=== PATIENT | female | born 1960 | race Caucasian/White ===

== ENCOUNTER 2016-12-25 18:27 | Inpatient (IN) | payer OTHER, MEDICAID ==
[2016-12-25 18:35] VITALS: BMI 33.0
--- NOTE | 2016-12-25 19:07 | ED PDOC ---
Arrival/HPI - General Chief Complaint: Back Pain Time Seen by Provider: 12/25/16 19:03 - History of Present Illness Narrative History of Present Illness (Text): 12/25/16 19:45 Patient presents with left lower lumbar back pain radiating to her left lower extremity. Pt states pain feels like a muscle spasm, worst with movement and palpation. No ripping/tearing sensation, pt is not diffuse and not traveling or changing location. Relieved with and pain medications, which patient did not take today. No lower extremity pain/weakness/paresthesias. Pt denies urinary incontinence or retention. No bowel incontinence, constipation, or diarrhea. No hx of IVDA, no f/c, no neck pain. No other complaints. Past Medical History - Provider Review Nursing Documentation Reviewed: Yes - Infectious Disease Hx of Infectious Diseases: None - Tetanus Immunization Tetanus Immunization: Unknown - Reproductive Menopause: Yes - Cardiac Hx Cardiac Disorders: Yes Hx Hypertension: Yes - Pulmonary Hx Respiratory Disorders: Yes Hx Asthma: Yes - Neurological Hx Neurological Disorder: Yes Hx Dizziness: Yes - HEENT Hx HEENT Disorder: No - Renal Hx Renal Disorder: No - Endocrine/Metabolic Hx Endocrine Disorders: Yes Hx Systemic Lupus Erythematosus: Yes - Hematological/Oncological Hx Blood Disorders: No - Integumentary Hx Dermatological Disorder: Yes Other/Comment: Shingles - Musculoskeletal/Rheumatological Hx Arthritis: Yes - Gastrointestinal Hx Gastrointestinal Disorders: Yes - Genitourinary/Gynecological Hx Genitourinary Disorders: No - Psychiatric Hx Psychophysiologic Disorder: Yes Hx Depression: Yes Hx Substance Use: No - Surgical History Hx Section: Yes - Anesthesia Hx Anesthesia: No - Suicidal Assessment Feels Threatened In Home Enviroment: No Family/Social History Family/Social History: Unknown Family HX Smoking Status: Never Smoked Hx Alcohol Use: No Hx Substance Use: No Hx Substance Use Treatment: No Allergies/Home Meds Allergies/Adverse Reactions: Allergies acetaminophen Allergy (Verified 11/30/16 11:42) RASH aspirin Allergy (Verified 11/30/16 11:42) RASH codeine Allergy (Verified 11/30/16 11:42) RASH ibuprofen Allergy (Verified 11/30/16 11:42) RASH Home Medications: Home Meds Medication Instructions Recorded Confirmed Clopidogrel [Plavix] 75 mg PO DAILY 04/22/16 07/01/16 DULoxetine [Cymbalta] 60 mg PO DAILY 04/22/16 07/01/16 Hydroxychloroquine Sulfate 200 mg PO DAILY 04/22/16 07/01/16 [Hydroxychloroquine Sulfate] Methotrexate [Methotrexate] 2.5 mg PO DAILY 04/22/16 07/01/16 Pantoprazole [Protonix EC Tab] 40 mg PO DAILY 04/22/16 07/01/16 Sucralfate [Carafate Oral Susp] 1 mg PO DAILY 04/22/16 07/01/16 Physical Exam - Physical Exam Narrative Physical Exam (Text): 12/25/16 19:54 - Review of Systems Constitutional: Normal. absent: Fatigue, Weight Change, Fevers Eyes: Normal ENT: denies sore throat, denies tristhmus Respiratory: Normal. absent: SOB, Cough, Sputum Cardiovascular: absent: Chest Pain, Palpitations, Syncope Gastrointestinal: Normal. absent: Abdominal Pain, Diarrhea, Nausea, Vomiting Genitourinary: Normal. absent: Dysuria, Frequency, Hematuria, vaginal bleeding Musculoskeletal: Back Pain. absent: Neck Pain Skin: no rashes, no erythema Neurological: absent: Focal Weakness Endocrine: Normal Hemo/Lymphatic: Normal Psychiatric: No suicidal or homicidal ideations Physical exam Patient appears age appropriate in no distress, speaking full sentences without difficulty Increased hypertonicity appreciated in the left lower lumbar region, pain reproduced with palpation. No midline tenderness. FROM of pt's cervical, thoracic, lumbar, and sacral regions appreciated, active/passive without any difficulty. Lower extremities with full neurological and vascular intact. - Systems Exam Head: Present: Atraumatic, Normocephalic Pupils: Present: PERRL Extroacular Muscles: Present: EOMI Conjunctiva: Present: Normal Mouth: Present: Moist Mucous Membranes Neck: Present: Normal Range of Motion. No: MIDLINE TENDERNESS, Paraspinal Tenderness Respiratory/Chest: Present: Clear to Auscultation, Good Air Exchange. No: Respiratory Distress, Accessory Muscle Use, Tachypneic Cardiovascular: Present: Regular Rate and Rhythm, Normal S1, S2, Peripheal Pulses Present. No: Murmurs Abdomen: Present: Normal Bowel Sounds. No: Tenderness, Distention, Peritoneal Signs, Rebound, Guarding Back: Present: No: Midline Tenderness Upper Extremity: Present: Normal Inspection. No: Cyanosis, Edema Lower Extremity: Present: Normal Inspection. No: Edema Neurological: Present: GCS=15, Speech Normal, cranial nerves II through XII fully intact with no cerebellar abnormality, neurosensory fully intact. No focal neurological deficits. Skin: Present: Warm, Dry, Normal Color. No: Rashes Lymphatic: Present: OX3, NI, NC Psychiatric: Present: Alert, Oriented x 3, Normal Insight, Normal Concentration Vital Signs Reviewed: Yes Vital Signs Temp Pulse Resp BP Pulse Ox 12/25/16 21:03 137 H 18 125/86 99 12/25/16 19:00 111 H 117/76 95 12/25/16 18:33 98.2 F 103 H 18 154/134 H 98 Temperature: Afebrile Blood Pressure: Hypertensive Pulse: Tachycardic Respiratory Rate: Normal Appearance: Positive for: Well-Appearing Pain Distress: Moderate Mental Status: Positive for: Alert and Oriented X 3 Medical Decision Making ED Course and Treatment: 12/25/16 19:07 Patient's previous records reviewed, patient was admitted into the hospital on , with acute on chronic back pain due to compression fractures. Per patient's discharge summaries, she had chronic compression fractures T8 and T9 as well as spinal fusion L4, L5. Patient's MRI showed acute on subacute P2H4-Y9 compression fracture fractures. Patient has been evaluated by neurosurgery which recommended bracing and physical therapy. 12/25/16 21:32 pt to be admitted for intractable back pain still in too much pain to ambulate after pain meds pt aware of and agrees with plan dw Dr. Maria, accepted admission - Lab Interpretations Lab Results: 12/25/16 19:57 12/25/16 19:57 Lab Results 12/25/16 20:40: Urine Color Yellow, Urine Appearance Clear, Urine pH 8.0, Ur Specific Cutler 1.020, Urine Protein Negative, Urine Glucose (UA) Negative, Urine Ketones Negative, Urine Blood Negative, Urine Nitrate Negative, Urine Bilirubin Negative, Urine Urobilinogen 0.2, Ur Leukocyte Esterase Negative 12/25/16 19:57: WBC 12.1 H D, RBC 4.28, Hgb 13.1, Hct 39.0, MCV 91.1, MCH 30.6, MCHC 33.6, RDW 13.7, Plt Count 207, MPV 10.8, Gran % 89.1 H, Lymph % (Auto) 5.6 L, Morrow % (Auto) 5.0, Eos % (Auto) 0.2 L, Baso % (Auto) 0.1, Gran # 10.77 H, Lymph # 0.7 L, Morrow # 0.6, Eos # 0.0, Baso # 0.01, Sodium 138, Potassium 4.6, Chloride 98, Carbon Dioxide 33, Anion Gap 12, BUN 14, Creatinine 1.0, Est GFR ( Amer) > 60, Est GFR (Non-Af Amer) 57, Random Glucose 112 H, Calcium 10.1 , Total Bilirubin 0.6, AST 34, ALT 27, Alkaline Phosphatase 138 H, Total Protein 7.8, Albumin 4.1, Globulin 3.7, Albumin/Globulin Ratio 1.1 - Medication Orders Current Medication Orders: Discontinued Medications Hydromorphone HCl (Dilaudid) 1 mg IVP STAT STA Stop: 12/25/16 20:33 Last Admin: 12/25/16 20:32 Dose: 1 MG IVP Administration Document 12/25/16 20:32 SF (Rec: 12/25/16 20:32 [place] [id number]) Charges for Administration # of IVP Administrations 1 Hydromorphone HCl (Dilaudid) Confirm Administered Dose 1 mg .ROUTE .STK-MED ONE Stop: 12/25/16 20:34 Morphine Sulfate (Morphine) 6 mg IVP STAT STA Stop: 12/25/16 19:18 Last Admin: 12/25/16 19:43 Dose: 6 MG IVP Administration Document 12/25/16 19:43 SF (Rec: 12/25/16 19:43 [place] [id number]) Charges for Administration # of IVP Administrations 1 Disposition/Present on Arrival - Present on Arrival Any Indicators Present on Arrival: No History of DVT/PE: No History of Uncontrolled Diabetes: No Urinary Catheter: No History of Decub. Ulcer: No History Surgical Site Infection Following: None - Disposition Have Diagnosis and Disposition been Completed?: Yes Diagnosis: Back pain Disposition: HOSPITALIZED Disposition Time: 21:33 Patient Plan: Admission Condition: FAIR
[2016-12-25 20:04] LABS: ADD MANUAL DIFF? NO
[2016-12-25 20:07] LABS: BASO # 0.01 K/mm3 (0.0-2.0); BASO % 0.1 % (0.0-3.0); EOS % 0.2 % (1.5-5.0); GRAN # 10.77 (1.4-6.5); GRAN % 89.1 % (50.0-68.0); LYMPH # 0.7 (1.2-3.4); LYMPH % 5.6 % (22.0-35.0); MEAN CELL VOLUME 91.1 fL (80.0-105.0); MEAN CORPUSCULAR HEMOGLOBIN 30.6 pg (25.0-35.0); MEAN CORPUSCULAR HGB CONC 33.6 g/dl (31.0-37.0); MEAN PLATELET VOLUME 10.8 fl (7.0-11.0); MONO # 0.6 (0.1-0.6); PLATELET COUNT 207 10^3/uL (120.0-450.0); RED CELL DISTRIBUTION WIDTH 13.7 % (11.5-14.5); WHITE BLOOD COUNT 12.1 10^3/ul (4.5-11.0)
[2016-12-25] MEDS ORDERED: HYDROmorphone 2 mg/ml ISec IVP STA (20:28)
[2016-12-25 20:32] LABS: ALB/GLOB RATIO 1.1 (1.1-1.8); ALKALINE PHOSPHATASE 138 U/L (38-133); ALT/SGPT 27 U/L (7-56); AST/SGOT 34 U/L (15-39); BILIRUBIN,TOTAL 0.6 mg/dL (0.2-1.3); BLOOD UREA NITROGEN 14 mg/dL (7-21); CALCIUM 10.1 mg/dL (8.4-10.5); CARBON DIOXIDE 33 mmol/L (21-33); CHLORIDE 98 mmol/L (98-107); GFR AFRICAN-AMERICAN > 60; GLUCOSE,RANDOM 112 mg/dL (70-110); POTASSIUM 4.6 mmol/L (3.6-5.0); SODIUM 138 mmol/L (132-148); TOTAL PROTEIN 7.8 g/dL (5.8-8.3)
[2016-12-25] MEDS ORDERED: HYDROmorphone 1 mg/ml ISec IVP STA (20:32)
[2016-12-25] MEDS ORDERED: HYDROmorphone 1 mg/ml ISec ONE (20:33)
[2016-12-25 20:52] LABS: URINE BILIRUBIN NEGATIVE (NEGATIVE); URINE BLOOD NEGATIVE (NEGATIVE); URINE GLUCOSE (UA) NEGATIVE (NEGATIVE); URINE KETONE NEGATIVE (NEGATIVE); URINE LEUKOCYTE ESTERASE NEGATIVE Leu/uL (NEGATIVE); URINE PROTEIN NEGATIVE mg/dL (<30 mg/dL); URINE UROBILINOGEN 0.2 E.U./dL (<1 E.U./dL)
[2016-12-25 20:56] LABS: URINE APPEARANCE CLEAR (CLEAR); URINE COLOR YELLOW (YELLOW)
[2016-12-25] MEDS ORDERED: HYDROmorphone 0.5 mg/0.5 ml ISec IVP STA (22:37)
[2016-12-25] MEDS ORDERED: Oxycodone/Acetaminophen 5/325 mg Tab PO PRN (23:37)
[2016-12-25] MEDS ORDERED: MethylPREDNISolone 40 mg Vial IVP STA (23:37)
--- NOTE | 2016-12-26 01:33 | CP.PCM.HP ---
Addendum entered and electronically signed by Thad Page DO 12/26/16 17: 38: Pt had urinary retention (900 cc). Neurosurgery, Dr. Hinds, was consulted. Cervical, thoracic, lumbar spine MRI was ordered to rule out cauda equina syndrome. Rectal exam revealed normal sphincter tone and pt had normal sensory and motor function in b/l lower extremities, although it was difficult to do a proper exam due to pt's pain. Spine MRI revealed new T12 compression fracture as well as chronic compression fractures. Case and imaging were discussed over the phone in detail with Dr. Hinds, who stated that emergency surgery was not needed. As per Dr. Hinds, the pt needs pain management and a back brace. Neurosurgery will follow pt. Original Note: History of Present Illness - History of Present Illness History of Present Illness: CC: Intractable back pain HPI: This is a 56 yo F with PMH of SLE, CAD, [place] (2 yr prior), hx DVT and questionable PE s/p IVC filter placement, and compression fractures of T8, T9, L4, and L5 s/p Lumbar fusion who presents with intractable back pain progressively worsening for 1 week. Patient was recently seen and discharged from [facility] on 12/05/16 for similar complaint, and was discharge home with medications and a back brace, with instructions to follow up with physical therapy. Per patient, she has been taking her medications and using the back brace, without any relief, but never followed up with PT due to her pain. She reports that the pain is worse with most movement, and is significant enough to limit her movement, to the point that she could not get up go the bathroom today and ended up soiling herself in bed. Describes pain initially as burning pain, intermittently progressing to sharp and/or shocking pains. Patient denies loss of control of bowels or bladder, but does note not having a bowel movement for 3 days. She denies loss of sensation in lower or upper extremities , loss of movement or strength (movement is strictly limited by pain), fevers, cough, chest pain, shortness of breath, lower extremity swelling, calf tenderness, blurred/double vision, nausea/emesis, or dysuria/hematuria. PMH: as above PSH: lumbar spinal fusion, IVC filter placement FHx: Mother with [place] in her 50's SHx: denies smoking, alcohol, illicits/IVDA not working currently Lives with daughter who is primary caregiver PMD: Dr. Ruiz Present on Admission - Present on Admission Any Indicators Present on Admission: Yes History of DVT/PE: Yes History of Uncontrolled Diabetes: No Urinary Catheter: No Review of Systems - Review of Systems Systems not reviewed;Unavailable: Language Barrier (Malian-speaking, Video benefits sales consultant used) - Constitutional Constitutional: Chills, Headache (intermittent, not present at time of exam). absent: Fever, Frequent Falls, Weakness - EENT Eyes: absent: Blurred Vision, Change in Vision, Loss of Vision Ears: absent: Disequilibrium, Dizziness Nose/Mouth/Throat: Neck Pain (intermittent, not present at time of exam). absent: Mouth Pain - Cardiovascular Cardiovascular: Dyspnea (concurrent with exacerbations of back pain, otherwise regular breathing). absent: Chest Pain, Chest Pain with Activity, Pain Radiating to Arm/Neck/Jaw, Lightheadedness - Respiratory Respiratory: Dyspnea (concurrent with exacerbations of back pain, otherwise regular breathing). absent: Cough - Gastrointestinal Gastrointestinal: Constipation (no BM x3 days). absent: Abdominal Pain, Diarrhea, Nausea, Vomiting - Genitourinary Genitourinary: absent: Dysuria, Flank Pain, Hematuria - Musculoskeletal Musculoskeletal: Back Pain (acute exacerbations on chronic back pain, primarily described as lower back), Neck Pain (intermittently, not present at time of exam ), Radiating Pain into Limb (back pain intermittently described as extending into legs, L leg more than R leg). absent: Joint Swelling, Numbness - Integumentary Integumentary: absent: Pruritus, Rash - Neurological Neurological: Headaches. absent: Disequilibrium, Dizziness, Numbness, Focal Weakness, Frequent Falls, Loss of Vision, Vertigo, Weakness, Other Visual Disturbances - Psychiatric Psychiatric: Anxiety - Endocrine Endocrine: absent: Fatigue, Palpitations Past Patient History - Infectious Disease Hx of Infectious Diseases: None - Tetanus Immunizations Tetanus Immunization: Unknown - Past Social History Smoking Status: Never Smoked - CARDIAC Hx Cardiac Disorders: Yes Hx Hypertension: Yes - PULMONARY Hx Respiratory Disorders: Yes Hx Asthma: Yes - NEUROLOGICAL Hx Neurological Disorder: Yes Hx Dizziness: Yes - HEENT Hx HEENT Problems: No - RENAL Hx Chronic Kidney Disease: No - ENDOCRINE/METABOLIC Hx Endocrine Disorders: Yes Hx Systemic Lupus Erythematosus: Yes - HEMATOLOGICAL/ONCOLOGICAL Hx Blood Disorders: No - INTEGUMENTARY Hx Dermatological Problems: Yes Other/Comment: Shingles - MUSCULOSKELETAL/RHEUMATOLOGICAL Hx Arthritis: Yes - GASTROINTESTINAL Hx Gastrointestinal Disorders: Yes - GENITOURINARY/GYNECOLOGICAL Hx Genitourinary Disorders: No - PSYCHIATRIC Hx Psychophysiologic Disorder: Yes Hx Depression: Yes Hx Substance Use: No - SURGICAL HISTORY Hx Section: Yes - ANESTHESIA Hx Anesthesia: No Meds Allergies/Adverse Reactions: Allergies Allergy/AdvReac Type Severity Reaction Status Date / Time acetaminophen Allergy RASH Verified 11/30/16 11:42 aspirin Allergy RASH Verified 11/30/16 11:42 codeine Allergy RASH Verified 11/30/16 11:42 ibuprofen Allergy RASH Verified 11/30/16 11:42 Physical Exam - Constitutional Appears: Non-toxic, In Acute Distress (2/2 exacerbations of back pain), Agitated Additional comments: When not experiencing pain spasms, patient is not agitated and answers questions appropriately; agitated 2/2 acute back spasms/pain exacerbations - Head Exam Head Exam: ATRAUMATIC, NORMAL INSPECTION, NORMOCEPHALIC - Eye Exam Eye Exam: EOMI, Normal appearance. absent: Conjunctival injection, Scleral icterus Pupil Exam: absent: Irregular, Unequal - ENT Exam ENT Exam: Mucous Membranes Moist - Neck Exam Neck exam: Negative for: Tenderness - Respiratory Exam Respiratory Exam: Clear to Auscultation Bilateral, NORMAL BREATHING PATTERN. absent: Decreased Breath Sounds, Rales, Rhonchi, Wheezes - Cardiovascular Exam Cardiovascular Exam: Tachycardia, REGULAR RHYTHM, +S1, +S2. absent: Diastolic murmur, Irregular Rhythm, RRR, Systolic Murmur Additional comments: Rapid rate, regular rhythm - GI/Abdominal Exam GI & Abdominal Exam: Normal Bowel Sounds, Soft, Tenderness (primarily along bilateral inferior quadrants). absent: Diminished Bowel Sounds, Firm, Rigid - Extremities Exam Extremities exam: Positive for: pedal pulses present (+2 dorsalis pedis bilaterally). Negative for: calf tenderness, pedal edema, tenderness ( extremity movement causes pain in back, but no acute tenderness of extremities themselves) Additional comments: +5/5 foot extension/flexion bilaterally able to hold legs up above bed against gravity without overt difficulty for at least 5 seconds bilaterally, no tremors or drift during this testing sensation intact and equal bilaterally in bilateral LE No edema or erythema bilaterally - Back Exam Back exam: muscle spasm, paraspinal tenderness, tenderness, vertebral tenderness. absent: rash noted Additional comments: Exquisitely tender along T7-9 region, tenderness to palpation along T10-L5 region No step off palpated Wearing back brace Unable to sit up without pain, spasms when lying left lateral-recumbent - Neurological Exam Neurological exam: Alert Additional comments: +2/4 patellar reflexes bilaterally downgoing 1st metacarpal on plantar reflex testing bilaterally - Psychiatric Exam Psychiatric exam: Agitated, Anxious - Skin Skin Exam: Dry, Intact, Normal Color, Warm Results - Vital Signs Recent Vital Signs: Last Vital Signs Temp 98 F 12/25/16 23:36 Pulse 121 H 12/25/16 23:36 Resp 19 12/25/16 23:36 BP 130/71 12/25/16 23:36 Pulse Ox 98 12/25/16 23:36 - Labs Result Diagrams: 12/25/16 19:57 12/25/16 19:57 Assessment & Plan - Assessment and Plan (Free Text) Assessment: This is a 56 yo F with PMH of SLE, CAD, [place] (2 yr prior), hx DVT and questionable PE s/p IVC filter placement, and compression fractures of T8, T9, L4, and L5 s/p Lumbar fusion who presents with intractable back pain progressively worsening for 1 week. She is being admitted and treated for intractable back pain with concurrent impairment of mobility. Plan: 1) Intractable back pain -Acute on chronic back pain vs new compression fracture vs radiculitis, less likely cauda equina syndrome -impaired mobility due to pain -On physical, most acute site of back pain at ~T7-9 -Was seen by neurosurgery during last admission, was found to have acute/ subacute L2-4 compression fractures on MRI; Back brace + PT recommended at that time -Neurologically intact, sensation intact and equal in bilateral lower extremity , no loss of bowel or bladder control -Received IV dilaudid in ED; Percocet 5/325mg q6 PRN for pain, Valium 5mg q6 PRN for muscle spasm -Solumedrol 40mg IV x1 for possible inflammatory component, will start on daily Prednisone 40mg in AM -PT/OT consulted -Continue home TLSO brace -Will reassess after adequate pain control, if unable to control with aggressive measures or deficit is noted on exam, will likely require new spinal imaging 2) Constipation -No BM x3 days as per patient -likely 2/2 chronic pain medication, bed bound state -Miralax 17g daily 3) CAD, s/p [place] -continue home cardiac meds -current tachycardia likely 2/2 pain 4) SLE -continue home meds 5) Hx DVT +/- PE -s/p IVC filter -will cover with Heparin for DVT/PE ppx Dispo: Admitted to Med/Surg as inpatient for management/tx of intractable back pain inhibiting movement FEN: Heart-healthy diet Access: Peripheral IV Consults: PT/OT Ppx: Heparin for DVT/PE, Protonix for GI Patient seen, reviewed, and discussed with attending, Dr Maria. - Date & Time Date: 12/26/16 Time: 02:13
[2016-12-26 05:48] LABS: HEMATOCRIT 36.3 % (36.0-48.0); MEAN CELL VOLUME 90.5 fL (80.0-105.0); MEAN CORPUSCULAR HEMOGLOBIN 30.4 pg (25.0-35.0); MEAN CORPUSCULAR HGB CONC 33.6 g/dl (31.0-37.0); MEAN PLATELET VOLUME 11.3 fl (7.0-11.0); PLATELET COUNT 196 10^3/uL (120.0-450.0); RED CELL DISTRIBUTION WIDTH 13.8 % (11.5-14.5); WHITE BLOOD COUNT 14.4 10^3/ul (4.5-11.0)
[2016-12-26 06:06] LABS: ADD MANUAL DIFF? YES
[2016-12-26] MEDS: Metoprolol Succinate 25 mg XL Tab PO SCH ×2 (06:19→12:06)
[2016-12-26 06:56] LABS: NEUTROPHIL 92 % (50.0-70.0)
[2016-12-26 06:57] LABS: PLATELET ESTIMATE NORMAL (NORMAL)
[2016-12-26 06:59] LABS: ALB/GLOB RATIO 1.1 (1.1-1.8); ALKALINE PHOSPHATASE 119 U/L (38-133); ALT/SGPT 28 U/L (7-56); AST/SGOT 26 U/L (15-39); BILIRUBIN,TOTAL 0.4 mg/dL (0.2-1.3); BLOOD UREA NITROGEN 15 mg/dL (7-21); CALCIUM 9.6 mg/dL (8.4-10.5); CARBON DIOXIDE 28 mmol/L (21-33); CHLORIDE 97 mmol/L (95-110); GFR AFRICAN-AMERICAN > 60; GLUCOSE,RANDOM 124 mg/dL (70-110); MAGNESIUM 1.6 mg/dL (1.7-2.2); PHOSPHOROUS 3.6 mg/dL (2.5-4.5); POTASSIUM 4.3 mmol/L (3.6-5.0); SODIUM 137 mmol/L (132-148)
[2016-12-26] MEDS ORDERED: Magnesium Sulfate 2 GM in Sodium Chloride 0.9% 100 ML IVPB ONE (07:35)
[2016-12-26] MEDS ORDERED: Morphine 2 mg/ml ISec IVP PRN (07:40)
[2016-12-26] MEDS ORDERED: Morphine 4 mg/ml ISec IVP PRN (07:41)
[2016-12-26] MEDS: Pantoprazole 40 mg EC Tab PO SCH (09:07)
[2016-12-26] MEDS: POLYETHYLENE GLYCOL 3350 17 GM/Dose PACKET PO SCH (09:07)
--- NOTE | 2016-12-26 12:04 | RAD ---
HISTORY: fever, leukocytosis COMPARISON: 11/30/2016, 04/19/2016. TECHNIQUE: Chest PA and lateral FINDINGS: LUNGS: Consolidative changes/atelectasis right lower lobe. These are new findings. PLEURA: No significant pleural effusion identified. No pneumothorax apparent. CARDIOVASCULAR: Cardiomegaly. No evidence of acute, significant cardiovascular disease. OSSEOUS STRUCTURES: No significant abnormalities. VISUALIZED UPPER ABDOMEN: Normal. OTHER FINDINGS: None. IMPRESSION: Right lower lobe atelectasis/ infiltrate. Limitations of the current examination: Poor inspiratory effort, portable/ supine technique accentuating these findings.
[2016-12-26] MEDS: Hydrocortisone 1% Cream (30 GM) TOP SCH ×2 (12:08→17:14)
--- NOTE | 2016-12-26 14:23 | MRI ---
PROCEDURE: MR THORACIC SPINE WITHOUT CONTRAST HISTORY: Back pain and spams COMPARISON: 12/01/2016 TECHNIQUE: Multiecho multiplanar sequences were performed through the thoracic spine without the use of intravenous contrast. The patient was unable to complete all of the axial images. There was some motion artifact. FINDINGS: ALIGNMENT: Normal thoracic spinal alignment. Normal thoracic kyphosis. VERTEBRA: There is a new compression fracture at T12. There is marrow edema. Vertebral height is 12 mm compared to were normal of 16 mm. There is no retropulsion into the spinal canal. There is a chronic compression deformity of T9 and T6 as well as L2 and L3. MARROW: Marrow edema at T12 PARASPINAL SOFT TISSUES: Unremarkable. CORD: Unremarkable thoracic cord. No volume loss, signal abnormality or syrinx. DISCS: No disc herniation, spinal canal stenosis, or neuroforaminal narrowing. OTHER FINDINGS: None. IMPRESSION: New acute T12 compression fracture with no encroachment of the spinal canal. Multiple chronic compression fractures
--- NOTE | 2016-12-26 16:54 | MRI ---
PROCEDURE: MR LUMBAR SPINE WITHOUT CONTRAST HISTORY: Back pain and spams COMPARISON: 12/01/2016 TECHNIQUE: Multiecho multiplanar sequences were performed through the lumbar spine without the use of intravenous contrast. FINDINGS: Normal lumbar lordosis. There is no change in the appearance of the previously described compression fractures at L2 and L3. There is a new compression fracture of T12 which was reported on the thoracic spine exam. Conus medullaris unremarkable at the level of L1 Paraspinal soft tissues are unremarkable. OTHER FINDINGS: Previous fusion at L5-S1 with pedicle screws and rods. IMPRESSION: No change in appearance of previously described compression fractures at L2 and L3 New compression fracture of T12
--- NOTE | 2016-12-26 16:58 | MRI ---
PROCEDURE: MR CERVICAL SPINE WITHOUT CONTRAST HISTORY: Back pain and spams COMPARISON: None available. TECHNIQUE: Multiecho multiplanar sequences were performed through the cervical spine without the use of intravenous contrast. The study was mildly degraded by motion artifact. FINDINGS: Normal lordotic curvature. Craniocervical junction unremarkable. Vertebral body heights preserved. No marrow signal abnormality. Normal cervical cord. There is multilevel disc degeneration with desiccation of the disc material and mild disc bulging. No significant stenosis OTHER FINDINGS: None. IMPRESSION: No evidence of compression fracture or spinal stenosis in the cervical spine
[2016-12-26] MEDS: HYDROmorphone 2 mg/ml ISec IVP PRN ×2 (17:12→21:33)
[2016-12-27] MEDS: HYDROmorphone 2 mg/ml ISec IVP PRN ×3 (00:37→09:49)
--- NOTE | 2016-12-27 01:00 | CP.PCM.PCO ---
Physician Communication Note - Physician Communication Note Physician Communication Note: chart reviewed. On Rocephin. Noted fever. Consult to be done tomorrow
[2016-12-27 07:20] LABS: ADD MANUAL DIFF? NO
[2016-12-27 07:28] LABS: BASO # 0.01 K/mm3 (0.0-2.0); BASO % 0.1 % (0.0-3.0); GRAN # 8.64 (1.4-6.5); GRAN % 90.3 % (50.0-68.0); LYMPH # 0.4 (1.2-3.4); MEAN CELL VOLUME 90.9 fL (80.0-105.0); MEAN CORPUSCULAR HEMOGLOBIN 30.4 pg (25.0-35.0); MEAN CORPUSCULAR HGB CONC 33.4 g/dl (31.0-37.0); MEAN PLATELET VOLUME 10.9 fl (7.0-11.0); MONO # 0.5 (0.1-0.6); MONO % 5.6 % (1.0-6.0); PLATELET COUNT 144 10^3/uL (120.0-450.0); RED CELL DISTRIBUTION WIDTH 14.1 % (11.5-14.5); WHITE BLOOD COUNT 9.6 10^3/ul (4.5-11.0)
[2016-12-27 07:37] LABS: ALB/GLOB RATIO 1.1 (1.1-1.8); BILIRUBIN,TOTAL 0.4 mg/dL (0.2-1.3); MAGNESIUM 2.2 mg/dL (1.7-2.2); POTASSIUM 4.4 mmol/L (3.6-5.0); TOTAL PROTEIN 6.9 g/dL (5.8-8.3)
--- NOTE | 2016-12-27 09:36 | CP.PCM.PN ---
Subjective - Date & Time of Evaluation Date of Evaluation: 12/27/16 Time of Evaluation: 09:34 - Subjective Subjective: pt ween in consult last month has increased lbp New comp fx T12 on new MRI No cord compression anywhere Uninary retention probably 2 to pain Not surgical candidate Exam shows sever thoracic tenderness good le strenth no dec to pin Suggest Pain managment or perhaps interventional radiology for vertebroplasty Objective - Vital Signs/Intake and Output Vital Signs (last 24 hours): Temp Pulse Resp BP Pulse Ox 99.8 F H 129 H 17 129/97 H 99 12/27/16 08:00 12/27/16 08:00 12/27/16 08:00 12/27/16 08:00 12/27/16 08:00 Intake and Output: 12/27/16 12/27/16 06:59 18:59 Intake Total 120 Output Total 200 Balance -80 - Medications Medications: Current Medications Clopidogrel Bisulfate (Plavix) 75 mg PO DAILY [facility] Last Admin: 12/26/16 09:20 Dose: 75 mg Cyclobenzaprine HCl (Flexeril) 10 mg PO TID PRN PRN Reason: Muscle spasm Last Admin: 12/26/16 17:19 Dose: 10 mg Diazepam (Valium) 5 mg PO Q6H PRN; Protocol PRN Reason: Muscle spasm Last Admin: 12/26/16 09:06 Dose: 5 mg Duloxetine HCl (Cymbalta) 60 mg PO DAILY [facility] Last Admin: 12/26/16 09:07 Dose: 60 mg Fentanyl (Duragesic) 1 patch TD Q72H [facility] Last Admin: 12/26/16 18:41 Dose: 1 patch Gabapentin (Neurontin) 300 mg PO BID [facility] PRN Reason: Protocol Last Admin: 12/26/16 17:13 Dose: 300 mg Heparin Sodium (Porcine) (Heparin) 5,000 units SC Q12 [facility] PRN Reason: Protocol Last Admin: 12/26/16 21:25 Dose: 5,000 units Hydrocortisone (Cortizone 1% Cream) 0 gm TOP BID [facility] Last Admin: 12/26/16 17:14 Dose: Not Given Hydromorphone HCl (Dilaudid) 2 mg IVP Q3 PRN PRN Reason: Pain, severe (8-10) Last Admin: 12/27/16 06:01 Dose: 2 mg Hydroxychloroquine Sulfate (Plaquenil) 200 mg PO DAILY [facility] Last Admin: 12/26/16 09:06 Dose: 200 mg Ceftriaxone Sodium (Rocephin 1 Gram Ivpb) 100 mls @ 100 mls/hr IVPB ONCE ONE PRN Reason: Protocol Stop: 12/27/16 13:44 Ceftriaxone Sodium (Rocephin 1 Gram Ivpb) 100 mls @ 100 mls/hr IVPB DAILY [facility] PRN Reason: Protocol Ketorolac Tromethamine (Toradol) 30 mg IVP Q6H PRN PRN Reason: Pain, severe (8-10) Methotrexate (Methotrexate) 2.5 mg PO DAILY [facility] Metoprolol Succinate (Toprol Xl) 25 mg PO DAILY [facility] Last Admin: 12/26/16 12:06 Dose: Not Given Pantoprazole Sodium (Protonix Ec Tab) 40 mg PO DAILY [facility] Last Admin: 12/26/16 09:07 Dose: 40 mg Polyethylene Glycol (Miralax) 17 gm PO DAILY [facility] Last Admin: 12/26/16 09:07 Dose: 17 gm Prednisone (Prednisone Tab) 40 mg PO DAILY [facility] Last Admin: 12/26/16 09:07 Dose: 40 mg Sucralfate (Carafate Tab) 1 gm PO DAILY [facility] - Labs Labs: 12/27/16 07:10 12/27/16 07:10
[2016-12-27] MEDS: Hydrocortisone 1% Cream (30 GM) TOP SCH ×2 (09:43→17:58)
[2016-12-27] MEDS: Metoprolol Succinate 25 mg XL Tab PO SCH (09:48)
[2016-12-27] MEDS: Pantoprazole 40 mg EC Tab PO SCH (09:48)
[2016-12-27] MEDS: POLYETHYLENE GLYCOL 3350 17 GM/Dose PACKET PO SCH (09:49)
[2016-12-27] MEDS: cefTRIAXone 1 gm 100 ML IVPB SCH (09:50)
[2016-12-27] MEDS ORDERED: cefTRIAXone 1 gm 100 ML IVPB ONE (12:45)
[2016-12-27] MEDS ORDERED: HYDROmorphone 2 mg/ml ISec IVP PRN (17:50)
--- NOTE | 2016-12-27 17:59 | CP.PCM.CON ---
History of Present Illness - History of Present Illness History of Present Illness: Infectious Disease Consultation: December 27, 2016 56 yo female with extensive past medical history showing SLE, CAD, OR ( 2 yr prior), hx DVT and questionable PE s/p IVC filter placement, and compression fractures of T8, T9, L4, and L5 s/p Lumbar fusion recently discharge from [facility] [place] presents with intractable back pain and findings of new compression fracture of T12. Blood culture with gram positive cocci with FISH analysis suggesting Staph Aureus. The patient is awake and in pain. No neurosurgical interventions at this time. No relief with back brace for pain. Fevers up to 100.9 F. PMHx: SLE, CAD, OR (2 yr prior), hx DVT and questionable PE s/p IVC filter placement, and compression fractures of T8, T9, L4, and L5 s/p Lumbar fusion PSHx: Lumbar Spinal Fusion, IVC Filter placement Allergies: acetaminophen, aspirin, codeine, ibuprofen Social Hx: No tobacco, EtOH, or illicit drug use Active Medications Clopidogrel Bisulfate (Plavix) 75 mg PO DAILY [facility] Last Admin: 12/27/16 09:48 Dose: 75 mg Cyclobenzaprine HCl (Flexeril) 10 mg PO TID PRN PRN Reason: Muscle spasm Last Admin: 12/27/16 09:48 Dose: 10 mg Diazepam (Valium) 5 mg PO Q6H PRN; Protocol PRN Reason: Muscle spasm Last Admin: 12/26/16 09:06 Dose: 5 mg Duloxetine HCl (Cymbalta) 60 mg PO DAILY [facility] Last Admin: 12/27/16 09:48 Dose: 60 mg Fentanyl (Duragesic) 1 patch TD Q72H [facility] Last Admin: 12/26/16 18:41 Dose: 1 patch Gabapentin (Neurontin) 300 mg PO BID [facility] PRN Reason: Protocol Last Admin: 12/27/16 09:48 Dose: 300 mg Heparin Sodium (Porcine) (Heparin) 5,000 units SC Q12 [facility] PRN Reason: Protocol Last Admin: 12/27/16 09:49 Dose: 5,000 units Hydrocortisone (Cortizone 1% Cream) 0 gm TOP BID [facility] Last Admin: 12/27/16 09:43 Dose: 1 appl Hydromorphone HCl (Dilaudid) 1 mg IVP Q3 PRN PRN Reason: Pain, severe (8-10) Hydroxychloroquine Sulfate (Plaquenil) 200 mg PO DAILY [facility] Last Admin: 12/27/16 09:48 Dose: 200 mg Ceftriaxone Sodium (Rocephin 1 Gram Ivpb) 100 mls @ 100 mls/hr IVPB DAILY [facility] PRN Reason: Protocol Last Admin: 12/27/16 09:50 Dose: 100 mls/hr Ketorolac Tromethamine (Toradol) 30 mg IVP Q6H PRN PRN Reason: Pain, severe (8-10) Methotrexate (Methotrexate) 2.5 mg PO DAILY [facility] Metoprolol Succinate (Toprol Xl) 25 mg PO DAILY [facility] Last Admin: 12/27/16 09:48 Dose: 25 mg Pantoprazole Sodium (Protonix Ec Tab) 40 mg PO DAILY [facility] Last Admin: 12/27/16 09:48 Dose: 40 mg Polyethylene Glycol (Miralax) 17 gm PO DAILY [facility] Last Admin: 12/27/16 09:49 Dose: 17 gm Prednisone (Prednisone Tab) 40 mg PO DAILY [facility] Last Admin: 12/27/16 09:48 Dose: 40 mg Sucralfate (Carafate Tab) 1 gm PO DAILY [facility] Family Hx: Mother - OR in 50s ROS: Fevers, chills. Generalized pains with severe back pains. No cough, SOB, headaches, dizziness, chest pain, abdominal pain, melena, hematuria, hematemesis , hematochezia, depression, anxiety, diarrhea. Past Patient History - Infectious Disease Hx of Infectious Diseases: None - Tetanus Immunizations Tetanus Immunization: Unknown - Past Social History Smoking Status: Never Smoked - CARDIAC Hx Cardiac Disorders: Yes Hx Hypertension: Yes - PULMONARY Hx Respiratory Disorders: Yes Hx Asthma: Yes - NEUROLOGICAL Hx Neurological Disorder: Yes Hx Dizziness: Yes - HEENT Hx HEENT Problems: No - RENAL Hx Chronic Kidney Disease: No - ENDOCRINE/METABOLIC Hx Endocrine Disorders: Yes Hx Systemic Lupus Erythematosus: Yes - HEMATOLOGICAL/ONCOLOGICAL Hx Blood Disorders: No - INTEGUMENTARY Hx Dermatological Problems: Yes Other/Comment: Shingles - MUSCULOSKELETAL/RHEUMATOLOGICAL Hx Arthritis: Yes - GASTROINTESTINAL Hx Gastrointestinal Disorders: Yes - GENITOURINARY/GYNECOLOGICAL Hx Genitourinary Disorders: No - PSYCHIATRIC Hx Psychophysiologic Disorder: Yes Hx Depression: Yes Hx Substance Use: No - SURGICAL HISTORY Hx Section: Yes - ANESTHESIA Hx Anesthesia: No Meds Allergies/Adverse Reactions: Allergies Allergy/AdvReac Type Severity Reaction Status Date / Time acetaminophen Allergy RASH Verified 11/30/16 11:42 aspirin Allergy RASH Verified 11/30/16 11:42 codeine Allergy RASH Verified 11/30/16 11:42 ibuprofen Allergy RASH Verified 11/30/16 11:42 - Medications Medications: Current Medications Clopidogrel Bisulfate (Plavix) 75 mg PO DAILY [facility] Last Admin: 12/27/16 09:48 Dose: 75 mg Cyclobenzaprine HCl (Flexeril) 10 mg PO TID PRN PRN Reason: Muscle spasm Last Admin: 12/27/16 09:48 Dose: 10 mg Diazepam (Valium) 5 mg PO Q6H PRN; Protocol PRN Reason: Muscle spasm Last Admin: 12/26/16 09:06 Dose: 5 mg Duloxetine HCl (Cymbalta) 60 mg PO DAILY [facility] Last Admin: 12/27/16 09:48 Dose: 60 mg Fentanyl (Duragesic) 1 patch TD Q72H [facility] Last Admin: 12/26/16 18:41 Dose: 1 patch Gabapentin (Neurontin) 300 mg PO BID [facility] PRN Reason: Protocol Last Admin: 12/27/16 09:48 Dose: 300 mg Heparin Sodium (Porcine) (Heparin) 5,000 units SC Q12 [facility] PRN Reason: Protocol Last Admin: 12/27/16 09:49 Dose: 5,000 units Hydrocortisone (Cortizone 1% Cream) 0 gm TOP BID [facility] Last Admin: 12/27/16 09:43 Dose: 1 appl Hydromorphone HCl (Dilaudid) 2 mg IVP Q3 PRN PRN Reason: Pain, severe (8-10) Last Admin: 12/27/16 09:49 Dose: 2 mg Hydroxychloroquine Sulfate (Plaquenil) 200 mg PO DAILY [facility] Last Admin: 12/27/16 09:48 Dose: 200 mg Ceftriaxone Sodium (Rocephin 1 Gram Ivpb) 100 mls @ 100 mls/hr IVPB DAILY [facility] PRN Reason: Protocol Last Admin: 12/27/16 09:50 Dose: 100 mls/hr Ketorolac Tromethamine (Toradol) 30 mg IVP Q6H PRN PRN Reason: Pain, severe (8-10) Methotrexate (Methotrexate) 2.5 mg PO DAILY [facility] Metoprolol Succinate (Toprol Xl) 25 mg PO DAILY [facility] Last Admin: 12/27/16 09:48 Dose: 25 mg Pantoprazole Sodium (Protonix Ec Tab) 40 mg PO DAILY [facility] Last Admin: 12/27/16 09:48 Dose: 40 mg Polyethylene Glycol (Miralax) 17 gm PO DAILY [facility] Last Admin: 12/27/16 09:49 Dose: 17 gm Prednisone (Prednisone Tab) 40 mg PO DAILY [facility] Last Admin: 12/27/16 09:48 Dose: 40 mg Sucralfate (Carafate Tab) 1 gm PO DAILY [facility] Physical Exam - Constitutional Appears: Non-toxic, In Acute Distress, Chronically Ill - Head Exam Head Exam: ATRAUMATIC, NORMOCEPHALIC - Eye Exam Eye Exam: EOMI, PERRL Pupil Exam: NORMAL ACCOMODATION, PERRL - ENT Exam ENT Exam: Mucous Membranes Moist, Normal External Ear Exam, TM's Normal Bilaterally - Neck Exam Neck exam: Positive for: Full Rom, Normal Inspection - Respiratory Exam Respiratory Exam: Clear to Auscultation Bilateral, NORMAL BREATHING PATTERN. absent: Rales, Rhonchi, Wheezes - Cardiovascular Exam Cardiovascular Exam: REGULAR RHYTHM, RRR, +S1, +S2 - GI/Abdominal Exam GI & Abdominal Exam: Normal Bowel Sounds, Soft. absent: Distended, Tenderness - Extremities Exam Extremities exam: Positive for: full ROM, normal inspection - Neurological Exam Neurological exam: Alert, CN II-XII Intact, Oriented x3 - Psychiatric Exam Psychiatric exam: Normal Affect, Normal Mood - Skin Skin Exam: Intact, Normal Color Results - Vital Signs Recent Vital Signs: Last Vital Signs Temp 97.9 F 12/27/16 16:29 Pulse 94 H 12/27/16 16:29 Resp 20 12/27/16 16:29 BP 102/67 12/27/16 16:29 Pulse Ox 99 12/27/16 16:29 - Labs Result Diagrams: 12/27/16 07:10 12/27/16 07:10 Labs: Laboratory Results - last 24 hr 12/27/16 12/27/16 12/27/16 07:10 11:04 16:11 WBC 9.6 D RBC 3.85 Hgb 11.7 L Hct 35.0 L MCV 90.9 MCH 30.4 MCHC 33.4 RDW 14.1 Plt Count 144 MPV 10.9 Gran % 90.3 H Lymph % (Auto) 4.0 L [place] % (Auto) 5.6 Eos % (Auto) 0.0 L Baso % (Auto) 0.1 Gran # 8.64 H Lymph # 0.4 L [place] # 0.5 Eos # 0.0 Baso # 0.01 Sodium 135 Potassium 4.4 Chloride 97 Carbon Dioxide 28 Anion Gap 14 BUN 28 H Creatinine 1.2 Est GFR ( Amer) 56 Est GFR (Non-Af Amer) 46 POC Glucose (mg/dL) 140 H 173 H Random Glucose 124 H Calcium 9.0 Phosphorus 3.0 Magnesium 2.2 Total Bilirubin 0.4 AST 25 ALT 29 Alkaline Phosphatase 112 Total Protein 6.9 Albumin 3.5 Globulin 3.3 Albumin/Globulin Ratio 1.1 Assessment & Plan - Assessment and Plan (Free Text) Assessment: 56 yo female with multiple compression fractures and fevers up to 100.9 F. The patient has positive blood cultures with gram positive cocci in clusters with FISH suggesting Staph Aureus. Currently on Ceftriaxone. Will add Vancomycin to the regimen until final culture results return. The patient with bacteremia. Cannot rule out MRSA yet. Thank you for allowing me to participate in the care of the patient, we will follow with you. Case discussed with Dr. Narvaez.
--- NOTE | 2016-12-27 18:22 | US ---
HISTORY: Leg pain and swelling. Evaluate for DVT PHYSICIAN(S): Lucas Whelan MD. TECHNIQUE: Duplex sonography and color-flow Doppler with graded compression were used to evaluate the deep venous systems of both lower extremities. The exam is somewhat limited by edema FINDINGS: The visualized deep venous systems of both lower extremities are sonographically normal and compressible. Normal wave forms and augmentation are seen. There is no sonographic evidence for deep venous thrombosis in the visualized segments of both lower extremities. IMPRESSION: No sonographic evidence for deep venous thrombosis in the visualized segments of both lower extremities.
[2016-12-27] MEDS: Vancomycin 1gm in NS 250ml 250 ML IVPB SCH (18:32)
--- NOTE | 2016-12-27 18:56 | CP.PCM.PN ---
<Thad Page - Last Filed: 12/27/16 18:52> Subjective - Date & Time of Evaluation Date of Evaluation: 12/27/16 Time of Evaluation: 09:34 - Subjective Subjective: Pt seen and examined. Pt complaining of extreme pain in back and legs. Pt reports that the pain has improved a little bit from yesterday. Pt denies fever , chills, chest pain, shortness of breath, nausea, and vomiting. Pt denies any numbness or loss of sensation in legs or saddle region. Objective - Vital Signs/Intake and Output Vital Signs (last 24 hours): Temp Pulse Resp BP Pulse Ox 97.9 F 97 H 20 102/67 99 12/27/16 16:29 12/27/16 18:00 12/27/16 16:29 12/27/16 16:29 12/27/16 16:29 Intake and Output: 12/27/16 12/27/16 06:59 18:59 Intake Total 120 300 Output Total 200 300 Balance -80 0 - Medications Medications: Current Medications Clopidogrel Bisulfate (Plavix) 75 mg PO DAILY [facility] Last Admin: 12/27/16 09:48 Dose: 75 mg Cyclobenzaprine HCl (Flexeril) 10 mg PO TID PRN PRN Reason: Muscle spasm Last Admin: 12/27/16 09:48 Dose: 10 mg Diazepam (Valium) 5 mg PO Q6H PRN; Protocol PRN Reason: Muscle spasm Last Admin: 12/26/16 09:06 Dose: 5 mg Duloxetine HCl (Cymbalta) 60 mg PO DAILY [facility] Last Admin: 12/27/16 09:48 Dose: 60 mg Fentanyl (Duragesic) 1 patch TD Q72H [facility] Last Admin: 12/26/16 18:41 Dose: 1 patch Gabapentin (Neurontin) 300 mg PO BID [facility] PRN Reason: Protocol Last Admin: 12/27/16 18:02 Dose: 300 mg Heparin Sodium (Porcine) (Heparin) 5,000 units SC Q12 [facility] PRN Reason: Protocol Last Admin: 12/27/16 09:49 Dose: 5,000 units Hydrocortisone (Cortizone 1% Cream) 0 gm TOP BID [facility] Last Admin: 12/27/16 17:58 Dose: Not Given Hydromorphone HCl (Dilaudid) 1 mg IVP Q3 PRN PRN Reason: PAIN SEVERE Hydroxychloroquine Sulfate (Plaquenil) 200 mg PO DAILY [facility] Last Admin: 12/27/16 09:48 Dose: 200 mg Ceftriaxone Sodium (Rocephin 1 Gram Ivpb) 100 mls @ 100 mls/hr IVPB DAILY [facility] PRN Reason: Protocol Last Admin: 12/27/16 09:50 Dose: 100 mls/hr Vancomycin HCl (Vancomycin 1gm) 250 mls @ 167 mls/hr IVPB DAILY [facility] PRN Reason: Protocol Last Admin: 12/27/16 18:32 Dose: 167 mls/hr Ketorolac Tromethamine (Toradol) 30 mg IVP Q6H PRN PRN Reason: Pain, severe (8-10) Methotrexate (Methotrexate) 2.5 mg PO DAILY [facility] Metoprolol Succinate (Toprol Xl) 25 mg PO DAILY [facility] Last Admin: 12/27/16 09:48 Dose: 25 mg Pantoprazole Sodium (Protonix Ec Tab) 40 mg PO DAILY [facility] Last Admin: 12/27/16 09:48 Dose: 40 mg Polyethylene Glycol (Miralax) 17 gm PO DAILY [facility] Last Admin: 12/27/16 09:49 Dose: 17 gm Prednisone (Prednisone Tab) 40 mg PO DAILY [facility] Last Admin: 12/27/16 09:48 Dose: 40 mg Sucralfate (Carafate Tab) 1 gm PO DAILY [facility] - Labs Labs: 12/27/16 07:10 12/27/16 07:10 - Constitutional Appears: In Acute Distress - Head Exam Head Exam: ATRAUMATIC, NORMOCEPHALIC - Eye Exam Eye Exam: EOMI Pupil Exam: PERRL - ENT Exam ENT Exam: Mucous Membranes Moist - Neck Exam Neck Exam: Full ROM - Respiratory Exam Respiratory Exam: Clear to Ausculation Bilateral. absent: Rales, Rhonchi, Wheezes - Cardiovascular Exam Cardiovascular Exam: +S1, +S2. absent: Gallop, Rubs - GI/Abdominal Exam GI & Abdominal Exam: Soft, Normal Bowel Sounds. absent: Distended, Guarding, Tenderness - Extremities Exam Extremities Exam: Full ROM. absent: Pedal Edema - Neurological Exam Neurological Exam: Alert, Awake, Oriented x3 - Psychiatric Exam Psychiatric exam: Normal Mood - Skin Skin Exam: Normal Color, Warm Assessment and Plan - Assessment and Plan (Free Text) Assessment: Vertebral Compression Fracture/Intractable back pain: Spine MRI reveals chronic vertebral compression fractures and acute compression fracture of T12, no evidence of cord compression (please see full reports) Neurosurgery consulted, Dr. Hinds, help appreciated. As per neurosurgery, pt not a surgical candidate. Pt was seen as a consult last month during last admission. Perhaps IR for vertebroplasty. Pain management, Dr. Snow, consulted. Pending recs. Flexeril 10 mg po tid prn for muscle spasms Valium 5 mg po q6h prn for muscle spasms Fentanyl 25 mg patch td q72h Neurontin 300 mg po tid for peripheral neuropathy Dilaudid 1 mg IV q3h prn for severe pain Toradol 30 mg IV q6h prn for pain Prednisone 40 mg po qd Sepsis: Blood cultures positive for gram positive cocci Tmax 99.8, tachycardic WBC count improved today, no leukocytosis Infectious Disease, Dr. Freeman, consulted.Help appreciated. CXR - right lower lobe atelectasis/infiltrate (please see full report) Rocephin 1 gm IV qd Vancomycin 1 gm IV qd Urinary Retention: López in place As per neurosurgery, likely due to pain, no evidence of spinal cord compression Hx of CAD: Plavix 75 m po qd Hx of Lupus: Plaquenil 200 mg po qd Methotrexate on hold Hx of HTN: Metoprolol succinate 25 mg po qd Hx of Depression: Cymbalta 60 mg po qd Prophylactic Measures: GI: Protonix 40 mg po qd DVT: Heparin 5000 units sc q12h Colace, miralax for constipation <Denise Narvaez - Last Filed: 12/30/16 16:52> Objective - Vital Signs/Intake and Output Vital Signs (last 24 hours): Temp Pulse Resp BP Pulse Ox 98.3 F 108 H 20 114/67 99 12/28/16 06:00 12/28/16 09:13 12/28/16 06:00 12/28/16 09:13 12/28/16 06:00 Intake and Output: 12/28/16 12/28/16 06:59 18:59 Intake Total 1250 760 Output Total 800 300 Balance 450 460 - Medications Medications: Current Medications Clopidogrel Bisulfate (Plavix) 75 mg PO DAILY [facility] Last Admin: 12/28/16 09:07 Dose: 75 mg Cyclobenzaprine HCl (Flexeril) 10 mg PO TID PRN PRN Reason: Muscle spasm Last Admin: 12/28/16 09:07 Dose: 10 mg Diazepam (Valium) 5 mg PO Q6H PRN; Protocol PRN Reason: Muscle spasm Last Admin: 12/27/16 21:39 Dose: 5 mg Docusate Sodium (Colace) 100 mg PO DAILY [facility] Last Admin: 12/28/16 09:07 Dose: 100 mg Duloxetine HCl (Cymbalta) 60 mg PO DAILY [facility] Last Admin: 12/28/16 09:08 Dose: 60 mg Fentanyl (Duragesic) 1 patch TD Q72H [facility] Last Admin: 12/28/16 13:28 Dose: 1 patch Gabapentin (Neurontin) 300 mg PO BID [facility] PRN Reason: Protocol Last Admin: 12/28/16 09:07 Dose: 300 mg Heparin Sodium (Porcine) (Heparin) 5,000 units SC Q12 [facility] PRN Reason: Protocol Last Admin: 12/28/16 09:08 Dose: 5,000 units Hydrocortisone (Cortizone 1% Cream) 0 gm TOP BID [facility] Last Admin: 12/28/16 09:10 Dose: 1 appl Hydromorphone HCl (Dilaudid) 2 mg IVP Q4 PRN PRN Reason: Pain, severe (8-10) Hydroxychloroquine Sulfate (Plaquenil) 200 mg PO DAILY [facility] Last Admin: 12/28/16 09:11 Dose: 200 mg Ceftriaxone Sodium (Rocephin 1 Gram Ivpb) 100 mls @ 100 mls/hr IVPB DAILY [facility] PRN Reason: Protocol Last Admin: 12/28/16 09:11 Dose: 100 mls/hr Vancomycin HCl (Vancomycin 1gm) 250 mls @ 167 mls/hr IVPB DAILY [facility] PRN Reason: Protocol Last Admin: 12/28/16 09:12 Dose: 167 mls/hr Sodium Chloride (Sodium Chloride 0.9%) 1,000 mls @ 125 mls/hr IV .Q8H [facility] Last Admin: 12/28/16 11:04 Dose: 125 mls/hr Methotrexate (Methotrexate) 2.5 mg PO DAILY [facility] Metoprolol Succinate (Toprol Xl) 25 mg PO DAILY [facility] Last Admin: 12/28/16 09:13 Dose: 25 mg Pantoprazole Sodium (Protonix Ec Tab) 40 mg PO DAILY [facility] Last Admin: 12/28/16 09:07 Dose: 40 mg Polyethylene Glycol (Miralax) 17 gm PO DAILY [facility] PRN Reason: Constipation Sennosides (Senokot Tab) 8.6 mg PO DAILY [facility] Sucralfate (Carafate Tab) 1 gm PO DAILY [facility] - Labs Labs: 12/28/16 10:50 12/28/16 10:50 Attending/Attestation - Attestation I have personally seen and examined this patient.: Yes I have fully participated in the care of the patient.: Yes I have reviewed all pertinent clinical information, including history, physical exam and plan: Yes Notes (Text): I have seen and examined patient at bedside. This is 56 year old female with history of SLE, CAD, hx DVT and questionable PE s/p IVC filter placement, and compression fractures of T8, T9, L4, and L5 s/p Lumbar fusion who got admitted for evaluation of progressively worsening back pain and found to have an acute T12 compression fracture. Neurosurgery consult appreciated. Will consult pain management and IR for possible vertebroplasty. Pain medications adjusted. She has urinary retention. Urology consult appreciated. Blood cultures are positive for GPC. Will add vanco to rocephin. ID consult pending. Dr Denise Narvaez
[2016-12-27] MEDS ORDERED: POLYETHYLENE GLYCOL 3350 17 GM/Dose PACKET PO PRN (19:14)
--- NOTE | 2016-12-27 19:27 | PCM.URO ---
Urology Progress Note - Objective Lab Results Last 24 Hours: Laboratory Results - last 24 hr 12/27/16 12/27/16 12/27/16 07:10 11:04 16:11 WBC 9.6 D RBC 3.85 Hgb 11.7 L Hct 35.0 L MCV 90.9 MCH 30.4 MCHC 33.4 RDW 14.1 Plt Count 144 MPV 10.9 Gran % 90.3 H Lymph % (Auto) 4.0 L [place] % (Auto) 5.6 Eos % (Auto) 0.0 L Baso % (Auto) 0.1 Gran # 8.64 H Lymph # 0.4 L [place] # 0.5 Eos # 0.0 Baso # 0.01 Sodium 135 Potassium 4.4 Chloride 97 Carbon Dioxide 28 Anion Gap 14 BUN 28 H Creatinine 1.2 Est GFR ( Amer) 56 Est GFR (Non-Af Amer) 46 POC Glucose (mg/dL) 140 H 173 H Random Glucose 124 H Calcium 9.0 Phosphorus 3.0 Magnesium 2.2 Total Bilirubin 0.4 AST 25 ALT 29 Alkaline Phosphatase 112 Total Protein 6.9 Albumin 3.5 Globulin 3.3 Albumin/Globulin Ratio 1.1 Intake & Output: Intake & Output 12/27/16 12/27/16 12/28/16 06:59 18:59 06:59 Intake Total 120 300 Output Total 200 300 Balance -80 0 Intake: Oral 120 300 Output: Urine 200 300 Urine, Voided 200 2-way Urethral 300 Other: # Bowel Movements 0 0 Vital Signs: Vital Signs - 24 hr 12/26/16 12/27/16 12/27/16 22:00 00:00 02:00 Temperature 97.8 F Pulse Rate 88 88 103 H Respiratory 18 Rate Blood Pressure 107/66 O2 Sat by Pulse 96 Oximetry 12/27/16 12/27/16 12/27/16 06:00 08:00 09:48 Temperature 99.8 F H Pulse Rate 109 H 129 H Respiratory 17 Rate Blood Pressure 129/97 H 129/97 H O2 Sat by Pulse 99 Oximetry 12/27/16 12/27/16 12/27/16 10:00 14:00 16:29 Temperature 97.9 F Pulse Rate 124 H 111 H 94 H Respiratory 20 Rate Blood Pressure 102/67 O2 Sat by Pulse 99 Oximetry 12/27/16 18:00 Temperature Pulse Rate 97 H Respiratory Rate Blood Pressure O2 Sat by Pulse Oximetry
[2016-12-28] MEDS: Pantoprazole 40 mg EC Tab PO SCH (09:07)
[2016-12-28] MEDS: Hydrocortisone 1% Cream (30 GM) TOP SCH ×2 (09:10→17:30)
[2016-12-28] MEDS: cefTRIAXone 1 gm 100 ML IVPB SCH (09:11)
[2016-12-28] MEDS: Vancomycin 1gm in NS 250ml 250 ML IVPB SCH (09:12)
[2016-12-28] MEDS: Metoprolol Succinate 25 mg XL Tab PO SCH (09:13)
--- NOTE | 2016-12-28 09:29 | CON ---
DATE: 12/28/2016 REASON FOR CONSULTATION: Urinary retention. History from the chart, from the patient, and also from the patient's daughters that are currently si tting at her bedside. HISTORY OF PRESENT ILLNESS: A very pleasant lady who was in the hospital with severe back pain after some fracture; has multiple issues going on. From a urology standpoint, the patient was having difficulty with her urination and then she subseque ntly had a López catheter inserted with a large residual. Feels some relief. The patient also has some difficulty with bowel movements. This is also a family matter. PAST MEDICAL AND SURGICAL HISTORY: As listed on the chart. Otherwise, unremarkable from a urology standpoint. MEDICATIONS: Listed as well. Including narcotic use. PHYSICAL EXAMINATION: GENERAL: A well-developed female. She is currently resting comfortably on her back in her bed. VITAL SIGNS: All within normal limits. ABDOMEN: Relatively soft. Not grossly distended. López catheter is in place draining clear urine. Otherwise, unremarkable. DIAGNOSES: 1. Severe back pain. 2. Fracture. 3. Urinary retention. PLAN: From a urology standpoint, there are many different possibilities for the patient's urinary re tention and may warrant further workup including a cystoscopic evaluation. Depending on the patient's general course within the hospital whether we do this during the hospital stay or outpatient is to be discussed. In the interim, we would encourage the patient to continue her López catheter. The main issue is the back pain and pain medications, etc., and mobility and the like. So at this point, the urology recommendation is to maintain the López catheter and we can discuss fur ther diagnostic studies and workup as they proceed. Thank you for the urology consultation. Alex Adame MD cc: [id number] TT: 12/28/2016 09:28:54 Confirmation # [id number] Dictation # [id number] callum
[2016-12-28] MEDS: Sodium Chloride 0.9% 1,000 ML IV SCH ×2 (11:04→19:30)
[2016-12-28 11:08] LABS: ADD MANUAL DIFF? NO
[2016-12-28 11:10] LABS: GRAN # 6.87 (1.4-6.5); HEMATOCRIT 33.5 % (36.0-48.0); LYMPH # 0.3 (1.2-3.4); LYMPH % 3.8 % (22.0-35.0); MEAN CELL VOLUME 90.1 fL (80.0-105.0); MEAN CORPUSCULAR HEMOGLOBIN 30.6 pg (25.0-35.0); MONO # 0.7 (0.1-0.6); MONO % 9.2 % (1.0-6.0); PLATELET COUNT 116 10^3/uL (120.0-450.0); RED CELL DISTRIBUTION WIDTH 13.7 % (11.5-14.5); WHITE BLOOD COUNT 7.9 10^3/ul (4.5-11.0)
[2016-12-28 11:21] LABS: ALKALINE PHOSPHATASE 90 U/L (38-133); ALT/SGPT 37 U/L (7-56); AST/SGOT 60 U/L (15-39); BILIRUBIN,TOTAL 0.4 mg/dL (0.2-1.3); BLOOD UREA NITROGEN 24 mg/dL (7-21); CALCIUM 8.7 mg/dL (8.4-10.5); CARBON DIOXIDE 30 mmol/L (21-33); CHLORIDE 94 mmol/L (95-110); GFR AFRICAN-AMERICAN > 60; GLUCOSE,RANDOM 159 mg/dL (70-110); MAGNESIUM 2.1 mg/dL (1.7-2.2); POTASSIUM 3.9 mmol/L (3.6-5.0); SODIUM 128 mmol/L (132-148)
--- NOTE | 2016-12-28 14:01 | CP.PCM.PN ---
<Thad Page - Last Filed: 12/28/16 14:05> Subjective - Date & Time of Evaluation Date of Evaluation: 12/28/16 Time of Evaluation: 09:14 - Subjective Subjective: Pt seen and examined. Pt reports that she has very severe pain in her back. She is limited to lying on her left side. Pt denies fever, chills, chest pain, shortness of breath, nausea, vomiting. Objective - Vital Signs/Intake and Output Vital Signs (last 24 hours): Temp Pulse Resp BP Pulse Ox 98.3 F 108 H 20 114/67 99 12/28/16 06:00 12/28/16 09:13 12/28/16 06:00 12/28/16 09:13 12/28/16 06:00 Intake and Output: 12/28/16 12/28/16 06:59 18:59 Intake Total 1250 760 Output Total 800 300 Balance 450 460 - Medications Medications: Current Medications Clopidogrel Bisulfate (Plavix) 75 mg PO DAILY [facility] Last Admin: 12/28/16 09:07 Dose: 75 mg Cyclobenzaprine HCl (Flexeril) 10 mg PO TID PRN PRN Reason: Muscle spasm Last Admin: 12/28/16 09:07 Dose: 10 mg Diazepam (Valium) 5 mg PO Q6H PRN; Protocol PRN Reason: Muscle spasm Last Admin: 12/27/16 21:39 Dose: 5 mg Docusate Sodium (Colace) 100 mg PO DAILY [facility] Last Admin: 12/28/16 09:07 Dose: 100 mg Duloxetine HCl (Cymbalta) 60 mg PO DAILY [facility] Last Admin: 12/28/16 09:08 Dose: 60 mg Fentanyl (Duragesic) 1 patch TD Q72H [facility] Last Admin: 12/28/16 13:28 Dose: 1 patch Gabapentin (Neurontin) 300 mg PO BID [facility] PRN Reason: Protocol Last Admin: 12/28/16 09:07 Dose: 300 mg Heparin Sodium (Porcine) (Heparin) 5,000 units SC Q12 [facility] PRN Reason: Protocol Last Admin: 12/28/16 09:08 Dose: 5,000 units Hydrocortisone (Cortizone 1% Cream) 0 gm TOP BID [facility] Last Admin: 12/28/16 09:10 Dose: 1 appl Hydromorphone HCl (Dilaudid) 2 mg IVP Q4 PRN PRN Reason: Pain, severe (8-10) Hydroxychloroquine Sulfate (Plaquenil) 200 mg PO DAILY [facility] Last Admin: 12/28/16 09:11 Dose: 200 mg Ceftriaxone Sodium (Rocephin 1 Gram Ivpb) 100 mls @ 100 mls/hr IVPB DAILY [facility] PRN Reason: Protocol Last Admin: 12/28/16 09:11 Dose: 100 mls/hr Vancomycin HCl (Vancomycin 1gm) 250 mls @ 167 mls/hr IVPB DAILY [facility] PRN Reason: Protocol Last Admin: 12/28/16 09:12 Dose: 167 mls/hr Sodium Chloride (Sodium Chloride 0.9%) 1,000 mls @ 125 mls/hr IV .Q8H [facility] Last Admin: 12/28/16 11:04 Dose: 125 mls/hr Methotrexate (Methotrexate) 2.5 mg PO DAILY [facility] Metoprolol Succinate (Toprol Xl) 25 mg PO DAILY [facility] Last Admin: 12/28/16 09:13 Dose: 25 mg Pantoprazole Sodium (Protonix Ec Tab) 40 mg PO DAILY [facility] Last Admin: 12/28/16 09:07 Dose: 40 mg Polyethylene Glycol (Miralax) 17 gm PO DAILY PRN PRN Reason: Constipation Sennosides (Senokot Tab) 8.6 mg PO DAILY [facility] Sucralfate (Carafate Tab) 1 gm PO DAILY [facility] - Labs Labs: 12/28/16 10:50 12/28/16 10:50 - Constitutional Appears: In Acute Distress - Head Exam Head Exam: ATRAUMATIC, NORMOCEPHALIC - Eye Exam Eye Exam: EOMI - ENT Exam ENT Exam: Mucous Membranes Moist. absent: Mucous Membranes Dry - Respiratory Exam Respiratory Exam: Clear to Ausculation Bilateral. absent: Rales, Rhonchi, Wheezes - Cardiovascular Exam Cardiovascular Exam: +S1, +S2. absent: Gallop, Rubs - GI/Abdominal Exam GI & Abdominal Exam: Soft. absent: Distended, Tenderness - Extremities Exam Extremities Exam: absent: Pedal Edema - Back Exam Back Exam: muscle spasm, tenderness - Neurological Exam Neurological Exam: Alert, Awake, Oriented x3 - Psychiatric Exam Psychiatric exam: Normal Affect, Normal Mood - Skin Skin Exam: Normal Color, Warm Assessment and Plan - Assessment and Plan (Free Text) Assessment: Vertebral Compression Fracture/Intractable back pain: Spine MRI reveals chronic vertebral compression fractures and acute compression fracture of T12, no evidence of cord compression (please see full reports) Neurosurgery consulted, Dr. Hinds, help appreciated. As per neurosurgery, pt not a surgical candidate. Pt was seen as a consult last month during last admission. Perhaps IR for vertebroplasty. Pain management, Dr. Snow, consulted. Following medication recommendations as per Dr. Snow via conversation on the phone: Flexeril 10 mg po tid prn for muscle spasms Valium discontinued Fentanyl 50 mg patch td q72h Dilaudid increased to 2 mg IV q4h Toradol discontinued Prednisone discontinued Kyphoplasty tomorrow with IR, Dr. Hoskins Neurontin 300 mg po tid for peripheral neuropathy NPO after midnight As per Dr. Snow, possible epidural injection on Sunday (01/01) if pain does not improve post kyphoplasty Sepsis: Blood cultures positive for gram positive cocci Tmax 98.6, tachycardic No leukocytosis Infectious Disease, Dr. Freeman, consulted. Help appreciated. CXR - right lower lobe atelectasis/infiltrate (please see full report) Rocephin 1 gm IV qd Vancomycin 1 gm IV qd Urinary Retention: Asher in place As per neurosurgery, likely due to pain, no evidence of spinal cord compression Urology consulted, Dr. Adame, help appreciated. As per urology, continue asher catheter. Hx of CAD: Plavix 75 m po qd Hx of Lupus: Plaquenil 200 mg po qd Methotrexate on hold Hx of HTN: Metoprolol succinate 25 mg po qd Hx of Depression: Cymbalta 60 mg po qd Prophylactic Measures: GI: Protonix 40 mg po qd DVT: Heparin 5000 units sc q12h Colace, miralax for constipation <Denise Narvaez - Last Filed: 12/30/16 16:56> Objective - Vital Signs/Intake and Output Vital Signs (last 24 hours): Temp Pulse Resp BP Pulse Ox 98.6 F 84 20 132/88 96 12/30/16 16:12 12/30/16 16:12 12/30/16 16:12 12/30/16 16:12 12/30/16 16:12 Intake and Output: 12/30/16 12/30/16 06:59 18:59 Intake Total 1020 Output Total 900 Balance 120 - Medications Medications: Current Medications Clopidogrel Bisulfate (Plavix) 75 mg PO DAILY [facility] Last Admin: 12/28/16 09:07 Dose: 75 mg Cyclobenzaprine HCl (Flexeril) 10 mg PO TID PRN PRN Reason: Muscle spasm Last Admin: 12/30/16 08:21 Dose: 10 mg Diazepam (Valium) 5 mg PO Q6H PRN; Protocol PRN Reason: Muscle spasm Last Admin: 12/27/16 21:39 Dose: 5 mg Docusate Sodium (Colace) 100 mg PO DAILY [facility] Last Admin: 12/30/16 10:14 Dose: 100 mg Duloxetine HCl (Cymbalta) 60 mg PO DAILY [facility] Last Admin: 12/30/16 10:18 Dose: 60 mg Famotidine (Pepcid) 40 mg PO HS [facility] Fentanyl (Duragesic) 1 patch TD Q72H [facility] Last Admin: 12/28/16 13:28 Dose: 1 patch Gabapentin (Neurontin) 300 mg PO BID [facility] PRN Reason: Protocol Last Admin: 12/30/16 10:18 Dose: 300 mg Heparin Sodium (Porcine) (Heparin) 5,000 units SC Q12 [facility] PRN Reason: Protocol Last Admin: 12/29/16 21:40 Dose: 5,000 units Hydrocortisone (Cortizone 1% Cream) 0 gm TOP BID [facility] Last Admin: 12/30/16 10:23 Dose: 1 appl Hydromorphone HCl (Dilaudid) 2 mg IVP Q4 PRN PRN Reason: Pain, severe (8-10) Last Admin: 12/30/16 10:20 Dose: 2 mg Hydroxychloroquine Sulfate (Plaquenil) 200 mg PO DAILY [facility] Last Admin: 12/30/16 10:15 Dose: 200 mg Ceftriaxone Sodium (Rocephin 1 Gram Ivpb) 100 mls @ 100 mls/hr IVPB DAILY [facility] PRN Reason: Protocol Last Admin: 12/30/16 10:19 Dose: 100 mls/hr Vancomycin HCl (Vancomycin 1gm) 250 mls @ 167 mls/hr IVPB DAILY [facility] PRN Reason: Protocol Last Admin: 12/30/16 13:01 Dose: 167 mls/hr Sodium Chloride (Sodium Chloride 0.9%) 1,000 mls @ 125 mls/hr IV .Q8H [facility] Last Admin: 12/30/16 10:21 Dose: 125 mls/hr Methotrexate (Methotrexate) 2.5 mg PO DAILY [facility] Metoprolol Succinate (Toprol Xl) 25 mg PO DAILY [facility] Last Admin: 12/30/16 10:17 Dose: Not Given Pantoprazole Sodium (Protonix Ec Tab) 40 mg PO DAILY [facility] Last Admin: 12/29/16 09:21 Dose: 40 mg Polyethylene Glycol (Miralax) 17 gm PO DAILY PRN PRN Reason: Constipation Sennosides (Senokot Tab) 8.6 mg PO DAILY [facility] Last Admin: 12/30/16 10:15 Dose: 8.6 mg Sucralfate (Carafate Tab) 1 gm PO DAILY [facility] - Labs Labs: 12/30/16 07:12 12/30/16 07:12 Attending/Attestation - Attestation I have personally seen and examined this patient.: Yes I have fully participated in the care of the patient.: Yes I have reviewed all pertinent clinical information, including history, physical exam and plan: Yes Notes (Text): I have seen and examined patient at bedside. This is 56 year old female with history of SLE, CAD, hx DVT and questionable PE s/p IVC filter placement, and compression fractures of T8, T9, L4, and L5 s/p Lumbar fusion who got admitted for evaluation of progressively worsening back pain and found to have an acute T12 compression fracture. Neurosurgery consult appreciated. Patient is not a surgical candidate as she had multiple fractures in the past. IR consult appreciated. Plan for possible vertebroplasty. Pain management consult appreciated. Pain medications were adjusted. She has urinary retention. Urology consult appreciated. Plan to keep the ashre in for now. Blood cultures are positive for GPC. Will continue vanco and rocephin. ID consult appreciated. Dr Denise Narvaez
--- NOTE | 2016-12-28 15:43 | CP.PCM.PN ---
Subjective - Date & Time of Evaluation Date of Evaluation: 12/28/16 Time of Evaluation: 14:30 - Subjective Subjective: Infectious Disease Follow Up: December 28, 2016 56 yo female with extensive past medical history showing SLE, CAD, HI ( 2 yr prior), hx DVT and questionable PE s/p IVC filter placement, and compression fractures of T8, T9, L4, and L5 s/p Lumbar fusion [place] [facility] [facility] [place] with intractable back pain and findings of new compression fracture of T12. Blood culture with gram positive cocci with FISH analysis suggesting Staph Aureus. The patient is awake and in pain. No neurosurgical interventions at this time. No relief with back brace for pain. Fevers up to 100.9 F. Afebrile today so far. Staph Aureus in blood cultures times two. Check Echocardiogram. Sensitivities are pending. Objective - Vital Signs/Intake and Output Vital Signs (last 24 hours): Temp Pulse Resp BP Pulse Ox 98.3 F 108 H 20 114/67 99 12/28/16 06:00 12/28/16 09:13 12/28/16 06:00 12/28/16 09:13 12/28/16 06:00 Intake and Output: 12/28/16 12/28/16 06:59 18:59 Intake Total 1250 760 Output Total 800 300 Balance 450 460 - Medications Medications: Current Medications Clopidogrel Bisulfate (Plavix) 75 mg PO DAILY [facility] Last Admin: 12/28/16 09:07 Dose: 75 mg Cyclobenzaprine HCl (Flexeril) 10 mg PO TID PRN PRN Reason: Muscle spasm Last Admin: 12/28/16 09:07 Dose: 10 mg Diazepam (Valium) 5 mg PO Q6H PRN; Protocol PRN Reason: Muscle spasm Last Admin: 12/27/16 21:39 Dose: 5 mg Docusate Sodium (Colace) 100 mg PO DAILY [facility] Last Admin: 12/28/16 09:07 Dose: 100 mg Duloxetine HCl (Cymbalta) 60 mg PO DAILY [facility] Last Admin: 12/28/16 09:08 Dose: 60 mg Fentanyl (Duragesic) 1 patch TD Q72H [facility] Last Admin: 12/28/16 13:28 Dose: 1 patch Gabapentin (Neurontin) 300 mg PO BID [facility] PRN Reason: Protocol Last Admin: 12/28/16 09:07 Dose: 300 mg Heparin Sodium (Porcine) (Heparin) 5,000 units SC Q12 [facility] PRN Reason: Protocol Last Admin: 12/28/16 09:08 Dose: 5,000 units Hydrocortisone (Cortizone 1% Cream) 0 gm TOP BID [facility] Last Admin: 12/28/16 09:10 Dose: 1 appl Hydromorphone HCl (Dilaudid) 2 mg IVP Q4 PRN PRN Reason: Pain, severe (8-10) Hydroxychloroquine Sulfate (Plaquenil) 200 mg PO DAILY [facility] Last Admin: 12/28/16 09:11 Dose: 200 mg Ceftriaxone Sodium (Rocephin 1 Gram Ivpb) 100 mls @ 100 mls/hr IVPB DAILY [facility] PRN Reason: Protocol Last Admin: 12/28/16 09:11 Dose: 100 mls/hr Vancomycin HCl (Vancomycin 1gm) 250 mls @ 167 mls/hr IVPB DAILY [facility] PRN Reason: Protocol Last Admin: 12/28/16 09:12 Dose: 167 mls/hr Sodium Chloride (Sodium Chloride 0.9%) 1,000 mls @ 125 mls/hr IV .Q8H [facility] Last Admin: 12/28/16 11:04 Dose: 125 mls/hr Methotrexate (Methotrexate) 2.5 mg PO DAILY [facility] Metoprolol Succinate (Toprol Xl) 25 mg PO DAILY [facility] Last Admin: 12/28/16 09:13 Dose: 25 mg Pantoprazole Sodium (Protonix Ec Tab) 40 mg PO DAILY [facility] Last Admin: 12/28/16 09:07 Dose: 40 mg Polyethylene Glycol (Miralax) 17 gm PO DAILY PRN PRN Reason: Constipation Sennosides (Senokot Tab) 8.6 mg PO DAILY [facility] Sucralfate (Carafate Tab) 1 gm PO DAILY [facility] - Labs Labs: 12/28/16 10:50 12/28/16 10:50 - Constitutional Appears: Non-toxic, No Acute Distress, Chronically Ill - Head Exam Head Exam: ATRAUMATIC, NORMOCEPHALIC - Eye Exam Eye Exam: EOMI, PERRL Pupil Exam: NORMAL ACCOMODATION, PERRL - ENT Exam ENT Exam: Mucous Membranes Moist, Normal External Ear Exam, TM's Normal Bilaterally - Neck Exam Neck Exam: Full ROM, Normal Inspection - Respiratory Exam Respiratory Exam: Clear to Ausculation Bilateral, Rales, NORMAL BREATHING PATTERN. absent: Rhonchi, Wheezes - Cardiovascular Exam Cardiovascular Exam: REGULAR RHYTHM, RRR, +S1, +S2 - GI/Abdominal Exam GI & Abdominal Exam: Soft, Normal Bowel Sounds. absent: Distended, Tenderness - Extremities Exam Extremities Exam: Full ROM, Normal Inspection - Neurological Exam Neurological Exam: Alert, Awake, CN II-XII Intact, Oriented x3 - Psychiatric Exam Psychiatric exam: Normal Affect, Normal Mood - Skin Skin Exam: Intact, Normal Color Assessment and Plan - Assessment and Plan (Free Text) Assessment: 56 yo female with multiple compression fractures and fevers up to 100.9 F. The patient has positive blood cultures with gram positive cocci in clusters with FISH suggesting Staph Aureus. Currently on Ceftriaxone. Continue with Vancomycin to the regimen until final culture results return. The patient with bacteremia. Cannot rule out MRSA yet. Staph Aureus in both blood cultures. Check Echo. Awaiting sensitivities. Thank you for allowing me to participate in the care of the patient, we will follow with you. Case discussed with Dr. Narvaez.
[2016-12-28] MEDS: HYDROmorphone 2 mg/ml ISec IVP PRN (17:13)
--- NOTE | 2016-12-28 19:25 | CON ---
DATE: 12/28/2016 LOCATION: 365, bed 2. REQUESTING PHYSICIAN: Gonsalo Brown MD CHIEF COMPLAINT: Mid and low back pain. HISTORY OF PRESENT ILLNESS: The patient is a pleasant 56-year-old female with a past medica l history of systemic lupus erythematosus, coronary artery disease, myocardial infarction 2 years ago , history of DVT, status post IVC filter placement. The patient has also history of chronic back radames n with old compression fracture of T8-T9, L4-L5 status post lumbar fusion. The patient was admitted with intractable low back pain to [facility] on 12/25/2016, and the patient stated that s he felt severe pain in her lower back and she had to come to the [facility]. An MRI of the thoracic spine and lumbar spine which showed a new compression fracture of T12. Her vi sual analog scale was 10/10 when she was taking Valium 5 mg q. 4 hours, Flexeril 10 mg 3 times a day, fentanyl patch 25 mcg q. 72 hours, Dilaudid 1 mg IV push q. 6 hours, Toradol 30 mg 3 times a day, an d this was not helping. Her visual analog scale now is 8/10 after the regimen was changed to fentanyl 50 mcg patch q. 72 hour s, Dilaudid IV push 2 mg q. 4 hours p.r.n. for severe pain, and Flexeril 10 mg t.i.d. We discontinue d Valium and discontinued Toradol. PAST MEDICAL HISTORY: Systemic lupus erythematosus, coronary artery disease, myocardial infarction, history of DVT, old compression fractures of T8-T9, L4-L5 status post lumbar fusion. PAST SURGICAL HISTORY: Lumbar spinal fusion, and IVC filter placement. ALLERGY TO ACETAMINOPHEN, ASPIRIN, CODEINE, IBUPROFEN. SOCIAL HISTORY: Denied any tobacco or alcohol intake, or any illicit drug abuse. ACTIVE MEDICATIONS: The patient is on Plavix, cyclobenzaprine, diazepam, Lovenox, fentanyl patch, ga bapentin, heparin, prednisone, Ketorolac, methotrexate, metoprolol, pantoprazole, sucralfate. FAMILY HISTORY: [place] in age 50. REVIEW OF SYSTEMS: Severe back pain. She denied any cough, shortness of breath, wheezing. She regina ed any abdominal pain, nausea, vomiting, diarrhea. She denied any bowel or bladder dysfunction. PHYSICAL EXAMINATION: GENERAL: The patient is lying in bed in no acute distress at this point. HEENT: Head is normocephalic, atraumatic. Extraocular muscles are intact. CHEST: Clear to auscultation bilaterally. CARDIOVASCULAR: S1, S2 is normal. NEUROMUSCULAR EXAMINATION: She is alert, awake, and oriented x 3. Concentrates very well. Cranial nerves II-XII grossly intact. Coordination is grossly intact. There is tenderness over spinous proc ess of thoracic spine, with point tenderness over T12 area, and with tenderness and tightness bilater al thoracic paraspinal. Manual muscle testing bilateral lower extremity is 3/5 bilaterally. Gait wa s not tested. There is no sensory deficit. MRI of thoracic spine revealed new acute T12 compression fracture with no encroachment of spinal steve l, and multiple chronic compression fractures. RECOMMENDATIONS: 1. The patient is scheduled for kyphoplasty for T12 compression fracture tomorrow. 2. Change fentanyl patch from 25 mcg to 50 mcg q. 72 hours. 3. Change IV Dilaudid from 1 mg IV push q. 4 hours to 2 mg IV push q. 4 for severe pain. 4. Discontinue Toradol, discontinue Valium, discontinue prednisone. 5. The patient to follow up as an outpatient upon discharge. Bryce Snow MD cc: [id number] TT: 12/28/2016 19:25:28 Confirmation # [id number] Dictation # [id number] callum
[2016-12-29] MEDS: Sodium Chloride 0.9% 1,000 ML IV SCH ×2 (03:23→18:19)
[2016-12-29] MEDS: HYDROmorphone 2 mg/ml ISec IVP PRN ×3 (03:24→21:39)
[2016-12-29 06:54] LABS: ADD MANUAL DIFF? NO
[2016-12-29 07:15] LABS: BASO # 0.01 K/mm3 (0.0-2.0); BASO % 0.2 % (0.0-3.0); GRAN # 4.16 (1.4-6.5); GRAN % 70.8 % (50.0-68.0); HEMATOCRIT 31.4 % (36.0-48.0); LYMPH # 0.9 (1.2-3.4); MEAN CELL VOLUME 89.7 fL (80.0-105.0); MEAN CORPUSCULAR HEMOGLOBIN 30.3 pg (25.0-35.0); MEAN CORPUSCULAR HGB CONC 33.8 g/dl (31.0-37.0); MEAN PLATELET VOLUME 11.8 fl (7.0-11.0); MONO # 0.8 (0.1-0.6); PLATELET COUNT 111 10^3/uL (120.0-450.0); RED CELL DISTRIBUTION WIDTH 13.6 % (11.5-14.5); WHITE BLOOD COUNT 5.9 10^3/ul (4.5-11.0)
[2016-12-29 07:27] LABS: ALB/GLOB RATIO 0.9 (1.1-1.8); ALKALINE PHOSPHATASE 75 U/L (38-133); ALT/SGPT 41 U/L (7-56); AST/SGOT 54 U/L (15-39); BILIRUBIN,TOTAL 0.4 mg/dL (0.2-1.3); BLOOD UREA NITROGEN 14 mg/dL (7-21); CALCIUM 8.2 mg/dL (8.4-10.5); CARBON DIOXIDE 28 mmol/L (21-33); CHLORIDE 102 mmol/L (98-107); GFR AFRICAN-AMERICAN > 60; GLUCOSE,RANDOM 110 mg/dL (70-110); PHOSPHOROUS 2.3 mg/dL (2.5-4.5); SODIUM 135 mmol/L (132-148); TOTAL PROTEIN 5.6 g/dL (5.8-8.3)
[2016-12-29] MEDS: cefTRIAXone 1 gm 100 ML IVPB SCH (09:19)
[2016-12-29] MEDS: Hydrocortisone 1% Cream (30 GM) TOP SCH ×2 (09:20→17:17)
[2016-12-29] MEDS: Vancomycin 1gm in NS 250ml 250 ML IVPB SCH (09:21)
[2016-12-29] MEDS: Pantoprazole 40 mg EC Tab PO SCH (09:21)
[2016-12-29] MEDS: Metoprolol Succinate 25 mg XL Tab PO SCH (09:21)
--- NOTE | 2016-12-29 15:39 | CP.PCM.PN ---
Subjective - Date & Time of Evaluation Date of Evaluation: 12/29/16 Time of Evaluation: 13:15 - Subjective Subjective: Infectious Disease Follow Up: December 29, 2016 56 yo female with extensive past medical history showing SLE, CAD, [place] ( 2 yr prior), hx DVT and questionable PE s/p IVC filter placement, and compression fractures of T8, T9, L4, and L5 s/p Lumbar fusion recently discharge from [facility] [place] presents with intractable back pain and findings of new compression fracture of T12. Blood culture with gram positive cocci with FISH analysis suggesting Staph Aureus. The patient is awake and in pain. No neurosurgical interventions at this time. No relief with back brace for pain. Fevers up to 100.9 F on admission. Currently afebrile for the past 3 days. Afebrile today so far. Staph Aureus in blood cultures times two. Check Echocardiogram - results pending. Sensitivities show MSSA. Objective - Vital Signs/Intake and Output Vital Signs (last 24 hours): Temp Pulse Resp BP Pulse Ox 98.3 F 77 18 107/71 96 12/29/16 06:00 12/29/16 06:00 12/29/16 06:00 12/29/16 06:00 12/29/16 06:00 Intake and Output: 12/29/16 12/29/16 06:59 18:59 Intake Total 2440 360 Output Total 750 600 Balance 1690 -240 - Medications Medications: Current Medications Clopidogrel Bisulfate (Plavix) 75 mg PO DAILY [facility] Last Admin: 12/28/16 09:07 Dose: 75 mg Cyclobenzaprine HCl (Flexeril) 10 mg PO TID PRN PRN Reason: Muscle spasm Last Admin: 12/29/16 13:58 Dose: 10 mg Diazepam (Valium) 5 mg PO Q6H PRN; Protocol PRN Reason: Muscle spasm Last Admin: 12/27/16 21:39 Dose: 5 mg Docusate Sodium (Colace) 100 mg PO DAILY [facility] Last Admin: 12/29/16 09:20 Dose: 100 mg Duloxetine HCl (Cymbalta) 60 mg PO DAILY [facility] Last Admin: 12/29/16 09:20 Dose: 60 mg Fentanyl (Duragesic) 1 patch TD Q72H [facility] Last Admin: 12/28/16 13:28 Dose: 1 patch Gabapentin (Neurontin) 300 mg PO BID [facility] PRN Reason: Protocol Last Admin: 12/29/16 09:27 Dose: 300 mg Heparin Sodium (Porcine) (Heparin) 5,000 units SC Q12 [facility] PRN Reason: Protocol Last Admin: 12/29/16 09:20 Dose: 5,000 units Hydrocortisone (Cortizone 1% Cream) 0 gm TOP BID [facility] Last Admin: 12/29/16 09:20 Dose: 1 appl Hydromorphone HCl (Dilaudid) 2 mg IVP Q4 PRN PRN Reason: Pain, severe (8-10) Last Admin: 12/29/16 13:58 Dose: 2 mg Hydroxychloroquine Sulfate (Plaquenil) 200 mg PO DAILY [facility] Last Admin: 12/29/16 09:21 Dose: 200 mg Ceftriaxone Sodium (Rocephin 1 Gram Ivpb) 100 mls @ 100 mls/hr IVPB DAILY [facility] PRN Reason: Protocol Last Admin: 12/29/16 09:19 Dose: 100 mls/hr Vancomycin HCl (Vancomycin 1gm) 250 mls @ 167 mls/hr IVPB DAILY [facility] PRN Reason: Protocol Last Admin: 12/29/16 09:21 Dose: 167 mls/hr Sodium Chloride (Sodium Chloride 0.9%) 1,000 mls @ 125 mls/hr IV .Q8H [facility] Last Admin: 12/29/16 03:23 Dose: 125 mls/hr Methotrexate (Methotrexate) 2.5 mg PO DAILY [facility] Metoprolol Succinate (Toprol Xl) 25 mg PO DAILY [facility] Last Admin: 12/29/16 09:21 Dose: 25 mg Pantoprazole Sodium (Protonix Ec Tab) 40 mg PO DAILY [facility] Last Admin: 12/29/16 09:21 Dose: 40 mg Polyethylene Glycol (Miralax) 17 gm PO DAILY PRN PRN Reason: Constipation Sennosides (Senokot Tab) 8.6 mg PO DAILY [facility] Last Admin: 12/29/16 09:21 Dose: 8.6 mg Sucralfate (Carafate Tab) 1 gm PO DAILY [facility] - Labs Labs: 12/29/16 06:30 12/29/16 06:30 - Constitutional Appears: Non-toxic, No Acute Distress, Chronically Ill - Head Exam Head Exam: ATRAUMATIC, NORMOCEPHALIC - Eye Exam Eye Exam: EOMI, PERRL Pupil Exam: NORMAL ACCOMODATION, PERRL - ENT Exam ENT Exam: Mucous Membranes Moist, Normal External Ear Exam, TM's Normal Bilaterally - Neck Exam Neck Exam: Full ROM, Normal Inspection - Respiratory Exam Respiratory Exam: Clear to Ausculation Bilateral, NORMAL BREATHING PATTERN. absent: Rales, Rhonchi, Wheezes - Cardiovascular Exam Cardiovascular Exam: REGULAR RHYTHM, RRR, +S1, +S2 - GI/Abdominal Exam GI & Abdominal Exam: Soft, Normal Bowel Sounds. absent: Distended, Tenderness - Extremities Exam Extremities Exam: Full ROM, Normal Inspection - Neurological Exam Neurological Exam: Alert, Awake, CN II-XII Intact, Oriented x3 - Psychiatric Exam Psychiatric exam: Normal Affect, Normal Mood - Skin Skin Exam: Intact, Normal Color Assessment and Plan - Assessment and Plan (Free Text) Assessment: 56 yo female with multiple compression fractures and fevers on admission up to 100.9 F. The patient has positive blood cultures with gram positive cocci in clusters with FISH suggesting Staph Aureus. Currently on Ceftriaxone. Continue with Vancomycin to the regimen until final culture results return. The patient with bacteremia. Staph Aureus in both blood cultures. Check Echo. Awaiting sensitivities - showing MSSA. Given the numerous medical issues on this patient, may need to consider 6 weeks of IV antibiotics especially given number of spinal compression fractures and the weakness of the spine in general. Thank you for allowing me to participate in the care of the patient, we will follow with you. Case discussed with Dr. Narvaez.
--- NOTE | 2016-12-29 18:25 | CP.PCM.PN ---
<Thad Page - Last Filed: 12/29/16 18:21> Subjective - Date & Time of Evaluation Date of Evaluation: 12/29/16 Time of Evaluation: 07:47 - Subjective Subjective: Pt seen and examined. Pt experiencing episodes of confusion. Pt believes she is in [place]. Pt reports that she is still in a lot of pain. Pt denies fever, chills, chest pain, shortness of breath. Objective - Vital Signs/Intake and Output Vital Signs (last 24 hours): Temp Pulse Resp BP Pulse Ox 98.4 F 97 H 20 92/48 L 97 12/29/16 16:14 12/29/16 16:14 12/29/16 16:14 12/29/16 16:14 12/29/16 16:14 Intake and Output: 12/29/16 12/29/16 06:59 18:59 Intake Total 2440 360 Output Total 750 600 Balance 1690 -240 - Medications Medications: Current Medications Clopidogrel Bisulfate (Plavix) 75 mg PO DAILY [facility] Last Admin: 12/28/16 09:07 Dose: 75 mg Cyclobenzaprine HCl (Flexeril) 10 mg PO TID PRN PRN Reason: Muscle spasm Last Admin: 12/29/16 13:58 Dose: 10 mg Diazepam (Valium) 5 mg PO Q6H PRN; Protocol PRN Reason: Muscle spasm Last Admin: 12/27/16 21:39 Dose: 5 mg Docusate Sodium (Colace) 100 mg PO DAILY [facility] Last Admin: 12/29/16 09:20 Dose: 100 mg Duloxetine HCl (Cymbalta) 60 mg PO DAILY [facility] Last Admin: 12/29/16 09:20 Dose: 60 mg Fentanyl (Duragesic) 1 patch TD Q72H [facility] Last Admin: 12/28/16 13:28 Dose: 1 patch Gabapentin (Neurontin) 300 mg PO BID [facility] PRN Reason: Protocol Last Admin: 12/29/16 17:16 Dose: 300 mg Heparin Sodium (Porcine) (Heparin) 5,000 units SC Q12 [facility] PRN Reason: Protocol Last Admin: 12/29/16 09:20 Dose: 5,000 units Hydrocortisone (Cortizone 1% Cream) 0 gm TOP BID [facility] Last Admin: 12/29/16 17:17 Dose: 1 appl Hydromorphone HCl (Dilaudid) 2 mg IVP Q4 PRN PRN Reason: Pain, severe (8-10) Last Admin: 12/29/16 13:58 Dose: 2 mg Hydroxychloroquine Sulfate (Plaquenil) 200 mg PO DAILY [facility] Last Admin: 12/29/16 09:21 Dose: 200 mg Ceftriaxone Sodium (Rocephin 1 Gram Ivpb) 100 mls @ 100 mls/hr IVPB DAILY [facility] PRN Reason: Protocol Last Admin: 12/29/16 09:19 Dose: 100 mls/hr Vancomycin HCl (Vancomycin 1gm) 250 mls @ 167 mls/hr IVPB DAILY [facility] PRN Reason: Protocol Last Admin: 12/29/16 09:21 Dose: 167 mls/hr Sodium Chloride (Sodium Chloride 0.9%) 1,000 mls @ 125 mls/hr IV .Q8H [facility] Last Admin: 12/29/16 18:19 Dose: 125 mls/hr Methotrexate (Methotrexate) 2.5 mg PO DAILY [facility] Metoprolol Succinate (Toprol Xl) 25 mg PO DAILY [facility] Last Admin: 12/29/16 09:21 Dose: 25 mg Pantoprazole Sodium (Protonix Ec Tab) 40 mg PO DAILY [facility] Last Admin: 12/29/16 09:21 Dose: 40 mg Polyethylene Glycol (Miralax) 17 gm PO DAILY PRN PRN Reason: Constipation Sennosides (Senokot Tab) 8.6 mg PO DAILY [facility] Last Admin: 12/29/16 09:21 Dose: 8.6 mg Sucralfate (Carafate Tab) 1 gm PO DAILY [facility] - Labs Labs: 12/29/16 06:30 12/29/16 06:30 - Constitutional Appears: No Acute Distress - Head Exam Head Exam: ATRAUMATIC, NORMOCEPHALIC - Eye Exam Eye Exam: EOMI Pupil Exam: PERRL - ENT Exam ENT Exam: Mucous Membranes Moist. absent: Mucous Membranes Dry - Respiratory Exam Respiratory Exam: Clear to Ausculation Bilateral. absent: Rales, Rhonchi, Wheezes - Cardiovascular Exam Cardiovascular Exam: +S1, +S2. absent: Gallop, Rubs - GI/Abdominal Exam GI & Abdominal Exam: Soft. absent: Guarding, Tenderness - Extremities Exam Extremities Exam: absent: Pedal Edema - Neurological Exam Neurological Exam: Alert, Awake - Psychiatric Exam Psychiatric exam: Normal Affect, Normal Mood - Skin Skin Exam: Normal Color, Warm Assessment and Plan - Assessment and Plan (Free Text) Assessment: Assessment: Vertebral Compression Fracture/Intractable back pain: Spine MRI reveals chronic vertebral compression fractures and acute compression fracture of T12, no evidence of cord compression (please see full reports) Neurosurgery consulted, Dr. Hinds, help appreciated. As per neurosurgery, pt not a surgical candidate. Pt was seen as a consult last month during last admission. Perhaps IR for vertebroplasty. Pain management, Dr. Snow, consulted. Following medication recommendations as per Dr. Snow via conversation on the phone: Flexeril 10 mg po tid prn for muscle spasms Valium discontinued Fentanyl 50 mg patch td q72h Dilaudid increased to 2 mg IV q4h Toradol discontinued Prednisone discontinued Kyphoplasty likely on Sunday with IR, Dr. Hoskins Plavix held Neurontin 300 mg po tid for peripheral neuropathy As per Dr. Snow, possible epidural injection on Sunday (01/01) if pain does not improve post kyphoplasty Sepsis: Blood cultures positive for gram positive cocci Afebrile, nontachycardic No leukocytosis Infectious Disease, Dr. Freeman, consulted. Help appreciated. CXR - right lower lobe atelectasis/infiltrate (please see full report) Rocephin 1 gm IV qd Vancomycin 1 gm IV qd Pending echocardiogram read Urinary Retention: Asher in place As per neurosurgery, likely due to pain, no evidence of spinal cord compression Urology consulted, Dr. Adame, help appreciated. As per urology, continue asher catheter. Hx of CAD: Plavix 75 m po qd Hx of Lupus: Plaquenil 200 mg po qd Methotrexate on hold Hx of HTN: Metoprolol succinate 25 mg po qd Hx of Depression: Cymbalta 60 mg po qd Prophylactic Measures: GI: Protonix 40 mg po qd DVT: Heparin 5000 units sc q12h Colace, miralax for constipation <Denise Narvaez - Last Filed: 12/30/16 17:00> Objective - Vital Signs/Intake and Output Vital Signs (last 24 hours): Temp Pulse Resp BP Pulse Ox 98.6 F 84 20 132/88 96 12/30/16 16:12 12/30/16 16:12 12/30/16 16:12 12/30/16 16:12 12/30/16 16:12 Intake and Output: 12/30/16 12/30/16 06:59 18:59 Intake Total 1020 Output Total 900 Balance 120 - Medications Medications: Current Medications Clopidogrel Bisulfate (Plavix) 75 mg PO DAILY [facility] Last Admin: 12/28/16 09:07 Dose: 75 mg Cyclobenzaprine HCl (Flexeril) 10 mg PO TID PRN PRN Reason: Muscle spasm Last Admin: 12/30/16 16:50 Dose: 10 mg Diazepam (Valium) 5 mg PO Q6H PRN; Protocol PRN Reason: Muscle spasm Last Admin: 12/27/16 21:39 Dose: 5 mg Docusate Sodium (Colace) 100 mg PO DAILY [facility] Last Admin: 12/30/16 10:14 Dose: 100 mg Duloxetine HCl (Cymbalta) 60 mg PO DAILY [facility] Last Admin: 12/30/16 10:18 Dose: 60 mg Famotidine (Pepcid) 40 mg PO HS [facility] Fentanyl (Duragesic) 1 patch TD Q72H [facility] Last Admin: 12/28/16 13:28 Dose: 1 patch Gabapentin (Neurontin) 300 mg PO BID [facility] PRN Reason: Protocol Last Admin: 12/30/16 10:18 Dose: 300 mg Heparin Sodium (Porcine) (Heparin) 5,000 units SC Q12 [facility] PRN Reason: Protocol Last Admin: 12/29/16 21:40 Dose: 5,000 units Hydrocortisone (Cortizone 1% Cream) 0 gm TOP BID [facility] Last Admin: 12/30/16 10:23 Dose: 1 appl Hydromorphone HCl (Dilaudid) 2 mg IVP Q4 PRN PRN Reason: Pain, severe (8-10) Last Admin: 12/30/16 16:50 Dose: 2 mg Hydroxychloroquine Sulfate (Plaquenil) 200 mg PO DAILY [facility] Last Admin: 12/30/16 10:15 Dose: 200 mg Ceftriaxone Sodium (Rocephin 1 Gram Ivpb) 100 mls @ 100 mls/hr IVPB DAILY [facility] PRN Reason: Protocol Last Admin: 12/30/16 10:19 Dose: 100 mls/hr Vancomycin HCl (Vancomycin 1gm) 250 mls @ 167 mls/hr IVPB DAILY [facility] PRN Reason: Protocol Last Admin: 12/30/16 13:01 Dose: 167 mls/hr Sodium Chloride (Sodium Chloride 0.9%) 1,000 mls @ 125 mls/hr IV .Q8H [facility] Last Admin: 12/30/16 10:21 Dose: 125 mls/hr Methotrexate (Methotrexate) 2.5 mg PO DAILY [facility] Metoprolol Succinate (Toprol Xl) 25 mg PO DAILY [facility] Last Admin: 12/30/16 10:17 Dose: Not Given Pantoprazole Sodium (Protonix Ec Tab) 40 mg PO DAILY [facility] Last Admin: 12/29/16 09:21 Dose: 40 mg Polyethylene Glycol (Miralax) 17 gm PO DAILY PRN PRN Reason: Constipation Sennosides (Senokot Tab) 8.6 mg PO DAILY [facility] Last Admin: 12/30/16 10:15 Dose: 8.6 mg Sucralfate (Carafate Tab) 1 gm PO DAILY [facility] - Labs Labs: 12/30/16 07:12 12/30/16 07:12 Attending/Attestation - Attestation I have personally seen and examined this patient.: Yes I have fully participated in the care of the patient.: Yes I have reviewed all pertinent clinical information, including history, physical exam and plan: Yes Notes (Text): I have seen and examined patient at bedside. This is 56 year old female with history of SLE, CAD, hx DVT and questionable PE s/p IVC filter placement, and compression fractures of T8, T9, L4, and L5 s/p Lumbar fusion who got admitted for evaluation of progressively worsening back pain and found to have an acute T12 compression fracture. Neurosurgery consult appreciated. Patient is not a surgical candidate as she had multiple fractures in the past. IR consult appreciated. Plan for possible vertebroplasty in the future once infection is resolved. Pain management consult appreciated. Pain medications were adjusted. She has urinary retention. Urology consult appreciated. Plan to keep the asher in for now. Blood cultures are positive for staph aureus which is sensitive. She is currently on vanco and rocephin. Will discuss with ID. Dr Denise Narvaez
[2016-12-30] MEDS: HYDROmorphone 2 mg/ml ISec IVP PRN ×5 (01:50→21:16)
[2016-12-30] MEDS: Sodium Chloride 0.9% 1,000 ML IV SCH ×2 (01:59→10:21)
[2016-12-30 07:14] LABS: ADD MANUAL DIFF? NO
[2016-12-30 07:20] LABS: BASO # 0.02 K/mm3 (0.0-2.0); BASO % 0.3 % (0.0-3.0); EOS # 0.1 (0.0-0.7); EOS % 0.9 % (1.5-5.0); GRAN # 4.37 (1.4-6.5); GRAN % 63.6 % (50.0-68.0); LYMPH # 1.2 (1.2-3.4); LYMPH % 16.7 % (22.0-35.0); MEAN CELL VOLUME 89.6 fL (80.0-105.0); MEAN CORPUSCULAR HEMOGLOBIN 30.4 pg (25.0-35.0); MEAN PLATELET VOLUME 12.1 fl (7.0-11.0); MONO # 1.3 (0.1-0.6); MONO % 18.5 % (1.0-6.0); PLATELET COUNT 107 10^3/uL (120.0-450.0); RED CELL DISTRIBUTION WIDTH 13.8 % (11.5-14.5); WHITE BLOOD COUNT 6.9 10^3/ul (4.5-11.0)
[2016-12-30 07:37] LABS: ALB/GLOB RATIO 0.9 (1.1-1.8); ALKALINE PHOSPHATASE 75 U/L (38-133); ALT/SGPT 41 U/L (7-56); AST/SGOT 33 U/L (15-39); BILIRUBIN,TOTAL 0.3 mg/dL (0.2-1.3); BLOOD UREA NITROGEN 9 mg/dL (7-21); CALCIUM 8.3 mg/dL (8.4-10.5); CARBON DIOXIDE 28 mmol/L (21-33); CHLORIDE 103 mmol/L (98-107); GFR AFRICAN-AMERICAN > 60; GLUCOSE,RANDOM 108 mg/dL (70-110); MAGNESIUM 1.8 mg/dL (1.7-2.2); PHOSPHOROUS 3.1 mg/dL (2.5-4.5); POTASSIUM 3.7 mmol/L (3.6-5.0); SODIUM 135 mmol/L (132-148); TOTAL PROTEIN 5.4 g/dL (5.8-8.3)
--- NOTE | 2016-12-30 08:54 | CARD ---
APPROVED REPORT EXAM: Two-dimensional and M-mode echocardiogram with Doppler and color Doppler. Other Information Quality : FairRhythm : INDICATION Infection:Rule out subacute bacterial endocarditis 2D DIMENSIONS Left Atrium (2D)2.9 (1.6-4.0cm)IVSd1.0 (0.7-1.1cm) LVDd3.7 (3.9-5.9cm)PWd1.1 (0.7-1.1cm) LVDs2.4 (2.5-4.0cm)FS (%) 35.6 % LVEF (%)65.0 (>50%) M-Mode DIMENSIONS Aortic Root3.00 (2.2-3.7cm)Aortic Cusp Exc.1.50 (1.5-2.0cm) Aortic Valve AoV Peak Jkwvxmsv220.0cm/s Mitral Valve MV E Zbkodkll73.5cm/sMV A Zwaepafo991.0cm/sE/A ratio0.8 TDI E/Lateral E'0.0E/Medial E'0.0 Tricuspid Valve TR Peak [id number]/sRAP [id number] Peak Gr.10mmHg [id number] LEFT VENTRICLE The left ventricle is normal size. There is normal left ventricular wall thickness. The left ventricular function is normal. The left ventricular ejection fraction is within the normal range. There is normal LV segmental wall motion. RIGHT VENTRICLE The right ventricle is normal size. ATRIA The left atrium size is normal. The right atrium size is normal. AORTIC VALVE The aortic valve is mildly thickened but opens well. MITRAL VALVE The mitral valve is mildly thickened but opens well. TRICUSPID VALVE The tricuspid valve is normal in structure. There is trace tricuspid regurgitation. PULMONIC VALVE The pulmonic valve is not well visualized. GREAT VESSELS The aortic root is normal in size. PERICARDIAL EFFUSION There is no pericardial effusion. <Conclusion> Limited study. The left ventricle is normal size. The left ventricular function is normal. The left ventricular function is normal. The aortic valve is mildly thickened but opens well. Aortic sclerosis. No definite vegetation seen.
[2016-12-30] MEDS: Metoprolol Succinate 25 mg XL Tab PO SCH (10:17)
[2016-12-30] MEDS: cefTRIAXone 1 gm 100 ML IVPB SCH (10:19)
[2016-12-30] MEDS: Hydrocortisone 1% Cream (30 GM) TOP SCH ×2 (10:23→17:08)
[2016-12-30] MEDS: Vancomycin 1gm in NS 250ml 250 ML IVPB SCH (13:01)
--- NOTE | 2016-12-30 16:55 | CP.PCM.PN ---
Subjective - Date & Time of Evaluation Date of Evaluation: 12/30/16 Time of Evaluation: 15:00 - Subjective Subjective: Infectious Disease Follow Up: December 30, 2016 56 yo female with extensive past medical history showing SLE, CAD, [place] ( 2 yr prior), hx DVT and questionable PE s/p IVC filter placement, and compression fractures of T8, T9, L4, and L5 s/p Lumbar fusion recently discharge from [facility] presents with intractable back pain and findings of new compression fracture of T12. Blood culture with gram positive cocci with FISH analysis suggesting Staph Aureus. The patient is awake and in pain. No neurosurgical interventions at this time. No relief with back brace for pain. Fevers up to 100.9 F on admission. Currently afebrile for the past 3 days. Afebrile today so far. Staph Aureus in blood cultures times two. Check Echocardiogram - results show no definitive vegetations. Sensitivities show MSSA. Currently on Vancomycin and Rocephin for treatment. Periods of confusion the past 24 hours. Objective - Vital Signs/Intake and Output Vital Signs (last 24 hours): Temp Pulse Resp BP Pulse Ox 98.6 F 84 20 132/88 96 12/30/16 16:12 12/30/16 16:12 12/30/16 16:12 12/30/16 16:12 12/30/16 16:12 Intake and Output: 12/30/16 12/30/16 06:59 18:59 Intake Total 1020 Output Total 900 Balance 120 - Medications Medications: Current Medications Clopidogrel Bisulfate (Plavix) 75 mg PO DAILY [facility] Last Admin: 12/28/16 09:07 Dose: 75 mg Cyclobenzaprine HCl (Flexeril) 10 mg PO TID PRN PRN Reason: Muscle spasm Last Admin: 12/30/16 08:21 Dose: 10 mg Diazepam (Valium) 5 mg PO Q6H PRN; Protocol PRN Reason: Muscle spasm Last Admin: 12/27/16 21:39 Dose: 5 mg Docusate Sodium (Colace) 100 mg PO DAILY [facility] Last Admin: 12/30/16 10:14 Dose: 100 mg Duloxetine HCl (Cymbalta) 60 mg PO DAILY [facility] Last Admin: 12/30/16 10:18 Dose: 60 mg Famotidine (Pepcid) 40 mg PO HS [facility] Fentanyl (Duragesic) 1 patch TD Q72H [facility] Last Admin: 12/28/16 13:28 Dose: 1 patch Gabapentin (Neurontin) 300 mg PO BID [facility] PRN Reason: Protocol Last Admin: 12/30/16 10:18 Dose: 300 mg Heparin Sodium (Porcine) (Heparin) 5,000 units SC Q12 [facility] PRN Reason: Protocol Last Admin: 12/29/16 21:40 Dose: 5,000 units Hydrocortisone (Cortizone 1% Cream) 0 gm TOP BID [facility] Last Admin: 12/30/16 10:23 Dose: 1 appl Hydromorphone HCl (Dilaudid) 2 mg IVP Q4 PRN PRN Reason: Pain, severe (8-10) Last Admin: 12/30/16 10:20 Dose: 2 mg Hydroxychloroquine Sulfate (Plaquenil) 200 mg PO DAILY [facility] Last Admin: 12/30/16 10:15 Dose: 200 mg Ceftriaxone Sodium (Rocephin 1 Gram Ivpb) 100 mls @ 100 mls/hr IVPB DAILY [facility] PRN Reason: Protocol Last Admin: 12/30/16 10:19 Dose: 100 mls/hr Vancomycin HCl (Vancomycin 1gm) 250 mls @ 167 mls/hr IVPB DAILY [facility] PRN Reason: Protocol Last Admin: 12/30/16 13:01 Dose: 167 mls/hr Sodium Chloride (Sodium Chloride 0.9%) 1,000 mls @ 125 mls/hr IV .Q8H [facility] Last Admin: 12/30/16 10:21 Dose: 125 mls/hr Methotrexate (Methotrexate) 2.5 mg PO DAILY [facility] Metoprolol Succinate (Toprol Xl) 25 mg PO DAILY [facility] Last Admin: 12/30/16 10:17 Dose: Not Given Pantoprazole Sodium (Protonix Ec Tab) 40 mg PO DAILY [facility] Last Admin: 12/29/16 09:21 Dose: 40 mg Polyethylene Glycol (Miralax) 17 gm PO DAILY PRN PRN Reason: Constipation Sennosides (Senokot Tab) 8.6 mg PO DAILY [facility] Last Admin: 12/30/16 10:15 Dose: 8.6 mg Sucralfate (Carafate Tab) 1 gm PO DAILY [facility] - Labs Labs: 12/30/16 07:12 12/30/16 07:12 - Constitutional Appears: Non-toxic, No Acute Distress, Confused, Chronically Ill - Head Exam Head Exam: ATRAUMATIC, NORMOCEPHALIC - Eye Exam Eye Exam: EOMI, PERRL Pupil Exam: NORMAL ACCOMODATION, PERRL - ENT Exam ENT Exam: Mucous Membranes Moist, Normal External Ear Exam, TM's Normal Bilaterally - Neck Exam Neck Exam: Full ROM, Normal Inspection - Respiratory Exam Respiratory Exam: Clear to Ausculation Bilateral, NORMAL BREATHING PATTERN. absent: Rales, Rhonchi, Wheezes - Cardiovascular Exam Cardiovascular Exam: REGULAR RHYTHM, RRR, +S1, +S2 - GI/Abdominal Exam GI & Abdominal Exam: Soft, Normal Bowel Sounds. absent: Distended, Tenderness - Extremities Exam Extremities Exam: Full ROM, Normal Inspection - Neurological Exam Neurological Exam: Alert, Awake, CN II-XII Intact, Oriented x3 - Psychiatric Exam Psychiatric exam: Normal Affect, Normal Mood - Skin Skin Exam: Intact, Normal Color Assessment and Plan - Assessment and Plan (Free Text) Assessment: 56 yo female with multiple compression fractures and fevers on admission up to 100.9 F. The patient has positive blood cultures with gram positive cocci in clusters with FISH suggesting Staph Aureus. Currently on Ceftriaxone. Continue with Vancomycin to the regimen until final culture results return. The patient with bacteremia. Staph Aureus in both blood cultures. Check Echo - no definitive vegetations seen. Awaiting sensitivities - showing MSSA. Currently on Rocephin and Vancomycin. Given the numerous medical issues on this patient, may need to consider 6 weeks of IV antibiotics especially given number of spinal compression fractures and the weakness of the spine in general. Thank you for allowing me to participate in the care of the patient, we will follow with you. Case discussed with Dr. Narvaez.
--- NOTE | 2016-12-30 17:03 | CP.PCM.PN ---
<Thad Page - Last Filed: 12/30/16 16:56> Subjective - Date & Time of Evaluation Date of Evaluation: 12/30/16 Time of Evaluation: 08:35 - Subjective Subjective: Pt seen and examined. PT reports that her pain is improved today. Pt less confused today. Pt denies fever, chills, chest pain,shortness of breath, nausea, and vomiting. Objective - Vital Signs/Intake and Output Vital Signs (last 24 hours): Temp Pulse Resp BP Pulse Ox 98.6 F 84 20 132/88 96 12/30/16 16:12 12/30/16 16:12 12/30/16 16:12 12/30/16 16:12 12/30/16 16:12 Intake and Output: 12/30/16 12/30/16 06:59 18:59 Intake Total 1020 Output Total 900 Balance 120 - Medications Medications: Current Medications Clopidogrel Bisulfate (Plavix) 75 mg PO DAILY [facility] Last Admin: 12/28/16 09:07 Dose: 75 mg Cyclobenzaprine HCl (Flexeril) 10 mg PO TID PRN PRN Reason: Muscle spasm Last Admin: 12/30/16 16:50 Dose: 10 mg Diazepam (Valium) 5 mg PO Q6H PRN; Protocol PRN Reason: Muscle spasm Last Admin: 12/27/16 21:39 Dose: 5 mg Docusate Sodium (Colace) 100 mg PO DAILY [facility] Last Admin: 12/30/16 10:14 Dose: 100 mg Duloxetine HCl (Cymbalta) 60 mg PO DAILY [facility] Last Admin: 12/30/16 10:18 Dose: 60 mg Famotidine (Pepcid) 40 mg PO HS [facility] Fentanyl (Duragesic) 1 patch TD Q72H [facility] Last Admin: 12/28/16 13:28 Dose: 1 patch Gabapentin (Neurontin) 300 mg PO BID [facility] PRN Reason: Protocol Last Admin: 12/30/16 10:18 Dose: 300 mg Heparin Sodium (Porcine) (Heparin) 5,000 units SC Q12 [facility] PRN Reason: Protocol Last Admin: 12/29/16 21:40 Dose: 5,000 units Hydrocortisone (Cortizone 1% Cream) 0 gm TOP BID [facility] Last Admin: 12/30/16 10:23 Dose: 1 appl Hydromorphone HCl (Dilaudid) 2 mg IVP Q4 PRN PRN Reason: Pain, severe (8-10) Last Admin: 12/30/16 16:50 Dose: 2 mg Hydroxychloroquine Sulfate (Plaquenil) 200 mg PO DAILY [facility] Last Admin: 12/30/16 10:15 Dose: 200 mg Ceftriaxone Sodium (Rocephin 1 Gram Ivpb) 100 mls @ 100 mls/hr IVPB DAILY [facility] PRN Reason: Protocol Last Admin: 12/30/16 10:19 Dose: 100 mls/hr Vancomycin HCl (Vancomycin 1gm) 250 mls @ 167 mls/hr IVPB DAILY [facility] PRN Reason: Protocol Last Admin: 12/30/16 13:01 Dose: 167 mls/hr Sodium Chloride (Sodium Chloride 0.9%) 1,000 mls @ 125 mls/hr IV .Q8H [facility] Last Admin: 12/30/16 10:21 Dose: 125 mls/hr Methotrexate (Methotrexate) 2.5 mg PO DAILY [facility] Metoprolol Succinate (Toprol Xl) 25 mg PO DAILY [facility] Last Admin: 12/30/16 10:17 Dose: Not Given Pantoprazole Sodium (Protonix Ec Tab) 40 mg PO DAILY [facility] Last Admin: 12/29/16 09:21 Dose: 40 mg Polyethylene Glycol (Miralax) 17 gm PO DAILY PRN PRN Reason: Constipation Sennosides (Senokot Tab) 8.6 mg PO DAILY [facility] Last Admin: 12/30/16 10:15 Dose: 8.6 mg Sucralfate (Carafate Tab) 1 gm PO DAILY [facility] - Labs Labs: 12/30/16 07:12 12/30/16 07:12 - Constitutional Appears: No Acute Distress - Head Exam Head Exam: ATRAUMATIC, NORMOCEPHALIC - Eye Exam Eye Exam: EOMI, PERRL Pupil Exam: PERRL - ENT Exam ENT Exam: Mucous Membranes Moist - Neck Exam Neck Exam: Full ROM. absent: Lymphadenopathy - Respiratory Exam Respiratory Exam: Clear to Ausculation Bilateral. absent: Rales, Rhonchi, Wheezes - Cardiovascular Exam Cardiovascular Exam: +S1, +S2. absent: Gallop, Rubs, Murmur - GI/Abdominal Exam GI & Abdominal Exam: Soft. absent: Tenderness, Normal Bowel Sounds - Extremities Exam Extremities Exam: absent: Pedal Edema - Back Exam Back Exam: paraspinal tenderness - Neurological Exam Neurological Exam: Alert, Awake, Oriented x3 - Psychiatric Exam Psychiatric exam: Normal Affect, Normal Mood - Skin Skin Exam: Normal Color, Warm Assessment and Plan - Assessment and Plan (Free Text) Assessment: Assessment: Vertebral Compression Fracture/Intractable back pain: Spine MRI reveals chronic vertebral compression fractures and acute compression fracture of T12, no evidence of cord compression (please see full reports) Neurosurgery consulted, Dr. Hinds, help appreciated. As per neurosurgery, pt not a surgical candidate. Pt was seen as a consult last month during last admission. Perhaps IR for vertebroplasty. Pain management, Dr. Snow, consulted. Following medication recommendations as per Dr. Snow via conversation on the phone: Flexeril 10 mg po tid prn for muscle spasms Valium discontinued Fentanyl 50 mg patch td q72h Dilaudid increased to 2 mg IV q4h Toradol discontinued Prednisone discontinued Kyphoplasty likely on Sunday with IR, Dr. Hoskins Plavix held Neurontin 300 mg po tid for peripheral neuropathy As per Dr. Snow, possible epidural injection on Sunday (01/01) if pain does not improve post kyphoplasty Sepsis: Blood cultures positive for gram positive cocci Afebrile, nontachycardic No leukocytosis Infectious Disease, Dr. Freeman, consulted. Help appreciated. CXR - right lower lobe atelectasis/infiltrate (please see full report) Rocephin 1 gm IV qd Vancomycin 1 gm IV qd Echocardiogram - no vegetations, EF - 65% Urinary Retention: Asher in place As per neurosurgery, likely due to pain, no evidence of spinal cord compression Urology consulted, Dr. Adame, help appreciated. As per urology, continue asher catheter. Hx of CAD: Plavix 75 m po qd Hx of Lupus: Plaquenil 200 mg po qd Methotrexate on hold Hx of HTN: Metoprolol succinate 25 mg po qd Hx of Depression: Cymbalta 60 mg po qd Prophylactic Measures: GI: Protonix 40 mg po qd DVT: Heparin 5000 units sc q12h Colace, miralax for constipation <Denise Narvaez - Last Filed: 12/30/16 17:48> Objective - Vital Signs/Intake and Output Vital Signs (last 24 hours): Temp Pulse Resp BP Pulse Ox 98.6 F 84 20 132/88 96 12/30/16 16:12 12/30/16 16:12 12/30/16 16:12 12/30/16 16:12 12/30/16 16:12 Intake and Output: 12/30/16 12/30/16 06:59 18:59 Intake Total 1020 Output Total 900 Balance 120 - Medications Medications: Current Medications Clopidogrel Bisulfate (Plavix) 75 mg PO DAILY [facility] Last Admin: 12/28/16 09:07 Dose: 75 mg Cyclobenzaprine HCl (Flexeril) 10 mg PO TID PRN PRN Reason: Muscle spasm Last Admin: 12/30/16 16:50 Dose: 10 mg Diazepam (Valium) 5 mg PO Q6H PRN; Protocol PRN Reason: Muscle spasm Last Admin: 12/27/16 21:39 Dose: 5 mg Docusate Sodium (Colace) 100 mg PO DAILY [facility] Last Admin: 12/30/16 10:14 Dose: 100 mg Duloxetine HCl (Cymbalta) 60 mg PO DAILY [facility] Last Admin: 12/30/16 10:18 Dose: 60 mg Famotidine (Pepcid) 40 mg PO HS [facility] Fentanyl (Duragesic) 1 patch TD Q72H [facility] Last Admin: 12/28/16 13:28 Dose: 1 patch Gabapentin (Neurontin) 300 mg PO BID [facility] PRN Reason: Protocol Last Admin: 12/30/16 17:08 Dose: 300 mg Heparin Sodium (Porcine) (Heparin) 5,000 units SC Q12 [facility] PRN Reason: Protocol Last Admin: 12/29/16 21:40 Dose: 5,000 units Hydrocortisone (Cortizone 1% Cream) 0 gm TOP BID [facility] Last Admin: 12/30/16 17:08 Dose: 1 appl Hydromorphone HCl (Dilaudid) 2 mg IVP Q4 PRN PRN Reason: Pain, severe (8-10) Last Admin: 12/30/16 16:50 Dose: 2 mg Hydroxychloroquine Sulfate (Plaquenil) 200 mg PO DAILY [facility] Last Admin: 12/30/16 10:15 Dose: 200 mg Ceftriaxone Sodium (Rocephin 1 Gram Ivpb) 100 mls @ 100 mls/hr IVPB DAILY [facility] PRN Reason: Protocol Last Admin: 12/30/16 10:19 Dose: 100 mls/hr Vancomycin HCl (Vancomycin 1gm) 250 mls @ 167 mls/hr IVPB DAILY [facility] PRN Reason: Protocol Last Admin: 12/30/16 13:01 Dose: 167 mls/hr Sodium Chloride (Sodium Chloride 0.9%) 1,000 mls @ 125 mls/hr IV .Q8H [facility] Last Admin: 12/30/16 10:21 Dose: 125 mls/hr Methotrexate (Methotrexate) 2.5 mg PO DAILY [facility] Metoprolol Succinate (Toprol Xl) 25 mg PO DAILY [facility] Last Admin: 12/30/16 10:17 Dose: Not Given Pantoprazole Sodium (Protonix Ec Tab) 40 mg PO DAILY [facility] Last Admin: 12/29/16 09:21 Dose: 40 mg Polyethylene Glycol (Miralax) 17 gm PO DAILY PRN PRN Reason: Constipation Sennosides (Senokot Tab) 8.6 mg PO DAILY [facility] Last Admin: 12/30/16 10:15 Dose: 8.6 mg Sucralfate (Carafate Tab) 1 gm PO DAILY [facility] - Labs Labs: 12/30/16 07:12 12/30/16 07:12 Attending/Attestation - Attestation I have personally seen and examined this patient.: Yes I have fully participated in the care of the patient.: Yes I have reviewed all pertinent clinical information, including history, physical exam and plan: Yes Notes (Text): I have seen and examined patient at bedside. This is 56 year old female with history of SLE, CAD, hx DVT and questionable PE s/p IVC filter placement, and compression fractures of T8, T9, L4, and L5 s/p Lumbar fusion who got admitted for evaluation of progressively worsening back pain and found to have an acute T12 compression fracture. Neurosurgery consult appreciated. Patient is not a surgical candidate as she had multiple fractures in the past. IR consult appreciated. Plan for possible vertebroplasty in the future once infection is resolved. Pain management consult appreciated. Pain medications were adjusted. She has urinary retention. Urology consult appreciated. Plan to keep the asher in for now. Blood cultures are positive for staph aureus which is sensitive. She is currently on vanco and rocephin. Will discuss with ID. Also noted to have thrombocytopenia. Discontinue protonix and heparin. Scd noted. Dr Denise Narvaez
[2016-12-31] MEDS: HYDROmorphone 2 mg/ml ISec IVP PRN ×5 (01:18→17:33)
[2016-12-31 06:35] LABS: ADD MANUAL DIFF? NO
[2016-12-31 06:50] LABS: ALB/GLOB RATIO 0.8 (1.1-1.8); ALKALINE PHOSPHATASE 77 U/L (38-133); ALT/SGPT 37 U/L (7-56); AST/SGOT 28 U/L (15-39); BILIRUBIN,TOTAL 0.4 mg/dL (0.2-1.3); BLOOD UREA NITROGEN 9 mg/dL (7-21); CALCIUM 8.4 mg/dL (8.4-10.5); CARBON DIOXIDE 25 mmol/L (21-33); CHLORIDE 102 mmol/L (98-107); GFR AFRICAN-AMERICAN > 60; GLUCOSE,RANDOM 99 mg/dL (70-110); MAGNESIUM 1.6 mg/dL (1.7-2.2); PHOSPHOROUS 3.9 mg/dL (2.5-4.5); POTASSIUM 3.4 mmol/L (3.6-5.0); SODIUM 136 mmol/L (132-148); TOTAL PROTEIN 5.3 g/dL (5.8-8.3)
[2016-12-31 07:22] LABS: BASO # 0.03 K/mm3 (0.0-2.0); BASO % 0.4 % (0.0-3.0); EOS # 0.1 (0.0-0.7); EOS % 1.7 % (1.5-5.0); GRAN # 5.12 (1.4-6.5); GRAN % 65.3 % (50.0-68.0); HEMATOCRIT 29.7 % (36.0-48.0); LYMPH # 1.4 (1.2-3.4); LYMPH % 18.3 % (22.0-35.0); MEAN CELL VOLUME 88.7 fL (80.0-105.0); MEAN CORPUSCULAR HEMOGLOBIN 29.9 pg (25.0-35.0); MEAN CORPUSCULAR HGB CONC 33.7 g/dl (31.0-37.0); MEAN PLATELET VOLUME 11.4 fl (7.0-11.0); MONO # 1.1 (0.1-0.6); MONO % 14.3 % (1.0-6.0); PLATELET COUNT 130 10^3/uL (120.0-450.0); RED CELL DISTRIBUTION WIDTH 13.6 % (11.5-14.5); WHITE BLOOD COUNT 7.8 10^3/ul (4.5-11.0)
[2016-12-31] MEDS ORDERED: Potassium Chloride 20 mEq ER Tab PO ONE (07:37)
[2016-12-31] MEDS: Magnesium Oxide 400 mg Tab UD PO SCH ×2 (09:22→17:33)
[2016-12-31] MEDS: cefTRIAXone 1 gm 100 ML IVPB SCH (09:23)
[2016-12-31] MEDS: Metoprolol Succinate 25 mg XL Tab PO SCH (09:24)
[2016-12-31] MEDS: Hydrocortisone 1% Cream (30 GM) TOP SCH ×2 (09:25→17:38)
--- NOTE | 2016-12-31 10:47 | PCM.URO ---
Urology Progress Note - Objective Lab Results Last 24 Hours: Laboratory Results - last 24 hr 12/31/16 06:20 WBC 7.8 RBC 3.35 L Hgb 10.0 L Hct 29.7 L MCV 88.7 MCH 29.9 MCHC 33.7 RDW 13.6 Plt Count 130 MPV 11.4 H Gran % 65.3 Lymph % (Auto) 18.3 L Schley % (Auto) 14.3 H Eos % (Auto) 1.7 Baso % (Auto) 0.4 Gran # 5.12 Lymph # 1.4 Schley # 1.1 H Eos # 0.1 Baso # 0.03 Sodium 136 Potassium 3.4 L Chloride 102 Carbon Dioxide 25 Anion Gap 12 BUN 9 Creatinine 0.7 Est GFR ( Amer) > 60 Est GFR (Non-Af Amer) > 60 Random Glucose 99 Calcium 8.4 Phosphorus 3.9 Magnesium 1.6 L Total Bilirubin 0.4 AST 28 ALT 37 Alkaline Phosphatase 77 Total Protein 5.3 L Albumin 2.4 L Globulin 2.9 Albumin/Globulin Ratio 0.8 L Intake & Output: Intake & Output 12/30/16 12/31/16 12/31/16 18:59 06:59 18:59 Intake Total 780 Output Total 1500 Balance -720 Weight 169 lb 169 lb Intake: Oral 780 Output: Urine 1500 2-way Urethral 1500 Stool 0 Other: # Bowel Movements 0 Vital Signs: Vital Signs - 24 hr 12/30/16 12/30/16 12/30/16 14:00 16:12 18:00 Temperature 98.6 F Pulse Rate 83 84 79 Respiratory 20 Rate Blood Pressure 132/88 O2 Sat by Pulse 96 Oximetry 12/30/16 12/31/16 12/31/16 22:00 02:00 06:00 Temperature 98.6 F Pulse Rate 81 86 85 Respiratory 20 Rate Blood Pressure 138/83 O2 Sat by Pulse 97 Oximetry 12/31/16 09:24 Temperature Pulse Rate 85 Respiratory Rate Blood Pressure 138/83 O2 Sat by Pulse Oximetry
[2016-12-31] MEDS: Vancomycin 1gm in NS 250ml 250 ML IVPB SCH (11:52)
[2016-12-31] MEDS: Sodium Chloride 0.9% 1,000 ML IV SCH (12:04)
--- NOTE | 2016-12-31 15:41 | CP.PCM.PN ---
<Thad Page - Last Filed: 12/31/16 15:37> Subjective - Date & Time of Evaluation Date of Evaluation: 12/31/16 Time of Evaluation: 08:47 - Subjective Subjective: Pt seen and examined. Pt reports pain in her thoracic and lumbar spine. Pt denies fever, chills, chest pain, shortness of breath, nausea, and vomiting. Objective - Vital Signs/Intake and Output Vital Signs (last 24 hours): Temp Pulse Resp BP Pulse Ox 98.6 F 77 20 138/83 97 12/31/16 06:00 12/31/16 10:00 12/31/16 06:00 12/31/16 09:24 12/31/16 06:00 Intake and Output: 12/31/16 12/31/16 06:59 18:59 Intake Total 780 480 Output Total 1500 400 Balance -720 80 - Medications Medications: Current Medications Clopidogrel Bisulfate (Plavix) 75 mg PO DAILY [facility] Last Admin: 12/28/16 09:07 Dose: 75 mg Cyclobenzaprine HCl (Flexeril) 10 mg PO TID PRN PRN Reason: Muscle spasm Last Admin: 12/31/16 13:47 Dose: 10 mg Diazepam (Valium) 5 mg PO Q6H PRN; Protocol PRN Reason: Muscle spasm Last Admin: 12/27/16 21:39 Dose: 5 mg Docusate Sodium (Colace) 100 mg PO DAILY [facility] Last Admin: 12/31/16 09:22 Dose: 100 mg Duloxetine HCl (Cymbalta) 60 mg PO DAILY [facility] Last Admin: 12/31/16 09:23 Dose: 60 mg Famotidine (Pepcid) 40 mg PO HS [facility] Last Admin: 12/30/16 21:16 Dose: 40 mg Fentanyl (Duragesic) 1 patch TD Q72H [facility] Last Admin: 12/31/16 13:48 Dose: 1 patch Gabapentin (Neurontin) 300 mg PO BID [facility] PRN Reason: Protocol Last Admin: 12/31/16 09:22 Dose: 300 mg Heparin Sodium (Porcine) (Heparin) 5,000 units SC Q12 [facility] PRN Reason: Protocol Last Admin: 12/29/16 21:40 Dose: 5,000 units Hydrocortisone (Cortizone 1% Cream) 0 gm TOP BID [facility] Last Admin: 12/31/16 09:25 Dose: 1 appl Hydromorphone HCl (Dilaudid) 2 mg IVP Q4 PRN PRN Reason: Pain, severe (8-10) Last Admin: 12/31/16 13:47 Dose: 2 mg Hydroxychloroquine Sulfate (Plaquenil) 200 mg PO DAILY [facility] Last Admin: 12/31/16 09:23 Dose: 200 mg Ceftriaxone Sodium (Rocephin 1 Gram Ivpb) 100 mls @ 100 mls/hr IVPB DAILY [facility] PRN Reason: Protocol Last Admin: 12/31/16 09:23 Dose: 100 mls/hr Vancomycin HCl (Vancomycin 1gm) 250 mls @ 167 mls/hr IVPB DAILY [facility] PRN Reason: Protocol Last Admin: 12/31/16 11:52 Dose: 167 mls/hr Sodium Chloride (Sodium Chloride 0.9%) 1,000 mls @ 125 mls/hr IV .Q8H [facility] Last Admin: 12/31/16 12:04 Dose: 125 mls/hr Magnesium Oxide (Mag-Ox) 400 mg PO BID [facility] Stop: 12/31/16 23:59 Last Admin: 12/31/16 09:22 Dose: 400 mg Methotrexate (Methotrexate) 2.5 mg PO DAILY [facility] Metoprolol Succinate (Toprol Xl) 25 mg PO DAILY [facility] Last Admin: 12/31/16 09:24 Dose: 25 mg Pantoprazole Sodium (Protonix Ec Tab) 40 mg PO DAILY [facility] Last Admin: 12/29/16 09:21 Dose: 40 mg Polyethylene Glycol (Miralax) 17 gm PO DAILY PRN PRN Reason: Constipation Sennosides (Senokot Tab) 8.6 mg PO DAILY [facility] Last Admin: 12/31/16 09:22 Dose: 8.6 mg - Labs Labs: 12/31/16 06:20 12/31/16 06:20 - Constitutional Appears: No Acute Distress - Head Exam Head Exam: ATRAUMATIC, NORMOCEPHALIC - Eye Exam Eye Exam: EOMI, PERRL - ENT Exam ENT Exam: Mucous Membranes Moist. absent: Mucous Membranes Dry - Neck Exam Neck Exam: Full ROM. absent: Lymphadenopathy - Respiratory Exam Respiratory Exam: Clear to Ausculation Bilateral. absent: Rales, Rhonchi, Wheezes - Cardiovascular Exam Cardiovascular Exam: +S1, +S2. absent: Gallop, Rubs, Murmur - GI/Abdominal Exam GI & Abdominal Exam: Soft, Normal Bowel Sounds. absent: Distended, Guarding, Tenderness - Extremities Exam Extremities Exam: Full ROM. absent: Pedal Edema - Back Exam Back Exam: paraspinal tenderness - Neurological Exam Neurological Exam: Alert, Awake, Oriented x3 - Psychiatric Exam Psychiatric exam: Normal Affect, Normal Mood - Skin Skin Exam: Normal Color, Warm Assessment and Plan - Assessment and Plan (Free Text) Assessment: Vertebral Compression Fracture/Intractable back pain: Spine MRI reveals chronic vertebral compression fractures and acute compression fracture of T12, no evidence of cord compression (please see full reports) Neurosurgery consulted, Dr. Hinds, help appreciated. As per neurosurgery, pt not a surgical candidate. Pt was seen as a consult last month during last admission. Perhaps IR for vertebroplasty. Pain management, Dr. Snow, consulted. Following medication recommendations as per Dr. Snow via conversation on the phone: Flexeril 10 mg po tid prn for muscle spasms Valium discontinued Fentanyl 50 mg patch td q72h Dilaudid increased to 2 mg IV q4h Toradol discontinued Prednisone discontinued Kyphoplasty likely on Sunday with IR, Dr. Hoskins NPO past midnight Plavix held Neurontin 300 mg po tid for peripheral neuropathy As per Dr. Snow, possible epidural injection on Sunday (01/01) if pain does not improve post kyphoplasty Sepsis: Blood cultures positive for gram positive cocci. Awaiting sensitivies. Afebrile, nontachycardic No leukocytosis Infectious Disease, Dr. Freeman, consulted. Help appreciated. CXR - right lower lobe atelectasis/infiltrate (please see full report) Rocephin 1 gm IV qd Vancomycin 1 gm IV qd Echocardiogram - no vegetations notes (please see full report) Discuss long-term abx plan and if possible to go for kyphoplasty with Dr. Freeman Urinary Retention: Asher in place As per neurosurgery, likely due to pain, no evidence of spinal cord compression Urology consulted, Dr. Adame, help appreciated. As per urology, continue asher catheter. Hx of CAD: Plavix 75 m po qd - currently held Hx of Lupus: Plaquenil 200 mg po qd Methotrexate on hold Hx of HTN: Metoprolol succinate 25 mg po qd Hx of Depression: Cymbalta 60 mg po qd Prophylactic Measures: GI: Protonix 40 mg po qd DVT: Heparin 5000 units sc q12h Colace, miralax for constipation <Denise Narvaez - Last Filed: 12/31/16 16:35> Objective - Vital Signs/Intake and Output Vital Signs (last 24 hours): Temp Pulse Resp BP Pulse Ox 98.6 F 77 20 138/83 97 12/31/16 06:00 12/31/16 10:00 12/31/16 06:00 12/31/16 09:24 12/31/16 06:00 Intake and Output: 12/31/16 12/31/16 06:59 18:59 Intake Total 780 480 Output Total 1500 400 Balance -720 80 - Medications Medications: Current Medications Clopidogrel Bisulfate (Plavix) 75 mg PO DAILY [facility] Last Admin: 12/28/16 09:07 Dose: 75 mg Cyclobenzaprine HCl (Flexeril) 10 mg PO TID PRN PRN Reason: Muscle spasm Last Admin: 12/31/16 13:47 Dose: 10 mg Diazepam (Valium) 5 mg PO Q6H PRN; Protocol PRN Reason: Muscle spasm Last Admin: 12/27/16 21:39 Dose: 5 mg Docusate Sodium (Colace) 100 mg PO DAILY [facility] Last Admin: 12/31/16 09:22 Dose: 100 mg Duloxetine HCl (Cymbalta) 60 mg PO DAILY [facility] Last Admin: 12/31/16 09:23 Dose: 60 mg Famotidine (Pepcid) 40 mg PO HS [facility] Last Admin: 12/30/16 21:16 Dose: 40 mg Fentanyl (Duragesic) 1 patch TD Q72H [facility] Last Admin: 12/31/16 13:48 Dose: 1 patch Gabapentin (Neurontin) 300 mg PO BID [facility] PRN Reason: Protocol Last Admin: 12/31/16 09:22 Dose: 300 mg Heparin Sodium (Porcine) (Heparin) 5,000 units SC Q12 [facility] PRN Reason: Protocol Last Admin: 12/29/16 21:40 Dose: 5,000 units Hydrocortisone (Cortizone 1% Cream) 0 gm TOP BID [facility] Last Admin: 12/31/16 09:25 Dose: 1 appl Hydromorphone HCl (Dilaudid) 2 mg IVP Q4 PRN PRN Reason: Pain, severe (8-10) Last Admin: 12/31/16 13:47 Dose: 2 mg Hydroxychloroquine Sulfate (Plaquenil) 200 mg PO DAILY [facility] Last Admin: 12/31/16 09:23 Dose: 200 mg Ceftriaxone Sodium (Rocephin 1 Gram Ivpb) 100 mls @ 100 mls/hr IVPB DAILY [facility] PRN Reason: Protocol Last Admin: 12/31/16 09:23 Dose: 100 mls/hr Vancomycin HCl (Vancomycin 1gm) 250 mls @ 167 mls/hr IVPB DAILY [facility] PRN Reason: Protocol Last Admin: 12/31/16 11:52 Dose: 167 mls/hr Sodium Chloride (Sodium Chloride 0.9%) 1,000 mls @ 125 mls/hr IV .Q8H [facility] Last Admin: 12/31/16 12:04 Dose: 125 mls/hr Magnesium Oxide (Mag-Ox) 400 mg PO BID [facility] Stop: 12/31/16 23:59 Last Admin: 12/31/16 09:22 Dose: 400 mg Methotrexate (Methotrexate) 2.5 mg PO DAILY [facility] Metoprolol Succinate (Toprol Xl) 25 mg PO DAILY [facility] Last Admin: 12/31/16 09:24 Dose: 25 mg Pantoprazole Sodium (Protonix Ec Tab) 40 mg PO DAILY [facility] Last Admin: 12/29/16 09:21 Dose: 40 mg Polyethylene Glycol (Miralax) 17 gm PO DAILY PRN PRN Reason: Constipation Sennosides (Senokot Tab) 8.6 mg PO DAILY [facility] Last Admin: 12/31/16 09:22 Dose: 8.6 mg - Labs Labs: 12/31/16 06:20 12/31/16 06:20 Attending/Attestation - Attestation I have personally seen and examined this patient.: Yes I have fully participated in the care of the patient.: Yes I have reviewed all pertinent clinical information, including history, physical exam and plan: Yes Notes (Text): I have seen and examined patient at bedside. This is 56 year old female with history of SLE, CAD, hx DVT and questionable PE s/p IVC filter placement, and compression fractures of T8, T9, L4, and L5 s/p Lumbar fusion who got admitted for evaluation of progressively worsening back pain and found to have an acute T12 compression fracture. Neurosurgery consult appreciated. Patient is not a surgical candidate as she had multiple fractures in the past. IR consult appreciated. Plan for possible vertebroplasty in the future once infection is resolved. Discussed with Dr Freeman.She has staph bacteremia. Will repeat blood cultures today. Pain management consult appreciated. Pain medications were adjusted. She has urinary retention. Urology consult appreciated. Plan to keep the asher in for now.She is currently on vanco and rocephin. Will discuss with ID. Also noted to have thrombocytopenia. Discontinue protonix and heparin. Scd noted. Patient feels better today. Pain is under control. Advised for OOB to chair. Dr Denise Narvaez
--- NOTE | 2016-12-31 17:49 | CP.PCM.PN ---
Subjective - Date & Time of Evaluation Date of Evaluation: 12/31/16 Time of Evaluation: 16:00 - Subjective Subjective: Infectious Disease Follow Up: December 31, 2016 56 yo female with extensive past medical history showing SLE, CAD, DC ( 2 yr prior), hx DVT and questionable PE s/p IVC filter placement, and compression fractures of T8, T9, L4, and L5 s/p Lumbar fusion recently discharge from [facility] [place] presents with intractable back pain and findings of new compression fracture of T12. Blood culture with gram positive cocci with FISH analysis suggesting Staph Aureus. The patient is awake and in pain. No neurosurgical interventions at this time. No relief with back brace for pain. Fevers up to 100.9 F on admission. Currently afebrile for the past 3 days. Afebrile today so far. Staph Aureus in blood cultures times two. Check Echocardiogram - results show no definitive vegetations. Sensitivities show MSSA. Currently on Vancomycin and Rocephin for treatment. Back pain under better control today. Objective - Vital Signs/Intake and Output Vital Signs (last 24 hours): Temp Pulse Resp BP Pulse Ox 98.2 F 92 H 18 116/71 93 L 12/31/16 16:31 12/31/16 16:31 12/31/16 16:31 12/31/16 16:31 12/31/16 16:31 Intake and Output: 12/31/16 12/31/16 06:59 18:59 Intake Total 780 480 Output Total 1500 400 Balance -720 80 - Medications Medications: Current Medications Clopidogrel Bisulfate (Plavix) 75 mg PO DAILY [facility] Last Admin: 12/28/16 09:07 Dose: 75 mg Cyclobenzaprine HCl (Flexeril) 10 mg PO TID PRN PRN Reason: Muscle spasm Last Admin: 12/31/16 13:47 Dose: 10 mg Diazepam (Valium) 5 mg PO Q6H PRN; Protocol PRN Reason: Muscle spasm Last Admin: 12/27/16 21:39 Dose: 5 mg Docusate Sodium (Colace) 100 mg PO DAILY [facility] Last Admin: 12/31/16 09:22 Dose: 100 mg Duloxetine HCl (Cymbalta) 60 mg PO DAILY [facility] Last Admin: 12/31/16 09:23 Dose: 60 mg Famotidine (Pepcid) 40 mg PO HS [facility] Last Admin: 12/30/16 21:16 Dose: 40 mg Fentanyl (Duragesic) 1 patch TD Q72H [facility] Last Admin: 12/31/16 13:48 Dose: 1 patch Gabapentin (Neurontin) 300 mg PO BID [facility] PRN Reason: Protocol Last Admin: 12/31/16 09:22 Dose: 300 mg Heparin Sodium (Porcine) (Heparin) 5,000 units SC Q12 [facility] PRN Reason: Protocol Last Admin: 12/29/16 21:40 Dose: 5,000 units Hydrocortisone (Cortizone 1% Cream) 0 gm TOP BID [facility] Last Admin: 12/31/16 09:25 Dose: 1 appl Hydromorphone HCl (Dilaudid) 2 mg IVP Q4 PRN PRN Reason: Pain, severe (8-10) Last Admin: 12/31/16 13:47 Dose: 2 mg Hydroxychloroquine Sulfate (Plaquenil) 200 mg PO DAILY [facility] Last Admin: 12/31/16 09:23 Dose: 200 mg Ceftriaxone Sodium (Rocephin 1 Gram Ivpb) 100 mls @ 100 mls/hr IVPB DAILY [facility] PRN Reason: Protocol Last Admin: 12/31/16 09:23 Dose: 100 mls/hr Vancomycin HCl (Vancomycin 1gm) 250 mls @ 167 mls/hr IVPB DAILY [facility] PRN Reason: Protocol Last Admin: 12/31/16 11:52 Dose: 167 mls/hr Sodium Chloride (Sodium Chloride 0.9%) 1,000 mls @ 125 mls/hr IV .Q8H [facility] Last Admin: 12/31/16 12:04 Dose: 125 mls/hr Magnesium Oxide (Mag-Ox) 400 mg PO BID [facility] Stop: 12/31/16 23:59 Last Admin: 12/31/16 09:22 Dose: 400 mg Methotrexate (Methotrexate) 2.5 mg PO DAILY [facility] Metoprolol Succinate (Toprol Xl) 25 mg PO DAILY [facility] Last Admin: 12/31/16 09:24 Dose: 25 mg Pantoprazole Sodium (Protonix Ec Tab) 40 mg PO DAILY [facility] Last Admin: 12/29/16 09:21 Dose: 40 mg Polyethylene Glycol (Miralax) 17 gm PO DAILY PRN PRN Reason: Constipation Sennosides (Senokot Tab) 8.6 mg PO DAILY [facility] Last Admin: 12/31/16 09:22 Dose: 8.6 mg - Labs Labs: 12/31/16 06:20 12/31/16 06:20 - Constitutional Appears: Non-toxic, No Acute Distress, Chronically Ill - Head Exam Head Exam: ATRAUMATIC, NORMOCEPHALIC - Eye Exam Eye Exam: EOMI, PERRL Pupil Exam: NORMAL ACCOMODATION, PERRL - ENT Exam ENT Exam: Mucous Membranes Moist, Normal External Ear Exam, TM's Normal Bilaterally - Neck Exam Neck Exam: Full ROM, Normal Inspection - Respiratory Exam Respiratory Exam: Clear to Ausculation Bilateral, NORMAL BREATHING PATTERN. absent: Rales, Rhonchi, Wheezes - Cardiovascular Exam Cardiovascular Exam: REGULAR RHYTHM, RRR, +S1, +S2 - GI/Abdominal Exam GI & Abdominal Exam: Soft, Normal Bowel Sounds. absent: Distended, Tenderness - Extremities Exam Extremities Exam: Full ROM, Normal Inspection - Neurological Exam Neurological Exam: Alert, Awake, CN II-XII Intact, Oriented x3 - Psychiatric Exam Psychiatric exam: Normal Affect, Normal Mood - Skin Skin Exam: Intact, Normal Color Assessment and Plan - Assessment and Plan (Free Text) Assessment: 56 yo female with multiple compression fractures and fevers on admission up to 100.9 F. The patient has positive blood cultures with gram positive cocci in clusters with FISH suggesting Staph Aureus. Currently on Ceftriaxone. Continue with Vancomycin to the regimen until final culture results return. The patient with bacteremia. Staph Aureus in both blood cultures. Check Echo - no definitive vegetations seen. Awaiting sensitivities - showing MSSA. Currently on Rocephin and Vancomycin. Given the numerous medical issues on this patient, may need to consider 6 weeks of IV antibiotics especially given number of spinal compression fractures and the weakness of the spine in general. Would hold off on kyphoplasty until blood cultures are negative give high chance to seed hardware with infection. Thank you for allowing me to participate in the care of the patient, we will follow with you. Case discussed with Dr. Narvaez.
[2017-01-01] MEDS: HYDROmorphone 2 mg/ml ISec IVP PRN ×2 (06:08→12:35)
[2017-01-01] MEDS: Vancomycin 1gm in NS 250ml 250 ML IVPB SCH (09:21)
[2017-01-01] MEDS ORDERED: Potassium Chloride 20 mEq ER Tab PO ONE (09:22)
[2017-01-01] MEDS: Metoprolol Succinate 25 mg XL Tab PO SCH (09:23)
[2017-01-01] MEDS: cefTRIAXone 1 gm 100 ML IVPB SCH (09:24)
[2017-01-01] MEDS: Hydrocortisone 1% Cream (30 GM) TOP SCH ×2 (09:25→17:35)
[2017-01-01 10:29] LABS: ADD MANUAL DIFF? NO
[2017-01-01 10:39] LABS: BASO # 0.02 K/mm3 (0.0-2.0); BASO % 0.3 % (0.0-3.0); EOS # 0.1 (0.0-0.7); EOS % 1.9 % (1.5-5.0); GRAN # 4.86 (1.4-6.5); GRAN % 67.5 % (50.0-68.0); HEMATOCRIT 30.3 % (36.0-48.0); LYMPH # 1.3 (1.2-3.4); LYMPH % 17.9 % (22.0-35.0); MEAN CELL VOLUME 88.1 fL (80.0-105.0); MEAN CORPUSCULAR HEMOGLOBIN 29.9 pg (25.0-35.0); MONO # 0.9 (0.1-0.6); MONO % 12.4 % (1.0-6.0); PLATELET COUNT 154 10^3/uL (120.0-450.0); RED CELL DISTRIBUTION WIDTH 13.6 % (11.5-14.5); WHITE BLOOD COUNT 7.2 10^3/ul (4.5-11.0)
[2017-01-01 10:41] LABS: ALB/GLOB RATIO 0.8 (1.1-1.8); ALKALINE PHOSPHATASE 74 U/L (38-133); ALT/SGPT 40 U/L (7-56); AST/SGOT 24 U/L (15-39); BILIRUBIN,TOTAL 0.4 mg/dL (0.2-1.3); BLOOD UREA NITROGEN 6 mg/dL (7-21); CALCIUM 8.8 mg/dL (8.4-10.5); CARBON DIOXIDE 27 mmol/L (21-33); CHLORIDE 99 mmol/L (98-107); GFR AFRICAN-AMERICAN > 60; GLUCOSE,RANDOM 79 mg/dL (70-110); MAGNESIUM 1.6 mg/dL (1.7-2.2); PHOSPHOROUS 4.2 mg/dL (2.5-4.5); POTASSIUM 3.4 mmol/L (3.6-5.0); SODIUM 136 mmol/L (132-148); TOTAL PROTEIN 5.8 g/dL (5.8-8.3)
[2017-01-01] MEDS: Magnesium Oxide 400 mg Tab UD PO SCH ×2 (10:51→17:35)
--- NOTE | 2017-01-01 10:52 | CP.PCM.PN ---
<Thad Page - Last Filed: 01/01/17 10:45> Subjective - Date & Time of Evaluation Date of Evaluation: 01/01/17 Time of Evaluation: 07:10 - Subjective Subjective: Pt seen and examined. Pt complains of back pain, reports that it is a little bit better than yesterday. Pt denies fever, chills, chest pain, shortness of breath, nausea, and vomiting. Objective - Vital Signs/Intake and Output Vital Signs (last 24 hours): Temp Pulse Resp BP Pulse Ox 98.9 F 105 H 20 121/72 95 01/01/17 07:55 01/01/17 09:23 01/01/17 07:55 01/01/17 09:23 01/01/17 07:55 Intake and Output: 01/01/17 01/01/17 06:59 18:59 Intake Total 3540 Output Total 1400 Balance 2140 - Medications Medications: Current Medications Clopidogrel Bisulfate (Plavix) 75 mg PO DAILY [facility] Last Admin: 12/28/16 09:07 Dose: 75 mg Cyclobenzaprine HCl (Flexeril) 10 mg PO TID PRN PRN Reason: Muscle spasm Last Admin: 12/31/16 13:47 Dose: 10 mg Diazepam (Valium) 5 mg PO Q6H PRN; Protocol PRN Reason: Muscle spasm Last Admin: 12/27/16 21:39 Dose: 5 mg Docusate Sodium (Colace) 100 mg PO DAILY [facility] Last Admin: 01/01/17 09:23 Dose: 100 mg Duloxetine HCl (Cymbalta) 60 mg PO DAILY [facility] Last Admin: 01/01/17 09:23 Dose: 60 mg Famotidine (Pepcid) 40 mg PO HS [facility] Last Admin: 12/31/16 22:31 Dose: 40 mg Fentanyl (Duragesic) 1 patch TD Q72H [facility] Last Admin: 12/31/16 13:48 Dose: 1 patch Gabapentin (Neurontin) 300 mg PO BID [facility] PRN Reason: Protocol Last Admin: 01/01/17 09:23 Dose: 300 mg Heparin Sodium (Porcine) (Heparin) 5,000 units SC Q12 [facility] PRN Reason: Protocol Last Admin: 12/29/16 21:40 Dose: 5,000 units Hydrocortisone (Cortizone 1% Cream) 0 gm TOP BID [facility] Last Admin: 01/01/17 09:25 Dose: 1 appl Hydromorphone HCl (Dilaudid) 2 mg IVP Q4 PRN PRN Reason: Pain, severe (8-10) Last Admin: 01/01/17 06:08 Dose: 2 mg Hydroxychloroquine Sulfate (Plaquenil) 200 mg PO DAILY [facility] Last Admin: 01/01/17 09:23 Dose: 200 mg Ceftriaxone Sodium (Rocephin 1 Gram Ivpb) 100 mls @ 100 mls/hr IVPB DAILY [facility] PRN Reason: Protocol Last Admin: 01/01/17 09:24 Dose: 100 mls/hr Vancomycin HCl (Vancomycin 1gm) 250 mls @ 167 mls/hr IVPB DAILY [facility] PRN Reason: Protocol Last Admin: 01/01/17 09:21 Dose: 167 mls/hr Sodium Chloride (Sodium Chloride 0.9%) 1,000 mls @ 125 mls/hr IV .Q8H [facility] Last Admin: 12/31/16 12:04 Dose: 125 mls/hr Magnesium Oxide (Mag-Ox) 400 mg PO BID [facility] Stop: 01/02/17 06:00 Methotrexate (Methotrexate) 2.5 mg PO DAILY [facility] Metoprolol Succinate (Toprol Xl) 25 mg PO DAILY [facility] Last Admin: 01/01/17 09:23 Dose: 25 mg Pantoprazole Sodium (Protonix Ec Tab) 40 mg PO DAILY [facility] Last Admin: 12/29/16 09:21 Dose: 40 mg Polyethylene Glycol (Miralax) 17 gm PO DAILY PRN PRN Reason: Constipation Sennosides (Senokot Tab) 8.6 mg PO DAILY [facility] Last Admin: 01/01/17 09:23 Dose: 8.6 mg - Labs Labs: 01/01/17 08:00 01/01/17 08:00 - Constitutional Appears: No Acute Distress - Head Exam Head Exam: ATRAUMATIC, NORMOCEPHALIC - Eye Exam Eye Exam: EOMI, PERRL - ENT Exam ENT Exam: Mucous Membranes Moist. absent: Mucous Membranes Dry - Neck Exam Neck Exam: Full ROM. absent: Lymphadenopathy - Respiratory Exam Respiratory Exam: Decreased Breath Sounds, Clear to Ausculation Bilateral. absent: Rales, Rhonchi, Wheezes - Cardiovascular Exam Cardiovascular Exam: +S1, +S2. absent: Gallop, Rubs - GI/Abdominal Exam GI & Abdominal Exam: Soft. absent: Guarding, Rigid, Tenderness - Extremities Exam Extremities Exam: absent: Pedal Edema - Back Exam Back Exam: paraspinal tenderness - Neurological Exam Neurological Exam: Alert, Awake, Oriented x3 - Psychiatric Exam Psychiatric exam: Normal Affect, Normal Mood - Skin Skin Exam: Normal Color, Warm Assessment and Plan - Assessment and Plan (Free Text) Assessment: Vertebral Compression Fracture/Intractable back pain: Spine MRI reveals chronic vertebral compression fractures and acute compression fracture of T12, no evidence of cord compression (please see full reports) Neurosurgery consulted, Dr. Hinds, help appreciated. As per neurosurgery, pt not a surgical candidate. Pt was seen as a consult last month during last admission. Perhaps IR for vertebroplasty. Pain management, Dr. Snow, consulted. Following medication recommendations as per Dr. Snow via conversation on the phone: Flexeril 10 mg po tid prn for muscle spasms Fentanyl 50 mg patch td q72h Dilaudid increased to 2 mg IV q4h NPO past midnight Plavix held Neurontin 300 mg po tid for peripheral neuropathy Plan is for kyphoplasty with IR, Dr. Hoskins, once pt has negative blood cultures as per ID Bacteremia: Blood cultures positive for gram positive cocci. Afebrile, nontachycardic No leukocytosis Infectious Disease, Dr. Freemna, consulted. Help appreciated. CXR - right lower lobe atelectasis/infiltrate (please see full report) Rocephin 1 gm IV qd Vancomycin 1 gm IV qd Echocardiogram - no vegetations notes (please see full report) Kyphoplasty once blood cultures come back negative Urinary Retention: Asher in place As per neurosurgery, likely due to pain, no evidence of spinal cord compression Urology consulted, Dr. Adame, help appreciated. As per urology, continue asher catheter. Follow up Dr. Adame's recs Hx of CAD: Plavix 75 m po qd - currently held Hx of Lupus: Plaquenil 200 mg po qd Methotrexate on hold Hx of HTN: Metoprolol succinate 25 mg po qd Hx of Depression: Cymbalta 60 mg po qd Hypokalemia: K+ 3.4 K-dur 40 meq given once Hypomagnesemia: Magnesium 1.6 Mag-OX 400 BID Prophylactic Measures: GI: Protonix 40 mg po qd DVT: Heparin 5000 units sc q12h Colace, miralax for constipation <Denise Narvaez B - Last Filed: 01/01/17 13:44> Objective - Vital Signs/Intake and Output Vital Signs (last 24 hours): Temp Pulse Resp BP Pulse Ox 98.9 F 100 H 20 121/72 95 01/01/17 07:55 01/01/17 10:00 01/01/17 07:55 01/01/17 09:23 01/01/17 07:55 Intake and Output: 01/01/17 01/01/17 06:59 18:59 Intake Total 3540 Output Total 1400 Balance 2140 - Medications Medications: Current Medications Clopidogrel Bisulfate (Plavix) 75 mg PO DAILY [facility] Last Admin: 12/28/16 09:07 Dose: 75 mg Cyclobenzaprine HCl (Flexeril) 10 mg PO TID PRN PRN Reason: Muscle spasm Last Admin: 01/01/17 12:36 Dose: 10 mg Diazepam (Valium) 5 mg PO Q6H PRN; Protocol PRN Reason: Muscle spasm Last Admin: 12/27/16 21:39 Dose: 5 mg Docusate Sodium (Colace) 100 mg PO DAILY [facility] Last Admin: 01/01/17 09:23 Dose: 100 mg Duloxetine HCl (Cymbalta) 60 mg PO DAILY [facility] Last Admin: 01/01/17 09:23 Dose: 60 mg Famotidine (Pepcid) 40 mg PO HS [facility] Last Admin: 12/31/16 22:31 Dose: 40 mg Fentanyl (Duragesic) 1 patch TD Q72H [facility] Last Admin: 12/31/16 13:48 Dose: 1 patch Gabapentin (Neurontin) 300 mg PO BID [facility] PRN Reason: Protocol Last Admin: 01/01/17 09:23 Dose: 300 mg Heparin Sodium (Porcine) (Heparin) 5,000 units SC Q12 [facility] PRN Reason: Protocol Last Admin: 12/29/16 21:40 Dose: 5,000 units Hydrocortisone (Cortizone 1% Cream) 0 gm TOP BID [facility] Last Admin: 01/01/17 09:25 Dose: 1 appl Hydromorphone HCl (Dilaudid) 2 mg IVP Q4 PRN PRN Reason: Pain, severe (8-10) Last Admin: 01/01/17 12:35 Dose: 2 mg Hydroxychloroquine Sulfate (Plaquenil) 200 mg PO DAILY [facility] Last Admin: 01/01/17 09:23 Dose: 200 mg Ceftriaxone Sodium (Rocephin 1 Gram Ivpb) 100 mls @ 100 mls/hr IVPB DAILY [facility] PRN Reason: Protocol Last Admin: 01/01/17 09:24 Dose: 100 mls/hr Vancomycin HCl (Vancomycin 1gm) 250 mls @ 167 mls/hr IVPB DAILY [facility] PRN Reason: Protocol Last Admin: 01/01/17 09:21 Dose: 167 mls/hr Sodium Chloride (Sodium Chloride 0.9%) 1,000 mls @ 125 mls/hr IV .Q8H [facility] Last Admin: 12/31/16 12:04 Dose: 125 mls/hr Magnesium Oxide (Mag-Ox) 400 mg PO BID [facility] Stop: 01/02/17 06:00 Last Admin: 01/01/17 10:51 Dose: 400 mg Methotrexate (Methotrexate) 2.5 mg PO DAILY [facility] Metoprolol Succinate (Toprol Xl) 25 mg PO DAILY [facility] Last Admin: 01/01/17 09:23 Dose: 25 mg Pantoprazole Sodium (Protonix Ec Tab) 40 mg PO DAILY [facility] Last Admin: 12/29/16 09:21 Dose: 40 mg Polyethylene Glycol (Miralax) 17 gm PO DAILY PRN PRN Reason: Constipation Sennosides (Senokot Tab) 8.6 mg PO DAILY [facility] Last Admin: 01/01/17 09:23 Dose: 8.6 mg - Labs Labs: 01/01/17 08:00 01/01/17 08:00 Attending/Attestation - Attestation I have personally seen and examined this patient.: Yes I have fully participated in the care of the patient.: Yes I have reviewed all pertinent clinical information, including history, physical exam and plan: Yes Notes (Text): I have seen and examined patient at bedside. This is 56 year old female with history of SLE, CAD, hx DVT and questionable PE s/p IVC filter placement, and compression fractures of T8, T9, L4, and L5 s/p Lumbar fusion who got admitted for evaluation of progressively worsening back pain and found to have an acute T12 compression fracture. Neurosurgery consult appreciated. Patient is not a surgical candidate as she had multiple fractures in the past. IR consult appreciated. Plan for possible vertebroplasty in the future once infection is resolved. Discussed with Dr Freeman. She has staph bacteremia. Blood cultures were repeated yesterday. Updated Dr Romie Hoskins as well regarding need of repeat negative blood culture prior to the procedure. Pain management consult appreciated. Pain medications were adjusted. She has urinary retention. Urology consult appreciated. Plan to keep the asher in for now. She is currently on vanco and rocephin. Thrombocytopenia resolved. Scd noted. Patient feels better today. Pain is under control. Advised for OOB to chair. Dr Denise Narvaez 01/01/17 13:43
[2017-01-01] MEDS: Sodium Chloride 0.9% 1,000 ML IV SCH ×3 (17:37→21:45)
--- NOTE | 2017-01-01 18:01 | CP.PCM.PN ---
Subjective - Date & Time of Evaluation Date of Evaluation: 01/01/17 Time of Evaluation: 17:00 - Subjective Subjective: Infectious Disease Follow Up: January 01, 2017 56 yo female with extensive past medical history showing SLE, CAD, MS ( 2 yr prior), hx DVT and questionable PE s/p IVC filter placement, and compression fractures of T8, T9, L4, and L5 s/p Lumbar fusion recently discharge from [facility] [place] presents with intractable back pain and findings of new compression fracture of T12. Blood culture with gram positive cocci with FISH analysis suggesting Staph Aureus. The patient is awake and in pain. No neurosurgical interventions at this time. No relief with back brace for pain. Fevers up to 100.9 F on admission. Currently afebrile for the past 3 days. Afebrile today so far. Staph Aureus in blood cultures times two. Check Echocardiogram - results show no definitive vegetations. Sensitivities show MSSA. Currently on Vancomycin and Rocephin for treatment. Back pain under better control today. Obtaining repeat blood cultures on the patient. Objective - Vital Signs/Intake and Output Vital Signs (last 24 hours): Temp Pulse Resp BP Pulse Ox 98.8 F 94 H 20 116/80 100 01/01/17 16:00 01/01/17 16:00 01/01/17 16:00 01/01/17 16:00 01/01/17 16:00 Intake and Output: 01/01/17 01/01/17 06:59 18:59 Intake Total 3540 Output Total 1400 Balance 2140 - Medications Medications: Current Medications Clopidogrel Bisulfate (Plavix) 75 mg PO DAILY [facility] Last Admin: 12/28/16 09:07 Dose: 75 mg Cyclobenzaprine HCl (Flexeril) 10 mg PO TID PRN PRN Reason: Muscle spasm Last Admin: 01/01/17 12:36 Dose: 10 mg Diazepam (Valium) 5 mg PO Q6H PRN; Protocol PRN Reason: Muscle spasm Last Admin: 12/27/16 21:39 Dose: 5 mg Docusate Sodium (Colace) 100 mg PO DAILY [facility] Last Admin: 01/01/17 09:23 Dose: 100 mg Duloxetine HCl (Cymbalta) 60 mg PO DAILY [facility] Last Admin: 01/01/17 09:23 Dose: 60 mg Famotidine (Pepcid) 40 mg PO HS [facility] Last Admin: 12/31/16 22:31 Dose: 40 mg Fentanyl (Duragesic) 1 patch TD Q72H [facility] Last Admin: 12/31/16 13:48 Dose: 1 patch Gabapentin (Neurontin) 300 mg PO BID [facility] PRN Reason: Protocol Last Admin: 01/01/17 17:35 Dose: 300 mg Heparin Sodium (Porcine) (Heparin) 5,000 units SC Q12 [facility] PRN Reason: Protocol Last Admin: 12/29/16 21:40 Dose: 5,000 units Hydrocortisone (Cortizone 1% Cream) 0 gm TOP BID [facility] Last Admin: 01/01/17 17:35 Dose: 1 appl Hydromorphone HCl (Dilaudid) 2 mg IVP Q4 PRN PRN Reason: Pain, severe (8-10) Last Admin: 01/01/17 12:35 Dose: 2 mg Hydroxychloroquine Sulfate (Plaquenil) 200 mg PO DAILY [facility] Last Admin: 01/01/17 09:23 Dose: 200 mg Ceftriaxone Sodium (Rocephin 1 Gram Ivpb) 100 mls @ 100 mls/hr IVPB DAILY [facility] PRN Reason: Protocol Last Admin: 01/01/17 09:24 Dose: 100 mls/hr Vancomycin HCl (Vancomycin 1gm) 250 mls @ 167 mls/hr IVPB DAILY [facility] PRN Reason: Protocol Last Admin: 01/01/17 09:21 Dose: 167 mls/hr Sodium Chloride (Sodium Chloride 0.9%) 1,000 mls @ 125 mls/hr IV .Q8H [facility] Last Admin: 01/01/17 17:38 Dose: 125 mls/hr Magnesium Oxide (Mag-Ox) 400 mg PO BID [facility] Stop: 01/02/17 06:00 Last Admin: 01/01/17 17:35 Dose: 400 mg Methotrexate (Methotrexate) 2.5 mg PO DAILY [facility] Metoprolol Succinate (Toprol Xl) 25 mg PO DAILY [facility] Last Admin: 01/01/17 09:23 Dose: 25 mg Pantoprazole Sodium (Protonix Ec Tab) 40 mg PO DAILY [facility] Last Admin: 12/29/16 09:21 Dose: 40 mg Polyethylene Glycol (Miralax) 17 gm PO DAILY PRN PRN Reason: Constipation Sennosides (Senokot Tab) 8.6 mg PO DAILY [facility] Last Admin: 01/01/17 09:23 Dose: 8.6 mg - Labs Labs: 01/01/17 08:00 01/01/17 08:00 - Constitutional Appears: Non-toxic, No Acute Distress, Chronically Ill - Head Exam Head Exam: ATRAUMATIC, NORMOCEPHALIC - Eye Exam Eye Exam: EOMI, PERRL Pupil Exam: NORMAL ACCOMODATION, PERRL - ENT Exam ENT Exam: Mucous Membranes Moist, Normal External Ear Exam, TM's Normal Bilaterally - Neck Exam Neck Exam: Full ROM, Normal Inspection - Respiratory Exam Respiratory Exam: Clear to Ausculation Bilateral, NORMAL BREATHING PATTERN. absent: Rales, Rhonchi, Wheezes - Cardiovascular Exam Cardiovascular Exam: REGULAR RHYTHM, RRR, +S1, +S2 - GI/Abdominal Exam GI & Abdominal Exam: Soft, Normal Bowel Sounds. absent: Distended, Tenderness - Extremities Exam Extremities Exam: Full ROM, Normal Inspection - Neurological Exam Neurological Exam: Alert, Awake, CN II-XII Intact, Oriented x3 - Psychiatric Exam Psychiatric exam: Normal Affect, Normal Mood - Skin Skin Exam: Intact, Normal Color Assessment and Plan - Assessment and Plan (Free Text) Assessment: 56 yo female with multiple compression fractures and fevers on admission up to 100.9 F. The patient has positive blood cultures with gram positive cocci in clusters with FISH suggesting Staph Aureus. Currently on Ceftriaxone. Continue with Vancomycin to the regimen until final culture results return. The patient with bacteremia. Staph Aureus in both blood cultures. Check Echo - no definitive vegetations seen. Awaiting sensitivities - showing MSSA. Currently on Rocephin and Vancomycin. Given the numerous medical issues on this patient, may need to consider 6 weeks of IV antibiotics especially given number of spinal compression fractures and the weakness of the spine in general. Would hold off on kyphoplasty until blood cultures are negative give high chance to seed hardware with infection. Obtain two sets of blood cultures, if two consecutive sets of cultures negative then can proceed with the kyphoplasty. Thank you for allowing me to participate in the care of the patient, we will follow with you. Case discussed with Dr. Narvaez.
[2017-01-02] MEDS: HYDROmorphone 2 mg/ml ISec IVP PRN ×3 (04:00→21:39)
--- NOTE | 2017-01-02 04:30 | CP.PCM.PN ---
<EloisaOdalis - Last Filed: 01/02/17 04:26> Subjective - Date & Time of Evaluation Date of Evaluation: 01/02/17 Time of Evaluation: 04:26 - Subjective Subjective: PGY1 for Dr. Joe Jo Incidence report evaluation I was paged by AMELIA Hawk re: pt found on bed grey at 8pm. The PCP of the current shift states that she did not put the pt on bed pen. Pt was not able to tell the time when she started using the bed pen. PCP, Aliyah, translated for me during the interview. Pt states that she has back pain, chronic, severe. She was on asher. No bowel incontinence. The pain came down her leg past the knee mostly on R side. No saddle anesthesia. VSS Objective - Vital Signs/Intake and Output Vital Signs (last 24 hours): Temp Pulse Resp BP Pulse Ox 98.8 F 90 20 116/80 100 01/01/17 16:00 01/01/17 18:00 01/01/17 16:00 01/01/17 16:00 01/01/17 16:00 - Medications Medications: Current Medications Clopidogrel Bisulfate (Plavix) 75 mg PO DAILY [facility] Last Admin: 12/28/16 09:07 Dose: 75 mg Cyclobenzaprine HCl (Flexeril) 10 mg PO TID PRN PRN Reason: Muscle spasm Last Admin: 01/01/17 12:36 Dose: 10 mg Diazepam (Valium) 5 mg PO Q6H PRN; Protocol PRN Reason: Muscle spasm Last Admin: 12/27/16 21:39 Dose: 5 mg Docusate Sodium (Colace) 100 mg PO DAILY [facility] Last Admin: 01/01/17 09:23 Dose: 100 mg Duloxetine HCl (Cymbalta) 60 mg PO DAILY [facility] Last Admin: 01/01/17 09:23 Dose: 60 mg Famotidine (Pepcid) 40 mg PO HS [facility] Last Admin: 01/01/17 21:45 Dose: 40 mg Fentanyl (Duragesic) 1 patch TD Q72H [facility] Last Admin: 12/31/16 13:48 Dose: 1 patch Gabapentin (Neurontin) 300 mg PO BID [facility] PRN Reason: Protocol Last Admin: 01/01/17 17:35 Dose: 300 mg Heparin Sodium (Porcine) (Heparin) 5,000 units SC Q12 [facility] PRN Reason: Protocol Last Admin: 12/29/16 21:40 Dose: 5,000 units Hydrocortisone (Cortizone 1% Cream) 0 gm TOP BID [facility] Last Admin: 01/01/17 17:35 Dose: 1 appl Hydromorphone HCl (Dilaudid) 2 mg IVP Q4 PRN PRN Reason: Pain, severe (8-10) Last Admin: 01/02/17 04:00 Dose: 2 mg Hydroxychloroquine Sulfate (Plaquenil) 200 mg PO DAILY [facility] Last Admin: 01/01/17 09:23 Dose: 200 mg Ceftriaxone Sodium (Rocephin 1 Gram Ivpb) 100 mls @ 100 mls/hr IVPB DAILY [facility] PRN Reason: Protocol Last Admin: 01/01/17 09:24 Dose: 100 mls/hr Vancomycin HCl (Vancomycin 1gm) 250 mls @ 167 mls/hr IVPB DAILY [facility] PRN Reason: Protocol Last Admin: 01/01/17 09:21 Dose: 167 mls/hr Sodium Chloride (Sodium Chloride 0.9%) 1,000 mls @ 125 mls/hr IV .Q8H [facility] Last Admin: 01/01/17 21:45 Dose: 125 mls/hr Magnesium Oxide (Mag-Ox) 400 mg PO BID [facility] Stop: 01/02/17 06:00 Last Admin: 01/01/17 17:35 Dose: 400 mg Methotrexate (Methotrexate) 2.5 mg PO DAILY [facility] Metoprolol Succinate (Toprol Xl) 25 mg PO DAILY [facility] Last Admin: 01/01/17 09:23 Dose: 25 mg Pantoprazole Sodium (Protonix Ec Tab) 40 mg PO DAILY [facility] Last Admin: 12/29/16 09:21 Dose: 40 mg Polyethylene Glycol (Miralax) 17 gm PO DAILY PRN PRN Reason: Constipation Sennosides (Senokot Tab) 8.6 mg PO DAILY [facility] Last Admin: 01/01/17 09:23 Dose: 8.6 mg - Labs Labs: 01/01/17 08:00 01/01/17 08:00 - Constitutional Appears: No Acute Distress, Confused - Head Exam Head Exam: ATRAUMATIC, NORMOCEPHALIC - Eye Exam Eye Exam: EOMI, Normal appearance - ENT Exam ENT Exam: Mucous Membranes Moist - Neck Exam Neck Exam: Normal Inspection. absent: Meningismus - Respiratory Exam Respiratory Exam: Clear to Ausculation Bilateral, NORMAL BREATHING PATTERN. absent: Rales, Rhonchi, Wheezes - Cardiovascular Exam Cardiovascular Exam: REGULAR RHYTHM, +S1, +S2. absent: Murmur - GI/Abdominal Exam GI & Abdominal Exam: Soft. absent: Tenderness - Back Exam Back Exam: muscle spasm, vertebral tenderness (L4-5 area; fentynal patch in place) - Neurological Exam Neurological Exam: Alert, Awake - Psychiatric Exam Psychiatric exam: Agitated, Anxious - Skin Skin Exam: Dry, Warm Assessment and Plan - Assessment and Plan (Free Text) Plan: Pt was on commode for unknown time. the pink zechariah of bed pen was lightly seen. No visible skin breakdown, no bleed. no numbess and tingling or blister at the area. darkened skin was seen at the cleft. No cellulitis see at perineal area. asher intact. Plan - continue current pain control - turn q2 hours to prevent pressure ulcer D/S/R/w Dr. Jo <Benja Jo - Last Filed: 01/02/17 05:22> Objective - Vital Signs/Intake and Output Vital Signs (last 24 hours): Temp Pulse Resp BP Pulse Ox 98.8 F 90 20 116/80 100 01/01/17 16:00 01/01/17 18:00 01/01/17 16:00 01/01/17 16:00 01/01/17 16:00 - Medications Medications: Current Medications Clopidogrel Bisulfate (Plavix) 75 mg PO DAILY [facility] Last Admin: 12/28/16 09:07 Dose: 75 mg Cyclobenzaprine HCl (Flexeril) 10 mg PO TID PRN PRN Reason: Muscle spasm Last Admin: 01/01/17 12:36 Dose: 10 mg Diazepam (Valium) 5 mg PO Q6H PRN; Protocol PRN Reason: Muscle spasm Last Admin: 12/27/16 21:39 Dose: 5 mg Docusate Sodium (Colace) 100 mg PO DAILY [facility] Last Admin: 01/01/17 09:23 Dose: 100 mg Duloxetine HCl (Cymbalta) 60 mg PO DAILY [facility] Last Admin: 01/01/17 09:23 Dose: 60 mg Famotidine (Pepcid) 40 mg PO HS [facility] Last Admin: 01/01/17 21:45 Dose: 40 mg Fentanyl (Duragesic) 1 patch TD Q72H [facility] Last Admin: 12/31/16 13:48 Dose: 1 patch Gabapentin (Neurontin) 300 mg PO BID [facility] PRN Reason: Protocol Last Admin: 01/01/17 17:35 Dose: 300 mg Heparin Sodium (Porcine) (Heparin) 5,000 units SC Q12 [facility] PRN Reason: Protocol Last Admin: 12/29/16 21:40 Dose: 5,000 units Hydrocortisone (Cortizone 1% Cream) 0 gm TOP BID [facility] Last Admin: 01/01/17 17:35 Dose: 1 appl Hydromorphone HCl (Dilaudid) 2 mg IVP Q4 PRN PRN Reason: Pain, severe (8-10) Last Admin: 01/02/17 04:00 Dose: 2 mg Hydroxychloroquine Sulfate (Plaquenil) 200 mg PO DAILY [facility] Last Admin: 01/01/17 09:23 Dose: 200 mg Ceftriaxone Sodium (Rocephin 1 Gram Ivpb) 100 mls @ 100 mls/hr IVPB DAILY [facility] PRN Reason: Protocol Last Admin: 01/01/17 09:24 Dose: 100 mls/hr Vancomycin HCl (Vancomycin 1gm) 250 mls @ 167 mls/hr IVPB DAILY [facility] PRN Reason: Protocol Last Admin: 01/01/17 09:21 Dose: 167 mls/hr Sodium Chloride (Sodium Chloride 0.9%) 1,000 mls @ 125 mls/hr IV .Q8H [facility] Last Admin: 01/01/17 21:45 Dose: 125 mls/hr Magnesium Oxide (Mag-Ox) 400 mg PO BID [facility] Stop: 01/02/17 06:00 Last Admin: 01/01/17 17:35 Dose: 400 mg Methotrexate (Methotrexate) 2.5 mg PO DAILY [facility] Metoprolol Succinate (Toprol Xl) 25 mg PO DAILY [facility] Last Admin: 01/01/17 09:23 Dose: 25 mg Pantoprazole Sodium (Protonix Ec Tab) 40 mg PO DAILY [facility] Last Admin: 12/29/16 09:21 Dose: 40 mg Polyethylene Glycol (Miralax) 17 gm PO DAILY PRN PRN Reason: Constipation Sennosides (Senokot Tab) 8.6 mg PO DAILY [facility] Last Admin: 01/01/17 09:23 Dose: 8.6 mg - Labs Labs: 01/01/17 08:00 01/01/17 08:00 Attending/Attestation - Attestation I have personally seen and examined this patient.: No I have fully participated in the care of the patient.: Yes I have reviewed all pertinent clinical information, including history, physical exam and plan: Yes Notes (Text): 01/02/17 05:22 Agree with .
[2017-01-02] MEDS: Sodium Chloride 0.9% 1,000 ML IV SCH ×2 (05:36→11:58)
[2017-01-02 07:45] LABS: ADD MANUAL DIFF? NO
[2017-01-02 07:48] LABS: BASO # 0.02 K/mm3 (0.0-2.0); BASO % 0.3 % (0.0-3.0); EOS # 0.1 (0.0-0.7); EOS % 2.1 % (1.5-5.0); GRAN # 4.48 (1.4-6.5); GRAN % 67.5 % (50.0-68.0); HEMATOCRIT 28.6 % (36.0-48.0); LYMPH # 1.3 (1.2-3.4); LYMPH % 18.9 % (22.0-35.0); MEAN CELL VOLUME 87.5 fL (80.0-105.0); MEAN CORPUSCULAR HGB CONC 34.3 g/dl (31.0-37.0); MEAN PLATELET VOLUME 10.9 fl (7.0-11.0); MONO # 0.7 (0.1-0.6); MONO % 11.2 % (1.0-6.0); PLATELET COUNT 189 10^3/uL (120.0-450.0); RED CELL DISTRIBUTION WIDTH 13.5 % (11.5-14.5); WHITE BLOOD COUNT 6.6 10^3/ul (4.5-11.0)
[2017-01-02 08:27] LABS: ALB/GLOB RATIO 0.8 (1.1-1.8); ALKALINE PHOSPHATASE 70 U/L (38-133); ALT/SGPT 34 U/L (7-56); AST/SGOT 22 U/L (15-39); BILIRUBIN,TOTAL 0.4 mg/dL (0.2-1.3); BLOOD UREA NITROGEN 5 mg/dL (7-21); CALCIUM 8.4 mg/dL (8.4-10.5); CARBON DIOXIDE 28 mmol/L (21-33); CHLORIDE 101 mmol/L (98-107); GFR AFRICAN-AMERICAN > 60; GLUCOSE,RANDOM 96 mg/dL (70-110); MAGNESIUM 1.6 mg/dL (1.7-2.2); PHOSPHOROUS 4.5 mg/dL (2.5-4.5); POTASSIUM 3.3 mmol/L (3.6-5.0); SODIUM 135 mmol/L (132-148); TOTAL PROTEIN 5.7 g/dL (5.8-8.3)
[2017-01-02] MEDS ORDERED: Magnesium Sulfate 2 GM in Sodium Chloride 0.9% 100 ML IVPB ONE (09:12)
[2017-01-02] MEDS ORDERED: Potassium Chloride 20 mEq ER Tab PO ONE (09:13)
[2017-01-02] MEDS: Vancomycin 1gm in NS 250ml 250 ML IVPB SCH (10:00)
[2017-01-02] MEDS: Metoprolol Succinate 25 mg XL Tab PO SCH (10:45)
[2017-01-02] MEDS: Hydrocortisone 1% Cream (30 GM) TOP SCH ×2 (10:45→18:28)
[2017-01-02] MEDS: cefTRIAXone 1 gm 100 ML IVPB SCH (15:04)
--- NOTE | 2017-01-02 16:47 | CP.PCM.PN ---
<Thad Page - Last Filed: 01/02/17 16:44> Subjective - Date & Time of Evaluation Date of Evaluation: 01/02/17 Time of Evaluation: 07:52 - Subjective Subjective: Pt seen and examined. Pt reports that her back pain has improved since yesterday , but she still has moderate pain. Pt denies fever, chills, chest pain, shortness of breath, nausea, and vomiting. Objective - Vital Signs/Intake and Output Vital Signs (last 24 hours): Temp Pulse Resp BP Pulse Ox 98.5 F 80 19 126/72 95 01/02/17 08:10 01/02/17 10:45 01/02/17 08:10 01/02/17 10:45 01/02/17 08:10 Intake and Output: 01/02/17 01/02/17 06:59 18:59 Intake Total 0 Output Total 1000 Balance -1000 - Medications Medications: Current Medications Clopidogrel Bisulfate (Plavix) 75 mg PO DAILY [facility] Last Admin: 12/28/16 09:07 Dose: 75 mg Cyclobenzaprine HCl (Flexeril) 10 mg PO TID PRN PRN Reason: Muscle spasm Last Admin: 01/01/17 12:36 Dose: 10 mg Diazepam (Valium) 5 mg PO Q6H PRN; Protocol PRN Reason: Muscle spasm Last Admin: 12/27/16 21:39 Dose: 5 mg Docusate Sodium (Colace) 100 mg PO DAILY [facility] Last Admin: 01/02/17 10:45 Dose: 100 mg Duloxetine HCl (Cymbalta) 60 mg PO DAILY [facility] Last Admin: 01/02/17 10:45 Dose: 60 mg Famotidine (Pepcid) 40 mg PO HS [facility] Last Admin: 01/01/17 21:45 Dose: 40 mg Fentanyl (Duragesic) 1 patch TD Q72H [facility] Last Admin: 12/31/16 13:48 Dose: 1 patch Gabapentin (Neurontin) 300 mg PO BID [facility] PRN Reason: Protocol Last Admin: 01/02/17 10:45 Dose: 300 mg Heparin Sodium (Porcine) (Heparin) 5,000 units SC Q12 [facility] PRN Reason: Protocol Last Admin: 12/29/16 21:40 Dose: 5,000 units Hydrocortisone (Cortizone 1% Cream) 0 gm TOP BID [facility] Last Admin: 01/02/17 10:45 Dose: 1 appl Hydromorphone HCl (Dilaudid) 2 mg IVP Q4 PRN PRN Reason: Pain, severe (8-10) Last Admin: 01/02/17 12:11 Dose: 2 mg Hydroxychloroquine Sulfate (Plaquenil) 200 mg PO DAILY [facility] Last Admin: 01/02/17 10:45 Dose: 200 mg Ceftriaxone Sodium (Rocephin 1 Gram Ivpb) 100 mls @ 100 mls/hr IVPB DAILY [facility] PRN Reason: Protocol Last Admin: 01/02/17 15:04 Dose: 100 mls/hr Vancomycin HCl (Vancomycin 1gm) 250 mls @ 167 mls/hr IVPB DAILY [facility] PRN Reason: Protocol Last Admin: 01/02/17 10:00 Dose: 167 mls/hr Sodium Chloride (Sodium Chloride 0.9%) 1,000 mls @ 125 mls/hr IV .Q8H [facility] Last Admin: 01/02/17 11:58 Dose: 125 mls/hr Methotrexate (Methotrexate) 2.5 mg PO DAILY [facility] Metoprolol Succinate (Toprol Xl) 25 mg PO DAILY [facility] Last Admin: 01/02/17 10:45 Dose: 25 mg Pantoprazole Sodium (Protonix Ec Tab) 40 mg PO DAILY [facility] Last Admin: 12/29/16 09:21 Dose: 40 mg Polyethylene Glycol (Miralax) 17 gm PO DAILY PRN PRN Reason: Constipation Sennosides (Senokot Tab) 8.6 mg PO DAILY [facility] Last Admin: 01/02/17 10:45 Dose: 8.6 mg - Labs Labs: 01/02/17 07:00 01/02/17 07:00 - Constitutional Appears: No Acute Distress - Head Exam Head Exam: ATRAUMATIC, NORMOCEPHALIC - Eye Exam Eye Exam: EOMI, PERRL - ENT Exam ENT Exam: Mucous Membranes Moist. absent: Mucous Membranes Dry - Neck Exam Neck Exam: Full ROM. absent: Lymphadenopathy - Respiratory Exam Respiratory Exam: Clear to Ausculation Bilateral. absent: Rales, Rhonchi, Wheezes - Cardiovascular Exam Cardiovascular Exam: +S1, +S2. absent: Gallop, Rubs - GI/Abdominal Exam GI & Abdominal Exam: Soft, Normal Bowel Sounds. absent: Distended, Rigid, Tenderness - Extremities Exam Extremities Exam: Full ROM. absent: Pedal Edema - Back Exam Back Exam: muscle spasm - Neurological Exam Neurological Exam: Alert, Awake, Oriented x3 - Psychiatric Exam Psychiatric exam: Normal Affect, Normal Mood - Skin Skin Exam: Normal Color, Warm Assessment and Plan - Assessment and Plan (Free Text) Assessment: Vertebral Compression Fracture/Intractable back pain: Spine MRI reveals chronic vertebral compression fractures and acute compression fracture of T12, no evidence of cord compression (please see full reports) Neurosurgery consulted, Dr. Hinds, help appreciated. As per neurosurgery, pt not a surgical candidate. Pt was seen as a consult last month during last admission. Perhaps IR for vertebroplasty. Pain management, Dr. Snow, consulted. Following medication recommendations as per Dr. Snow via conversation on the phone: Flexeril 10 mg po tid prn for muscle spasms Fentanyl 50 mg patch td q72h Dilaudid increased to 2 mg IV q4h NPO past midnight Plavix held Neurontin 300 mg po tid for peripheral neuropathy Plan is for kyphoplasty with IR, Dr. Obrien, once pt has negative blood cultures as per ID Bacteremia: Blood cultures positive for gram positive cocci. Afebrile, nontachycardic No leukocytosis Infectious Disease, Dr. Freeman, consulted. Help appreciated. CXR - right lower lobe atelectasis/infiltrate (please see full report) Rocephin 1 gm IV qd Vancomycin 1 gm IV qd Echocardiogram - no vegetations notes (please see full report) Kyphoplasty once blood cultures come back negative Repeat blood cultures negative after 24 hours Urinary Retention: Asher in place As per neurosurgery, likely due to pain, no evidence of spinal cord compression Urology consulted, Dr. Adame, help appreciated. As per urology, continue asher catheter. Follow up Dr. Adame's recs Hx of CAD: Plavix 75 m po qd - currently held Hx of Lupus: Plaquenil 200 mg po qd Methotrexate on hold Hx of HTN: Metoprolol succinate 25 mg po qd Hx of Depression: Cymbalta 60 mg po qd Hypokalemia/Hypomagnesemia: K-dur 40 meq po once MgS IV 2 gm 2 bags Prophylactic Measures: GI: Protonix 40 mg po qd DVT: Heparin 5000 units sc q12h Col[facility], miralax for constipation <Rangasamy,Ajantha - Last Filed: 01/02/17 18:51> Objective - Vital Signs/Intake and Output Vital Signs (last 24 hours): Temp Pulse Resp BP Pulse Ox 98.5 F 80 19 126/72 95 01/02/17 08:10 01/02/17 10:45 01/02/17 08:10 01/02/17 10:45 01/02/17 08:10 Intake and Output: 01/02/17 01/02/17 06:59 18:59 Intake Total 0 Output Total 1000 Balance -1000 - Medications Medications: Current Medications Clopidogrel Bisulfate (Plavix) 75 mg PO DAILY [facility] Last Admin: 12/28/16 09:07 Dose: 75 mg Cyclobenzaprine HCl (Flexeril) 10 mg PO TID PRN PRN Reason: Muscle spasm Last Admin: 01/01/17 12:36 Dose: 10 mg Diazepam (Valium) 5 mg PO Q6H PRN; Protocol PRN Reason: Muscle spasm Last Admin: 12/27/16 21:39 Dose: 5 mg Docusate Sodium (Colace) 100 mg PO DAILY [facility] Last Admin: 01/02/17 10:45 Dose: 100 mg Duloxetine HCl (Cymbalta) 60 mg PO DAILY [facility] Last Admin: 01/02/17 10:45 Dose: 60 mg Famotidine (Pepcid) 40 mg PO HS [facility] Last Admin: 01/01/17 21:45 Dose: 40 mg Fentanyl (Duragesic) 1 patch TD Q72H [facility] Last Admin: 12/31/16 13:48 Dose: 1 patch Gabapentin (Neurontin) 300 mg PO BID [facility] PRN Reason: Protocol Last Admin: 01/02/17 18:30 Dose: 300 mg Heparin Sodium (Porcine) (Heparin) 5,000 units SC Q12 [facility] PRN Reason: Protocol Last Admin: 12/29/16 21:40 Dose: 5,000 units Hydrocortisone (Cortizone 1% Cream) 0 gm TOP BID [facility] Last Admin: 01/02/17 18:28 Dose: 1 appl Hydromorphone HCl (Dilaudid) 2 mg IVP Q4 PRN PRN Reason: Pain, severe (8-10) Last Admin: 01/02/17 12:11 Dose: 2 mg Hydroxychloroquine Sulfate (Plaquenil) 200 mg PO DAILY [facility] Last Admin: 01/02/17 10:45 Dose: 200 mg Ceftriaxone Sodium (Rocephin 1 Gram Ivpb) 100 mls @ 100 mls/hr IVPB DAILY [facility] PRN Reason: Protocol Last Admin: 01/02/17 15:04 Dose: 100 mls/hr Sodium Chloride (Sodium Chloride 0.9%) 1,000 mls @ 125 mls/hr IV .Q8H [facility] Last Admin: 01/02/17 11:58 Dose: 125 mls/hr Methotrexate (Methotrexate) 2.5 mg PO DAILY [facility] Metoprolol Succinate (Toprol Xl) 25 mg PO DAILY [facility] Last Admin: 01/02/17 10:45 Dose: 25 mg Pantoprazole Sodium (Protonix Ec Tab) 40 mg PO DAILY [facility] Last Admin: 12/29/16 09:21 Dose: 40 mg Polyethylene Glycol (Miralax) 17 gm PO DAILY PRN PRN Reason: Constipation Sennosides (Senokot Tab) 8.6 mg PO DAILY [facility] Last Admin: 01/02/17 10:45 Dose: 8.6 mg - Labs Labs: 01/02/17 07:00 01/02/17 07:00 Assessment and Plan - Assessment and Plan (Free Text) Assessment: attending note; Patient seen and examined with resident. Patient is a 56 year old female with history of SLE, CAD, hx DVT and questionable PE s/p IVC filter placement, and compression fractures of T8, T9, L4, and L5 s/p Lumbar fusion who got admitted for evaluation of progressively worsening back pain and found to have an acute T12 compression fracture. Neurosurgery consult appreciated. Patient is not a surgical candidate as she had multiple fractures in the past. IR consult with DR. Romie obrien appreciated. Plan for possible vertebroplasty in the future once infection is resolved. Discussed with Alvaro Freeman. She has staph bacteremia. Blood cultures were repeated yesterday and today. She has urinary retention. Urology consult appreciated. Plan to keep the asher in for now. She is currently on vanco and rocephin. Patient feels better today. Pain is under control. Advised for OOB to chair. Attending/Attestation - Attestation I have personally seen and examined this patient.: Yes I have fully participated in the care of the patient.: Yes I have reviewed all pertinent clinical information, including history, physical exam and plan: Yes
--- NOTE | 2017-01-02 17:15 | CP.PCM.PN ---
Subjective - Date & Time of Evaluation Date of Evaluation: 01/02/17 Time of Evaluation: 16:00 - Subjective Subjective: Infectious Disease Follow Up: January 02, 2017 56 yo female with extensive past medical history showing SLE, CAD, [place] ( 2 yr prior), hx DVT and questionable PE s/p IVC filter placement, and compression fractures of T8, T9, L4, and L5 s/p Lumbar fusion recently discharge from [facility] [place] presents with intractable back pain and findings of new compression fracture of T12. Blood culture with gram positive cocci with FISH analysis suggesting Staph Aureus. The patient is awake and in pain. No neurosurgical interventions at this time. No relief with back brace for pain. Fevers up to 100.9 F on admission. Currently afebrile for the past 3 days. Afebrile today so far. Staph Aureus in blood cultures times two. Check Echocardiogram - results show no definitive vegetations. Sensitivities show MSSA. Currently on Vancomycin and Rocephin for treatment. Back pain under better control today. Obtaining repeat blood cultures on the patient. 01/01/2017 cultures negative at 24 hours. Objective - Vital Signs/Intake and Output Vital Signs (last 24 hours): Temp Pulse Resp BP Pulse Ox 98.5 F 80 19 126/72 95 01/02/17 08:10 01/02/17 10:45 01/02/17 08:10 01/02/17 10:45 01/02/17 08:10 Intake and Output: 01/02/17 01/02/17 06:59 18:59 Intake Total 0 Output Total 1000 Balance -1000 - Medications Medications: Current Medications Clopidogrel Bisulfate (Plavix) 75 mg PO DAILY [facility] Last Admin: 12/28/16 09:07 Dose: 75 mg Cyclobenzaprine HCl (Flexeril) 10 mg PO TID PRN PRN Reason: Muscle spasm Last Admin: 01/01/17 12:36 Dose: 10 mg Diazepam (Valium) 5 mg PO Q6H PRN; Protocol PRN Reason: Muscle spasm Last Admin: 12/27/16 21:39 Dose: 5 mg Docusate Sodium (Colace) 100 mg PO DAILY [facility] Last Admin: 01/02/17 10:45 Dose: 100 mg Duloxetine HCl (Cymbalta) 60 mg PO DAILY [facility] Last Admin: 01/02/17 10:45 Dose: 60 mg Famotidine (Pepcid) 40 mg PO HS [facility] Last Admin: 01/01/17 21:45 Dose: 40 mg Fentanyl (Duragesic) 1 patch TD Q72H [facility] Last Admin: 12/31/16 13:48 Dose: 1 patch Gabapentin (Neurontin) 300 mg PO BID [facility] PRN Reason: Protocol Last Admin: 01/02/17 10:45 Dose: 300 mg Heparin Sodium (Porcine) (Heparin) 5,000 units SC Q12 [facility] PRN Reason: Protocol Last Admin: 12/29/16 21:40 Dose: 5,000 units Hydrocortisone (Cortizone 1% Cream) 0 gm TOP BID [facility] Last Admin: 01/02/17 10:45 Dose: 1 appl Hydromorphone HCl (Dilaudid) 2 mg IVP Q4 PRN PRN Reason: Pain, severe (8-10) Last Admin: 01/02/17 12:11 Dose: 2 mg Hydroxychloroquine Sulfate (Plaquenil) 200 mg PO DAILY [facility] Last Admin: 01/02/17 10:45 Dose: 200 mg Ceftriaxone Sodium (Rocephin 1 Gram Ivpb) 100 mls @ 100 mls/hr IVPB DAILY [facility] PRN Reason: Protocol Last Admin: 01/02/17 15:04 Dose: 100 mls/hr Vancomycin HCl (Vancomycin 1gm) 250 mls @ 167 mls/hr IVPB DAILY [facility] PRN Reason: Protocol Last Admin: 01/02/17 10:00 Dose: 167 mls/hr Sodium Chloride (Sodium Chloride 0.9%) 1,000 mls @ 125 mls/hr IV .Q8H [facility] Last Admin: 01/02/17 11:58 Dose: 125 mls/hr Methotrexate (Methotrexate) 2.5 mg PO DAILY [facility] Metoprolol Succinate (Toprol Xl) 25 mg PO DAILY [facility] Last Admin: 01/02/17 10:45 Dose: 25 mg Pantoprazole Sodium (Protonix Ec Tab) 40 mg PO DAILY [facility] Last Admin: 12/29/16 09:21 Dose: 40 mg Polyethylene Glycol (Miralax) 17 gm PO DAILY PRN PRN Reason: Constipation Sennosides (Senokot Tab) 8.6 mg PO DAILY [facility] Last Admin: 01/02/17 10:45 Dose: 8.6 mg - Labs Labs: 01/02/17 07:00 01/02/17 07:00 - Constitutional Appears: Non-toxic, No Acute Distress, Chronically Ill - Head Exam Head Exam: ATRAUMATIC, NORMOCEPHALIC - Eye Exam Eye Exam: EOMI, PERRL Pupil Exam: NORMAL ACCOMODATION, PERRL - ENT Exam ENT Exam: Mucous Membranes Moist, Normal External Ear Exam, TM's Normal Bilaterally - Neck Exam Neck Exam: Full ROM, Normal Inspection - Respiratory Exam Respiratory Exam: Clear to Ausculation Bilateral, NORMAL BREATHING PATTERN. absent: Rales, Rhonchi, Wheezes - Cardiovascular Exam Cardiovascular Exam: REGULAR RHYTHM, RRR, +S1, +S2 - GI/Abdominal Exam GI & Abdominal Exam: Soft, Normal Bowel Sounds. absent: Distended, Tenderness - Extremities Exam Extremities Exam: Full ROM, Normal Inspection Additional comments: movement limited due to back pain. - Neurological Exam Neurological Exam: Alert, Awake, CN II-XII Intact, Oriented x3 - Psychiatric Exam Psychiatric exam: Normal Affect, Normal Mood - Skin Skin Exam: Intact, Normal Color Assessment and Plan - Assessment and Plan (Free Text) Assessment: 56 yo female with multiple compression fractures and fevers on admission up to 100.9 F. The patient has positive blood cultures with gram positive cocci in clusters with FISH suggesting Staph Aureus. Currently on Ceftriaxone. Continue with Vancomycin to the regimen until final culture results return. The patient with bacteremia. Staph Aureus in both blood cultures. Check Echo - no definitive vegetations seen. Awaiting sensitivities - showing MSSA. Currently on Rocephin and Vancomycin. Given the numerous medical issues on this patient, may need to consider 6 weeks of IV antibiotics especially given number of spinal compression fractures and the weakness of the spine in general. Would hold off on kyphoplasty until blood cultures are negative give high chance to seed hardware with infection. Obtain two sets of blood cultures, if two consecutive sets of cultures negative then can proceed with the kyphoplasty. Awaiting results. Thank you for allowing me to participate in the care of the patient, we will follow with you. Case discussed with Dr. Narvaez.
[2017-01-03] MEDS: HYDROmorphone 2 mg/ml ISec IVP PRN (05:33)
[2017-01-03] MEDS: Hydrocortisone 1% Cream (30 GM) TOP SCH ×2 (09:27→17:25)
[2017-01-03] MEDS: Metoprolol Succinate 25 mg XL Tab PO SCH (09:27)
[2017-01-03] MEDS: cefTRIAXone 1 gm 100 ML IVPB SCH (09:35)
[2017-01-03] MEDS ORDERED: Vancomycin 1gm in NS 250ml 250 ML IVPB SCH (10:30)
[2017-01-03 11:15] LABS: ADD MANUAL DIFF? NO
[2017-01-03 11:18] LABS: BASO # 0.02 K/mm3 (0.0-2.0); BASO % 0.3 % (0.0-3.0); EOS # 0.2 (0.0-0.7); EOS % 2.2 % (1.5-5.0); GRAN # 5.03 (1.4-6.5); GRAN % 73.2 % (50.0-68.0); LYMPH % 15.1 % (22.0-35.0); MEAN CELL VOLUME 88.1 fL (80.0-105.0); MEAN CORPUSCULAR HEMOGLOBIN 30.1 pg (25.0-35.0); MEAN CORPUSCULAR HGB CONC 34.2 g/dl (31.0-37.0); MEAN PLATELET VOLUME 10.1 fl (7.0-11.0); MONO # 0.6 (0.1-0.6); MONO % 9.2 % (1.0-6.0); PLATELET COUNT 232 10^3/uL (120.0-450.0); RED CELL DISTRIBUTION WIDTH 13.7 % (11.5-14.5); WHITE BLOOD COUNT 6.9 10^3/ul (4.5-11.0)
[2017-01-03 11:28] LABS: BLOOD UREA NITROGEN 5 mg/dL (7-21); CALCIUM 8.7 mg/dL (8.4-10.5); CARBON DIOXIDE 30 mmol/L (21-33); CHLORIDE 97 mmol/L (95-110); GFR AFRICAN-AMERICAN > 60; GLUCOSE,RANDOM 123 mg/dL (70-110); POTASSIUM 3.6 mmol/L (3.6-5.0); SODIUM 136 mmol/L (132-148)
--- NOTE | 2017-01-03 16:20 | CP.PCM.PN ---
<Thad Page - Last Filed: 01/03/17 16:16> Subjective - Date & Time of Evaluation Date of Evaluation: 01/03/17 Time of Evaluation: 09:14 - Subjective Subjective: Pt seen and examined. Pt reports that her pain is a little bit better than yesterday. Pt reports having an increased appetite. Pt denies fever, chills, chest pain, shortness of breath, nausea, and vomiting. Objective - Vital Signs/Intake and Output Vital Signs (last 24 hours): Temp Pulse Resp BP Pulse Ox 98.2 F 80 20 139/76 96 01/03/17 07:59 01/03/17 09:27 01/03/17 07:59 01/03/17 09:27 01/03/17 07:59 Intake and Output: 01/03/17 01/03/17 06:59 18:59 Intake Total 540 Output Total 1500 Balance -960 - Medications Medications: Current Medications Clopidogrel Bisulfate (Plavix) 75 mg PO DAILY [facility] Last Admin: 12/28/16 09:07 Dose: 75 mg Cyclobenzaprine HCl (Flexeril) 10 mg PO TID PRN PRN Reason: Muscle spasm Last Admin: 01/02/17 21:40 Dose: 10 mg Diazepam (Valium) 5 mg PO Q6H PRN; Protocol PRN Reason: Muscle spasm Last Admin: 12/27/16 21:39 Dose: 5 mg Docusate Sodium (Colace) 100 mg PO TID [facility] Last Admin: 01/03/17 09:28 Dose: 100 mg Duloxetine HCl (Cymbalta) 60 mg PO DAILY [facility] Last Admin: 01/03/17 09:30 Dose: 60 mg Famotidine (Pepcid) 40 mg PO HS [facility] Last Admin: 01/02/17 22:12 Dose: 40 mg Fentanyl (Duragesic) 1 patch TD Q72H [facility] Last Admin: 12/31/16 13:48 Dose: 1 patch Gabapentin (Neurontin) 300 mg PO BID [facility] PRN Reason: Protocol Last Admin: 01/03/17 09:27 Dose: 300 mg Heparin Sodium (Porcine) (Heparin) 5,000 units SC Q12 [facility] PRN Reason: Protocol Last Admin: 12/29/16 21:40 Dose: 5,000 units Hydrocortisone (Cortizone 1% Cream) 0 gm TOP BID [facility] Last Admin: 01/03/17 09:27 Dose: 1 appl Hydromorphone HCl (Dilaudid) 1 mg IVP Q4 PRN PRN Reason: Pain, severe (8-10) Hydroxychloroquine Sulfate (Plaquenil) 200 mg PO DAILY [facility] Last Admin: 01/03/17 09:31 Dose: 200 mg Ceftriaxone Sodium (Rocephin 1 Gram Ivpb) 100 mls @ 100 mls/hr IVPB DAILY [facility] PRN Reason: Protocol Last Admin: 01/03/17 09:35 Dose: 100 mls/hr Vancomycin HCl (Vancomycin 1gm) 250 mls @ 167 mls/hr IVPB Q12H [facility] PRN Reason: Protocol Methotrexate (Methotrexate) 2.5 mg PO DAILY [facility] Metoprolol Succinate (Toprol Xl) 25 mg PO DAILY [facility] Last Admin: 01/03/17 09:27 Dose: 25 mg Pantoprazole Sodium (Protonix Ec Tab) 40 mg PO DAILY [facility] Last Admin: 12/29/16 09:21 Dose: 40 mg Polyethylene Glycol (Miralax) 17 gm PO DAILY PRN PRN Reason: Constipation Sennosides (Senokot Tab) 8.6 mg PO DAILY [facility] Last Admin: 01/03/17 09:31 Dose: 8.6 mg - Labs Labs: 01/03/17 11:00 01/03/17 11:00 - Constitutional Appears: No Acute Distress - Head Exam Head Exam: ATRAUMATIC, NORMOCEPHALIC - Eye Exam Eye Exam: EOMI, PERRL - ENT Exam ENT Exam: Mucous Membranes Moist. absent: Mucous Membranes Dry - Neck Exam Neck Exam: Full ROM. absent: Lymphadenopathy - Respiratory Exam Respiratory Exam: Clear to Ausculation Bilateral. absent: Rales, Rhonchi, Wheezes - Cardiovascular Exam Cardiovascular Exam: +S1, +S2. absent: Gallop, Rubs, Murmur - GI/Abdominal Exam GI & Abdominal Exam: Soft. absent: Distended, Guarding, Rigid, Tenderness - Extremities Exam Extremities Exam: Full ROM. absent: Pedal Edema - Neurological Exam Neurological Exam: Alert, Awake, Oriented x3 - Psychiatric Exam Psychiatric exam: Normal Affect, Normal Mood - Skin Skin Exam: Normal Color, Warm Assessment and Plan - Assessment and Plan (Free Text) Assessment: Assessment: Vertebral Compression Fracture/Intractable back pain: Spine MRI reveals chronic vertebral compression fractures and acute compression fracture of T12, no evidence of cord compression (please see full reports) Neurosurgery consulted, Dr. Hinds, help appreciated. As per neurosurgery, pt not a surgical candidate. Pt was seen as a consult last month during last admission. Perhaps IR for vertebroplasty. Pain management, Dr. Snow, consulted. Following medication recommendations as per Dr. Snow via conversation on the phone: Flexeril 10 mg po tid prn for muscle spasms Fentanyl 50 mg patch td q72h Dilaudid increased to 2 mg IV q4h NPO past midnight Plavix held Neurontin 300 mg po tid for peripheral neuropathy Plan is for kyphoplasty with IR Dr. Obrien tomorrow Bacteremia: Initial blood cultures positive for gram positive cocci. Repeat blood cultures x 2: one negative after 24 hrs, one negative after 48 hrs As per ID, pt cleared for kyphoplasty Afebrile, nontachycardic No leukocytosis Infectious Disease, Dr. Freeman, consulted. Help appreciated. CXR - right lower lobe atelectasis/infiltrate (please see full report) Rocephin 1 gm IV q12h Vancomycin 1 gm IV qd Echocardiogram - no vegetations notes (please see full report) Urinary Retention: Asher in place As per neurosurgery, likely due to pain, no evidence of spinal cord compression Urology consulted, Dr. Adame, help appreciated. As per urology, continue asher catheter. Follow up Dr. Adame's recs Hx of CAD: Plavix 75 m po qd - currently held Hx of Lupus: Plaquenil 200 mg po qd Methotrexate on hold Hx of HTN: Metoprolol succinate 25 mg po qd Hx of Depression: Cymbalta 60 mg po qd Hypokalemia/Hypomagnesemia: K-dur 40 meq po once MgS IV 2 gm 2 bags Prophylactic Measures: GI: Protonix 40 mg po qd DVT: Heparin 5000 units sc q12h Colace, miralax for constipation <Rangasamy,Ajantha - Last Filed: 01/03/17 18:04> Objective - Vital Signs/Intake and Output Vital Signs (last 24 hours): Temp Pulse Resp BP Pulse Ox 98.2 F 80 20 139/76 96 01/03/17 07:59 01/03/17 09:27 01/03/17 07:59 01/03/17 09:27 01/03/17 07:59 Intake and Output: 01/03/17 01/03/17 06:59 18:59 Intake Total 540 Output Total 1500 Balance -960 - Medications Medications: Current Medications Clopidogrel Bisulfate (Plavix) 75 mg PO DAILY [facility] Last Admin: 12/28/16 09:07 Dose: 75 mg Cyclobenzaprine HCl (Flexeril) 10 mg PO TID PRN PRN Reason: Muscle spasm Last Admin: 01/03/17 17:25 Dose: 10 mg Diazepam (Valium) 5 mg PO Q6H PRN; Protocol PRN Reason: Muscle spasm Last Admin: 12/27/16 21:39 Dose: 5 mg Docusate Sodium (Colace) 100 mg PO TID [facility] Last Admin: 01/03/17 17:25 Dose: 100 mg Duloxetine HCl (Cymbalta) 60 mg PO DAILY [facility] Last Admin: 01/03/17 09:30 Dose: 60 mg Famotidine (Pepcid) 40 mg PO HS [facility] Last Admin: 01/02/17 22:12 Dose: 40 mg Fentanyl (Duragesic) 1 patch TD Q72H [facility] Last Admin: 01/03/17 14:00 Dose: 1 patch Gabapentin (Neurontin) 300 mg PO BID [facility] PRN Reason: Protocol Last Admin: 01/03/17 17:25 Dose: 300 mg Heparin Sodium (Porcine) (Heparin) 5,000 units SC Q12 [facility] PRN Reason: Protocol Last Admin: 12/29/16 21:40 Dose: 5,000 units Hydrocortisone (Cortizone 1% Cream) 0 gm TOP BID [facility] Last Admin: 01/03/17 17:25 Dose: 1 appl Hydromorphone HCl (Dilaudid) 1 mg IVP Q4 PRN PRN Reason: Pain, severe (8-10) Hydroxychloroquine Sulfate (Plaquenil) 200 mg PO DAILY [facility] Last Admin: 01/03/17 09:31 Dose: 200 mg Ceftriaxone Sodium (Rocephin 1 Gram Ivpb) 100 mls @ 100 mls/hr IVPB DAILY [facility] PRN Reason: Protocol Last Admin: 01/03/17 09:35 Dose: 100 mls/hr Methotrexate (Methotrexate) 2.5 mg PO DAILY [facility] Metoprolol Succinate (Toprol Xl) 25 mg PO DAILY [facility] Last Admin: 01/03/17 09:27 Dose: 25 mg Pantoprazole Sodium (Protonix Ec Tab) 40 mg PO DAILY [facility] Last Admin: 12/29/16 09:21 Dose: 40 mg Polyethylene Glycol (Miralax) 17 gm PO DAILY [facility]N PRN Reason: Constipation Sennosides (Senokot Tab) 8.6 mg PO DAILY [facility] Last Admin: 01/03/17 09:31 Dose: 8.6 mg - Labs Labs: 01/03/17 11:00 01/03/17 11:00 Assessment and Plan - Assessment and Plan (Free Text) Assessment: attending note; Patient seen and examined with resident. Patient is a 56 year old female with history of SLE, CAD, hx DVT and questionable PE s/p IVC filter placement, and compression fractures of T8, T9, L4, and L5 s/p Lumbar fusion who got admitted for evaluation of progressively worsening back pain and found to have an acute T12 compression fracture. Neurosurgery consult appreciated. Patient is not a surgical candidate as she had multiple fractures in the past. IR consult with DR. Romie obrien appreciated. Plan for vertebroplasty tomorrow. Discussed with Alvaro Freeman. She has staph bacteremia. Blood cultures negative from and 01/02 so far. She has urinary retention. Urology consult appreciated. Plan to keep the asher in for now.Voiding trial today as per urology. case discussed with Dr. Adame in detail. She is currently on vanco and rocephin. Pain is under control. Advised for OOB to chair. plan discussed with patient in detail. PT evaluation after kyphoplasty. Possible BUTCH placement. Attending/Attestation - Attestation I have personally seen and examined this patient.: Yes I have fully participated in the care of the patient.: Yes I have reviewed all pertinent clinical information, including history, physical exam and plan: Yes
[2017-01-03] MEDS: HYDROmorphone 1 mg/ml ISec IVP PRN (21:03)
--- NOTE | 2017-01-03 21:55 | CP.PCM.PN ---
Subjective - Date & Time of Evaluation Date of Evaluation: 01/03/17 Time of Evaluation: 19:30 - Subjective Subjective: Infectious Disease Follow Up: January 03, 2017 56 yo female with extensive past medical history showing SLE, CAD, [place] ( 2 yr prior), hx DVT and questionable PE s/p IVC filter placement, and compression fractures of T8, T9, L4, and L5 s/p Lumbar fusion recently discharge from [facility] [place] presents with intractable back pain and findings of new compression fracture of T12. Blood culture with gram positive cocci with FISH analysis suggesting Staph Aureus. The patient is awake and in pain. No neurosurgical interventions at this time. No relief with back brace for pain. Fevers up to 100.9 F on admission. Currently afebrile for the past 3 days. Afebrile today so far. Staph Aureus in blood cultures times two. Check Echocardiogram - results show no definitive vegetations. Sensitivities show MSSA. Currently on Vancomycin and Rocephin for treatment. Back pain under better control today. Obtaining repeat blood cultures on the patient. 01/01/2017 and 01/02/2017 cultures negative at 48 and 24 hours respectively. Objective - Vital Signs/Intake and Output Vital Signs (last 24 hours): Temp Pulse Resp BP Pulse Ox 98.4 F 75 18 156/75 H 93 L 01/03/17 16:00 01/03/17 16:00 01/03/17 16:00 01/03/17 16:00 01/03/17 16:00 - Medications Medications: Current Medications Clopidogrel Bisulfate (Plavix) 75 mg PO DAILY [facility] Last Admin: 12/28/16 09:07 Dose: 75 mg Cyclobenzaprine HCl (Flexeril) 10 mg PO TID PRN PRN Reason: Muscle spasm Last Admin: 01/03/17 21:04 Dose: 10 mg Diazepam (Valium) 5 mg PO Q6H PRN; Protocol PRN Reason: Muscle spasm Last Admin: 12/27/16 21:39 Dose: 5 mg Docusate Sodium (Colace) 100 mg PO TID [facility] Last Admin: 01/03/17 17:25 Dose: 100 mg Duloxetine HCl (Cymbalta) 60 mg PO DAILY [facility] Last Admin: 01/03/17 09:30 Dose: 60 mg Famotidine (Pepcid) 40 mg PO HS [facility] Last Admin: 01/03/17 21:03 Dose: 40 mg Fentanyl (Duragesic) 1 patch TD Q72H [facility] Last Admin: 01/03/17 14:00 Dose: 1 patch Gabapentin (Neurontin) 300 mg PO BID [facility] PRN Reason: Protocol Last Admin: 01/03/17 17:25 Dose: 300 mg Heparin Sodium (Porcine) (Heparin) 5,000 units SC Q12 [facility] PRN Reason: Protocol Last Admin: 12/29/16 21:40 Dose: 5,000 units Hydrocortisone (Cortizone 1% Cream) 0 gm TOP BID [facility] Last Admin: 01/03/17 17:25 Dose: 1 appl Hydromorphone HCl (Dilaudid) 1 mg IVP Q4 PRN PRN Reason: Pain, severe (8-10) Last Admin: 01/03/17 21:03 Dose: 1 mg Hydroxychloroquine Sulfate (Plaquenil) 200 mg PO DAILY [facility] Last Admin: 01/03/17 09:31 Dose: 200 mg Ceftriaxone Sodium (Rocephin 1 Gram Ivpb) 100 mls @ 100 mls/hr IVPB DAILY [facility] PRN Reason: Protocol Last Admin: 01/03/17 09:35 Dose: 100 mls/hr Methotrexate (Methotrexate) 2.5 mg PO DAILY [facility] Metoprolol Succinate (Toprol Xl) 25 mg PO DAILY [facility] Last Admin: 01/03/17 09:27 Dose: 25 mg Pantoprazole Sodium (Protonix Ec Tab) 40 mg PO DAILY [facility] Last Admin: 12/29/16 09:21 Dose: 40 mg Polyethylene Glycol (Miralax) 17 gm PO DAILY PRN PRN Reason: Constipation Sennosides (Senokot Tab) 8.6 mg PO DAILY [facility] Last Admin: 01/03/17 09:31 Dose: 8.6 mg - Labs Labs: 01/03/17 11:00 01/03/17 11:00 - Constitutional Appears: Non-toxic, No Acute Distress, Chronically Ill - Head Exam Head Exam: ATRAUMATIC, NORMOCEPHALIC - Eye Exam Eye Exam: EOMI, PERRL Pupil Exam: NORMAL ACCOMODATION, PERRL - ENT Exam ENT Exam: Mucous Membranes Moist, Normal External Ear Exam, TM's Normal Bilaterally - Neck Exam Neck Exam: Full ROM, Normal Inspection - Respiratory Exam Respiratory Exam: Clear to Ausculation Bilateral, NORMAL BREATHING PATTERN. absent: Rales, Rhonchi, Wheezes - Cardiovascular Exam Cardiovascular Exam: REGULAR RHYTHM, RRR, +S1, +S2 - GI/Abdominal Exam GI & Abdominal Exam: Soft, Normal Bowel Sounds. absent: Distended, Tenderness - Extremities Exam Extremities Exam: Full ROM, Normal Inspection Additional comments: movement limited due to back pain. - Neurological Exam Neurological Exam: Alert, Awake, CN II-XII Intact, Oriented x3 - Psychiatric Exam Psychiatric exam: Normal Affect, Normal Mood - Skin Skin Exam: Intact, Normal Color Assessment and Plan - Assessment and Plan (Free Text) Assessment: 56 yo female with multiple compression fractures and fevers on admission up to 100.9 F. The patient has positive blood cultures with gram positive cocci in clusters with FISH suggesting Staph Aureus. Currently on Ceftriaxone. Continue with Vancomycin to the regimen until final culture results return. The patient with bacteremia. Staph Aureus in both blood cultures. Check Echo - no definitive vegetations seen. Awaiting sensitivities - showing MSSA. Currently on Rocephin and Vancomycin. Given the numerous medical issues on this patient, may need to consider 6 weeks of IV antibiotics especially given number of spinal compression fractures and the weakness of the spine in general. Would hold off on kyphoplasty until blood cultures are negative give high chance to seed hardware with infection. Obtain two sets of blood cultures, if two consecutive sets of cultures negative then can proceed with the kyphoplasty. Awaiting results. Potential kyphoplasty tomorrow. Thank you for allowing me to participate in the care of the patient, we will follow with you. Case discussed with Dr. Narvaez.
[2017-01-04 07:02] LABS: ADD MANUAL DIFF? NO
[2017-01-04 07:10] LABS: BASO # 0.01 K/mm3 (0.0-2.0); BASO % 0.2 % (0.0-3.0); EOS # 0.1 (0.0-0.7); EOS % 2.2 % (1.5-5.0); GRAN # 4.39 (1.4-6.5); GRAN % 67.6 % (50.0-68.0); HEMATOCRIT 30.6 % (36.0-48.0); LYMPH # 1.3 (1.2-3.4); MEAN CELL VOLUME 88.7 fL (80.0-105.0); MEAN CORPUSCULAR HEMOGLOBIN 30.1 pg (25.0-35.0); MEAN PLATELET VOLUME 10.2 fl (7.0-11.0); MONO # 0.7 (0.1-0.6); PLATELET COUNT 280 10^3/uL (120.0-450.0); RED CELL DISTRIBUTION WIDTH 13.8 % (11.5-14.5); WHITE BLOOD COUNT 6.5 10^3/ul (4.5-11.0)
[2017-01-04 07:30] LABS: ALB/GLOB RATIO 0.8 (1.1-1.8); ALKALINE PHOSPHATASE 77 U/L (38-133); ALT/SGPT 30 U/L (7-56); AST/SGOT 26 U/L (15-39); BILIRUBIN,TOTAL 0.5 mg/dL (0.2-1.3); BLOOD UREA NITROGEN 4 mg/dL (7-21); CALCIUM 8.8 mg/dL (8.4-10.5); CARBON DIOXIDE 32 mmol/L (21-33); CHLORIDE 96 mmol/L (98-107); GFR AFRICAN-AMERICAN > 60; GLUCOSE,RANDOM 92 mg/dL (70-110); MAGNESIUM 1.6 mg/dL (1.7-2.2); PHOSPHOROUS 5.1 mg/dL (2.5-4.5); POTASSIUM 3.5 mmol/L (3.6-5.0); SODIUM 137 mmol/L (132-148); TOTAL PROTEIN 6.4 g/dL (5.8-8.3)
[2017-01-04] MEDS: Hydrocortisone 1% Cream (30 GM) TOP SCH ×2 (09:40→17:23)
[2017-01-04] MEDS: Pantoprazole 40 mg EC Tab PO SCH ×2 (09:41→13:24)
[2017-01-04] MEDS: Metoprolol Succinate 25 mg XL Tab PO SCH (09:42)
[2017-01-04] MEDS ORDERED: Midazolam 2 MG/2 ML VIAL ONE ×2 (10:38→11:48)
[2017-01-04] MEDS ORDERED: Lidocaine 2% Inj (20ml) ONE (10:47)
--- NOTE | 2017-01-04 11:01 | PCM.IRPREO ---
Pre Procedure Note - History Proposed Procedure: Kyphoplasty T12, picc placement Pre-Op Diagnosis: T12 compression fracture, infection - Pre Procedure Were any radiologic studies performed in the last 12 months: Yes (MRI lumbar spine) List of radiologic studies performed: MRI Was medical management performed in the past 24 months: Yes (Pain management) List of medical management performed: Pain management. Clinical indication for the procedure: T12 acute fracture Have risks and benefits been explained to the patient: Yes (Bleeding, spinal injury) Risks and benefits been explained to the patient: Bleeding, spinal cord injury, paralysis, embolism. Have alternatives to surgery explained to the patient as applicable: Yes (Pain control) - Allergies Allergies: Allergies acetaminophen Allergy (Verified 11/30/16 11:42) RASH aspirin Allergy (Verified 11/30/16 11:42) RASH codeine Allergy (Verified 11/30/16 11:42) RASH ibuprofen Allergy (Verified 11/30/16 11:42) RASH - Physical Exam General Appearance: No acute distress Vital Signs: Vital Signs 01/04/17 08:08 Temperature 97.6 F Pulse Rate 75 Respiratory 18 Rate Blood Pressure 151/94 H O2 Sat by Pulse 93 L Oximetry Mental Status: Alert & Oriented x3 Heart: WNL Lungs: WNL - Impression Impression: Pt with acute T12 fracture. Plan kyphoplasty. Informed consent obtained from Pt and case also discussed with her daughter, Arlet. - Date & Time Date: 01/04/17 Time: 10:55
[2017-01-04] MEDS ORDERED: DiphenhydrAMINE 50 mg/ml Inj ONE (11:50)
[2017-01-04] MEDS: cefTRIAXone 1 gm 100 ML IVPB SCH (11:53)
--- NOTE | 2017-01-04 12:06 | PCM.SURG1 ---
Surgeon's Initial Post Op Note - Surgeon's Notes Surgeon: Romie Hoskins MD Accounting Office Manager: None Type of Anesthesia: Moderate Sedation{RN} Pre-Operative Diagnosis: T12 compression fracture Operative Findings: Diffuse osteopenia, spinal fusion, L2-3 compression fx, T12 compression fracture. Post-Operative Diagnosis: T12 compression fracture Operation Performed: Kyphoplasty T12, single lumen picc placement left brachial vein 40 cm. Tip in SVC. Specimen/Specimens Removed: NONE Estimated Blood Loss: EBL {In ML}: 2 Blood Products Given: N/A Drains Used: No Drains Post-Op Condition: Fair Date of Surgery/Procedure: 01/04/17 Time of Surgery/Procedure: 12:00
[2017-01-04] MEDS ORDERED: HYDROmorphone 0.5 mg/0.5 ml ISec ONE (13:07)
--- NOTE | 2017-01-04 14:44 | VASCULAR ---
PROCEDURE: Date of procedure: 01/04/2014 Procedure: 1. Placement of a left arm PICC with ultrasound and fluoroscopic guidance, CPT 41852 2. PICC tip confirmation with spot radiograph and is in the superior vena cava Medications: 1 percent lidocaine HISTORY: Infection requiring long-term IV antibiotics TECHNIQUE: Following informed consent and procedure time-out, the patient placed supine on the interventional table and the left arm prepped and draped in the usual sterile fashion. Ultrasound showed a patent and compressible left brachial vein. Basilic vein is small. After the skin was anesthetized with lidocaine, the basilic vein was accessed with micro micropuncture technique using ultrasound guidance. A guidewire was then advanced under fluoroscopic guidance into the superior vena cava. An image documenting ultrasound guidance for vascular access was permanently saved. The length of the single-lumen 5 [place] PICC was trimmed to 43 centimeters and advanced through a peel-away sheath. The PICC was position with tip of PICC confirm a spot radiograph the superior vena cava. The PICC was secured to the patient's skin. The PICC was flushed. A biopatch and sterile dressing was applied. IMPRESSION: Placement of a single-lumen, a 5 [place] PICC left brachial vein trimmed to 43cm. The tip of the PICC is confirmed with spot radiograph and is in the superior vena cava.
--- NOTE | 2017-01-04 15:33 | VASCULAR ---
PROCEDURE: Date of Procedure: 01/04/2017 PROCEDURE: 1. Kyphoplasty T12 vertebral body Medications: Pt received moderate sedation, 2 mg Versed 100 mcg Fentanyl administered by the Interventional radiology nurse along with physiologic monitoring, 10 cc 1% lidocaine. HISTORY: Acute compression fracture Thoracic spine, back pain. TECHNIQUE: Following informed consent and procedure time out, the patient was placed prone on the interventional table. The lower back was prepped and draped in the standard sterile manner. The fractured vertebral body was confirmed in tangential views, AP and lateral. The L1 vertebral body had a 50% loss of height. Old compression fractures of L2,3 present. Kyphoplasty was performed. A coaxial trocar was slowly advanced via both pedicles into the vertebral body in the AP and lateral projections. The balloons were inflated with 2 cc. Balloons were removed and methylmethacrylate was injected once it was formed. Post images showed the cement contained within the vertebral body. The trocars were removed and dressing applied. IMPRESSION: Kyphoplasty T12 vertebral body.
--- NOTE | 2017-01-04 17:39 | CP.PCM.PN ---
<Thad Page - Last Filed: 01/04/17 17:33> Subjective - Date & Time of Evaluation Date of Evaluation: 01/04/17 Time of Evaluation: 09:13 - Subjective Subjective: Pt seen and examined. Pt reports that her back pain has improved. Pt denies fever, chills, chest pain, shortness of breath, nausea, and vomiting. Objective - Vital Signs/Intake and Output Vital Signs (last 24 hours): Temp Pulse Resp BP Pulse Ox 97.4 F L 95 H 18 147/93 H 92 L 01/04/17 16:00 01/04/17 16:00 01/04/17 16:00 01/04/17 16:00 01/04/17 16:00 Intake and Output: 01/04/17 01/04/17 06:59 18:59 Intake Total 480 Output Total 900 Balance -420 - Medications Medications: Current Medications Clopidogrel Bisulfate (Plavix) 75 mg PO DAILY [facility] Last Admin: 12/28/16 09:07 Dose: 75 mg Cyclobenzaprine HCl (Flexeril) 10 mg PO TID PRN PRN Reason: Muscle spasm Last Admin: 01/04/17 13:24 Dose: 10 mg Diazepam (Valium) 5 mg PO Q6H PRN; Protocol PRN Reason: Muscle spasm Last Admin: 12/27/16 21:39 Dose: 5 mg Docusate Sodium (Colace) 100 mg PO TID [facility] Last Admin: 01/04/17 17:23 Dose: 100 mg Duloxetine HCl (Cymbalta) 60 mg PO DAILY [facility] Last Admin: 01/04/17 13:24 Dose: 60 mg Famotidine (Pepcid) 40 mg PO HS [facility] Last Admin: 01/03/17 21:03 Dose: 40 mg Gabapentin (Neurontin) 300 mg PO BID [facility] PRN Reason: Protocol Last Admin: 01/04/17 17:24 Dose: 300 mg Heparin Sodium (Porcine) (Heparin) 5,000 units SC Q12 [facility] PRN Reason: Protocol Last Admin: 12/29/16 21:40 Dose: 5,000 units Hydrocortisone (Cortizone 1% Cream) 0 gm TOP BID [facility] Last Admin: 01/04/17 17:23 Dose: 1 appl Hydromorphone HCl (Dilaudid) 1 mg IVP Q4 PRN PRN Reason: Pain, severe (8-10) Last Admin: 01/03/17 21:03 Dose: 1 mg Hydroxychloroquine Sulfate (Plaquenil) 200 mg PO DAILY [facility] Last Admin: 01/04/17 13:24 Dose: 200 mg Ceftriaxone Sodium (Rocephin 1 Gram Ivpb) 100 mls @ 100 mls/hr IVPB DAILY [facility] PRN Reason: Protocol Last Admin: 01/04/17 11:53 Dose: 100 mls/hr Methotrexate (Methotrexate) 2.5 mg PO DAILY [facility] Metoprolol Succinate (Toprol Xl) 25 mg PO DAILY [facility] Last Admin: 01/04/17 09:42 Dose: 25 mg Pantoprazole Sodium (Protonix Ec Tab) 40 mg PO DAILY [facility] Last Admin: 01/04/17 13:24 Dose: 40 mg Polyethylene Glycol (Miralax) 17 gm PO DAILY PRN PRN Reason: Constipation Sennosides (Senokot Tab) 8.6 mg PO DAILY [facility] Last Admin: 01/04/17 13:24 Dose: 8.6 mg - Labs Labs: 01/04/17 06:50 01/04/17 06:50 - Constitutional Appears: No Acute Distress - Head Exam Head Exam: ATRAUMATIC, NORMOCEPHALIC - Eye Exam Eye Exam: EOMI, PERRL - ENT Exam ENT Exam: Mucous Membranes Moist. absent: Mucous Membranes Dry - Neck Exam Neck Exam: Full ROM. absent: Lymphadenopathy - Respiratory Exam Respiratory Exam: Clear to Ausculation Bilateral. absent: Rales, Rhonchi, Wheezes - Cardiovascular Exam Cardiovascular Exam: +S1, +S2. absent: Gallop, Rubs - GI/Abdominal Exam GI & Abdominal Exam: Soft, Normal Bowel Sounds. absent: Rigid, Tenderness - Extremities Exam Extremities Exam: Full ROM. absent: Pedal Edema - Neurological Exam Neurological Exam: Alert, Awake, Oriented x3 - Psychiatric Exam Psychiatric exam: Normal Affect, Normal Mood - Skin Skin Exam: Normal Color, Warm Assessment and Plan - Assessment and Plan (Free Text) Assessment: Assessment: Chronic and acute thoracic and lumbar compression fractures: Bacteremia Urinary Retention Hx of CAD Hx of Lupus Hx of HTN Hx of Depression Plan: Blood cultures x 2 negative after 48 hrs and 3 days, respectively. Pt afebrile, nontachycardic. No leukocytosis. Pt day 0 s/p kyphoplasty of T12 vertebra and PICC placement. PT will require 4-6 weeks of IV antibiotics. Continue IV rocephin. Pt on flexeril, valium, and dilaudid for back pain. Restart plavix tomorrow. Pt on plaquenil for lupus. Continue neurontin for neuropathic pain. Pt on miralax and [place] for constipation. Pt failed voiding trial, will continue asher. <Gonsalo Brown - Last Filed: 01/05/17 16:57> Objective - Vital Signs/Intake and Output Vital Signs (last 24 hours): Temp Pulse Resp BP Pulse Ox 98.5 F 95 H 21 142/87 98 01/05/17 06:00 01/05/17 06:00 01/05/17 06:00 01/05/17 06:00 01/05/17 00:30 Intake and Output: 01/05/17 01/05/17 06:59 18:59 Intake Total 420 Output Total 1100 Balance -680 - Medications Medications: Current Medications Clopidogrel Bisulfate (Plavix) 75 mg PO DAILY [facility] Last Admin: 12/28/16 09:07 Dose: 75 mg Cyclobenzaprine HCl (Flexeril) 10 mg PO TID PRN PRN Reason: Muscle spasm Last Admin: 01/04/17 13:24 Dose: 10 mg Diazepam (Valium) 5 mg PO Q6H PRN; Protocol PRN Reason: Muscle spasm Last Admin: 12/27/16 21:39 Dose: 5 mg Docusate Sodium (Colace) 100 mg PO TID [facility] Last Admin: 01/05/17 13:12 Dose: 100 mg Duloxetine HCl (Cymbalta) 60 mg PO DAILY [facility] Last Admin: 01/05/17 09:55 Dose: 60 mg Famotidine (Pepcid) 40 mg PO HS [facility] Last Admin: 01/04/17 21:23 Dose: 40 mg Gabapentin (Neurontin) 300 mg PO BID [facility] PRN Reason: Protocol Last Admin: 01/05/17 09:55 Dose: 300 mg Heparin Sodium (Porcine) (Heparin) 5,000 units SC Q12 [facility] PRN Reason: Protocol Last Admin: 12/29/16 21:40 Dose: 5,000 units Hydrocortisone (Cortizone 1% Cream) 0 gm TOP BID [facility] Last Admin: 01/05/17 09:54 Dose: 1 appl Hydromorphone HCl (Dilaudid) 1 mg IVP Q4 PRN PRN Reason: Pain, severe (8-10) Last Admin: 01/05/17 02:10 Dose: 1 mg Hydroxychloroquine Sulfate (Plaquenil) 200 mg PO DAILY [facility] Last Admin: 01/05/17 09:55 Dose: 200 mg Ceftriaxone Sodium (Rocephin 1 Gram Ivpb) 100 mls @ 100 mls/hr IVPB DAILY [facility] PRN Reason: Protocol Last Admin: 01/05/17 09:55 Dose: 100 mls/hr Methotrexate (Methotrexate) 2.5 mg PO DAILY [facility] Metoprolol Succinate (Toprol Xl) 25 mg PO DAILY [facility] Last Admin: 01/05/17 09:56 Dose: 25 mg Oxycodone/Acetaminophen (Percocet 5/325 Mg Tab) 1 tab PO Q4H PRN PRN Reason: Pain, moderate (4-7) Stop: 01/08/17 10:52 Pantoprazole Sodium (Protonix Ec Tab) 40 mg PO DAILY [facility] Last Admin: 01/05/17 09:55 Dose: 40 mg Polyethylene Glycol (Miralax) 17 gm PO DAILY PRN PRN Reason: Constipation Sennosides (Senokot Tab) 8.6 mg PO DAILY [facility] Last Admin: 01/05/17 09:56 Dose: 8.6 mg - Labs Labs: 01/05/17 07:00 01/05/17 07:00 Assessment and Plan - Assessment and Plan (Free Text) Assessment: attending note; Patient seen and examined with resident. Patient is a 56 year old female with history of SLE, CAD, hx DVT and questionable PE s/p IVC filter placement, and compression fractures of T8, T9, L4, and L5 s/p Lumbar fusion who got admitted for evaluation of progressively worsening back pain and found to have an acute T12 compression fracture. Neurosurgery consult appreciated. Patient is not a surgical candidate as she had multiple fractures in the past. IR consult with DR. Romie obrien appreciated. Plan for vertebroplasty tomorrow. Discussed with Alvaro Freeman. She has staph bacteremia. Blood cultures negative from and 01/02 so far. cleared by ID for invasive procedure. plan kyphoplasty and PICC line placement today. She has urinary retention. Urology consult appreciated. Plan to keep the asher in for now. failed Voiding trial. case discussed with Dr. Adame in detail. She is currently on vanco and rocephin. Pain is under control. Advised for OOB to chair. plan discussed with patient in detail. PT evaluation after kyphoplasty. Possible BUTCH placement. Attending/Attestation - Attestation I have personally seen and examined this patient.: Yes I have fully participated in the care of the patient.: Yes I have reviewed all pertinent clinical information, including history, physical exam and plan: Yes
--- NOTE | 2017-01-04 18:15 | CP.PCM.PN ---
Subjective - Date & Time of Evaluation Date of Evaluation: 01/04/17 Time of Evaluation: 16:30 - Subjective Subjective: Infectious Disease Follow Up: January 04, 2017 56 yo female with extensive past medical history showing SLE, CAD, [place] ( 2 yr prior), hx DVT and questionable PE s/p IVC filter placement, and compression fractures of T8, T9, L4, and L5 s/p Lumbar fusion recently discharge [place] [facility] [place] presents with intractable back pain and findings of new compression fracture of T12. Blood culture with gram positive cocci with FISH analysis suggesting Staph Aureus. The patient is awake and in pain. No neurosurgical interventions at this time. No relief with back brace for pain. Fevers up to 100.9 F on admission. Currently afebrile for the past 3 days. Afebrile today so far. Staph Aureus in blood cultures times two. Check Echocardiogram - results show no definitive vegetations. Sensitivities show MSSA. Currently on Vancomycin and Rocephin for treatment. Back pain under better control today. Obtaining repeat blood cultures on the patient. 01/01/2017 and 01/02/2017 cultures negative at 48+ hours. Went for kyphoplasty today. Objective - Vital Signs/Intake and Output Vital Signs (last 24 hours): Temp Pulse Resp BP Pulse Ox 97.4 F L 95 H 18 147/93 H 92 L 01/04/17 16:00 01/04/17 16:00 01/04/17 16:00 01/04/17 16:00 01/04/17 16:00 Intake and Output: 01/04/17 01/04/17 06:59 18:59 Intake Total 480 Output Total 900 Balance -420 - Medications Medications: Current Medications Clopidogrel Bisulfate (Plavix) 75 mg PO DAILY [facility] Last Admin: 12/28/16 09:07 Dose: 75 mg Cyclobenzaprine HCl (Flexeril) 10 mg PO TID PRN PRN Reason: Muscle spasm Last Admin: 01/04/17 13:24 Dose: 10 mg Diazepam (Valium) 5 mg PO Q6H PRN; Protocol PRN Reason: Muscle spasm Last Admin: 12/27/16 21:39 Dose: 5 mg Docusate Sodium (Colace) 100 mg PO TID [facility] Last Admin: 01/04/17 17:23 Dose: 100 mg Duloxetine HCl (Cymbalta) 60 mg PO DAILY [facility] Last Admin: 01/04/17 13:24 Dose: 60 mg Famotidine (Pepcid) 40 mg PO HS [facility] Last Admin: 01/03/17 21:03 Dose: 40 mg Gabapentin (Neurontin) 300 mg PO BID [facility] PRN Reason: Protocol Last Admin: 01/04/17 17:24 Dose: 300 mg Heparin Sodium (Porcine) (Heparin) 5,000 units SC Q12 [facility] PRN Reason: Protocol Last Admin: 12/29/16 21:40 Dose: 5,000 units Hydrocortisone (Cortizone 1% Cream) 0 gm TOP BID [facility] Last Admin: 01/04/17 17:23 Dose: 1 appl Hydromorphone HCl (Dilaudid) 1 mg IVP Q4 PRN PRN Reason: Pain, severe (8-10) Last Admin: 01/03/17 21:03 Dose: 1 mg Hydroxychloroquine Sulfate (Plaquenil) 200 mg PO DAILY [facility] Last Admin: 01/04/17 13:24 Dose: 200 mg Ceftriaxone Sodium (Rocephin 1 Gram Ivpb) 100 mls @ 100 mls/hr IVPB DAILY [facility] PRN Reason: Protocol Last Admin: 01/04/17 11:53 Dose: 100 mls/hr Methotrexate (Methotrexate) 2.5 mg PO DAILY [facility] Metoprolol Succinate (Toprol Xl) 25 mg PO DAILY [facility] Last Admin: 01/04/17 09:42 Dose: 25 mg Pantoprazole Sodium (Protonix Ec Tab) 40 mg PO DAILY [facility] Last Admin: 01/04/17 13:24 Dose: 40 mg Polyethylene Glycol (Miralax) 17 gm PO DAILY PRN PRN Reason: Constipation Sennosides (Senokot Tab) 8.6 mg PO DAILY [facility] Last Admin: 01/04/17 13:24 Dose: 8.6 mg - Labs Labs: 01/04/17 06:50 01/04/17 06:50 - Constitutional Appears: Non-toxic, No Acute Distress, Chronically Ill - Head Exam Head Exam: ATRAUMATIC, NORMOCEPHALIC - Eye Exam Eye Exam: EOMI, PERRL Pupil Exam: NORMAL ACCOMODATION, PERRL - ENT Exam ENT Exam: Mucous Membranes Moist, Normal External Ear Exam, TM's Normal Bilaterally - Neck Exam Neck Exam: Full ROM, Normal Inspection - Respiratory Exam Respiratory Exam: Clear to Ausculation Bilateral, NORMAL BREATHING PATTERN. absent: Rales, Rhonchi, Wheezes - Cardiovascular Exam Cardiovascular Exam: REGULAR RHYTHM, RRR, +S1, +S2 - GI/Abdominal Exam GI & Abdominal Exam: Soft, Normal Bowel Sounds. absent: Distended, Tenderness - Extremities Exam Extremities Exam: Full ROM, Normal Inspection Additional comments: movement limited due to back pain. - Neurological Exam Neurological Exam: Alert, Awake, CN II-XII Intact, Oriented x3 - Psychiatric Exam Psychiatric exam: Normal Affect, Normal Mood - Skin Skin Exam: Intact, Normal Color Assessment and Plan - Assessment and Plan (Free Text) Assessment: 56 yo female with multiple compression fractures and fevers on admission up to 100.9 F. The patient has positive blood cultures with gram positive cocci in clusters with FISH suggesting Staph Aureus. Currently on Ceftriaxone. Continue with Vancomycin to the regimen until final culture results return. The patient with bacteremia. Staph Aureus in both blood cultures. Check Echo - no definitive vegetations seen. Awaiting sensitivities - showing MSSA. Currently on Rocephin and Vancomycin. Given the numerous medical issues on this patient, may need to consider 6 weeks of IV antibiotics especially given number of spinal compression fractures and the weakness of the spine in general. Would hold off on kyphoplasty until blood cultures are negative give high chance to seed hardware with infection. Obtain two sets of blood cultures, if two consecutive sets of cultures negative then can proceed with the kyphoplasty. Two sets negative at 48 hours. Kyphoplasty today. Thank you for allowing me to participate in the care of the patient, we will follow with you. Case discussed with Dr. Narvaez.
[2017-01-04] MEDS: HYDROmorphone 1 mg/ml ISec IVP PRN (21:23)
[2017-01-05] MEDS: HYDROmorphone 1 mg/ml ISec IVP PRN ×2 (02:10→18:10)
[2017-01-05 07:09] LABS: ADD MANUAL DIFF? NO
[2017-01-05 07:15] LABS: BASO # 0.01 K/mm3 (0.0-2.0); BASO % 0.1 % (0.0-3.0); EOS # 0.1 (0.0-0.7); EOS % 0.8 % (1.5-5.0); GRAN # 5.85 (1.4-6.5); GRAN % 76.6 % (50.0-68.0); HEMATOCRIT 29.2 % (36.0-48.0); LYMPH # 1.1 (1.2-3.4); LYMPH % 14.5 % (22.0-35.0); MEAN CELL VOLUME 88.5 fL (80.0-105.0); MEAN CORPUSCULAR HGB CONC 33.9 g/dl (31.0-37.0); MONO # 0.6 (0.1-0.6); PLATELET COUNT 261 10^3/uL (120.0-450.0); RED CELL DISTRIBUTION WIDTH 13.9 % (11.5-14.5); WHITE BLOOD COUNT 7.6 10^3/ul (4.5-11.0)
[2017-01-05 08:08] LABS: ALB/GLOB RATIO 0.8 (1.1-1.8); ALKALINE PHOSPHATASE 84 U/L (38-133); ALT/SGPT 28 U/L (7-56); AST/SGOT 23 U/L (15-39); BILIRUBIN,TOTAL 0.6 mg/dL (0.2-1.3); BLOOD UREA NITROGEN 6 mg/dL (7-21); CALCIUM 8.7 mg/dL (8.4-10.5); CARBON DIOXIDE 30 mmol/L (21-33); CHLORIDE 95 mmol/L (98-107); GFR AFRICAN-AMERICAN > 60; GLUCOSE,RANDOM 93 mg/dL (70-110); MAGNESIUM 1.5 mg/dL (1.7-2.2); PHOSPHOROUS 4.6 mg/dL (2.5-4.5); POTASSIUM 3.4 mmol/L (3.6-5.0); SODIUM 135 mmol/L (132-148); TOTAL PROTEIN 6.4 g/dL (5.8-8.3)
[2017-01-05] MEDS: Hydrocortisone 1% Cream (30 GM) TOP SCH ×2 (09:54→17:02)
[2017-01-05] MEDS: Pantoprazole 40 mg EC Tab PO SCH (09:55)
[2017-01-05] MEDS: cefTRIAXone 1 gm 100 ML IVPB SCH (09:55)
[2017-01-05] MEDS: Metoprolol Succinate 25 mg XL Tab PO SCH (09:56)
[2017-01-05] MEDS ORDERED: Magnesium Citrate Oral SOL (300 ml) PO ONE (10:50)
[2017-01-05] MEDS ORDERED: Oxycodone/Acetaminophen 5/325 mg Tab PO PRN (10:51)
[2017-01-05] MEDS ORDERED: Potassium Chloride 20 mEq ER Tab PO STA (10:52)
[2017-01-05 16:27] VITALS: BP 146/96; PULSE 105; RESP 20; TEMP 99.3; O2SAT 92
--- NOTE | 2017-01-05 16:35 | CP.PCM.PN ---
Subjective - Date & Time of Evaluation Date of Evaluation: 01/05/17 Time of Evaluation: 15:00 - Subjective Subjective: Infectious Disease Follow Up: January 05, 2017 56 yo female with extensive past medical history showing SLE, CAD, [place] ( 2 yr prior), hx DVT and questionable PE s/p IVC filter placement, and compression fractures of T8, T9, L4, and L5 s/p Lumbar fusion recently discharge from [facility] [place] presents with intractable back pain and findings of new compression fracture of T12. Blood culture with gram positive cocci with FISH analysis suggesting Staph Aureus. The patient is awake and in pain. No neurosurgical interventions at this time. No relief with back brace for pain. Fevers up to 100.9 F on admission. Currently afebrile for the past 3 days. Afebrile today so far. Staph Aureus in blood cultures times two. Check Echocardiogram - results show no definitive vegetations. Sensitivities show MSSA. Currently on Vancomycin and Rocephin for treatment. Back pain under better control today. Obtaining repeat blood cultures on the patient. 01/01/2017 and 01/02/2017 cultures negative at 48+ hours. Went for kyphoplasty yesterday. For transfer to [facility] today. Objective - Vital Signs/Intake and Output Vital Signs (last 24 hours): Temp Pulse Resp BP Pulse Ox 99.3 F 105 H 20 146/96 H 92 L 01/05/17 16:00 01/05/17 16:00 01/05/17 16:00 01/05/17 16:00 01/05/17 16:00 Intake and Output: 01/05/17 01/05/17 06:59 18:59 Intake Total 420 Output Total 1100 Balance -680 - Medications Medications: Current Medications Clopidogrel Bisulfate (Plavix) 75 mg PO DAILY [facility] Last Admin: 12/28/16 09:07 Dose: 75 mg Cyclobenzaprine HCl (Flexeril) 10 mg PO TID PRN PRN Reason: Muscle spasm Last Admin: 01/04/17 13:24 Dose: 10 mg Diazepam (Valium) 5 mg PO Q6H PRN; Protocol PRN Reason: Muscle spasm Last Admin: 12/27/16 21:39 Dose: 5 mg Docusate Sodium (Colace) 100 mg PO TID [facility] Last Admin: 01/05/17 13:12 Dose: 100 mg Duloxetine HCl (Cymbalta) 60 mg PO DAILY [facility] Last Admin: 01/05/17 09:55 Dose: 60 mg Famotidine (Pepcid) 40 mg PO HS [facility] Last Admin: 01/04/17 21:23 Dose: 40 mg Gabapentin (Neurontin) 300 mg PO BID [facility] PRN Reason: Protocol Last Admin: 01/05/17 09:55 Dose: 300 mg Heparin Sodium (Porcine) (Heparin) 5,000 units SC Q12 [facility] PRN Reason: Protocol Last Admin: 12/29/16 21:40 Dose: 5,000 units Hydrocortisone (Cortizone 1% Cream) 0 gm TOP BID [facility] Last Admin: 01/05/17 09:54 Dose: 1 appl Hydromorphone HCl (Dilaudid) 1 mg IVP Q4 PRN PRN Reason: Pain, severe (8-10) Last Admin: 01/05/17 02:10 Dose: 1 mg Hydroxychloroquine Sulfate (Plaquenil) 200 mg PO DAILY [facility] Last Admin: 01/05/17 09:55 Dose: 200 mg Ceftriaxone Sodium (Rocephin 1 Gram Ivpb) 100 mls @ 100 mls/hr IVPB DAILY [facility] PRN Reason: Protocol Last Admin: 01/05/17 09:55 Dose: 100 mls/hr Methotrexate (Methotrexate) 2.5 mg PO DAILY [facility] Metoprolol Succinate (Toprol Xl) 25 mg PO DAILY [facility] Last Admin: 01/05/17 09:56 Dose: 25 mg Oxycodone/Acetaminophen (Percocet 5/325 Mg Tab) 1 tab PO Q4H PRN PRN Reason: Pain, moderate (4-7) Stop: 01/08/17 10:52 Pantoprazole Sodium (Protonix Ec Tab) 40 mg PO DAILY [facility] Last Admin: 01/05/17 09:55 Dose: 40 mg Polyethylene Glycol (Miralax) 17 gm PO DAILY PRN PRN Reason: Constipation Sennosides (Senokot Tab) 8.6 mg PO DAILY [facility] Last Admin: 01/05/17 09:56 Dose: 8.6 mg - Labs Labs: 01/05/17 07:00 01/05/17 07:00 - Constitutional Appears: Non-toxic, No Acute Distress, Chronically Ill - Head Exam Head Exam: ATRAUMATIC, NORMOCEPHALIC - Eye Exam Eye Exam: EOMI, PERRL Pupil Exam: NORMAL ACCOMODATION, PERRL - ENT Exam ENT Exam: Mucous Membranes Moist, Normal External Ear Exam, TM's Normal Bilaterally - Neck Exam Neck Exam: Full ROM, Normal Inspection - Respiratory Exam Respiratory Exam: Clear to Ausculation Bilateral, NORMAL BREATHING PATTERN. absent: Rales, Rhonchi, Wheezes - Cardiovascular Exam Cardiovascular Exam: REGULAR RHYTHM, RRR, +S1, +S2 - GI/Abdominal Exam GI & Abdominal Exam: Soft, Normal Bowel Sounds. absent: Distended, Tenderness - Extremities Exam Extremities Exam: Full ROM, Normal Inspection Additional comments: movement limited due to back pain. - Neurological Exam Neurological Exam: Alert, Awake, CN II-XII Intact, Oriented x3 - Psychiatric Exam Psychiatric exam: Normal Affect, Normal Mood Assessment and Plan - Assessment and Plan (Free Text) Assessment: 56 yo female with multiple compression fractures and fevers on admission up to 100.9 F. The patient has positive blood cultures with gram positive cocci in clusters with FISH suggesting Staph Aureus. Currently on Ceftriaxone. Continue with Vancomycin to the regimen until final culture results return. The patient with bacteremia. Staph Aureus in both blood cultures. Check Echo - no definitive vegetations seen. Awaiting sensitivities - showing MSSA. Currently on Rocephin and Vancomycin. Given the numerous medical issues on this patient, may need to consider 6 weeks of IV antibiotics especially given number of spinal compression fractures and the weakness of the spine in general. Would hold off on kyphoplasty until blood cultures are negative give high chance to seed hardware with infection. Obtain two sets of blood cultures, if two consecutive sets of cultures negative then can proceed with the kyphoplasty. Two sets negative at 48 hours. Kyphoplasty done yesterday. [facility] Thank you for allowing me to participate in the care of the patient, we will follow with you. Case discussed with Dr. Narvaez.
--- NOTE | 2017-01-05 16:45 | CP.PCM.DIS ---
Provider - Provider Date of Admission: 12/25/16 21:33 Attending physician: Gonsalo Brown MD Primary care physician: Jero Ruiz MD Time Spent in preparation of Discharge (in minutes): 48 Hospital Course - Lab Results Lab Results: Micro Results 01/02/17 07:00 Blood Blood Culture - Preliminary NO GROWTH AFTER 3 DAYS 01/01/17 06:30 Blood Blood Culture - Preliminary NO GROWTH AFTER 4 DAYS 12/26/16 09:10 Blood S.aureus & Coag-Neg Staph PNA FISH - Final 12/26/16 09:10 Blood Blood Culture - Final Staphylococcus Aureus 12/26/16 09:10 Blood Gram Stain - Final 12/26/16 09:00 Blood Blood Culture - Final Staphylococcus Aureus 12/26/16 09:00 Blood Gram Stain - Final 12/26/16 02:00 Urine,López Urine Culture - Final No Growth (<1,000 CFU/ML) Most Recent Lab Values WBC 7.6 10^3/ul (4.5-11.0) 01/05/17 07:00 RBC 3.30 10^6/uL (3.5-6.1) L 01/05/17 07:00 Hgb 9.9 gm/dL (12.0-16.0) L 01/05/17 07:00 Hct 29.2 % (36.0-48.0) L 01/05/17 07:00 MCV 88.5 fL (80.0-105.0) 01/05/17 07:00 MCH 30.0 pg (25.0-35.0) 01/05/17 07:00 MCHC 33.9 g/dl (31.0-37.0) 01/05/17 07:00 RDW 13.9 % (11.5-14.5) 01/05/17 07:00 Plt Count 261 10^3/uL (120.0-450.0) 01/05/17 07:00 MPV 10.0 fl (7.0-11.0) 01/05/17 07:00 Gran % 76.6 % (50.0-68.0) H 01/05/17 07:00 Lymph % (Auto) 14.5 % (22.0-35.0) L 01/05/17 07:00 [place] % (Auto) 8.0 % (1.0-6.0) H 01/05/17 07:00 Eos % (Auto) 0.8 % (1.5-5.0) L 01/05/17 07:00 Baso % (Auto) 0.1 % (0.0-3.0) 01/05/17 07:00 Gran # 5.85 (1.4-6.5) 01/05/17 07:00 Lymph # 1.1 (1.2-3.4) L 01/05/17 07:00 [place] # 0.6 (0.1-0.6) 01/05/17 07:00 Eos # 0.1 (0.0-0.7) 01/05/17 07:00 Baso # 0.01 K/mm3 (0.0-2.0) 01/05/17 07:00 Neutrophils % (Manual) 92 % (50.0-70.0) H 12/26/16 04:30 Lymphocytes % (Manual) 3 % (22.0-35.0) L 12/26/16 04:30 Monocytes % (Manual) 5 % (1.0-6.0) 12/26/16 04:30 Platelet Evaluation Normal (NORMAL) 12/26/16 04:30 Sodium 135 mmol/L (132-148) 01/05/17 07:00 Potassium 3.4 mmol/L (3.6-5.0) L 01/05/17 07:00 Chloride 95 mmol/L (98-107) L 01/05/17 07:00 Carbon Dioxide 30 mmol/L (21-33) 01/05/17 07:00 Anion Gap 13 (10-20) 01/05/17 07:00 BUN 6 mg/dL (7-21) L 01/05/17 07:00 Creatinine 0.8 mg/dL (0.5-1.4) 01/05/17 07:00 Est GFR ( Amer) > 60 01/05/17 07:00 Est GFR (Non-Af Amer) > 60 01/05/17 07:00 POC Glucose (mg/dL) 121 mg/dL (65-110) H 01/02/17 21:46 Random Glucose 93 mg/dL (70-110) 01/05/17 07:00 Calcium 8.7 mg/dL (8.4-10.5) 01/05/17 07:00 Phosphorus 4.6 mg/dL (2.5-4.5) H 01/05/17 07:00 Magnesium 1.5 mg/dL (1.7-2.2) L 01/05/17 07:00 Total Bilirubin 0.6 mg/dL (0.2-1.3) 01/05/17 07:00 AST 23 U/L (15-39) 01/05/17 07:00 ALT 28 U/L (7-56) 01/05/17 07:00 Alkaline Phosphatase 84 U/L (38-133) 01/05/17 07:00 Total Protein 6.4 g/dL (5.8-8.3) 01/05/17 07:00 Albumin 2.8 g/dL (3.0-4.8) L 01/05/17 07:00 Globulin 3.6 gm/dL 01/05/17 07:00 Albumin/Globulin Ratio 0.8 (1.1-1.8) L 01/05/17 07:00 Procalcitonin 0.37 NG/ML (0.19-0.49) 12/26/16 09:10 Urine Color Yellow (YELLOW) 12/25/16 20:40 Urine Appearance Clear (CLEAR) 12/25/16 20:40 Urine pH 8.0 (4.7-8.0) 12/25/16 20:40 Ur Specific [place] 1.020 (1.005-1.035) 12/25/16 20:40 Urine Protein Negative mg/dL (<30 mg/dL) 12/25/16 20:40 Urine Glucose (UA) Negative mg/dL (NEGATIVE) 12/25/16 20:40 Urine Ketones Negative mg/dL (NEGATIVE) 12/25/16 20:40 Urine Blood Negative (NEGATIVE) 12/25/16 20:40 Urine Nitrate Negative (NEGATIVE) 12/25/16 20:40 Urine Bilirubin Negative (NEGATIVE) 12/25/16 20:40 Urine Urobilinogen 0.2 E.U./dL (<1 E.U./dL) 12/25/16 20:40 Ur Leukocyte Esterase Negative Justo/uL (NEGATIVE) 12/25/16 20:40 - Hospital Course Hospital Course: HPI: Pt is a 56 y/o PMHx of SLE, CAD, OR (2 yr prior), hx DVT and questionable PE s/p IVC filter placement, and compression fractures of T8, T9, L4, and L5 s/p Lumbar fusion who presents with intractable back pain progressively worsening for 1 week. Hospital Course: Pt had a spine MRI done which revealed chronic vertebral compression fractures and acute compression fracture of T12, no evidence of cord compression (please see full reports). Neurosurgery, Dr. Hinds, was consulted. As per neurosurgery, pt was not a surgical candidate. Pt was seen as a consult last month during the last admission. Pain management, Dr. Snow, was consulted.As per Dr. Snow's recommendations, pt was started on new pain medication regiment: flexeril, fentanyl, and dilaudid. Neurosurgery recommended kyphoplasty. Pt was found to be bacteremic with cultures positive for gram positive cocci. Infectious Diease, Dr. Freeman, was consulted. CXR revealed right lower lobe atelectasis/infiltrate (please see full report). Echocardiogram was performed which revealed no vegetations (please see full report). Pt was started on IV rocephin and vancomycin. Pt was cleared for kyphoplasty once repeat blood cultures came back negative. Interventional Radiology, Dr. Hoskins, was consulted. Pt had a T12 kyphoplasty with Dr. Hoskins. Pt was also retaining urine on admission. López catheter was placed and urologist, Dr. Adame, was consulted. Pt was on plavix for CAD, which was held prior to the procedure. Pt was started on her lupus medications, plaquenil and methotrexate. Pt had potassium and magnesium replaced as needed. Pt's pain had improved. As per physical therapy, pt would benefit from transfer to [facility]. Pt was stable for rtansfer to [facility]> Discharge Exam - Head Exam Head Exam: ATRAUMATIC, NORMOCEPHALIC - Eye Exam Eye Exam: EOMI - ENT Exam ENT Exam: Mucous Membranes Moist. absent: Mucous Membranes Dry - Neck Exam Neck exam: Full Rom - Respiratory Exam Respiratory Exam: Clear to PA & Lateral. absent: Rhonchi, Wheezes, Respiratory Distress - Cardiovascular Exam Cardiovascular Exam: +S1, +S2. absent: Gallop, Rubs - GI/Abdominal Exam GI & Abdominal Exam: Soft. absent: Tenderness - Extremities Exam Extremities exam: full ROM - Neurological Exam Neurological exam: Alert, Oriented x3 - Skin Skin Exam: Normal Color, Warm Discharge Plan - Discharge Medications Prescriptions: Docusate [Colace] 100 mg PO TID #20 cap Cyclobenzaprine [Flexeril] 5 mg PO TID PRN #10 tab PRN Reason: Muscle Spasm Polyethylene Glycol 3350 [Miralax] 17 gm PO DAILY #20 powd.pack Clopidogrel [Plavix] 75 mg PO DAILY #30 tab cefTRIAXone 1 gm [Rocephin 1 gram IVPB] 1 gm IVPB DAILY #36 bag - Follow Up Plan Condition: STABLE Disposition: REHAB FACILITY/REHAB UNIT Patient education suggested?: Yes Instructions: Vertebral Compression Fracture (DC), Peripherally Inserted Central Catheters and Midline Catheters (DC), Kyphoplasty (DC), Back Pain (GEN) Additional Instructions: Follow doctors orders in Rehabilitation. 1. Complete total of 6 weeks of abtibiotics. weekly cbc, cmp, esr. 2.Picc line care. 3.Continue PT. 4. Fall precaution. Referrals: Bryce Snow MD [Staff Provider] - Gonsalo Brown MD [Staff Provider] -
== END 2017-01-05 18:34 | DRG 515 ==
LOC: ED 18:27 → ERH 21:33 → 5RNO 12-26 01:27 → 3RNO 12-26 08:45
PROVIDERS: ADMIT Internal Medicine; ATTEND Internal Medicine
PROC: 0PS43ZZ Reposition Thoracic Vertebra, Percutaneous Approach (ICD-10-PCS; principal; 2017-01-04)
PROC: 0PU43JZ Supplement Thoracic Vertebra with Synthetic Substitute, Percutaneous Approach (ICD-10-PCS; 2017-01-04)
PROC: 02HV33Z Insertion of Infusion Device into Superior Vena Cava, Percutaneous Approach (ICD-10-PCS; 2017-01-04)
PROC: B54NZZA Ultrasonography of Left Upper Extremity Veins, Guidance (ICD-10-PCS; 2017-01-04)
DX: M48.54XA Collapsed vertebra, not elsewhere classified, thoracic region, initial encounter for fracture (principal); A41.01 Sepsis due to Methicillin susceptible Staphylococcus aureus; J98.11 Atelectasis; M32.9 Systemic lupus erythematosus, unspecified; G62.9 Polyneuropathy, unspecified; E83.42 Hypomagnesemia; I25.10 Atherosclerotic heart disease of native coronary artery without angina pectoris; D69.6 Thrombocytopenia, unspecified; R33.9 Retention of urine, unspecified; F32.9 Major depressive disorder, single episode, unspecified; I10 Essential (primary) hypertension; K59.00 Constipation, unspecified; E87.6 Hypokalemia; I25.2 Old myocardial infarction; Z86.718 Personal history of other venous thrombosis and embolism; Z88.6 Allergy status to analgesic agent; Z86.711 Personal history of pulmonary embolism

== ENCOUNTER 2017-04-30 11:16 | Emergency (ER) | payer OTHER, MEDICARE ==
[2017-04-30 11:16] VITALS: BMI 33.0
[2017-05-04] MEDS ORDERED: Midazolam 2 MG/2 ML VIAL ONE (13:09)
== END 2017-04-30 11:17 | disposition left against medical advice (07) ==
LOC: ED 11:16
DX: Z02.89 Encounter for other administrative examinations (principal); M54.9 Dorsalgia, unspecified

== ENCOUNTER 2017-05-07 15:10 | Emergency (ER) | payer OTHER, MEDICARE ==
[2017-05-07 15:21] VITALS: BMI 26.9
[2017-05-07 15:23] VITALS: TEMP 98.6
--- NOTE | 2017-05-07 16:32 | ED PDOC ---
Arrival/HPI - General Chief Complaint: Back Pain Time Seen by Provider: 05/07/17 15:42 Historian: Patient Past Medical History - Infectious Disease Hx of Infectious Diseases: None - Tetanus Immunization Tetanus Immunization: Unknown - Cardiac Hx Cardiac Disorders: Yes Hx Hypertension: Yes - Pulmonary Hx Respiratory Disorders: Yes Hx Asthma: Yes - Neurological Hx Neurological Disorder: Yes Hx Dizziness: Yes - HEENT Hx HEENT Disorder: No - Renal Hx Renal Disorder: No - Endocrine/Metabolic Hx Endocrine Disorders: Yes Hx Systemic Lupus Erythematosus: Yes - Hematological/Oncological Hx Blood Disorders: No - Integumentary Hx Dermatological Disorder: Yes Other/Comment: Shingles - Musculoskeletal/Rheumatological Hx Arthritis: Yes Hx Back Pain: Yes Other/Comment: s/p back surgery - Gastrointestinal Hx Gastrointestinal Disorders: Yes - Genitourinary/Gynecological Hx Genitourinary Disorders: No - Psychiatric Hx Psychophysiologic Disorder: Yes Hx Depression: Yes Hx Substance Use: No - Surgical History Hx Section: Yes Other/Comment: s/p back surgery january 2017 - Anesthesia Hx Anesthesia: Yes Hx Anesthesia Reactions: No Hx Malignant Hyperthermia: No - Suicidal Assessment Feels Threatened In Home Enviroment: No Family/Social History Smoking Status: Never Smoked Hx Alcohol Use: No Hx Substance Use: No Hx Substance Use Treatment: No Allergies/Home Meds Allergies/Adverse Reactions: Allergies acetaminophen Allergy (Verified 11/30/16 11:42) RASH aspirin Allergy (Verified 11/30/16 11:42) RASH codeine Allergy (Verified 11/30/16 11:42) RASH ibuprofen Allergy (Verified 11/30/16 11:42) RASH Home Medications: Home Meds Medication Instructions Recorded Confirmed Hydroxychloroquine Sulfate 200 mg PO DAILY 04/22/16 05/07/17 Clonazepam [Klonopin] 1 tab PO BID 05/07/17 05/07/17 Gabapentin [Neurontin] 300 mg PO TID 05/07/17 05/07/17 Hydrochlorothiazide [Microzide] 1 cap PO DAILY 05/07/17 05/07/17 Hydrocodone/Acetaminophen 1 tab PO QID PRN 05/07/17 05/07/17 [Hydrocodone-Acetaminophen 325 mg-7 mg] Meloxicam [Mobic] 1 tab PO DAILY 05/07/17 05/07/17 Metoprolol Succinate [Toprol XL] 1 tab PO DAILY 05/07/17 05/07/17 QUEtiapine [SEROquel] 1 tab PO HS 05/07/17 05/07/17 Physical Exam Vital Signs Temp Pulse Resp BP Pulse Ox 05/07/17 15:22 98.6 F 99 H 18 123/86 96 Medical Decision Making - RAD Interpretation Radiology Orders: 05/07/17 16:11 SPINAL CANAL LUMBAR W/O CONT [MRI] Stat - Medication Orders Current Medication Orders: Discontinued Medications Cyclobenzaprine HCl (Flexeril) 10 mg PO STAT STA Stop: 05/07/17 16:11 Tramadol HCl (Ultram) 50 mg PO STAT STA Stop: 05/07/17 16:11 Disposition/Present on Arrival - Present on Arrival History of DVT/PE: Yes History of Uncontrolled Diabetes: No Urinary Catheter: No History of Decub. Ulcer: No History Surgical Site Infection Following: None - Disposition Referrals: PCP,NO [Primary Care Provider] - Follow up with primary
--- NOTE | 2017-05-07 17:00 | ED PDOC ---
Arrival/HPI - General Chief Complaint: Back Pain Time Seen by Provider: 05/07/17 15:42 Historian: Patient - History of Present Illness Narrative History of Present Illness (Text): 05/07/17 16:56 57 yo F presents with 4 day h/o atraumatic low back pain. States that she had surgery to her back in January of this yr, was d/c to a rehab center, and was recently d/c home 1 month ago. Denies any fever, chills, abdominal pain, N/V, weakness, numbness, bowel / bladder incontinence. Reports she is taking tylnol # 3 with mild improvement, however the pain continues, she adds since she was d/ c from the rehab, she has not f/u with any specialist. CRISTOPHER Wiggins Past Medical History - Provider Review Nursing Documentation Reviewed: Yes - Infectious Disease Hx of Infectious Diseases: None - Tetanus Immunization Tetanus Immunization: Unknown - Cardiac Hx Cardiac Disorders: Yes Hx Hypertension: Yes - Pulmonary Hx Respiratory Disorders: Yes Hx Asthma: Yes - Neurological Hx Neurological Disorder: Yes Hx Dizziness: Yes - HEENT Hx HEENT Disorder: No - Renal Hx Renal Disorder: No - Endocrine/Metabolic Hx Endocrine Disorders: Yes Hx Systemic Lupus Erythematosus: Yes - Hematological/Oncological Hx Blood Disorders: No - Integumentary Hx Dermatological Disorder: Yes Other/Comment: Shingles - Musculoskeletal/Rheumatological Hx Arthritis: Yes Hx Back Pain: Yes Other/Comment: s/p back surgery - Gastrointestinal Hx Gastrointestinal Disorders: Yes - Genitourinary/Gynecological Hx Genitourinary Disorders: No - Psychiatric Hx Psychophysiologic Disorder: Yes Hx Depression: Yes Hx Substance Use: No - Surgical History Hx Section: Yes Other/Comment: s/p back surgery january 2017 - Anesthesia Hx Anesthesia: Yes Hx Anesthesia Reactions: No Hx Malignant Hyperthermia: No - Suicidal Assessment Feels Threatened In Home Enviroment: No Family/Social History - Physician Review Nursing Documentation Reviewed: Yes Family/Social History: No Known Family HX Smoking Status: Never Smoked Hx Alcohol Use: No Hx Substance Use: No Hx Substance Use Treatment: No Allergies/Home Meds Allergies/Adverse Reactions: Allergies acetaminophen Allergy (Verified 11/30/16 11:42) RASH aspirin Allergy (Verified 11/30/16 11:42) RASH codeine Allergy (Verified 11/30/16 11:42) RASH ibuprofen Allergy (Verified 11/30/16 11:42) RASH Home Medications: Home Meds Medication Instructions Recorded Confirmed Hydroxychloroquine Sulfate 200 mg PO DAILY 04/22/16 05/07/17 Clonazepam [Klonopin] 1 tab PO BID 05/07/17 05/07/17 Gabapentin [Neurontin] 300 mg PO TID 05/07/17 05/07/17 Hydrochlorothiazide [Microzide] 1 cap PO DAILY 05/07/17 05/07/17 Hydrocodone/Acetaminophen 1 tab PO QID PRN 05/07/17 05/07/17 [Hydrocodone-Acetaminophen 325 mg-7 mg] Meloxicam [Mobic] 1 tab PO DAILY 05/07/17 05/07/17 Metoprolol Succinate [Toprol XL] 1 tab PO DAILY 05/07/17 05/07/17 QUEtiapine [SEROquel] 1 tab PO HS 05/07/17 05/07/17 Review of Systems - Review of Systems Constitutional: Normal. absent: Fatigue, Weight Change, Fevers Cardiovascular: Normal. absent: Chest Pain, Palpitations, Edema Gastrointestinal: Normal. absent: Abdominal Pain, Stool Changes, Appetite Changes Musculoskeletal: Normal, Back Pain. absent: Arthralgias, Neck Pain Skin: Normal. absent: Rash, Pruritis, Skin Lesions Physical Exam Vital Signs Reviewed: Yes Vital Signs Temp Pulse Resp BP Pulse Ox 05/07/17 18:02 89 16 116/72 92 L 05/07/17 15:22 98.6 F 99 H 18 123/86 96 Pain Distress: Moderate (Pt arrived to the ER ambulatory) Mental Status: Positive for: Alert and Oriented X 3 - Systems Exam Head: Present: Atraumatic, Normocephalic Pupils: Present: PERRL Conjunctiva: Present: Normal Mouth: Present: Moist Mucous Membranes Pharnyx: Present: Normal. No: ERYTHEMA Nose (Internal): Present: Normal Inspection Neck: Present: Normal Range of Motion. No: Meningeal Signs, MIDLINE TENDERNESS Respiratory/Chest: Present: Clear to Auscultation, Good Air Exchange. No: Respiratory Distress, Accessory Muscle Use, Wheezes, Rales, Rhonchi Cardiovascular: Present: Regular Rate and Rhythm, Normal S1, S2. No: Murmurs Abdomen: No: Tenderness, Distention, Rebound, Guarding Back: Present: Midline Tenderness (to the lumbar spine). No: CVA Tenderness Upper Extremity: Present: Normal Inspection, Normal ROM, NORMAL PULSES. No: Edema Lower Extremity: Present: Normal Inspection, NORMAL PULSES, Normal ROM. No: Edema Neurological: Present: GCS=15, CN II-XII Intact, Speech Normal, Motor Func Grossly Intact, Normal Sensory Function Skin: Present: Warm, Dry, Normal Color. No: Rashes Psychiatric: Present: Alert, Oriented x 3 Medical Decision Making ED Course and Treatment: 05/07/17 17:00 57 yo F presents with 4 day h/o atraumatic low back pain. States that she had surgery to her back in January of this yr, was d/c to a rehab center, and was recently d/c home 1 month ago. Patient's previous records reviewed, patient was admitted into the hospital on 12/25/16 for intractable back pain. Neurosurgery, Dr. Hinds was consulted and recommended kyphoplasty. Interventional Radiology, Dr. Hoskins, was consulted and pt subsequently had a T12 kyphoplasty with Dr. Hoskins. Afterwards was transferred to subacute rehab. Considering pt's recent surgery and her symptoms MRI w/o contrast of L spine will be ordered. Pt given tramadol po and flexeril po for pain. Report Date: 05/07/2017 19:28 EXAM: MR Lumbar Spine Without Intravenous Contrast Dictated and Authenticated by: Sagar Butcher MD FINDINGS: Limitations: The examination is limited by motion and lack of contrast. Vertebrae: Interval worsened mild compression deformity of L1. Stable vertebral plana compression deformity of T12. Stable vertebral body height of T11. Moderate vertebral body height loss of T12 with post kyphoplasty change. Multilevel other stable biconcave compression deformities throughout the lumbar spine compatible with chronic insufficiency fractures. Posterior fusion of L5-S1. Marrow: There is new vertebral body bone marrow edema of T11, T12 and the superior aspect of L1 and posterior elements of T12. Spinal cord: Conus terminates at L1-L2. Visualize cord has normal noncontrast signal. Soft tissues: No paravertebral or epidural fluid collection seen to confirm infection. DISCS/SPINAL CANAL/NEURAL FORAMINA: 5 mm posterior retropulsion of T12 causing mild mass effect on the ventral thecal sac. No significant central canal stenosis. Effacement of the right T11-T12 neural foramen. IMPRESSION: 1. The examination is limited by motion and lack of contrast. 2. There is new contiguous vertebral body bone marrow edema of T11, T12 and the superior aspect of L1 and posterior elements of T12. Although infection is considered, the findings are less specific in the setting of recent surgery and clinical correlation is recommended. Consider dedicated post contrast imaging if possible. 3. Interval worsened mild compression deformity of L1. Stable vertebral plana compression deformity of T12. 4. 5 mm posterior retropulsion of T12 causing mild mass effect on the ventral thecal sac which appears similar to the prior study from December 2016. 05/07/17 20:11 On re-evaluation, pt is resting comfortably with improvement of pain. Repeat neuro exam shows no focal findings and VSS. MRI results reviewed and d/w the pt, advised that she will need to f/u with a specialist or her pmd regarding her MRI results. Pt states that she was given a referral to a doctor after she was d/c from the rehab, however she chose not to f/u because the doctor was not located near her. She states that she will take the new referral and will f/u. Advised to continue taking her current pain medication. Otherwise instructed to return to the ER at any time for any new or worsening symptoms. - RAD Interpretation Radiology Orders: 05/07/17 16:11 SPINAL CANAL LUMBAR W/O CONT [MRI] Stat - Medication Orders Current Medication Orders: Discontinued Medications Cyclobenzaprine HCl (Flexeril) 10 mg PO STAT STA Stop: 05/07/17 16:11 Last Admin: 05/07/17 16:56 Dose: 10 mg Tramadol HCl (Ultram) 50 mg PO STAT STA Stop: 05/07/17 16:11 Last Admin: 05/07/17 16:56 Dose: 50 mg - PA / SILVER BRAZER / Resident Statement MD/DO has reviewed & agrees with the documentation as recorded. Disposition/Present on Arrival - Present on Arrival Any Indicators Present on Arrival: Yes History of DVT/PE: Yes History of Uncontrolled Diabetes: No Urinary Catheter: No History of Decub. Ulcer: No History Surgical Site Infection Following: None - Disposition Have Diagnosis and Disposition been Completed?: Yes Diagnosis: Back pain Disposition: HOME/ ROUTINE Disposition Time: 20:00 Patient Plan: Discharge Patient Problems: Current Active Problems Problem Status Onset Back pain Acute Condition: STABLE Discharge Instructions (ExitCare): Acute Low Back Pain (ED) Print Language: PRYDEINIG Additional Instructions: Follow up with your pmd and with referral physician provided regarding MRI results in 2 days for re-evaluation. Continue taking tylneol #3 for pain. Return to the ER at any time for any new or worsening symptoms. Referrals: PCP,NO [Primary Care Provider] - Follow up with primary Mary Sullivan MD [Staff Provider] - Follow up with primary [facility] [Outside] - Follow up with primary [facility] [Outside] - Follow up with primary
[2017-05-07 18:03] VITALS: RESP 16
[2017-05-07 21:35] VITALS: BP 120/87; PULSE 82; O2SAT 100
--- NOTE | 2017-05-08 08:55 | MRI ---
PROCEDURE: MR LUMBAR SPINE WITHOUT CONTRAST HISTORY: low back pain, s/p surgery to T12, pls include T12 COMPARISON: 12/26/2016 TECHNIQUE: Multiecho multiplanar sequences were performed through the lumbar spine without the use of intravenous contrast. FINDINGS: Normal lumbar lordosis. There is a stable vertebra plana compression deformity of T12 with prior vertebroplasty there is mild encroachment of the spinal canal at this level with some flattening of the thecal sac but no cord compression. Mild compression deformities are seen at T11 and L1. There is marrow edema in the T11 and L1. The findings could represent infection. However in the setting of recent kyphoplasty at T12 the changes could represent worsening compression with marrow edema. Clinical correlation is suggested. Conus medullaris unremarkable at the level of L1 Paraspinal soft tissues are unremarkable. OTHER FINDINGS: The report concurs with the preliminary [facility] report IMPRESSION: There is a stable vertebra plana compression deformity of T12 with prior vertebroplasty there is mild encroachment of the spinal canal at this level with some flattening of the thecal sac but no cord compression. Mild compression deformities are seen at T11 and L1. There is marrow edema in the T11 and L1. The findings could represent infection. However in the setting of recent kyphoplasty at T12 the changes could represent worsening compression with marrow edema. Clinical correlation is suggested.
== END 2017-05-07 21:33 | disposition home or self-care (01) ==
LOC: ED 15:10
DX: M54.5 Low back pain (principal)

== ENCOUNTER 2017-05-28 16:54 | Inpatient (IN) | payer OTHER ==
[2017-05-28 17:56] VITALS: BMI 28.3
[2017-05-28] MEDS ORDERED: Vancomycin 1gm in NS 250ml 1 GM/250 ML BAG IVPB STA (18:55)
[2017-05-28] MEDS ORDERED: cefTRIAXone 2 GM IN NS 2 GM/100 ML BAG IVPB STA (18:56)
--- NOTE | 2017-05-28 19:04 | ED PDOC ---
Arrival/HPI - General Chief Complaint: Back Pain Time Seen by Provider: 05/28/17 18:50 Historian: Patient - History of Present Illness Narrative History of Present Illness (Text): 05/28/17 18:35 Elle Alvarado is a 57 year old female who presents to the emergency department complaining of back pain since a back surgery she had a few months ago. Patient states that her surgery did not relieve pain. Patient tried to contact her PMD with no callback. Patient denies any urinary/fecal retention or incontinence or any other complaints at this time. PMD: Dr. Seb Rush Symptom Onset: Gradual Symptom Course: Unchanged Activities at Onset: Rest Context: Home Past Medical History - Provider Review Nursing Documentation Reviewed: Yes - Infectious Disease Hx of Infectious Diseases: None - Tetanus Immunization Tetanus Immunization: Unknown - Cardiac Hx Cardiac Disorders: Yes Hx Hypertension: Yes - Pulmonary Hx Respiratory Disorders: Yes Hx Asthma: Yes - Neurological Hx Neurological Disorder: Yes Hx Dizziness: Yes - HEENT Hx HEENT Disorder: No - Renal Hx Renal Disorder: No - Endocrine/Metabolic Hx Endocrine Disorders: Yes Hx Systemic Lupus Erythematosus: Yes - Hematological/Oncological Hx Blood Disorders: No - Integumentary Hx Dermatological Disorder: Yes Other/Comment: Shingles - Musculoskeletal/Rheumatological Hx Arthritis: Yes Hx Back Pain: Yes Other/Comment: s/p back surgery - Gastrointestinal Hx Gastrointestinal Disorders: Yes - Genitourinary/Gynecological Hx Genitourinary Disorders: No - Psychiatric Hx Psychophysiologic Disorder: Yes Hx Depression: Yes Hx Substance Use: No - Surgical History Hx Section: Yes Other/Comment: s/p back surgery january 2017 - Anesthesia Hx Anesthesia: Yes Hx Anesthesia Reactions: No Hx Malignant Hyperthermia: No - Suicidal Assessment Feels Threatened In Home Enviroment: No Family/Social History - Physician Review Nursing Documentation Reviewed: Yes Family/Social History: No Known Family HX Smoking Status: Never Smoked Hx Alcohol Use: No Hx Substance Use: No Hx Substance Use Treatment: No Allergies/Home Meds Allergies/Adverse Reactions: Allergies acetaminophen Allergy (Verified 11/30/16 11:42) RASH aspirin Allergy (Verified 11/30/16 11:42) RASH codeine Allergy (Verified 11/30/16 11:42) RASH ibuprofen Allergy (Verified 11/30/16 11:42) RASH Home Medications: Home Meds Medication Instructions Recorded Confirmed Hydroxychloroquine Sulfate 200 mg PO BID 04/22/16 05/28/17 Clonazepam [Klonopin] 1 tab PO BID 05/07/17 05/28/17 Gabapentin [Neurontin] 300 mg PO TID 05/07/17 05/28/17 Hydrochlorothiazide [Microzide] 1 cap PO DAILY 05/07/17 05/28/17 Hydrocodone/Acetaminophen 1 tab PO QID PRN 05/07/17 05/28/17 [Hydrocodone-Acetaminophen 325 mg-7 mg] Meloxicam [Mobic] 1 tab PO DAILY 05/07/17 05/28/17 Metoprolol Succinate [Toprol XL] 1 tab PO DAILY 05/07/17 05/28/17 QUEtiapine [SEROquel] 1 tab PO HS 05/07/17 05/28/17 Clopidogrel [Plavix] 1 tab PO DAILY 05/28/17 05/28/17 DiphenhydrAMINE [Benadryl] 1 cap PO Q8H PRN 05/28/17 05/28/17 Folic Acid [Folic Acid] 1 tab PO DAILY 05/28/17 05/28/17 Meclizine [Antivert] 1 tab PO DAILY PRN 05/28/17 05/28/17 Methotrexate 2.5 mg PO Q7D 05/28/17 05/28/17 Omeprazole [Omeprazole] 1 cap PO DAILY 05/28/17 05/28/17 Sucralfate [Carafate] 1 tab PO QID 05/28/17 05/28/17 hydroCHLOROthiazide [Microzide] 1 cap PO DAILY 05/28/17 05/28/17 traMADol [Ultram] 1 tab PO Q8H PRN 05/28/17 05/28/17 Physical Exam - Physical Exam Narrative Physical Exam (Text): - Review of Systems Constitutional: Normal. absent: Fatigue, Weight Change, Fevers Eyes: Normal ENT: denies sore throat, denies tristhmus Respiratory: Normal. absent: SOB, Cough, Sputum Cardiovascular: absent: Chest Pain, Palpitations, Syncope Gastrointestinal: Normal. absent: Abdominal Pain, Diarrhea, Nausea, Vomiting Genitourinary: Normal. absent: Dysuria, Frequency, Hematuria Musculoskeletal: back pain. absent: Arthralgias, Neck Pain Skin: no rashes, no erythema Neurological: absent: Focal Weakness Endocrine: Normal Hemo/Lymphatic: Normal Psychiatric: No suicidal or homicidal ideations Physical exam Patient appears age appropriate in no distress, speaking full sentences without difficulty Increased hypertonicity appreciated in the lower thoracic region, pain quality reproduced with palpation. Midline tenderness. FROM of pt's cervical, thoracic, lumbar, and sacral regions appreciated, active/passive without any difficulty. Lower extremities with full neurological and vascular intact. Steady gait. - Systems Exam Head: Present: Atraumatic, Normocephalic Pupils: Present: PERRL Extroacular Muscles: Present: EOMI Conjunctiva: Present: Normal Mouth: Present: Moist Mucous Membranes Neck: Present: Normal Range of Motion. No: MIDLINE TENDERNESS, Paraspinal Tenderness Respiratory/Chest: Present: Clear to Auscultation, Good Air Exchange. No: Respiratory Distress, Accessory Muscle Use, Tachypneic Cardiovascular: Present: Regular Rate and Rhythm, Normal S1, S2, Peripheal Pulses Present. No: Murmurs Abdomen: Present: Normal Bowel Sounds. No: Tenderness, Distention, Peritoneal Signs, Rebound, Guarding Upper Extremity: Present: Normal Inspection. No: Cyanosis, Edema Lower Extremity: Present: Normal Inspection. No: Edema Neurological: Present: GCS=15, Speech Normal, cranial nerves II through XII fully intact with no cerebellar abnormality, neurosensory fully intact. No focal neurological deficits. Skin: Present: Warm, Dry, Normal Color. No: Rashes Lymphatic: Present: OX3, NI, NC Psychiatric: Present: Alert, Oriented x 3, Normal Insight, Normal Concentration Vital Signs Reviewed: Yes Vital Signs Temp Pulse Resp BP Pulse Ox 05/28/17 23:24 65 17 133/84 97 05/28/17 18:07 98.6 F 77 18 118/83 96 Temperature: Afebrile Blood Pressure: Normal Pulse: Regular Respiratory Rate: Normal Appearance: Positive for: Well-Appearing, Non-Toxic, Comfortable Pain Distress: None Mental Status: Positive for: Alert and Oriented X 3 Medical Decision Making ED Course and Treatment: 05/28/17 18:35 Impression: 57 year old female complaining of back pain since her back surgery she had a few months ago. Plan: -- EKG -- Chest X-ray -- Blood Culture -- Labs -- Toradol, Rocephin, and Vancomycin -- Reassess and disposition Prior Visits: Notes and results from previous visits were reviewed. Nuclear med scan faintly ceretec labeled white blood cell examination accumulation at T12. Patient had T12 kyphoplasty in January 2017. Progress Notes: 05/28/17 21:[address] Jo and resident accept admission to [facility]. Patient is aware and agrees with plan. - Lab Interpretations Lab Results: 05/28/17 20:20 05/28/17 20:20 Lab Results 05/28/17 20:20: Sodium 140, Potassium 4.6, Chloride 99, Carbon Dioxide 31, Anion Gap 15, BUN 10, Creatinine 1.0, Est GFR ( Amer) > 60, Est GFR (Non- Af Amer) 57, Random Glucose 93, Calcium 8.8, Total Bilirubin 0.3, AST 17, ALT 24 , Alkaline Phosphatase 95, Total Protein 6.7, Albumin 3.4, Globulin 3.4, Albumin /Globulin Ratio 1.0 L 05/28/17 20:20: PT 11.4, INR 1.06, APTT 31.2 H 05/28/17 20:20: WBC 6.0, RBC 3.74, Hgb 11.0 L, Hct 33.2 L, MCV 88.8, MCH 29.4, MCHC 33.1, RDW 15.2 H, Plt Count 304, MPV 10.3, Gran % 74.0 H, Lymph % (Auto) 19.5 L, [place] % (Auto) 5.5, Eos % (Auto) 1.0 L, Baso % (Auto) 0.0, Gran # 4.40, Lymph # 1.2, [place] # 0.3, Eos # 0.1, Baso # 0.00 I have reviewed the lab results: Yes - RAD Interpretation Radiology Orders: 05/28/17 18:57 CHEST PORTABLE [RAD] Stat - Medication Orders Current Medication Orders: Ceftriaxone Sodium (Rocephin 2 Gm Ivpb) 2 gm in 100 mls @ 100 mls/hr IVPB DAILY KIKA PRN Reason: Protocol Vancomycin HCl (Vancomycin 1gm) 1 gm in 250 mls @ 167 mls/hr IVPB Q12H KIKA PRN Reason: Protocol Morphine Sulfate (Morphine) 2 mg IVP Q6H PRN PRN Reason: Pain, severe (8-10) Pantoprazole Sodium (Protonix Inj) 40 mg IVP DAILY KIKA Tramadol HCl (Ultram) 50 mg PO Q6 PRN PRN Reason: Pain, moderate (4-7) Discontinued Medications Ceftriaxone Sodium (Rocephin 2 Gm Ivpb) 2 gm in 100 mls @ 100 mls/hr IVPB STAT STA PRN Reason: Protocol Stop: 05/28/17 19:55 Last Admin: 05/28/17 20:05 Dose: 100 mls/hr Vancomycin HCl (Vancomycin 1gm) 1 gm in 250 mls @ 133.333 mls/hr IVPB STAT STA PRN Reason: Protocol Stop: 05/28/17 20:47 Last Admin: 05/28/17 21:29 Dose: 133.333 mls/hr Ketorolac Tromethamine (Toradol) 30 mg IVP STAT STA Stop: 05/28/17 18:55 Last Admin: 05/28/17 20:06 Dose: 30 mg Re-Assess: TU Pain Assessment Document 05/28/17 21:06 OCS (Rec: 05/28/17 21:59 OCS [facility] [place]-[id number]) Pain Reassessment Is this a pain reassessment? Yes Sleep Is patient sleeping during reassessment? Yes - Scribe Statement The provider has reviewed the documentation as recorded by the Steve Butcher Provider Scribe Attestation: All medical record entries made by the Scribe were at my direction and personally dictated by me. I have reviewed the chart and agree that the record accurately reflects my personal performance of the history, physical exam, medical decision making, and the department course for this patient. I have also personally directed, reviewed, and agree with the discharge instructions and disposition. Disposition/Present on Arrival - Present on Arrival Any Indicators Present on Arrival: No History of DVT/PE: Yes History of Uncontrolled Diabetes: No Urinary Catheter: No History of Decub. Ulcer: No History Surgical Site Infection Following: None - Disposition Have Diagnosis and Disposition been Completed?: Yes Diagnosis: Back pain Disposition: HOSPITALIZED Disposition Time: 21:39 Patient Plan: Admission Condition: FAIR
[2017-05-28 20:29] LABS: ADD MANUAL DIFF? NO
[2017-05-28 20:36] LABS: EOS # 0.1 (0.0-0.7); HEMATOCRIT 33.2 % (36.0-48.0); LYMPH # 1.2 (1.2-3.4); LYMPH % 19.5 % (22.0-35.0); MEAN CELL VOLUME 88.8 fl (80.0-105.0); MEAN CORPUSCULAR HEMOGLOBIN 29.4 pg (25.0-35.0); MEAN CORPUSCULAR HGB CONC 33.1 g/dl (31.0-37.0); MEAN PLATELET VOLUME 10.3 fl (7.0-11.0); MONO # 0.3 (0.1-0.6); MONO % 5.5 % (1.0-6.0); PLATELET COUNT 304 10^3/uL (120.0-450.0); RED CELL DISTRIBUTION WIDTH 15.2 % (11.5-14.5)
[2017-05-28 20:45] LABS: ALKALINE PHOSPHATASE 95 U/L (38-133); ALT/SGPT 24 U/L (7-56); AST/SGOT 17 U/L (15-39); BILIRUBIN,TOTAL 0.3 mg/dL (0.2-1.3); BLOOD UREA NITROGEN 10 mg/dL (7-21); CALCIUM 8.8 mg/dL (8.4-10.5); CARBON DIOXIDE 31 mmol/L (21-33); CHLORIDE 99 mmol/L (98-107); GFR AFRICAN-AMERICAN > 60; GLUCOSE,RANDOM 93 mg/dL (70-110); POTASSIUM 4.6 mmol/L (3.6-5.0); SODIUM 140 mmol/L (132-148); TOTAL PROTEIN 6.7 g/dL (5.8-8.3)
[2017-05-28 20:47] LABS: INR 1.06 (0.93-1.08); PARTIAL THROMBOPLASTIN TIME 31.2 Seconds (23.7-30.8)
--- NOTE | 2017-05-28 22:48 | CP.PCM.HP ---
<Donta Paz - Last Filed: 05/29/17 01:18> History of Present Illness - History of Present Illness History of Present Illness: CC: Intractable back pain HPI: Patient is a 57 year old female with PMH of SLE, CAD, DE, hx of DVT with IVC filter placement, compression fractures of T8, T9, L4, L5 s/p Lumbar fusion and most recently T12 kyphoplasty who presents with intractable back pain. Patient reports feeling back pain for past 3 months with progressively worsening sensation in the past 2 weeks. She describes the pain as electrical sharp shocking sensations throughout her mid to lower back. Patient denies any loss of bowel or urine, nor urinary/fecal retention. She describes difficulty breathing with episodic back pain for which she reports is continuos through out the day. She reports subjective fever, difficulty sitting up and getting out of bed secondary to her back pain. Denies fever, chest pain with exertion, abdominal pain, diarrhea, nausea, vomiting. Of note patient had a Ceretec labeled white blood cell study on 05/24/17 showing "faintly positive Ceretec labeled WBC examination for accumulation of radionuclide T12 vertebral body." In ED patient received 1 gram Vancomycin and 2 gram Cefrtiaxone for empiric therapy. PMH: As above PSH: Lumbar spinal fusion, kyphoplasty of T12, IVC filter placement FMH: Mother w/ DE in 50's SocHx: Denies smoking, ETOH, illicit drug use/IVDA, Lives with daughter Meds: See Mar Allergies: Tylenol, ASA, Codeine, Ibuprofen all causing rash PMD: Dr. Seb Rush Present on Admission - Present on Admission Any Indicators Present on Admission: Yes History of DVT/PE: Yes History of Uncontrolled Diabetes: No Urinary Catheter: No Decubitus Ulcer Present: No Review of Systems - Constitutional Constitutional: Chills (intermittent), Fever (subjective), Headache - EENT Eyes: absent: Blurred Vision, Change in Vision Nose/Mouth/Throat: absent: Epistaxis, Dry Mouth - Cardiovascular Cardiovascular: Chest Pain (concurrent with back pain), Dyspnea (concurrent with episodes of heightened back pain). absent: Chest Pain with Activity, Edema , Palpitations - Respiratory Respiratory: Dyspnea (concurrent with episodes of elevated back pain). absent: Cough, Hemoptysis - Gastrointestinal Gastrointestinal: absent: Abdominal Pain, Bloating, Change in Bowel Habits - Genitourinary Genitourinary: absent: Change in Urinary Stream, Difficulty Urinating, Urinary Incontinence, Urinary Frequency - Musculoskeletal Musculoskeletal: Back Pain (acute on chronic appreciated at mid to lower left back pain), Limited Range of Motion, Numbness (periodic numbness to lower back ) , Radiating Pain into Limb (periodic extension from lower back into lower left leg). absent: Joint Swelling - Integumentary Integumentary: absent: Dry Skin, Erythema, Lesions - Neurological Neurological: Numbness, Headaches. absent: Focal Weakness, Frequent Falls, Weakness - Psychiatric Psychiatric: absent: Anxiety, Depression - Endocrine Endocrine: absent: Excessive Sweating, Polydipsia, Polyphagia - Hematologic/Lymphatic Hematologic: Easy Bruising Past Patient History - Infectious Disease Hx of Infectious Diseases: None - Tetanus Immunizations Tetanus Immunization: Unknown - Past Social History Smoking Status: Never Smoked Alcohol: None Drugs: Denies - CARDIAC Hx Cardiac Disorders: Yes Hx Hypertension: Yes - PULMONARY Hx Respiratory Disorders: Yes Hx Asthma: Yes - NEUROLOGICAL Hx Neurological Disorder: Yes Hx Dizziness: Yes - HEENT Hx HEENT Problems: No - RENAL Hx Chronic Kidney Disease: No - ENDOCRINE/METABOLIC Hx Endocrine Disorders: Yes Hx Systemic Lupus Erythematosus: Yes - HEMATOLOGICAL/ONCOLOGICAL Hx Blood Disorders: No - INTEGUMENTARY Hx Dermatological Problems: Yes Other/Comment: Shingles - MUSCULOSKELETAL/RHEUMATOLOGICAL Hx Arthritis: Yes Hx Back Pain: Yes Other/Comment: s/p back surgery - GASTROINTESTINAL Hx Gastrointestinal Disorders: Yes - GENITOURINARY/GYNECOLOGICAL Hx Genitourinary Disorders: No - PSYCHIATRIC Hx Psychophysiologic Disorder: Yes Hx Depression: Yes Hx Substance Use: No - SURGICAL HISTORY Hx Section: Yes Other/Comment: s/p back surgery january 2017 - ANESTHESIA Hx Anesthesia: Yes Hx Anesthesia Reactions: No Hx Malignant Hyperthermia: No Meds Allergies/Adverse Reactions: Allergies Allergy/AdvReac Type Severity Reaction Status Date / Time acetaminophen Allergy RASH Verified 05/29/17 01:38 aspirin Allergy RASH Verified 05/29/17 01:38 codeine Allergy RASH Verified 05/29/17 01:38 ibuprofen Allergy RASH Verified 05/29/17 01:38 Physical Exam - Head Exam Head Exam: ATRAUMATIC, NORMAL INSPECTION, NORMOCEPHALIC - Eye Exam Eye Exam: EOMI, PERRL - ENT Exam ENT Exam: Mucous Membranes Moist, Normal Exam - Neck Exam Neck exam: Positive for: Full Rom, Normal Inspection - Respiratory Exam Respiratory Exam: Clear to Auscultation Bilateral, NORMAL BREATHING PATTERN - Cardiovascular Exam Cardiovascular Exam: REGULAR RHYTHM, +S1, +S2 - GI/Abdominal Exam GI & Abdominal Exam: Normal Bowel Sounds, Soft. absent: Guarding - Extremities Exam Extremities exam: Positive for: pedal pulses present. Negative for: calf tenderness, pedal edema - Back Exam Back exam: paraspinal tenderness (mid thoracic to lower lumbar ), tenderness ( left mid thoracic to lower lumbar). absent: CVA tenderness (L), CVA tenderness (R), FULL ROM Additional comments: No pain with percussion of vertebral spinous process Spasms noted on exam Tenderness noted T10-L5 left side primarily vs right - Neurological Exam Neurological exam: Alert, CN II-XII Intact, Oriented x3, Reflexes Normal Additional comments: Motor and sensory grossly intact - Psychiatric Exam Psychiatric exam: Normal Affect, Normal Mood - Skin Skin Exam: Dry, Intact, Normal Color, Warm Results - Vital Signs Recent Vital Signs: Last Vital Signs Temp 98.6 F 05/28/17 18:07 Pulse 77 05/28/17 18:07 Resp 18 05/28/17 18:07 BP 118/83 05/28/17 18:07 Pulse Ox 96 05/28/17 18:07 - Labs Result Diagrams: 05/28/17 20:20 05/28/17 20:20 Assessment & Plan (1) Back pain Status: Acute - Assessment and Plan (Free Text) Assessment: HPI: Patient is a 57 year old female with PMH of SLE, CAD, DE, hx of DVT with IVC filter placement, compression fractures of T8, T9, L4, L5 s/p Lumbar fusion and most recently T12 kyphoplasty who presents with intractable back pain that has progressively gotten worse over past few days who is being admitted for suspicion of osteomyelitis and intractable back pain. Plan: 1. Suspicion of Osteomyelitis - Certec labeled WBC positive for accumulation of T12 - Kyphoplasty of T12 vertebrae in January of 2017 - Vancomyocin and Ceftriaxone - ID consult - IR consult - Tylenol for fever - CBC monitor for leukocytosis 2. Intractable back pain - Acute on chronic pain - PE indicated left sided mid thoracic to lumbar - Hx of compression fractures - Neurologically intact - Pain management with Morphine 2mg Q6Hprn, Tramadol 50mg Q6Hprn 3. Hx of CAD - Continue home cardiac meds - VSS 4. SLE - Continue home meds 5. Hx DVT - IVC filter - Heparin SC for DVT/PE ppx - Date & Time Date: 05/28/17 Time: 11:15 <Benja Jo - Last Filed: 05/29/17 03:59> Results - Vital Signs Recent Vital Signs: Last Vital Signs Temp 98.2 F 05/29/17 01:49 Pulse 65 05/29/17 01:49 Resp 18 05/29/17 01:49 BP 137/84 05/29/17 01:49 Pulse Ox 97 05/28/17 23:24 - Labs Result Diagrams: 05/28/17 20:20 05/28/17 20:20 Attending/Attestation - Attestation I have personally seen and examined this patient.: Yes I have fully participated in the care of the patient.: Yes I have reviewed all pertinent clinical information: Yes Notes (Text): 05/29/17 03:58 Agree with history, physical examination, assessment and plan.
[2017-05-28] MEDS ORDERED: Morphine 2 mg/ml ISec IVP PRN (23:05)
[2017-05-29 07:32] LABS: ADD MANUAL DIFF? NO
[2017-05-29 07:35] LABS: BASO # 0.01 K/mm3 (0.0-2.0); BASO % 0.2 % (0.0-3.0); EOS # 0.1 (0.0-0.7); EOS % 1.1 % (1.5-5.0); GRAN # 3.51 (1.4-6.5); HEMATOCRIT 30.7 % (36.0-48.0); LYMPH # 1.6 (1.2-3.4); LYMPH % 28.1 % (22.0-35.0); MEAN CELL VOLUME 87.2 fl (80.0-105.0); MEAN CORPUSCULAR HEMOGLOBIN 29.3 pg (25.0-35.0); MEAN CORPUSCULAR HGB CONC 33.6 g/dl (31.0-37.0); MEAN PLATELET VOLUME 9.6 fl (7.0-11.0); MONO # 0.4 (0.1-0.6); MONO % 7.6 % (1.0-6.0); PLATELET COUNT 260 10^3/uL (120.0-450.0); RED CELL DISTRIBUTION WIDTH 15.2 % (11.5-14.5); WHITE BLOOD COUNT 5.6 10^3/ul (4.5-11.0)
[2017-05-29 07:45] LABS: ALB/GLOB RATIO 0.9 (1.1-1.8); ALKALINE PHOSPHATASE 85 U/L (38-133); ALT/SGPT 25 U/L (7-56); AST/SGOT 15 U/L (15-39); BILIRUBIN,TOTAL 0.2 mg/dL (0.2-1.3); BLOOD UREA NITROGEN 7 mg/dL (7-21); CALCIUM 8.6 mg/dL (8.4-10.5); CARBON DIOXIDE 28 mmol/L (21-33); CHLORIDE 102 mmol/L (95-110); GFR AFRICAN-AMERICAN > 60; GLUCOSE,RANDOM 89 mg/dL (70-110); POTASSIUM 4.2 mmol/L (3.6-5.0); SODIUM 139 mmol/L (132-148); TOTAL PROTEIN 6.3 g/dL (5.8-8.3)
[2017-05-29] MEDS ORDERED: cefTRIAXone 2 GM IN NS 2 GM/100 ML BAG IVPB SCH (10:00)
[2017-05-29] MEDS ORDERED: Vancomycin 1gm in NS 250ml 1 GM/250 ML BAG IVPB SCH (10:00)
[2017-05-29] MEDS: Metoprolol Succinate 25 mg XL Tab PO SCH (10:11)
[2017-05-29] MEDS: Morphine 2 mg/ml ISec IVP PRN ×3 (10:12→21:39)
--- NOTE | 2017-05-29 10:13 | RAD ---
HISTORY: cough COMPARISON: 03/16/2017 FINDINGS: LUNGS: Small infiltrate at right lung base PLEURA: No significant pleural effusion identified, no pneumothorax apparent. CARDIOVASCULAR: Normal. OSSEOUS STRUCTURES: No significant abnormalities. VISUALIZED UPPER ABDOMEN: Normal. OTHER FINDINGS: None. IMPRESSION: Small infiltrate at right lung base
--- NOTE | 2017-05-29 11:51 | CARD ---
APPROVED REPORT EKG Measurement Heart [id number] <Conclusion> Normal sinus rhythm ST & T wave abnormality, consider anterior ischemia Abnormal ECG
[2017-05-29] MEDS ORDERED: Morphine 2 mg/ml ISec IVP STA (13:05)
--- NOTE | 2017-05-29 13:23 | CON ---
DATE: 05/29/2017 TIME: 11:10 a.m. HISTORY OF PRESENT ILLNESS: The patient is a 57-year-old whom I recently evaluated in the office. She underwent a T12 kyphoplasty by Dr. Romie Hoskins in 12/2016. There was no significant improvement in her back pain at that point. She subsequently developed a staph bacteremia and was treated for 6 weeks with IV antibiotics and a presumptive diagnosis of discitis/ osteomyelitis. She has a history of lower lumbar fusion and numerous compression fractures and intractable back pain. I was somewhat concerned after reviewing her recent outpatient MRI, which showed progression at the T12 level and adjacent T11 and L1 changes. This raised the possibility of chronic/recurrent infection. I ordered a Ceretec scan and reviewed the results with Dr. Beasley. There is faint activity at T12, but it does not appear active enough to represent an active or ongoing infection. Her white count is not elevated. Her ESR is 50. Her C-reactive protein is 2.0. At the present time, I would suggest an ID consult and possibly evaluation by Neurosurgery. Hopefully, the patient can be managed conservatively with additional physical therapy. Past medical history significant for lupus. He has been treated with steroids and methotrexate in the past. He has a history of DVT with IVC filter placement and coronary artery disease. Lucas Whelan MD MTDD
--- NOTE | 2017-05-29 13:33 | CP.PCM.PN ---
<SamanthaCintia - Last Filed: 05/29/17 13:58> Subjective - Date & Time of Evaluation Date of Evaluation: 05/29/17 Time of Evaluation: 13:29 - Subjective Subjective: Internal Medicine Progress Note for Dr. Brown PT S&E at bedside. Pt not tolerating pain well, but otherwise no acute events since admission. She reports normal sensation, and denies weakness, paresthesias, incontinence, or chest pain. Patient was given IV Morphine 2mg Q6H PRN overnight for pain. Patient was switched to Morphine 2mg Q4HPRN due to pain intolerance Objective - Vital Signs/Intake and Output Vital Signs (last 24 hours): Temp Pulse Resp BP Pulse Ox 97.8 F 65 18 114/72 97 05/29/17 08:00 05/29/17 10:11 05/29/17 08:00 05/29/17 10:11 05/29/17 08:00 Intake and Output: 05/29/17 05/29/17 06:59 18:59 Intake Total 240 Balance 240 - Medications Medications: Current Medications Clopidogrel Bisulfate (Plavix) 75 mg PO DAILY [facility] Last Admin: 05/29/17 10:11 Dose: 75 mg Duloxetine HCl (Cymbalta) 60 mg PO DAILY [facility] Last Admin: 05/29/17 10:11 Dose: 60 mg Folic Acid (Folic Acid) 1 mg PO DAILY [facility] Last Admin: 05/29/17 10:12 Dose: 1 mg Gabapentin (Neurontin) 300 mg PO TID [facility] PRN Reason: Protocol Last Admin: 05/29/17 10:11 Dose: 300 mg Hydrochlorothiazide (Microzide) 12.5 mg PO DAILY [facility] Last Admin: 05/29/17 10:12 Dose: 12.5 mg Hydroxychloroquine Sulfate (Plaquenil) 200 mg PO BID [facility] Last Admin: 05/29/17 10:12 Dose: 200 mg Ceftriaxone Sodium (Rocephin 2 Gm Ivpb) 2 gm in 100 mls @ 100 mls/hr IVPB DAILY [facility] PRN Reason: Protocol Vancomycin HCl (Vancomycin 1gm) 1 gm in 250 mls @ 167 mls/hr IVPB Q12H [facility] PRN Reason: Protocol Metoprolol Succinate (Toprol Xl) 25 mg PO DAILY [facility] Last Admin: 05/29/17 10:11 Dose: 25 mg Morphine Sulfate (Morphine) 2 mg IVP Q4H PRN PRN Reason: Pain, severe (8-10) Last Admin: 05/29/17 10:12 Dose: 2 mg Pantoprazole Sodium (Protonix Inj) 40 mg IVP DAILY [facility] Last Admin: 05/29/17 10:11 Dose: 40 mg Quetiapine Fumarate (Seroquel) 50 mg PO HS [facility] Sucralfate (Carafate Tab) 1 gm PO QID [facility] Last Admin: 05/29/17 13:13 Dose: Not Given Tramadol HCl (Ultram) 50 mg PO Q6 PRN PRN Reason: Pain, moderate (4-7) Last Admin: 05/29/17 08:20 Dose: 50 mg - Labs Labs: 05/29/17 07:30 05/29/17 07:30 PT 11.4 Seconds (9.9-11.8) 05/28/17 20:20 INR 1.06 (0.93-1.08) 05/28/17 20:20 APTT 31.2 Seconds (23.7-30.8) H 05/28/17 20:20 - Constitutional Appears: Non-toxic - Head Exam Head Exam: NORMAL INSPECTION - Eye Exam Eye Exam: EOMI, Normal appearance - ENT Exam ENT Exam: Mucous Membranes Moist - Neck Exam Neck Exam: Full ROM - Respiratory Exam Respiratory Exam: Clear to Ausculation Bilateral. absent: Accessory Muscle Use , Decreased Breath Sounds, Prolonged Expiratory Phase - Cardiovascular Exam Cardiovascular Exam: REGULAR RHYTHM. absent: Bradycardia, Tachycardia - GI/Abdominal Exam GI & Abdominal Exam: Soft. absent: Guarding, Rigid - Back Exam Back Exam: NORMAL INSPECTION, tenderness, vertebral tenderness - Neurological Exam Neurological Exam: Alert, Awake, Normal Gait - Psychiatric Exam Psychiatric exam: Normal Affect, Normal Mood - Skin Skin Exam: Normal Color, Warm Assessment and Plan - Assessment and Plan (Free Text) Assessment: 57F with lumbar back pain with PMH of SLE, CAD, [place], hx of DVT with IVC filter placement, compression fractures of T8, T9, L4, L5 s/p Lumbar fusion and most recently T12 kyphoplasty who presents with intractable back pain that has progressively gotten worse over past few days who is being admitted for suspicion of osteomyelitis and intractable back pain. Plan: 1. Suspicion of Osteomyelitis - Certec labeled WBC positive for accumulation of T12 - Kyphoplasty of T12 vertebrae in January of 2017 - Vancomyocin and Ceftriaxone - on hold. Waiting ID instructions for proper antibiotic management. - ID consult - IR consult - Tylenol for fever CRP 15 ESR 50 Monitor CBCs f/u MRI spinal lumbar: f/u MRI spinal thoracic: 2. Intractable back pain - Acute on chronic pain - PE indicated left sided mid thoracic to lumbar - Hx of compression fractures - Neurologically intact - Pain management with Morphine 2mg Q6Hprn, Tramadol 50mg Q6Hprn 3. Hx of CAD - Continue home cardiac meds - VSS 4. SLE - Continue home meds 5. Hx DVT - IVC filter - Heparin SC for DVT/PE ppx <Gonsalo Brown - Last Filed: 05/29/17 16:25> Objective - Vital Signs/Intake and Output Vital Signs (last 24 hours): Temp Pulse Resp BP Pulse Ox 97.8 F 65 18 114/72 97 05/29/17 08:00 05/29/17 10:11 05/29/17 08:00 05/29/17 10:11 05/29/17 08:00 Intake and Output: 05/29/17 05/29/17 06:59 18:59 Intake Total 240 Balance 240 - Medications Medications: Current Medications Clopidogrel Bisulfate (Plavix) 75 mg PO DAILY [facility] Last Admin: 05/29/17 10:11 Dose: 75 mg Duloxetine HCl (Cymbalta) 60 mg PO DAILY [facility] Last Admin: 05/29/17 10:11 Dose: 60 mg Folic Acid (Folic Acid) 1 mg PO DAILY [facility] Last Admin: 05/29/17 10:12 Dose: 1 mg Gabapentin (Neurontin) 300 mg PO TID [facility] PRN Reason: Protocol Last Admin: 05/29/17 14:44 Dose: Not Given Heparin Sodium (Porcine) (Heparin) 5,000 units SC Q12 [facility] PRN Reason: Protocol Hydrochlorothiazide (Microzide) 12.5 mg PO DAILY [facility] Last Admin: 05/29/17 10:12 Dose: 12.5 mg Hydroxychloroquine Sulfate (Plaquenil) 200 mg PO BID [facility] Last Admin: 05/29/17 10:12 Dose: 200 mg Ceftriaxone Sodium (Rocephin 2 Gm Ivpb) 2 gm in 100 mls @ 100 mls/hr IVPB DAILY [facility] PRN Reason: Protocol Vancomycin HCl (Vancomycin 1gm) 1 gm in 250 mls @ 167 mls/hr IVPB Q12H [facility] PRN Reason: Protocol Metoprolol Succinate (Toprol Xl) 25 mg PO DAILY [facility] Last Admin: 05/29/17 10:11 Dose: 25 mg Morphine Sulfate (Morphine) 2 mg IVP Q4H PRN PRN Reason: Pain, severe (8-10) Last Admin: 05/29/17 15:15 Dose: 2 mg Pantoprazole Sodium (Protonix Inj) 40 mg IVP DAILY [facility] Last Admin: 05/29/17 10:11 Dose: 40 mg Quetiapine Fumarate (Seroquel) 50 mg PO HS [facility] Sucralfate (Carafate Tab) 1 gm PO QID [facility] Last Admin: 05/29/17 13:13 Dose: Not Given Tramadol HCl (Ultram) 50 mg PO Q6 PRN PRN Reason: Pain, moderate (4-7) Last Admin: 05/29/17 08:20 Dose: 50 mg - Labs Labs: 05/29/17 07:30 05/29/17 07:30 PT 11.4 Seconds (9.9-11.8) 05/28/17 20:20 INR 1.06 (0.93-1.08) 05/28/17 20:20 APTT 31.2 Seconds (23.7-30.8) H 05/28/17 20:20 Attending/Attestation - Attestation I have personally seen and examined this patient.: Yes I have fully participated in the care of the patient.: Yes I have reviewed all pertinent clinical information, including history, physical exam and plan: Yes Notes (Text): 05/29/17 16:21 attending note; Patient seen and examined with resident. Patient is a 57 year old female with PMH of SLE, CAD, TX, hx of DVT with IVC filter placement, compression fractures of T8, T9, L4, L5 s/p Lumbar fusion and most recently T12 kyphoplasty who presents with intractable back pain. no sensory loss/no motor strength loss. patient had recent Wbc tagged scan showed faint Positivity. Case discussed with DR. valle and Dr. Hoskins in detail. MRI of the thoracic and lumbar spine requested. ID evaluation Appreciated. no need for anti-biotics now. Monitor closely. 05/29/17 16:25
[2017-05-29] MEDS ORDERED: Gadodiamide 287 MG/ML VIAL (15ML) IV ONE (14:19)
--- NOTE | 2017-05-29 15:18 | CP.PCM.CON ---
History of Present Illness - History of Present Illness History of Present Illness: 57 year old female with PMH of systemic lupus erythematosus, CAD, history of DVT S/P IVC filter placement, history of compression fractures of the T8, T9, L4 and L5 vertebrae S/P lumbar fusion, S/P T12 kyphoplasty (2016), history of MSSA bacteremia (source was not specifically determined and she received 6 weeks of antibiotics) has been having back pain for 3 months now which has worsened in the past 2 weeks. She denies fever or chills, no bladder or bowel incontinence, no leg weakness, no cough or colds, no headache or dizziness, no chest pain, no SOB, no abdominal pain, no diarrhea, no dysuria. She apparently underwent a WBC scan which was faintly positive at the T12 level (but talked to Dr. Lucas Whelan that it was equivocal). Infectious Diseases consult is requested to further evaluate and manage. Review of Systems - Review of Systems All systems: reviewed and no additional remarkable complaints except (as per HPI ) Past Patient History - Infectious Disease Hx of Infectious Diseases: None - Tetanus Immunizations Tetanus Immunization: Unknown - Past Social History Smoking Status: Never Smoked - CARDIAC Hx Cardiac Disorders: Yes (CAD) Hx Hypertension: Yes - PULMONARY Hx Asthma: Yes - NEUROLOGICAL Hx Dizziness: Yes - HEENT Hx HEENT Problems: No - RENAL Hx Chronic Kidney Disease: No - ENDOCRINE/METABOLIC Hx Systemic Lupus Erythematosus: Yes - HEMATOLOGICAL/ONCOLOGICAL Hx Shingles: Yes - INTEGUMENTARY Hx Dermatological Problems: Yes (shingles) - MUSCULOSKELETAL/RHEUMATOLOGICAL Hx Arthritis: Yes Hx Back Pain: Yes Hx Falls: Yes Hx Osteomyelitis: Yes Hx Unsteady Gait: Yes - GASTROINTESTINAL Hx Gastrointestinal Disorders: Yes - GENITOURINARY/GYNECOLOGICAL Hx Genitourinary Disorders: No - PSYCHIATRIC Hx Depression: Yes Hx Substance Use: No - SURGICAL HISTORY Hx Orthopedic Surgery: Yes (Lumbar fusion, T12 kyphoplasty) - ANESTHESIA Hx Anesthesia: Yes Hx Anesthesia Reactions: No Hx Malignant Hyperthermia: No Meds Allergies/Adverse Reactions: Allergies Allergy/AdvReac Type Severity Reaction Status Date / Time acetaminophen Allergy RASH Verified 05/29/17 01:38 aspirin Allergy RASH Verified 05/29/17 01:38 codeine Allergy RASH Verified 05/29/17 01:38 ibuprofen Allergy RASH Verified 05/29/17 01:38 - Medications Medications: Current Medications Clopidogrel Bisulfate (Plavix) 75 mg PO DAILY [facility] Duloxetine HCl (Cymbalta) 60 mg PO DAILY [facility] Folic Acid (Folic Acid) 1 mg PO DAILY [facility] Gabapentin (Neurontin) 300 mg PO TID [facility] PRN Reason: Protocol Hydrochlorothiazide (Microzide) 12.5 mg PO DAILY [facility] Hydroxychloroquine Sulfate (Plaquenil) 200 mg PO BID [facility] Ceftriaxone Sodium (Rocephin 2 Gm Ivpb) 2 gm in 100 mls @ 100 mls/hr IVPB DAILY [facility] PRN Reason: Protocol Vancomycin HCl (Vancomycin 1gm) 1 gm in 250 mls @ 167 mls/hr IVPB Q12H [facility] PRN Reason: Protocol Metoprolol Succinate (Toprol Xl) 25 mg PO DAILY [facility] Morphine Sulfate (Morphine) 2 mg IVP Q6H PRN PRN Reason: Pain, severe (8-10) Last Admin: 05/29/17 04:41 Dose: 2 mg Pantoprazole Sodium (Protonix Inj) 40 mg IVP DAILY [facility] Quetiapine Fumarate (Seroquel) 50 mg PO HS [facility] Sucralfate (Carafate Tab) 1 gm PO QID [facility] Tramadol HCl (Ultram) 50 mg PO Q6 PRN PRN Reason: Pain, moderate (4-7) Last Admin: 05/29/17 00:03 Dose: 50 mg Physical Exam - Constitutional Appears: Non-toxic, No Acute Distress - Head Exam Head Exam: NORMAL INSPECTION - ENT Exam ENT Exam: Mucous Membranes Moist - Neck Exam Neck exam: Negative for: Lymphadenopathy, Meningismus - Respiratory Exam Respiratory Exam: Decreased Breath Sounds - Cardiovascular Exam Cardiovascular Exam: +S1, +S2 - GI/Abdominal Exam GI & Abdominal Exam: Soft. absent: Tenderness - Back Exam Back exam: absent: paraspinal tenderness, vertebral tenderness Results - Vital Signs Recent Vital Signs: Last Vital Signs Temp 98.2 F 05/29/17 01:49 Pulse 65 05/29/17 01:49 Resp 18 05/29/17 01:49 BP 137/84 05/29/17 01:49 Pulse Ox 97 05/28/17 23:24 - Labs Result Diagrams: 05/29/17 07:30 05/29/17 07:30 Assessment & Plan - Assessment and Plan (Free Text) Plan: Assessment Back pain, chronic, consider due to T12 fracture (which has underwent kyphoplast in 2016) R/O infection systemic lupus erythematosus CAD history of DVT S/P IVC filter placement, history of compression fractures of the T8, T9, L4 and L5 vertebrae S/P lumbar fusion S/P T12 kyphoplasty (2016) history of MSSA bacteremia (2016, source was not specifically determined and she received 6 weeks of antibiotics) Plan Will hold off on antibiotics since there is no fever or leukocytosis follow up blood cx Discussed with Dr. Lucas Whelan and Dr. Brown - will get MRI of the back to examine the anatomy and possibly get IR-guided biopsy of the T12 vertebra area will monitor clinically
--- NOTE | 2017-05-29 16:28 | MRI ---
PROCEDURE: MR LUMBAR SPINE WITH AND WITHOUT CONTRAST HISTORY: r/o abscess vs discitis COMPARISON: MRI 05/07/2017 TECHNIQUE: Multiecho multiplanar sequences were performed through the lumbar spine with and without the use of intravenous contrast. 15 cc of Omniscan FINDINGS: There is marrow edema and enhancement in the T11-T12 and upper half of the L1 vertebral bodies. There is also enhancement of the disc spaces at T11-12 and T12-L1. The findings are consistent with discitis and osteomyelitis at these levels. The findings are best seen on the postcontrast fat-suppressed images of series 4. Comparison of the nonenhanced T1 weighted images shows a similar appearance to the previous study. There is a mild amount of enhancement in the ventral epidural space and paravertebral space centered at T12. There is a severe compression deformity of T12. There has been previous vertebroplasty. There is no evidence of cord compression. OTHER FINDINGS: There has been fusion at the L5-S1 level. IMPRESSION: Discitis at T11-12 and T12-L1 with osteomyelitis at T11, T12 and L1. Mild epidural thickening and enhancement and paravertebral enhancement. See comment
--- NOTE | 2017-05-29 16:42 | MRI ---
PROCEDURE: MR THORACIC SPINE WITH AND WITHOUT CONTRAST HISTORY: r/o abscess vs discitis COMPARISON: MRI of the lumbar spine TECHNIQUE: Multiecho multiplanar sequences were performed through the thoracic spine with and without the use of intravenous contrast. FINDINGS: ALIGNMENT: Normal thoracic spinal alignment. Normal thoracic kyphosis. VERTEBRA: As reported on the MRI of the lumbar spine there is a severe compression fracture of T12 previously treated with kyphoplasty. There is edema and enhancement in the T11-T12 and L1 vertebral bodies consistent with osteomyelitis and discitis. MARROW: As above PARASPINAL SOFT TISSUES: There is thickening and enhancement in the epidural space and paravertebral space CORD: There is narrowing of the spinal canal centered at the T12 level due to the compression fracture and epidural inflammation. There is loss of the subarachnoid space surrounding the cord but there is no cord flattening or edema. Clinical correlation is suggested regarding signs of cord compression and myelopathy. DISCS: As above ENHANCEMENT: As above OTHER FINDINGS: None. IMPRESSION: Discitis and osteomyelitis T11, T12 and L1 with epidural inflammation and narrowing of the spinal canal. No cord compression or cord edema. Clinical correlation is suggested regarding signs of cord compression and myelopathy
[2017-05-29] MEDS ORDERED: Alum-Mag Hydrox-Simethicone Susp (30 mL) PO ONE (22:47)
[2017-05-30] MEDS: Pantoprazole 40 mg EC Tab PO SCH (06:49)
[2017-05-30 07:45] LABS: ADD MANUAL DIFF? NO
[2017-05-30 07:50] LABS: BASO # 0.01 K/mm3 (0.0-2.0); BASO % 0.2 % (0.0-3.0); EOS # 0.1 (0.0-0.7); EOS % 2.2 % (1.5-5.0); GRAN # 2.23 (1.4-6.5); GRAN % 55.4 % (50.0-68.0); HEMATOCRIT 33.6 % (36.0-48.0); LYMPH # 1.4 (1.2-3.4); LYMPH % 33.5 % (22.0-35.0); MEAN CELL VOLUME 88.4 fl (80.0-105.0); MEAN CORPUSCULAR HEMOGLOBIN 29.5 pg (25.0-35.0); MEAN CORPUSCULAR HGB CONC 33.3 g/dl (31.0-37.0); MONO # 0.4 (0.1-0.6); MONO % 8.7 % (1.0-6.0); PLATELET COUNT 297 10^3/uL (120.0-450.0); RED CELL DISTRIBUTION WIDTH 15.1 % (11.5-14.5)
[2017-05-30 08:00] LABS: ALKALINE PHOSPHATASE 97 U/L (38-133); ALT/SGPT 28 U/L (7-56); AST/SGOT 15 U/L (15-39); BILIRUBIN,TOTAL 0.2 mg/dL (0.2-1.3); BLOOD UREA NITROGEN 5 mg/dL (7-21); CALCIUM 9.3 mg/dL (8.4-10.5); CARBON DIOXIDE 31 mmol/L (21-33); CHLORIDE 97 mmol/L (95-110); GFR AFRICAN-AMERICAN > 60; GLUCOSE,RANDOM 99 mg/dL (70-110); POTASSIUM 3.9 mmol/L (3.6-5.0); SODIUM 138 mmol/L (132-148)
[2017-05-30] MEDS ORDERED: Alum-Mag Hydrox-Simethicone Susp (30 mL) PO PRN (10:18)
[2017-05-30] MEDS: Metoprolol Succinate 25 mg XL Tab PO SCH (10:54)
--- NOTE | 2017-05-30 11:37 | PCM.IRP ---
History of Present Illness - History of Present Illness History of Present Illness: IR consulted regarding diskitis and osteomyelitis of the thoraco-lumbar spine. There is no drainable collection and biopsy is felt to be of increased risk given spinal canal narrowing, cord thickening, and epidural inflammation. Neurosurgical evaluation is recommended if there are signs of cord compression. Objective - Vital Signs/Intake and Output Vital Signs (last 24 hours): Vital Signs - 24 hr 05/29/17 05/30/17 05/30/17 16:00 08:00 10:54 Temperature 98.4 F 97.7 F Pulse Rate 69 72 70 Respiratory 19 18 Rate Blood Pressure 117/84 116/79 119/62 O2 Sat by Pulse 96 97 Oximetry Intake and Output (last 12 hours): Intake & Output 05/29/17 05/30/17 05/30/17 18:59 06:59 18:59 Intake Total 540 Output Total 300 Balance 240 Intake: Oral 540 Output: Urine 300 Urine, Voided 300 Other: # Voids Urine, Voided 1 # Bowel Movements 0 - Medications Medications: Current Medications Al Hydrox/Mg Hydrox/Simethicone (Maalox Plus 30 Ml) 30 ml PO Q6 PRN PRN Reason: Indigestion / Heartburn Clopidogrel Bisulfate (Plavix) 75 mg PO DAILY [facility] Last Admin: 05/29/17 10:11 Dose: 75 mg Docusate Sodium (Colace) 100 mg PO TID [facility] Duloxetine HCl (Cymbalta) 60 mg PO DAILY [facility] Last Admin: 05/30/17 10:51 Dose: 60 mg Folic Acid (Folic Acid) 1 mg PO DAILY [facility] Last Admin: 05/30/17 10:51 Dose: 1 mg Gabapentin (Neurontin) 300 mg PO TID [facility] PRN Reason: Protocol Last Admin: 05/30/17 10:52 Dose: 300 mg Heparin Sodium (Porcine) (Heparin) 5,000 units SC Q12 [facility] PRN Reason: Protocol Last Admin: 05/30/17 10:52 Dose: 5,000 units Hydrochlorothiazide (Microzide) 12.5 mg PO DAILY [facility] Last Admin: 05/30/17 10:51 Dose: 12.5 mg Hydroxychloroquine Sulfate (Plaquenil) 200 mg PO BID [facility] Last Admin: 05/30/17 10:52 Dose: 200 mg Ceftriaxone Sodium (Rocephin 2 Gm Ivpb) 2 gm in 100 mls @ 100 mls/hr IVPB DAILY [facility] PRN Reason: Protocol Vancomycin HCl (Vancomycin 1gm) 1 gm in 250 mls @ 167 mls/hr IVPB Q12H [facility] PRN Reason: Protocol Metoprolol Succinate (Toprol Xl) 25 mg PO DAILY [facility] Last Admin: 05/30/17 10:54 Dose: 25 mg Morphine Sulfate (Morphine) 2 mg IVP Q4H PRN PRN Reason: Pain, severe (8-10) Last Admin: 05/29/17 21:39 Dose: 2 mg Pantoprazole Sodium (Protonix Ec Tab) 40 mg PO 0600 [facility] Last Admin: 05/30/17 06:49 Dose: 40 mg Quetiapine Fumarate (Seroquel) 50 mg PO HS [facility] Last Admin: 05/29/17 21:23 Dose: 50 mg Sucralfate (Carafate Tab) 1 gm PO ACHS [facility] Last Admin: 05/30/17 10:51 Dose: 1 gm Tramadol HCl (Ultram) 50 mg PO Q6 PRN PRN Reason: Pain, moderate (4-7) Last Admin: 05/29/17 08:20 Dose: 50 mg - Labs Labs (last 24 hours): Laboratory Results - last 24 hr 05/29/17 05/30/17 05/30/17 07:40 07:40 07:40 WBC 4.0 L D RBC 3.80 Hgb 11.2 L Hct 33.6 L MCV 88.4 MCH 29.5 MCHC 33.3 RDW 15.1 H Plt Count 297 MPV 10.0 Gran % 55.4 Lymph % (Auto) 33.5 Douglas % (Auto) 8.7 H Eos % (Auto) 2.2 Baso % (Auto) 0.2 Gran # 2.23 Lymph # 1.4 Douglas # 0.4 Eos # 0.1 Baso # 0.01 Sodium 138 Potassium 3.9 Chloride 97 Carbon Dioxide 31 Anion Gap 14 BUN 5 L Creatinine 0.7 Est GFR ( Amer) > 60 Est GFR (Non-Af Amer) > 60 Random Glucose 99 Calcium 9.3 Total Bilirubin 0.2 AST 15 ALT 28 Alkaline Phosphatase 97 C-React Prot High Sens > 15.00 H Total Protein 7.0 Albumin 3.5 Globulin 3.4 Albumin/Globulin Ratio 1.0 L
[2017-05-30] MEDS: Morphine 2 mg/ml ISec IVP PRN ×2 (13:11→20:30)
--- NOTE | 2017-05-30 14:10 | CP.PCM.CON ---
History of Present Illness - History of Present Illness History of Present Illness: SPINE CONSULT Pt seen and examined. Full consult dictated. Difficult to eval for osteo given past kyphoplasty. ESR/CRP elevated, but not WBC and afebrile. Compression of L1 may be a little worse. Consider extension brace and mobilize as tolerated. Past Patient History - Infectious Disease Hx of Infectious Diseases: None - Tetanus Immunizations Tetanus Immunization: Unknown - Past Social History Smoking Status: Never Smoked - CARDIAC Hx Cardiac Disorders: Yes (CAD) Hx Hypertension: Yes - PULMONARY Hx Asthma: Yes - NEUROLOGICAL Hx Dizziness: Yes - HEENT Hx HEENT Problems: No - RENAL Hx Chronic Kidney Disease: No - ENDOCRINE/METABOLIC Hx Systemic Lupus Erythematosus: Yes - HEMATOLOGICAL/ONCOLOGICAL Hx Shingles: Yes - INTEGUMENTARY Hx Dermatological Problems: Yes (shingles) - MUSCULOSKELETAL/RHEUMATOLOGICAL Hx Arthritis: Yes Hx Back Pain: Yes Hx Falls: Yes Hx Osteomyelitis: Yes Hx Unsteady Gait: Yes - GASTROINTESTINAL Hx Gastrointestinal Disorders: Yes - GENITOURINARY/GYNECOLOGICAL Hx Genitourinary Disorders: No - PSYCHIATRIC Hx Depression: Yes Hx Substance Use: No - SURGICAL HISTORY Hx Orthopedic Surgery: Yes (Lumbar fusion, T12 kyphoplasty) - ANESTHESIA Hx Anesthesia: Yes Hx Anesthesia Reactions: No Hx Malignant Hyperthermia: No Meds Allergies/Adverse Reactions: Allergies Allergy/AdvReac Type Severity Reaction Status Date / Time acetaminophen Allergy RASH Verified 05/29/17 01:38 aspirin Allergy RASH Verified 05/29/17 01:38 codeine Allergy RASH Verified 05/29/17 01:38 ibuprofen Allergy RASH Verified 05/29/17 01:38 - Medications Medications: Current Medications Al Hydrox/Mg Hydrox/Simethicone (Maalox Plus 30 Ml) 30 ml PO Q6 PRN PRN Reason: Indigestion / Heartburn Clopidogrel Bisulfate (Plavix) 75 mg PO DAILY [facility] Last Admin: 05/29/17 10:11 Dose: 75 mg Docusate Sodium (Colace) 100 mg PO TID [facility] Duloxetine HCl (Cymbalta) 60 mg PO DAILY [facility] Last Admin: 05/30/17 10:51 Dose: 60 mg Folic Acid (Folic Acid) 1 mg PO DAILY [facility] Last Admin: 05/30/17 10:51 Dose: 1 mg Gabapentin (Neurontin) 300 mg PO TID [facility] PRN Reason: Protocol Last Admin: 05/30/17 10:52 Dose: 300 mg Heparin Sodium (Porcine) (Heparin) 5,000 units SC Q12 [facility] PRN Reason: Protocol Last Admin: 05/30/17 10:52 Dose: 5,000 units Hydrochlorothiazide (Microzide) 12.5 mg PO DAILY [facility] Last Admin: 05/30/17 10:51 Dose: 12.5 mg Hydroxychloroquine Sulfate (Plaquenil) 200 mg PO BID [facility] Last Admin: 05/30/17 10:52 Dose: 200 mg Ceftriaxone Sodium (Rocephin 2 Gm Ivpb) 2 gm in 100 mls @ 100 mls/hr IVPB DAILY [facility] PRN Reason: Protocol Vancomycin HCl (Vancomycin 1gm) 1 gm in 250 mls @ 167 mls/hr IVPB Q12H [facility] PRN Reason: Protocol Sodium Chloride (Sodium Chloride 0.45%) 1,000 mls @ 80 mls/hr IV .[id number] [facility] Stop: 06/01/17 08:00 Metoprolol Succinate (Toprol Xl) 25 mg PO DAILY [facility] Last Admin: 05/30/17 10:54 Dose: 25 mg Morphine Sulfate (Morphine) 2 mg IVP Q4H PRN PRN Reason: Pain, severe (8-10) Last Admin: 05/30/17 13:11 Dose: 2 mg Pantoprazole Sodium (Protonix Ec Tab) 40 mg PO 0600 [facility] Last Admin: 05/30/17 06:49 Dose: 40 mg Quetiapine Fumarate (Seroquel) 50 mg PO HS [facility] Last Admin: 05/29/17 21:23 Dose: 50 mg Sucralfate (Carafate Tab) 1 gm PO ACHS [facility] Last Admin: 05/30/17 10:51 Dose: 1 gm Tramadol HCl (Ultram) 50 mg PO Q6 PRN PRN Reason: Pain, moderate (4-7) Last Admin: 05/29/17 08:20 Dose: 50 mg Results - Vital Signs Recent Vital Signs: Last Vital Signs Temp 97.7 F 05/30/17 08:00 Pulse 70 05/30/17 10:54 Resp 18 05/30/17 08:00 BP 119/62 05/30/17 10:54 Pulse Ox 97 05/30/17 08:00 - Labs Result Diagrams: 05/30/17 07:40 08/16/17 07:40 Labs: Laboratory Results - last 24 hr 05/30/17 05/30/17 07:40 07:40 WBC 4.0 L D RBC 3.80 Hgb 11.2 L Hct 33.6 L MCV 88.4 MCH 29.5 MCHC 33.3 RDW 15.1 H Plt Count 297 MPV 10.0 Gran % 55.4 Lymph % (Auto) 33.5 [place] % (Auto) 8.7 H Eos % (Auto) 2.2 Baso % (Auto) 0.2 Gran # 2.23 Lymph # 1.4 [place] # 0.4 Eos # 0.1 Baso # 0.01 Sodium 138 Potassium 3.9 Chloride 97 Carbon Dioxide 31 Anion Gap 14 BUN 5 L Creatinine 0.7 Est GFR ( Amer) > 60 Est GFR (Non-Af Amer) > 60 Random Glucose 99 Calcium 9.3 Total Bilirubin 0.2 AST 15 ALT 28 Alkaline Phosphatase 97 Total Protein 7.0 Albumin 3.5 Globulin 3.4 Albumin/Globulin Ratio 1.0 L
--- NOTE | 2017-05-30 15:52 | CP.PCM.PN ---
Addendum entered and electronically signed by Cintia Singh DO 05/30/17 15:55: Assessment: 57F with lumbar back pain with PMH of SLE, CAD, [place], hx of DVT with IVC filter placement, compression fractures of T8, T9, L4, L5 s/p Lumbar fusion and most recently T12 kyphoplasty who presents with intractable back pain that has progressively gotten worse over past few days who is being admitted for suspicion of osteomyelitis and intractable back pain. Plan: 1. Suspicion of Osteomyelitis - Certec labeled WBC positive for accumulation of T12 - Kyphoplasty of T12 vertebrae in January of 2017 - Vancomyocin and Ceftriaxone - on hold. Waiting ID instructions for proper antibiotic management. - ID consult - IR consult - Tylenol for fever CRP 15 ESR 50 Monitor CBCs f/u MRI spinal lumbar: discitis and osteomyelitis with cord compression f/u MRI spinal thoracic: discitis and osteomyelitis with cord compression Consult: Dr. Whelan and Dr. Hoskins Consult: Dr. Hercules 2. Intractable back pain - Acute on chronic pain - PE indicated left sided mid thoracic to lumbar - Hx of compression fractures - Neurologically intact - Pain management with Morphine 2mg Q6Hprn, Tramadol 50mg Q6Hprn 3. Hx of CAD - Continue home cardiac meds - VSS 4. SLE - Continue home meds 5. Hx DVT - IVC filter - Heparin SC for DVT/PE ppx Original Note: <Cintia Singh - Last Filed: 05/30/17 15:52> Subjective - Date & Time of Evaluation Date of Evaluation: 05/30/17 Time of Evaluation: 15:52 - Subjective Subjective: Progress note for DR. Brown PT S&E at bedside. Pt not tolerating pain well, but otherwise no acute events since admission. She reports normal sensation, and denies weakness, paresthesias, incontinence, or chest pain. Patient is set for Bone biopsy per Dr. Whelan tomorrow. NPO past midnight Objective - Vital Signs/Intake and Output Vital Signs (last 24 hours): Temp Pulse Resp BP Pulse Ox 97.7 F 70 18 119/62 97 05/30/17 08:00 05/30/17 10:54 05/30/17 08:00 05/30/17 10:54 05/30/17 08:00 Intake and Output: 05/30/17 05/30/17 06:59 18:59 Intake Total 540 120 Output Total 300 Balance 240 120 - Medications Medications: Current Medications Al Hydrox/Mg Hydrox/Simethicone (Maalox Plus 30 Ml) 30 ml PO Q6 PRN PRN Reason: Indigestion / Heartburn Clopidogrel Bisulfate (Plavix) 75 mg PO DAILY [facility] Last Admin: 05/29/17 10:11 Dose: 75 mg Docusate Sodium (Colace) 100 mg PO TID [facility] Duloxetine HCl (Cymbalta) 60 mg PO DAILY [facility] Last Admin: 05/30/17 10:51 Dose: 60 mg Folic Acid (Folic Acid) 1 mg PO DAILY [facility] Last Admin: 05/30/17 10:51 Dose: 1 mg Gabapentin (Neurontin) 300 mg PO TID [facility] PRN Reason: Protocol Last Admin: 05/30/17 10:52 Dose: 300 mg Heparin Sodium (Porcine) (Heparin) 5,000 units SC Q12 [facility] PRN Reason: Protocol Last Admin: 05/30/17 10:52 Dose: 5,000 units Hydrochlorothiazide (Microzide) 12.5 mg PO DAILY [facility] Last Admin: 05/30/17 10:51 Dose: 12.5 mg Hydroxychloroquine Sulfate (Plaquenil) 200 mg PO BID [facility] Last Admin: 05/30/17 10:52 Dose: 200 mg Ceftriaxone Sodium (Rocephin 2 Gm Ivpb) 2 gm in 100 mls @ 100 mls/hr IVPB DAILY [facility] PRN Reason: Protocol Vancomycin HCl (Vancomycin 1gm) 1 gm in 250 mls @ 167 mls/hr IVPB Q12H [facility] PRN Reason: Protocol Sodium Chloride (Sodium Chloride 0.45%) 1,000 mls @ 80 mls/hr IV .[id number] [facility] Stop: 06/01/17 08:00 Metoprolol Succinate (Toprol Xl) 25 mg PO DAILY [facility] Last Admin: 05/30/17 10:54 Dose: 25 mg Morphine Sulfate (Morphine) 2 mg IVP Q4H PRN PRN Reason: Pain, severe (8-10) Last Admin: 05/30/17 13:11 Dose: 2 mg Pantoprazole Sodium (Protonix Ec Tab) 40 mg PO 0600 [facility] Last Admin: 05/30/17 06:49 Dose: 40 mg Quetiapine Fumarate (Seroquel) 50 mg PO HS [facility] Last Admin: 05/29/17 21:23 Dose: 50 mg Sucralfate (Carafate Tab) 1 gm PO ACHS [facility] Last Admin: 05/30/17 10:51 Dose: 1 gm Tramadol HCl (Ultram) 50 mg PO Q6 PRN PRN Reason: Pain, moderate (4-7) Last Admin: 05/29/17 08:20 Dose: 50 mg - Labs Labs: 05/30/17 07:40 05/30/17 07:40 PT 11.4 Seconds (9.9-11.8) 05/28/17 20:20 INR 1.06 (0.93-1.08) 05/28/17 20:20 APTT 31.2 Seconds (23.7-30.8) H 05/28/17 20:20 <Gonsalo Brown - Last Filed: 05/30/17 16:32> Objective - Vital Signs/Intake and Output Vital Signs (last 24 hours): Temp Pulse Resp BP Pulse Ox 97.7 F 70 18 119/62 97 05/30/17 08:00 05/30/17 10:54 05/30/17 08:00 05/30/17 10:54 05/30/17 08:00 Intake and Output: 05/30/17 05/30/17 06:59 18:59 Intake Total 540 120 Output Total 300 Balance 240 120 - Medications Medications: Current Medications Al Hydrox/Mg Hydrox/Simethicone (Maalox Plus 30 Ml) 30 ml PO Q6 PRN PRN Reason: Indigestion / Heartburn Clopidogrel Bisulfate (Plavix) 75 mg PO DAILY [facility] Last Admin: 05/29/17 10:11 Dose: 75 mg Docusate Sodium (Colace) 100 mg PO TID [facility] Last Admin: 05/30/17 16:11 Dose: 100 mg Duloxetine HCl (Cymbalta) 60 mg PO DAILY [facility] Last Admin: 05/30/17 10:51 Dose: 60 mg Folic Acid (Folic Acid) 1 mg PO DAILY [facility] Last Admin: 05/30/17 10:51 Dose: 1 mg Gabapentin (Neurontin) 300 mg PO TID [facility] PRN Reason: Protocol Last Admin: 05/30/17 16:12 Dose: 300 mg Heparin Sodium (Porcine) (Heparin) 5,000 units SC Q12 [facility] PRN Reason: Protocol Last Admin: 05/30/17 10:52 Dose: 5,000 units Hydrochlorothiazide (Microzide) 12.5 mg PO DAILY [facility] Last Admin: 05/30/17 10:51 Dose: 12.5 mg Hydroxychloroquine Sulfate (Plaquenil) 200 mg PO BID [facility] Last Admin: 05/30/17 10:52 Dose: 200 mg Ceftriaxone Sodium (Rocephin 2 Gm Ivpb) 2 gm in 100 mls @ 100 mls/hr IVPB DAILY [facility] PRN Reason: Protocol Vancomycin HCl (Vancomycin 1gm) 1 gm in 250 mls @ 167 mls/hr IVPB Q12H [facility] PRN Reason: Protocol Sodium Chloride (Sodium Chloride 0.45%) 1,000 mls @ 80 mls/hr IV .[id number] [facility] Stop: 06/01/17 08:00 Metoprolol Succinate (Toprol Xl) 25 mg PO DAILY [facility] Last Admin: 05/30/17 10:54 Dose: 25 mg Morphine Sulfate (Morphine) 2 mg IVP Q4H PRN PRN Reason: Pain, severe (8-10) Last Admin: 05/30/17 13:11 Dose: 2 mg Pantoprazole Sodium (Protonix Ec Tab) 40 mg PO 0600 [facility] Last Admin: 05/30/17 06:49 Dose: 40 mg Quetiapine Fumarate (Seroquel) 50 mg PO HS [facility] Last Admin: 05/29/17 21:23 Dose: 50 mg Sucralfate (Carafate Tab) 1 gm PO ACHS [facility] Last Admin: 05/30/17 16:11 Dose: 1 gm Tramadol HCl (Ultram) 50 mg PO Q6 PRN PRN Reason: Pain, moderate (4-7) Last Admin: 05/29/17 08:20 Dose: 50 mg - Labs Labs: 05/30/17 07:40 05/30/17 07:40 PT 11.4 Seconds (9.9-11.8) 05/28/17 20:20 INR 1.06 (0.93-1.08) 05/28/17 20:20 APTT 31.2 Seconds (23.7-30.8) H 05/28/17 20:20 Attending/Attestation - Attestation I have personally seen and examined this patient.: Yes I have fully participated in the care of the patient.: Yes I have reviewed all pertinent clinical information, including history, physical exam and plan: Yes Notes (Text): 05/30/17 16:24 attending note; Patient seen and examined with resident. Patient is a 57 year old female with PMH of SLE, CAD, [place], hx of DVT with IVC filter placement, compression fractures of T8, T9, L4, L5 s/p Lumbar fusion and most recently T12 kyphoplasty who presents with intractable back pain. no sensory loss/no motor strength loss. patient had recent Wbc tagged scan showed faint Positivity. MRI of the thoracic and lumbar spine showed discitis/osteomyelitis with paravertebral enhancement. No cord compression or edema noted. IR evaluation appreciated. Possible biopsy tomorrow. Neurosurgery evaluation requested. ID evaluation Appreciated. no need for anti-biotics now. Monitor closely.
--- NOTE | 2017-05-30 17:55 | CP.PCM.PN ---
Subjective - Date & Time of Evaluation Date of Evaluation: 05/30/17 Time of Evaluation: 11:45 - Subjective Subjective: Still with back pain, no fevers overnight, not in distress, no bowel or bladder incontinence, no leg weakness or paresthesias. Objective - Vital Signs/Intake and Output Vital Signs (last 24 hours): Temp Pulse Resp BP Pulse Ox 97.7 F 72 18 116/79 97 05/30/17 08:00 05/30/17 08:00 05/30/17 08:00 05/30/17 08:00 05/30/17 08:00 Intake and Output: 05/30/17 05/30/17 06:59 18:59 Intake Total 540 Output Total 300 Balance 240 - Medications Medications: Current Medications Clopidogrel Bisulfate (Plavix) 75 mg PO DAILY [facility] Last Admin: 05/29/17 10:11 Dose: 75 mg Duloxetine HCl (Cymbalta) 60 mg PO DAILY [facility] Last Admin: 05/29/17 10:11 Dose: 60 mg Folic Acid (Folic Acid) 1 mg PO DAILY [facility] Last Admin: 05/29/17 10:12 Dose: 1 mg Gabapentin (Neurontin) 300 mg PO TID [facility] PRN Reason: Protocol Last Admin: 05/29/17 17:08 Dose: 300 mg Heparin Sodium (Porcine) (Heparin) 5,000 units SC Q12 [facility] PRN Reason: Protocol Last Admin: 05/29/17 21:24 Dose: 5,000 units Hydrochlorothiazide (Microzide) 12.5 mg PO DAILY [facility] Last Admin: 05/29/17 10:12 Dose: 12.5 mg Hydroxychloroquine Sulfate (Plaquenil) 200 mg PO BID [facility] Last Admin: 05/29/17 17:09 Dose: 200 mg Ceftriaxone Sodium (Rocephin 2 Gm Ivpb) 2 gm in 100 mls @ 100 mls/hr IVPB DAILY [facility] PRN Reason: Protocol Vancomycin HCl (Vancomycin 1gm) 1 gm in 250 mls @ 167 mls/hr IVPB Q12H [facility] PRN Reason: Protocol Metoprolol Succinate (Toprol Xl) 25 mg PO DAILY [facility] Last Admin: 05/29/17 10:11 Dose: 25 mg Morphine Sulfate (Morphine) 2 mg IVP Q4H PRN PRN Reason: Pain, severe (8-10) Last Admin: 05/29/17 21:39 Dose: 2 mg Pantoprazole Sodium (Protonix Ec Tab) 40 mg PO 0600 [facility] Last Admin: 05/30/17 06:49 Dose: 40 mg Quetiapine Fumarate (Seroquel) 50 mg PO HS [facility] Last Admin: 05/29/17 21:23 Dose: 50 mg Sucralfate (Carafate Tab) 1 gm PO ACHS [facility] Tramadol HCl (Ultram) 50 mg PO Q6 PRN PRN Reason: Pain, moderate (4-7) Last Admin: 05/29/17 08:20 Dose: 50 mg - Labs Labs: 05/30/17 07:40 05/30/17 07:40 PT 11.4 Seconds (9.9-11.8) 05/28/17 20:20 INR 1.06 (0.93-1.08) 05/28/17 20:20 APTT 31.2 Seconds (23.7-30.8) H 05/28/17 20:20 - Constitutional Appears: Non-toxic, No Acute Distress - Head Exam Head Exam: NORMAL INSPECTION - Neck Exam Neck Exam: absent: Meningismus - Respiratory Exam Respiratory Exam: Decreased Breath Sounds - Cardiovascular Exam Cardiovascular Exam: +S1, +S2 - GI/Abdominal Exam GI & Abdominal Exam: Soft. absent: Tenderness Assessment and Plan - Assessment and Plan (Free Text) Plan: Assessment Back pain, chronic, consider osteomyelitis and discitis T11-L1 compression fracture T12 fracture (which has underwent kyphoplasty in 2016) systemic lupus erythematosus CAD history of DVT S/P IVC filter placement, history of compression fractures of the T8, T9, L4 and L5 vertebrae S/P lumbar fusion S/P T12 kyphoplasty (2016) history of MSSA bacteremia (2016, source was not specifically determined and she received 6 weeks of antibiotics) Plan Will hold off on antibiotics since there is no fever or leukocytosis to increase the chance of yield when patient undergoes IR-guided biopsy of the T11- L1 area - discussed with Dr. Whelan blood cx are negative x [address] Brown as well - reviewed MRI which shows probable discitis and osteomyelitis without evidence of cord compression will monitor for bowel or bladder incontinence, fever, paresthesias will continue to monitor clinically
--- NOTE | 2017-05-31 00:25 | CON ---
DATE: 05/30/2017 REASON FOR CONSULTATION: Back pain. HISTORY OF PRESENT ILLNESS: The patient is a 57-year-old female, who is status post an L5-S1 fusion many years ago in [place]. She was doing well until earlier this year when she presented with a compression fracture of T12. She has a past history of compression fracture of the T8, T9, L1, L2, and L3. She has a history of lupus. She received kyphoplasty of T12 back in the spring, December or January. She developed a methicillin-sensitive Staph and septicemia at that time. No sources ever identified but she was treated with 6 weeks of antibiotics. However, over the past few months, she states her back pain has gotten worse. She is able to ambulate with a cane. Denies any loss of bowel or bladder control. Occasionally, gets pain in legs, but it is primarily in the back and seems to wrap around to each side. PAST MEDICAL HISTORY: Significant for lupus along with coronary artery disease, status post DC, status post DVT with IVC filter placement. MEDICATIONS: As listed on the chart and include Plavix and Neurontin. PAST SURGICAL HISTORY: Significant for lumbar fusion. She had the IVC filter placement as mentioned and a kyphoplasty as well, which was done on 01/04/2017. ALLERGIES: SHE IS ALLERGIC TO CODEINE, TYLENOL, ASPIRIN, IBUPROFEN IN THAT THEY ALL CAUSE A RASH. PHYSICAL EXAMINATION: She has a well healed scar in the midline over the lower lumbar region. She complains of some tenderness there as well as higher up. She is exquisitely tender to palpation over the left lateral iliac crest as well as over the ribs on both sides. She moves all her extremities fully and actively. No clonus or Babinski is present. Sensory is intact to light touch and she has good strength. I reviewed the MRI that was just done, which shows significant compression of T12. There is some end-plate changes in multiple other areas with increased signal being present. She is status L5-S1 fusion with placement pedicle screws on each side at L5 and S1. Comparing this study to an MRI done 3-1/2 weeks ago, there may a little more compression of superior end-plate of L1, but no real change that I can appreciate at T12 with no more retropulsion or anything of that nature. Obviously, this lady has some process going on in terms of the sed rate and C-reactive protein being markedly elevated. I do not know if she was on steroids long-term in the past for her lupus which certainly would explain the obvious significant osteoporosis leading to the multiple compression fractures. Obviously, there is no way of getting a biopsy that has been suggested of T12, given the fact that she has had cement injected into the body. She may develop worsening of compression fractures around that vertebral body, but obviously there is no more body to collapse in terms of the cement being present at T12 itself. Given that her pain is in various locations, significantly it does not correspond to one route distribution or one area, I would consider just putting her in an extension brace and see if that helps quiet things down by limiting the movement. Obviously, one could consider a kc body brace such as a TLSO, but I am not sure given her body habitus if would be able get one to fit appropriately and if she would tolerate it. Otherwise, I do not see anything of surgical indication here and would treat conservatively at this time. Thank you for allowing me to participate in the care of your patient. Bassam Hercules MD
[2017-05-31] MEDS: Pantoprazole 40 mg EC Tab PO SCH (05:56)
[2017-05-31] MEDS: Sodium Chloride 0.45% 1,000 ML IV SCH (06:00)
--- NOTE | 2017-05-31 06:12 | CP.PCM.PN ---
<SamanthaCintia - Last Filed: 05/31/17 12:16> Subjective - Date & Time of Evaluation Date of Evaluation: 05/31/17 Time of Evaluation: 06:11 - Subjective Subjective: Progress Note for Dr. Brown PT S&E at bedside. Patient seen moving all extremities with ease. Patient states her pain is better than yesterday. Patient was told she is scheduled for a bone aspiration procedure to determine further medical treatment of her possible osteomyelitis. Patient denies F/C/N/V/Constipation/Diarrhea. Patient admits to minimal abdominal pain and back pain. Patient was seen with nasal cannula in the cert occupational therapy asst and patient states it's because it's difficult for her to breath from the pain. PT S&E with Dr. Brown, and patient had no difficulty breathing at time of the visit. Objective - Vital Signs/Intake and Output Vital Signs (last 24 hours): Temp Pulse Resp BP Pulse Ox 98.5 F 82 18 119/83 94 L 05/30/17 16:51 05/30/17 16:51 05/30/17 16:51 05/30/17 16:51 05/30/17 16:51 Intake and Output: 05/30/17 05/31/17 18:59 06:59 Intake Total 120 780 Output Total 3 Balance 120 777 - Medications Medications: Current Medications Al Hydrox/Mg Hydrox/Simethicone (Maalox Plus 30 Ml) 30 ml PO Q6 PRN PRN Reason: Indigestion / Heartburn Clopidogrel Bisulfate (Plavix) 75 mg PO DAILY [facility] Last Admin: 05/29/17 10:11 Dose: 75 mg Docusate Sodium (Colace) 100 mg PO TID [facility] Last Admin: 05/30/17 18:37 Dose: 100 mg Duloxetine HCl (Cymbalta) 60 mg PO DAILY [facility] Last Admin: 05/30/17 10:51 Dose: 60 mg Folic Acid (Folic Acid) 1 mg PO DAILY [facility] Last Admin: 05/30/17 10:51 Dose: 1 mg Gabapentin (Neurontin) 300 mg PO TID [facility] PRN Reason: Protocol Last Admin: 05/30/17 18:35 Dose: 300 mg Heparin Sodium (Porcine) (Heparin) 5,000 units SC Q12 [facility] PRN Reason: Protocol Last Admin: 05/30/17 22:07 Dose: 5,000 units Hydrochlorothiazide (Microzide) 12.5 mg PO DAILY [facility] Last Admin: 05/30/17 10:51 Dose: 12.5 mg Hydroxychloroquine Sulfate (Plaquenil) 200 mg PO BID [facility] Last Admin: 05/30/17 18:34 Dose: 200 mg Ceftriaxone Sodium (Rocephin 2 Gm Ivpb) 2 gm in 100 mls @ 100 mls/hr IVPB DAILY [facility] PRN Reason: Protocol Vancomycin HCl (Vancomycin 1gm) 1 gm in 250 mls @ 167 mls/hr IVPB Q12H [facility] PRN Reason: Protocol Sodium Chloride (Sodium Chloride 0.45%) 1,000 mls @ 80 mls/hr IV .[id number] [facility] Stop: 06/01/17 08:00 Last Admin: 05/31/17 06:00 Dose: 80 mls/hr Metoprolol Succinate (Toprol Xl) 25 mg PO DAILY [facility] Last Admin: 05/30/17 10:54 Dose: 25 mg Morphine Sulfate (Morphine) 2 mg IVP Q4H PRN PRN Reason: Pain, severe (8-10) Last Admin: 05/30/17 20:30 Dose: 2 mg Pantoprazole Sodium (Protonix Ec Tab) 40 mg PO 0600 [facility] Last Admin: 05/31/17 05:56 Dose: 40 mg Quetiapine Fumarate (Seroquel) 50 mg PO HS [facility] Last Admin: 05/30/17 22:08 Dose: 50 mg Sucralfate (Carafate Tab) 1 gm PO ACHS [facility] Last Admin: 05/30/17 22:07 Dose: 1 gm Tramadol HCl (Ultram) 50 mg PO Q6 PRN PRN Reason: Pain, moderate (4-7) Last Admin: 05/29/17 08:20 Dose: 50 mg - Labs Labs: 05/30/17 07:40 05/30/17 07:40 PT 11.4 Seconds (9.9-11.8) 05/28/17 20:20 INR 1.06 (0.93-1.08) 05/28/17 20:20 APTT 31.2 Seconds (23.7-30.8) H 05/28/17 20:20 - Constitutional Appears: No Acute Distress - Head Exam Head Exam: NORMAL INSPECTION - Eye Exam Eye Exam: EOMI, Normal appearance - ENT Exam ENT Exam: Mucous Membranes Moist - Neck Exam Neck Exam: Full ROM, Normal Inspection - Respiratory Exam Respiratory Exam: NORMAL BREATHING PATTERN. absent: Accessory Muscle Use, Chest Wall Tenderness, Respiratory Distress - Cardiovascular Exam Cardiovascular Exam: REGULAR RHYTHM. absent: Bradycardia, Tachycardia - GI/Abdominal Exam GI & Abdominal Exam: Soft, Tenderness, Normal Bowel Sounds. absent: Distended, Rebound - Extremities Exam Extremities Exam: Full ROM, Normal Inspection. absent: Calf Tenderness, Joint Swelling, Pedal Edema - Back Exam Back Exam: vertebral tenderness. absent: rash noted Additional comments: no obvious signs of swelling - Neurological Exam Neurological Exam: Alert, Awake Neuro motor strength exam: Left Upper Extremity: 5, Right Upper Extremity: 5, Left Lower Extremity: 5, Right Lower Extremity: 5 - Psychiatric Exam Psychiatric exam: Flat Affect, Normal Affect, Normal Mood - Skin Skin Exam: Dry, Intact, Normal Color, Warm Assessment and Plan - Assessment and Plan (Free Text) Assessment: 57F with lumbar back pain with PMH of SLE, CAD, MO, hx of DVT with IVC filter placement, compression fractures of T8, T9, L4, L5 s/p Lumbar fusion and most recently T12 kyphoplasty who presents with intractable back pain that has progressively gotten worse over past few days who is being admitted for suspicion of osteomyelitis and intractable back pain. Plan: 1. Suspicion of Osteomyelitis - Certec labeled WBC positive for accumulation of T12 - Kyphoplasty of T12 vertebrae in January of 2017 - abx: per ID no need for antibiotics at this time: no fever or leukocytosis, f/ u bone biopsy results - ID consult - IR consult ylenol for fever CRP 15 ESR 50 Monitor CBCs MRI spinal lumbar: discitis, and osteomyelitis without cord compression MRI spinal thoracic: discitis, and osteomyelitis without cord compression Monitoring for bowel and/or bladder incontinence, fever, paresthesia Consult: Dr. Whelan and Dr. Hoskins - F/u IR guided Bone Biopsy/Bone Aspiration per Dr. Whelan of T11-L1 area Consult: Dr. Hercules 2. Intractable back pain - Acute on chronic pain - PE indicated left sided mid thoracic to lumbar - Hx of compression fractures - Neurologically intact - Pain management with Morphine 2mg Q6Hprn, Tramadol 50mg Q6Hprn 3. Hx of CAD - Continue home cardiac meds - VSS 4. SLE - Continue home meds 5. Hx DVT s/p IVC filter placement - Heparin SC for DVT/PE ppx <Rangasamy,Ajantha - Last Filed: 05/31/17 13:44> Objective - Vital Signs/Intake and Output Vital Signs (last 24 hours): Temp Pulse Resp BP Pulse Ox 98.2 F 78 20 114/73 94 L 05/31/17 08:00 05/31/17 10:45 05/31/17 08:00 05/31/17 10:45 05/31/17 08:00 Intake and Output: 05/31/17 05/31/17 06:59 18:59 Intake Total 880 Output Total 3 Balance 877 - Medications Medications: Current Medications Al Hydrox/Mg Hydrox/Simethicone (Maalox Plus 30 Ml) 30 ml PO Q6 PRN PRN Reason: Indigestion / Heartburn Clopidogrel Bisulfate (Plavix) 75 mg PO DAILY [facility] Last Admin: 05/31/17 10:46 Dose: Not Given Docusate Sodium (Colace) 100 mg PO TID [facility] Last Admin: 05/31/17 10:45 Dose: 100 mg Duloxetine HCl (Cymbalta) 60 mg PO DAILY [facility] Last Admin: 05/31/17 10:45 Dose: 60 mg Folic Acid (Folic Acid) 1 mg PO DAILY [facility] Last Admin: 05/31/17 10:49 Dose: 1 mg Gabapentin (Neurontin) 300 mg PO TID [facility] PRN Reason: Protocol Last Admin: 05/31/17 10:46 Dose: 300 mg Heparin Sodium (Porcine) (Heparin) 5,000 units SC Q12 [facility] PRN Reason: Protocol Last Admin: 05/30/17 22:07 Dose: 5,000 units Hydrochlorothiazide (Microzide) 12.5 mg PO DAILY [facility] Last Admin: 05/31/17 10:45 Dose: 12.5 mg Hydroxychloroquine Sulfate (Plaquenil) 200 mg PO BID [facility] Last Admin: 05/31/17 10:45 Dose: 200 mg Ceftriaxone Sodium (Rocephin 2 Gm Ivpb) 2 gm in 100 mls @ 100 mls/hr IVPB DAILY [facility] PRN Reason: Protocol Vancomycin HCl (Vancomycin 1gm) 1 gm in 250 mls @ 167 mls/hr IVPB Q12H [facility] PRN Reason: Protocol Sodium Chloride (Sodium Chloride 0.45%) 1,000 mls @ 80 mls/hr IV .[id number] [facility] Stop: 06/01/17 08:00 Last Admin: 05/31/17 06:00 Dose: 80 mls/hr Metoprolol Succinate (Toprol Xl) 25 mg PO DAILY [facility] Last Admin: 05/31/17 10:45 Dose: 25 mg Morphine Sulfate (Morphine) 2 mg IVP Q4H PRN PRN Reason: Pain, severe (8-10) Last Admin: 05/30/17 20:30 Dose: 2 mg Pantoprazole Sodium (Protonix Ec Tab) 40 mg PO 0600 [facility] Last Admin: 05/31/17 05:56 Dose: 40 mg Quetiapine Fumarate (Seroquel) 50 mg PO HS [facility] Last Admin: 05/30/17 22:08 Dose: 50 mg Sucralfate (Carafate Tab) 1 gm PO ACHS [facility] Last Admin: 05/31/17 12:13 Dose: 1 gm Tramadol HCl (Ultram) 50 mg PO Q6 PRN PRN Reason: Pain, moderate (4-7) Last Admin: 05/29/17 08:20 Dose: 50 mg - Labs Labs: 05/31/17 06:30 05/31/17 06:30 PT 11.4 Seconds (9.9-11.8) 05/28/17 20:20 INR 1.06 (0.93-1.08) 05/28/17 20:20 APTT 31.2 Seconds (23.7-30.8) H 05/28/17 20:20 Attending/Attestation - Attestation I have personally seen and examined this patient.: Yes I have fully participated in the care of the patient.: Yes I have reviewed all pertinent clinical information, including history, physical exam and plan: Yes Notes (Text): 05/31/17 13:42 attending note; Patient seen and examined with resident. Patient is a 57 year old female with PMH of SLE, CAD, MO, hx of DVT with IVC filter placement, compression fractures of T8, T9, L4, L5 s/p Lumbar fusion and most recently T12 kyphoplasty who presents with intractable back pain. no sensory loss/no motor strength loss. MRI of the thoracic and lumbar spine showed discitis/osteomyelitis with paravertebral enhancement. No cord compression or edema noted. IR evaluation appreciated. Possible aspiration biopsy today. Neurosurgery evaluation appreciated. ID evaluation Appreciated. start antibiotics after biopsy. Might need PIcc line for fpc antibiotics. Monitor closely. 05/31/17 13:43
[2017-05-31 06:57] LABS: ADD MANUAL DIFF? NO
[2017-05-31 07:06] LABS: BASO # 0.01 K/mm3 (0.0-2.0); BASO % 0.2 % (0.0-3.0); EOS # 0.1 (0.0-0.7); EOS % 1.1 % (1.5-5.0); GRAN % 61.8 % (50.0-68.0); HEMATOCRIT 34.9 % (36.0-48.0); LYMPH # 1.6 (1.2-3.4); LYMPH % 28.6 % (22.0-35.0); MEAN CELL VOLUME 87.9 fl (80.0-105.0); MEAN PLATELET VOLUME 9.9 fl (7.0-11.0); MONO # 0.5 (0.1-0.6); MONO % 8.3 % (1.0-6.0); PLATELET COUNT 309 10^3/uL (120.0-450.0); RED CELL DISTRIBUTION WIDTH 15.1 % (11.5-14.5); WHITE BLOOD COUNT 5.7 10^3/ul (4.5-11.0)
[2017-05-31 07:17] LABS: ALKALINE PHOSPHATASE 90 U/L (38-133); ALT/SGPT 22 U/L (7-56); AST/SGOT 16 U/L (15-39); BILIRUBIN,TOTAL 0.3 mg/dL (0.2-1.3); BLOOD UREA NITROGEN 7 mg/dL (7-21); CALCIUM 9.2 mg/dL (8.4-10.5); CARBON DIOXIDE 30 mmol/L (21-33); CHLORIDE 96 mmol/L (98-107); GFR AFRICAN-AMERICAN > 60; GLUCOSE,RANDOM 101 mg/dL (70-110); POTASSIUM 3.7 mmol/L (3.6-5.0); SODIUM 138 mmol/L (132-148); TOTAL PROTEIN 6.9 g/dL (5.8-8.3)
[2017-05-31] MEDS: Metoprolol Succinate 25 mg XL Tab PO SCH (10:45)
[2017-05-31] MEDS ORDERED: Lidocaine 2% Inj (20ml) ONE (14:24)
[2017-05-31] MEDS ORDERED: Midazolam 2 MG/2 ML VIAL ONE (15:54)
--- NOTE | 2017-05-31 15:56 | CP.PCM.PN ---
Subjective - Date & Time of Evaluation Date of Evaluation: 05/31/17 Time of Evaluation: 11:00 - Subjective Subjective: Still with back pain, no fevers, no bowel or bladder incontinence, able to move lower extremities with full strength. Objective - Vital Signs/Intake and Output Vital Signs (last 24 hours): Temp Pulse Resp BP Pulse Ox 98.5 F 82 18 119/83 94 L 05/30/17 16:51 05/30/17 16:51 05/30/17 16:51 05/30/17 16:51 05/30/17 16:51 Intake and Output: 05/31/17 05/31/17 06:59 18:59 Intake Total 880 Output Total 3 Balance 877 - Medications Medications: Current Medications Al Hydrox/Mg Hydrox/Simethicone (Maalox Plus 30 Ml) 30 ml PO Q6 PRN PRN Reason: Indigestion / Heartburn Clopidogrel Bisulfate (Plavix) 75 mg PO DAILY [facility] Last Admin: 05/29/17 10:11 Dose: 75 mg Docusate Sodium (Colace) 100 mg PO TID [facility] Last Admin: 05/30/17 18:37 Dose: 100 mg Duloxetine HCl (Cymbalta) 60 mg PO DAILY [facility] Last Admin: 05/30/17 10:51 Dose: 60 mg Folic Acid (Folic Acid) 1 mg PO DAILY [facility] Last Admin: 05/30/17 10:51 Dose: 1 mg Gabapentin (Neurontin) 300 mg PO TID [facility] PRN Reason: Protocol Last Admin: 05/30/17 18:35 Dose: 300 mg Heparin Sodium (Porcine) (Heparin) 5,000 units SC Q12 [facility] PRN Reason: Protocol Last Admin: 05/30/17 22:07 Dose: 5,000 units Hydrochlorothiazide (Microzide) 12.5 mg PO DAILY [facility] Last Admin: 05/30/17 10:51 Dose: 12.5 mg Hydroxychloroquine Sulfate (Plaquenil) 200 mg PO BID [facility] Last Admin: 05/30/17 18:34 Dose: 200 mg Ceftriaxone Sodium (Rocephin 2 Gm Ivpb) 2 gm in 100 mls @ 100 mls/hr IVPB DAILY [facility] PRN Reason: Protocol Vancomycin HCl (Vancomycin 1gm) 1 gm in 250 mls @ 167 mls/hr IVPB Q12H [facility] PRN Reason: Protocol Sodium Chloride (Sodium Chloride 0.45%) 1,000 mls @ 80 mls/hr IV .[id number] [facility] Stop: 06/01/17 08:00 Last Admin: 05/31/17 06:00 Dose: 80 mls/hr Metoprolol Succinate (Toprol Xl) 25 mg PO DAILY [facility] Last Admin: 05/30/17 10:54 Dose: 25 mg Morphine Sulfate (Morphine) 2 mg IVP Q4H PRN PRN Reason: Pain, severe (8-10) Last Admin: 05/30/17 20:30 Dose: 2 mg Pantoprazole Sodium (Protonix Ec Tab) 40 mg PO 0600 [facility] Last Admin: 05/31/17 05:56 Dose: 40 mg Quetiapine Fumarate (Seroquel) 50 mg PO HS [facility] Last Admin: 05/30/17 22:08 Dose: 50 mg Sucralfate (Carafate Tab) 1 gm PO ACHS [facility] Last Admin: 05/31/17 08:34 Dose: 1 gm Tramadol HCl (Ultram) 50 mg PO Q6 PRN PRN Reason: Pain, moderate (4-7) Last Admin: 05/29/17 08:20 Dose: 50 mg - Labs Labs: 05/31/17 06:30 05/31/17 06:30 PT 11.4 Seconds (9.9-11.8) 05/28/17 20:20 INR 1.06 (0.93-1.08) 05/28/17 20:20 APTT 31.2 Seconds (23.7-30.8) H 05/28/17 20:20 - Constitutional Appears: Non-toxic, In Acute Distress - Head Exam Head Exam: NORMAL INSPECTION - Neck Exam Neck Exam: absent: Meningismus - Respiratory Exam Respiratory Exam: Decreased Breath Sounds - Cardiovascular Exam Cardiovascular Exam: +S1, +S2 - GI/Abdominal Exam GI & Abdominal Exam: Soft. absent: Tenderness Assessment and Plan - Assessment and Plan (Free Text) Plan: Assessment Back pain, chronic, R/O osteomyelitis and discitis T11-L1 compression fracture T12 fracture (which has underwent kyphoplasty in 2016) systemic lupus erythematosus CAD history of DVT S/P IVC filter placement, history of compression fractures of the T8, T9, L4 and L5 vertebrae S/P lumbar fusion S/P T12 kyphoplasty (2016) history of MSSA bacteremia (2016, source was not specifically determined and she received 6 weeks of antibiotics) Plan Will hold off on antibiotics since there is no fever or leukocytosis to increase the chance of yield when patient undergoes IR-guided biopsy of the T11- L1 area - discussed with Dr. Whelan - will start abx after procedure today blood cx are negative x [address] Brown as well - reviewed MRI which shows probable discitis and osteomyelitis without evidence of cord compression will monitor for bowel or bladder incontinence, fever, paresthesias will continue to monitor clinically
[2017-05-31] MEDS ORDERED: Morphine 2 mg/ml ISec ONE (16:48)
[2017-05-31] MEDS: Morphine 2 mg/ml ISec IVP PRN ×2 (16:50→20:46)
--- NOTE | 2017-05-31 17:02 | VASCULAR ---
PROCEDURE: Ultrasound and fluoroscopically placed left upper extremity PICC line. HISTORY: T11-12 discitis/osteomyelitis. Long-term IV antibiotics. Needs PICC line. PHYSICIAN(S): Lucas Whelan MD. TECHNIQUE: The relative risks and indications of the procedure were explained to the patient and consent obtained. The patient was placed supine on the arteriogram table and the left arm prepped and draped in the usual sterile fashion. A tourniquet was applied to the left axilla. 1% Xylocaine was used to anesthetize the skin and soft tissues at the puncture site above the elbow. The left brachial vein was punctured under direct ultrasound guidance with a micropuncture set. A 0.018 guidewire was advanced centrally and used to measure the length to the SVC/RA junction. A 5 Haitian single-lumen PICC line 41 cm long was advanced to the SVC/RA junction. The catheter was flushed and secured. The patient tolerated the procedure well. IMPRESSION: 1. Ultrasound and fluoroscopically placed left upper extremity PICC line. A 5 Haitian single-lumen PICC line 41 cm long was advanced to the SVC/RA junction.
--- NOTE | 2017-05-31 17:02 | CT ---
PROCEDURE: CT guided T11-T12 disc aspiration and biopsy HISTORY: T11/12 discitis/osteomyelitis post kyphoplasty. Needs aspiration for organism PHYSICIAN(S): Lucas Whelan MD. TECHNIQUE: The relative risks and indications of the procedure were explained to the patient through a press feeder broomcorn and consent obtained. The patient was placed prone on the CT scanner and preliminary images through the T11-L1 levels obtained. Conscious sedation and monitoring were provided throughout the procedure by a nurse. Destructive changes are noted at the T11-12 disc space. A left paraspinal approach was selected and the area prepped and draped in the usual sterile fashion. 1% Xylocaine was used to anesthetize the skin and soft tissues. A 18 gauge guiding needle was advanced into the T11-12 disc space.. Its position was confirmed with CT. Aspiration obtained 2-3 cc of bloody fluid. The specimen was sent to microbiology. IMPRESSION: 1. CT-guided T11-T12 disc space aspiration and biopsy as described above.
[2017-05-31] MEDS: Meropenem 1g/NS 100mL IVPB 1 GM/100 ML PIGGYBACK IVPB SCH (18:18)
[2017-05-31] MEDS: Vancomycin 1gm in NS 250ml 1 GM/250 ML BAG IVPB SCH (18:43)
[2017-05-31] MEDS ORDERED: Morphine 2 mg/ml ISec IVP ONE (23:22)
[2017-06-01] MEDS: Meropenem 1g/NS 100mL IVPB 1 GM/100 ML PIGGYBACK IVPB SCH ×4 (00:24→21:34)
[2017-06-01] MEDS: Morphine 2 mg/ml ISec IVP PRN ×2 (00:24→04:09)
[2017-06-01] MEDS: Vancomycin 1gm in NS 250ml 1 GM/250 ML BAG IVPB SCH ×2 (04:09→16:35)
[2017-06-01] MEDS: Pantoprazole 40 mg EC Tab PO SCH (05:28)
[2017-06-01 07:53] LABS: ADD MANUAL DIFF? NO
[2017-06-01 07:58] LABS: BASO # 0.01 K/mm3 (0.0-2.0); BASO % 0.2 % (0.0-3.0); EOS # 0.1 (0.0-0.7); EOS % 2.2 % (1.5-5.0); GRAN # 3.05 (1.4-6.5); GRAN % 60.4 % (50.0-68.0); HEMATOCRIT 31.8 % (36.0-48.0); LYMPH # 1.3 (1.2-3.4); LYMPH % 26.5 % (22.0-35.0); MEAN CELL VOLUME 86.9 fl (80.0-105.0); MEAN CORPUSCULAR HGB CONC 33.3 g/dl (31.0-37.0); MEAN PLATELET VOLUME 9.5 fl (7.0-11.0); MONO # 0.5 (0.1-0.6); MONO % 10.7 % (1.0-6.0); PLATELET COUNT 286 10^3/uL (120.0-450.0); RED CELL DISTRIBUTION WIDTH 15.1 % (11.5-14.5); WHITE BLOOD COUNT 5.1 10^3/ul (4.5-11.0)
[2017-06-01 08:07] LABS: ALKALINE PHOSPHATASE 90 U/L (38-133); ALT/SGPT 24 U/L (7-56); AST/SGOT 15 U/L (15-39); BILIRUBIN,TOTAL 0.2 mg/dL (0.2-1.3); BLOOD UREA NITROGEN 5 mg/dL (7-21); CALCIUM 8.8 mg/dL (8.4-10.5); CARBON DIOXIDE 29 mmol/L (21-33); CHLORIDE 99 mmol/L (95-110); GFR AFRICAN-AMERICAN > 60; GLUCOSE,RANDOM 96 mg/dL (70-110); POTASSIUM 3.6 mmol/L (3.6-5.0); SODIUM 138 mmol/L (132-148); TOTAL PROTEIN 6.7 g/dL (5.8-8.3)
[2017-06-01] MEDS: Metoprolol Succinate 25 mg XL Tab PO SCH (09:47)
[2017-06-01] MEDS: Sodium Chloride 0.45% 1,000 ML IV SCH (14:12)
--- NOTE | 2017-06-01 15:57 | CP.PCM.PN ---
Subjective - Date & Time of Evaluation Date of Evaluation: 06/01/17 Time of Evaluation: 11:00 - Subjective Subjective: Still with back pain, had biopsy of her vertebrae yesterday, no fevers, no leg weakness. Objective - Vital Signs/Intake and Output Vital Signs (last 24 hours): Temp Pulse Resp BP Pulse Ox 98.2 F 75 16 132/95 H 97 05/31/17 17:05 05/31/17 17:05 05/31/17 17:05 05/31/17 17:05 05/31/17 17:05 Intake and Output: 05/31/17 06/01/17 18:59 06:59 Intake Total 580 2640 Output Total 0 Balance 580 2640 - Medications Medications: Current Medications Al Hydrox/Mg Hydrox/Simethicone (Maalox Plus 30 Ml) 30 ml PO Q6 PRN PRN Reason: Indigestion / Heartburn Clopidogrel Bisulfate (Plavix) 75 mg PO DAILY [facility] Last Admin: 05/31/17 10:46 Dose: Not Given Docusate Sodium (Colace) 100 mg PO TID [facility] Last Admin: 05/31/17 18:17 Dose: 100 mg Duloxetine HCl (Cymbalta) 60 mg PO DAILY [facility] Last Admin: 05/31/17 10:45 Dose: 60 mg Folic Acid (Folic Acid) 1 mg PO DAILY [facility] Last Admin: 05/31/17 10:49 Dose: 1 mg Gabapentin (Neurontin) 300 mg PO TID [facility] PRN Reason: Protocol Last Admin: 05/31/17 18:20 Dose: 300 mg Heparin Sodium (Porcine) (Heparin) 5,000 units SC Q12 [facility] PRN Reason: Protocol Last Admin: 05/30/17 22:07 Dose: 5,000 units Hydrochlorothiazide (Microzide) 12.5 mg PO DAILY [facility] Last Admin: 05/31/17 10:45 Dose: 12.5 mg Hydroxychloroquine Sulfate (Plaquenil) 200 mg PO BID [facility] Last Admin: 05/31/17 18:17 Dose: 200 mg Sodium Chloride (Sodium Chloride 0.45%) 1,000 mls @ 80 mls/hr IV .[id number] [facility] Stop: 06/01/17 08:00 Last Admin: 05/31/17 06:00 Dose: 80 mls/hr Meropenem 1g/NS 100mL IVPB (Meropenem 1g/Ns 100ml Ivpb) 1 gm in 100 mls @ 100 mls/hr IVPB Q8 [facility] PRN Reason: Protocol Stop: 06/07/17 16:01 Last Admin: 06/01/17 06:33 Dose: 100 mls/hr Vancomycin HCl (Vancomycin 1gm) 1 gm in 250 mls @ 167 mls/hr IVPB Q12H [facility] PRN Reason: Protocol Last Admin: 06/01/17 04:09 Dose: 167 mls/hr Metoprolol Succinate (Toprol Xl) 25 mg PO DAILY [facility] Last Admin: 05/31/17 10:45 Dose: 25 mg Morphine Sulfate (Morphine) 2 mg IVP Q4H PRN PRN Reason: Pain, severe (8-10) Last Admin: 06/01/17 04:09 Dose: 2 mg Pantoprazole Sodium (Protonix Ec Tab) 40 mg PO 0600 [facility] Last Admin: 06/01/17 05:28 Dose: 40 mg Quetiapine Fumarate (Seroquel) 50 mg PO HS [facility] Last Admin: 05/31/17 21:30 Dose: 50 mg Sucralfate (Carafate Tab) 1 gm PO ACHS [facility] Last Admin: 05/31/17 21:29 Dose: 1 gm Tramadol HCl (Ultram) 50 mg PO Q6 PRN PRN Reason: Pain, moderate (4-7) Last Admin: 06/01/17 06:33 Dose: 50 mg - Labs Labs: 05/31/17 06:30 05/31/17 06:30 PT 11.4 Seconds (9.9-11.8) 05/28/17 20:20 INR 1.06 (0.93-1.08) 05/28/17 20:20 APTT 31.2 Seconds (23.7-30.8) H 05/28/17 20:20 - Constitutional Appears: Non-toxic, No Acute Distress - Head Exam Head Exam: NORMAL INSPECTION - ENT Exam ENT Exam: Mucous Membranes Moist - Neck Exam Neck Exam: absent: Meningismus - Respiratory Exam Respiratory Exam: Decreased Breath Sounds - Cardiovascular Exam Cardiovascular Exam: +S1, +S2 - GI/Abdominal Exam GI & Abdominal Exam: Soft. absent: Tenderness Assessment and Plan - Assessment and Plan (Free Text) Plan: Assessment Back pain, chronic, R/O osteomyelitis and discitis T11-L1 compression fracture T12 fracture (which has underwent kyphoplasty in 2016) systemic lupus erythematosus CAD history of DVT S/P IVC filter placement, history of compression fractures of the T8, T9, L4 and L5 vertebrae S/P lumbar fusion S/P T12 kyphoplasty (2016) history of MSSA bacteremia (2016, source was not specifically determined and she received 6 weeks of antibiotics) Plan started Vancomycin and MErrem after IR-guided biopsy of the T11-L1 area done yesterday - discussed with Dr. Whelan - follow up pathology and cx results blood cx are negative Discussed with Dr. Brown as well - reviewed MRI which shows probable discitis and osteomyelitis without evidence of cord compression will monitor for bowel or bladder incontinence, fever, paresthesias will continue to monitor clinically
--- NOTE | 2017-06-01 16:02 | CP.PCM.PN ---
<Cintia Singh - Last Filed: 06/01/17 16:09> Subjective - Date & Time of Evaluation Date of Evaluation: 06/01/17 Time of Evaluation: 16:02 - Subjective Subjective: Progress notes for Dr. Rodriguez PT S&E at bedside. BILLY. Patient states she is tolerating pain well. Patient states her stomach pain is there, but bearable. Patient states she can walk, but hasn't walked much because of the pain. Objective - Vital Signs/Intake and Output Vital Signs (last 24 hours): Temp Pulse Resp BP Pulse Ox 98.2 F 74 20 128/89 98 06/01/17 07:47 06/01/17 09:47 06/01/17 07:47 06/01/17 09:47 06/01/17 07:47 Intake and Output: 06/01/17 06/01/17 06:59 18:59 Intake Total 2640 120 Balance 2640 120 - Medications Medications: Current Medications Al Hydrox/Mg Hydrox/Simethicone (Maalox Plus 30 Ml) 30 ml PO Q6 PRN PRN Reason: Indigestion / Heartburn Clopidogrel Bisulfate (Plavix) 75 mg PO DAILY [facility] Last Admin: 06/01/17 09:47 Dose: 75 mg Docusate Sodium (Colace) 100 mg PO TID [facility] Last Admin: 06/01/17 14:09 Dose: 100 mg Duloxetine HCl (Cymbalta) 60 mg PO DAILY [facility] Last Admin: 06/01/17 09:46 Dose: 60 mg Folic Acid (Folic Acid) 1 mg PO DAILY [facility] Last Admin: 06/01/17 09:47 Dose: 1 mg Gabapentin (Neurontin) 300 mg PO TID [facility] PRN Reason: Protocol Last Admin: 06/01/17 14:09 Dose: 300 mg Heparin Sodium (Porcine) (Heparin) 5,000 units SC Q12 [facility] PRN Reason: Protocol Last Admin: 05/30/17 22:07 Dose: 5,000 units Hydrochlorothiazide (Microzide) 12.5 mg PO DAILY [facility] Last Admin: 06/01/17 09:47 Dose: 12.5 mg Hydroxychloroquine Sulfate (Plaquenil) 200 mg PO BID [facility] Last Admin: 06/01/17 09:47 Dose: 200 mg Meropenem 1g/NS 100mL IVPB (Meropenem 1g/Ns 100ml Ivpb) 1 gm in 100 mls @ 100 mls/hr IVPB Q8 [facility] PRN Reason: Protocol Stop: 06/07/17 16:01 Last Admin: 06/01/17 14:09 Dose: 100 mls/hr Vancomycin HCl (Vancomycin 1gm) 1 gm in 250 mls @ 167 mls/hr IVPB Q12H [facility] PRN Reason: Protocol Last Admin: 06/01/17 04:09 Dose: 167 mls/hr Metoprolol Succinate (Toprol Xl) 25 mg PO DAILY [facility] Last Admin: 06/01/17 09:47 Dose: 25 mg Morphine Sulfate (Morphine) 2 mg IVP Q4H PRN PRN Reason: Pain, severe (8-10) Last Admin: 06/01/17 04:09 Dose: 2 mg Pantoprazole Sodium (Protonix Ec Tab) 40 mg PO 0600 [facility] Last Admin: 06/01/17 05:28 Dose: 40 mg Quetiapine Fumarate (Seroquel) 50 mg PO HS [facility] Last Admin: 05/31/17 21:30 Dose: 50 mg Sucralfate (Carafate Tab) 1 gm PO ACHS [facility] Last Admin: 06/01/17 12:13 Dose: 1 gm Tramadol HCl (Ultram) 50 mg PO Q6 PRN PRN Reason: Pain, moderate (4-7) Last Admin: 06/01/17 06:33 Dose: 50 mg - Labs Labs: 06/01/17 07:30 06/01/17 07:30 PT 11.4 Seconds (9.9-11.8) 05/28/17 20:20 INR 1.06 (0.93-1.08) 05/28/17 20:20 APTT 31.2 Seconds (23.7-30.8) H 05/28/17 20:20 - Constitutional Appears: Non-toxic, No Acute Distress - Head Exam Head Exam: NORMAL INSPECTION - Eye Exam Eye Exam: EOMI, Normal appearance - ENT Exam ENT Exam: Mucous Membranes Moist - Neck Exam Neck Exam: Full ROM. absent: Tenderness - Respiratory Exam Respiratory Exam: Clear to Ausculation Bilateral, NORMAL BREATHING PATTERN. absent: Accessory Muscle Use, Respiratory Distress - Cardiovascular Exam Cardiovascular Exam: REGULAR RHYTHM. absent: Bradycardia, Tachycardia - GI/Abdominal Exam GI & Abdominal Exam: Soft, Tenderness, Normal Bowel Sounds - Extremities Exam Extremities Exam: Full ROM, Normal Inspection. absent: Joint Swelling, Pedal Edema - Neurological Exam Neurological Exam: Alert, Awake, Normal Gait, Oriented x3 Neuro motor strength exam: Left Upper Extremity: 5, Right Upper Extremity: 5, Left Lower Extremity: 5, Right Lower Extremity: 5 - Psychiatric Exam Psychiatric exam: Normal Affect, Normal Mood - Skin Skin Exam: Dry, Intact, Normal Color Assessment and Plan - Assessment and Plan (Free Text) Assessment: 57F with lumbar back pain with PMH of SLE, CAD, [place], hx of DVT with IVC filter placement, compression fractures of T8, T9, L4, L5 s/p Lumbar fusion and most recently T12 kyphoplasty who presents with intractable back pain that has progressively gotten worse over past few days who is being admitted for suspicion of osteomyelitis and intractable back pain. s/p Bone biopsy/ aspiration POD#1 Plan: 1. Suspicion of Osteomyelitis - Certec labeled WBC positive for accumulation of T12 - Kyphoplasty of T12 vertebrae in January of 2017 - abx: per ID no need for antibiotics at this time: no fever or leukocytosis, f/ u bone biopsy results - ID consult - IR consult tylenol for fever CRP 15 ESR 50 Monitor CBCs MRI spinal lumbar: discitis, and osteomyelitis without cord compression MRI spinal thoracic: discitis, and osteomyelitis without cord compression Monitoring for bowel and/or bladder incontinence, fever, paresthesia Consult: Dr. Whelan and Dr. Hoskins - F/u IR guided Bone Biopsy/Bone Aspiration per Dr. Whelan of T11-L1 area Consult: Dr. Hercules f/u biopsy/aspiration culture PT Eval and treat 2. Intractable back pain - Acute on chronic pain - PE indicated left sided mid thoracic to lumbar - Hx of compression fractures - Neurologically intact - Pain management with Morphine 2mg Q6Hprn, Tramadol 50mg Q6Hprn 3. Hx of CAD - Continue home cardiac meds - VSS 4. SLE - Continue home meds 5. Hx DVT s/p IVC filter placement - Heparin SC for DVT/PE ppx <Krystin Rodriguez - Last Filed: 06/01/17 17:11> Objective - Vital Signs/Intake and Output Vital Signs (last 24 hours): Temp Pulse Resp BP Pulse Ox 97.5 F L 90 20 140/97 H 92 L 06/01/17 16:00 06/01/17 16:00 06/01/17 16:00 06/01/17 16:00 06/01/17 16:00 Intake and Output: 06/01/17 06/01/17 06:59 18:59 Intake Total 2640 120 Balance 2640 120 - Medications Medications: Current Medications Al Hydrox/Mg Hydrox/Simethicone (Maalox Plus 30 Ml) 30 ml PO Q6 PRN PRN Reason: Indigestion / Heartburn Clopidogrel Bisulfate (Plavix) 75 mg PO DAILY [facility] Last Admin: 06/01/17 09:47 Dose: 75 mg Docusate Sodium (Colace) 100 mg PO TID [facility] Last Admin: 06/01/17 14:09 Dose: 100 mg Duloxetine HCl (Cymbalta) 60 mg PO DAILY [facility] Last Admin: 06/01/17 09:46 Dose: 60 mg Folic Acid (Folic Acid) 1 mg PO DAILY [facility] Last Admin: 06/01/17 09:47 Dose: 1 mg Gabapentin (Neurontin) 300 mg PO TID [facility] PRN Reason: Protocol Last Admin: 06/01/17 14:09 Dose: 300 mg Heparin Sodium (Porcine) (Heparin) 5,000 units SC Q12 [facility] PRN Reason: Protocol Last Admin: 05/30/17 22:07 Dose: 5,000 units Hydrochlorothiazide (Microzide) 12.5 mg PO DAILY [facility] Last Admin: 06/01/17 09:47 Dose: 12.5 mg Hydroxychloroquine Sulfate (Plaquenil) 200 mg PO BID [facility] Last Admin: 06/01/17 09:47 Dose: 200 mg Meropenem 1g/NS 100mL IVPB (Meropenem 1g/Ns 100ml Ivpb) 1 gm in 100 mls @ 100 mls/hr IVPB Q8 [facility] PRN Reason: Protocol Stop: 06/07/17 16:01 Last Admin: 06/01/17 14:09 Dose: 100 mls/hr Vancomycin HCl (Vancomycin 1gm) 1 gm in 250 mls @ 167 mls/hr IVPB Q12H [facility] PRN Reason: Protocol Last Admin: 06/01/17 16:35 Dose: 167 mls/hr Metoprolol Succinate (Toprol Xl) 25 mg PO DAILY [facility] Last Admin: 06/01/17 09:47 Dose: 25 mg Morphine Sulfate (Morphine) 2 mg IVP Q4H PRN PRN Reason: Pain, severe (8-10) Last Admin: 06/01/17 04:09 Dose: 2 mg Pantoprazole Sodium (Protonix Ec Tab) 40 mg PO 0600 [facility] Last Admin: 06/01/17 05:28 Dose: 40 mg Quetiapine Fumarate (Seroquel) 50 mg PO HS [facility] Last Admin: 05/31/17 21:30 Dose: 50 mg Sucralfate (Carafate Tab) 1 gm PO ACHS [facility] Last Admin: 06/01/17 16:35 Dose: 1 gm Tramadol HCl (Ultram) 50 mg PO Q6 PRN PRN Reason: Pain, moderate (4-7) Last Admin: 06/01/17 06:33 Dose: 50 mg - Labs Labs: 06/01/17 07:30 06/01/17 07:30 PT 11.4 Seconds (9.9-11.8) 05/28/17 20:20 INR 1.06 (0.93-1.08) 05/28/17 20:20 APTT 31.2 Seconds (23.7-30.8) H 05/28/17 20:20 Attending/Attestation - Attestation I have personally seen and examined this patient.: Yes I have fully participated in the care of the patient.: Yes I have reviewed all pertinent clinical information, including history, physical exam and plan: Yes Notes (Text): 06/01/17 17:04 57 year old female with past medical history of CAD, SLE, DVT s/p IVC filter, compression fractures s/p lumbar fusion and recent T12 kyphoplasty who presented with intractable back pain with imaging findings suspicious for osteomyelitis. She is s/p bone biopsy/aspiration; results are pending. Continue with physical therapy. Continue with analgesics prn. Continue with antibiotics as per ID. Krystin Rodriguez MD. Hospitalist.
[2017-06-02] MEDS: Morphine 2 mg/ml ISec IVP PRN ×4 (04:25→23:15)
[2017-06-02] MEDS: Vancomycin 1gm in NS 250ml 1 GM/250 ML BAG IVPB SCH ×2 (04:29→17:04)
[2017-06-02] MEDS: Pantoprazole 40 mg EC Tab PO SCH (05:48)
[2017-06-02] MEDS: Meropenem 1g/NS 100mL IVPB 1 GM/100 ML PIGGYBACK IVPB SCH ×3 (05:48→23:16)
[2017-06-02 07:47] LABS: ALB/GLOB RATIO 0.9 (1.1-1.8); ALKALINE PHOSPHATASE 94 U/L (38-133); ALT/SGPT 22 U/L (7-56); AST/SGOT 18 U/L (15-39); BILIRUBIN,TOTAL 0.3 mg/dL (0.2-1.3); BLOOD UREA NITROGEN 5 mg/dL (7-21); CARBON DIOXIDE 27 mmol/L (21-33); CHLORIDE 101 mmol/L (95-110); GFR AFRICAN-AMERICAN > 60; GLUCOSE,RANDOM 106 mg/dL (70-110); POTASSIUM 3.6 mmol/L (3.6-5.0); SODIUM 138 mmol/L (132-148); TOTAL PROTEIN 6.8 g/dL (5.8-8.3)
[2017-06-02 07:49] LABS: BASO # 0.01 K/mm3 (0.0-2.0); BASO % 0.2 % (0.0-3.0); EOS # 0.1 (0.0-0.7); EOS % 2.6 % (1.5-5.0); GRAN # 2.99 (1.4-6.5); GRAN % 59.5 % (50.0-68.0); HEMATOCRIT 33.3 % (36.0-48.0); LYMPH # 1.5 (1.2-3.4); LYMPH % 30.3 % (22.0-35.0); MEAN CELL VOLUME 86.7 fl (80.0-105.0); MEAN CORPUSCULAR HEMOGLOBIN 28.9 pg (25.0-35.0); MEAN CORPUSCULAR HGB CONC 33.3 g/dl (31.0-37.0); MEAN PLATELET VOLUME 9.4 fl (7.0-11.0); MONO # 0.4 (0.1-0.6); MONO % 7.4 % (1.0-6.0); RED CELL DISTRIBUTION WIDTH 15.3 % (11.5-14.5)
[2017-06-02] MEDS: Metoprolol Succinate 25 mg XL Tab PO SCH (09:10)
--- NOTE | 2017-06-02 15:30 | CP.PCM.PN ---
<KYM ORTA - Last Filed: 06/02/17 15:23> Subjective - Date & Time of Evaluation Date of Evaluation: 06/02/17 Time of Evaluation: 15:23 - Subjective Subjective: Medicine Progress Note: Pt was seen and examined at bedside. Pt denies any acute overnight events. Pt still complains of paraspinal pain. Pt denies CP, SOB, n/v/d, chills, fevers, abdominal pain, vertigo, FARLEY, dysuria, or polyuria. Objective - Vital Signs/Intake and Output Vital Signs (last 24 hours): Temp Pulse Resp BP Pulse Ox 98.1 F 86 20 116/81 93 L 06/02/17 08:18 06/02/17 08:18 06/02/17 08:18 06/02/17 08:18 06/02/17 08:18 Intake and Output: 06/02/17 06/02/17 06:59 18:59 Intake Total 1200 480 Output Total 600 Balance 1200 -120 - Medications Medications: Current Medications Al Hydrox/Mg Hydrox/Simethicone (Maalox Plus 30 Ml) 30 ml PO Q6 PRN PRN Reason: Indigestion / Heartburn Clopidogrel Bisulfate (Plavix) 75 mg PO DAILY [facility] Last Admin: 06/02/17 09:10 Dose: 75 mg Docusate Sodium (Colace) 100 mg PO TID [facility] Last Admin: 06/02/17 13:00 Dose: 100 mg Duloxetine HCl (Cymbalta) 60 mg PO DAILY [facility] Last Admin: 06/02/17 09:10 Dose: 60 mg Folic Acid (Folic Acid) 1 mg PO DAILY [facility] Last Admin: 06/02/17 09:10 Dose: 1 mg Gabapentin (Neurontin) 300 mg PO TID [facility] PRN Reason: Protocol Last Admin: 06/02/17 12:59 Dose: 300 mg Heparin Sodium (Porcine) (Heparin) 5,000 units SC Q12 [facility] PRN Reason: Protocol Last Admin: 05/30/17 22:07 Dose: 5,000 units Hydrochlorothiazide (Microzide) 12.5 mg PO DAILY [facility] Last Admin: 06/02/17 09:10 Dose: 12.5 mg Hydroxychloroquine Sulfate (Plaquenil) 200 mg PO BID [facility] Last Admin: 06/02/17 09:10 Dose: 200 mg Meropenem 1g/NS 100mL IVPB (Meropenem 1g/Ns 100ml Ivpb) 1 gm in 100 mls @ 100 mls/hr IVPB Q8 [facility] PRN Reason: Protocol Stop: 06/07/17 16:01 Last Admin: 06/02/17 13:00 Dose: 100 mls/hr Vancomycin HCl (Vancomycin 1gm) 1 gm in 250 mls @ 167 mls/hr IVPB Q12H [facility] PRN Reason: Protocol Last Admin: 06/02/17 04:29 Dose: 167 mls/hr Metoprolol Succinate (Toprol Xl) 25 mg PO DAILY [facility] Last Admin: 06/02/17 09:10 Dose: 25 mg Morphine Sulfate (Morphine) 2 mg IVP Q4H PRN PRN Reason: Pain, severe (8-10) Last Admin: 06/02/17 10:14 Dose: 2 mg Pantoprazole Sodium (Protonix Ec Tab) 40 mg PO 0600 [facility] Last Admin: 06/02/17 05:48 Dose: 40 mg Quetiapine Fumarate (Seroquel) 50 mg PO HS [facility] Last Admin: 06/01/17 21:34 Dose: 50 mg Sucralfate (Carafate Tab) 1 gm PO ACHS [facility] Last Admin: 06/02/17 11:31 Dose: 1 gm Tramadol HCl (Ultram) 50 mg PO Q6 PRN PRN Reason: Pain, moderate (4-7) Last Admin: 06/02/17 12:59 Dose: 50 mg - Labs Labs: 06/02/17 07:33 06/02/17 07:33 PT 11.4 Seconds (9.9-11.8) 05/28/17 20:20 INR 1.06 (0.93-1.08) 05/28/17 20:20 APTT 31.2 Seconds (23.7-30.8) H 05/28/17 20:20 - Constitutional Appears: No Acute Distress - Head Exam Head Exam: ATRAUMATIC, NORMOCEPHALIC - Eye Exam Eye Exam: EOMI, PERRL - ENT Exam ENT Exam: Mucous Membranes Moist - Neck Exam Neck Exam: Full ROM. absent: Lymphadenopathy, Tenderness, Thyromegaly - Respiratory Exam Respiratory Exam: Clear to Ausculation Bilateral. absent: Rales, Rhonchi, Wheezes - Cardiovascular Exam Cardiovascular Exam: RRR, +S1, +S2. absent: Diastolic murmur, Gallop, Rubs, Murmur - GI/Abdominal Exam GI & Abdominal Exam: Soft. absent: Guarding, Tenderness, Organomegaly, Rebound - Extremities Exam Extremities Exam: Normal Inspection - Back Exam Back Exam: paraspinal tenderness, tenderness - Neurological Exam Neurological Exam: Alert, Awake, Oriented x3 - Psychiatric Exam Psychiatric exam: Normal Affect, Normal Mood - Skin Skin Exam: Intact, Normal Color, Warm Assessment and Plan - Assessment and Plan (Free Text) Assessment: 57F with lumbar back pain with PMH of SLE, CAD, [place], hx of DVT with IVC filter placement, compression fractures of T8, T9, L4, L5 s/p Lumbar fusion and most recently T12 kyphoplasty who presents with intractable back pain that has progressively gotten worse over past few days who is being admitted for suspicion of osteomyelitis and intractable back pain. Plan: 1. 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 Whelan and Dr. Hoskins - F/u IR guided Bone Biopsy/Bone Aspiration per Dr. Whelan of T11-L1 area - Consult: Dr. Hercules - f/u biopsy/aspiration culture - PT Eval and treat 2. Intractable back pain - Acute on chronic pain - PE indicated left sided mid thoracic to lumbar - Hx of compression fractures - Neurologically intact - Pain management with Morphine 2mg Q6Hprn, Tramadol 50mg Q6Hprn 3. Hx of CAD - Continue home cardiac meds - VSS 4. SLE - Continue home meds 5. Hx DVT s/p IVC filter placement - Heparin SC for DVT/PE ppx 6. HTN - HCTZ, metoprolol GI PPx - Protonix Pt seen and discussed in detail with Dr. Rodriguez. <Krystin Rodriguez - Last Filed: 06/02/17 16:03> Objective - Vital Signs/Intake and Output Vital Signs (last 24 hours): Temp Pulse Resp BP Pulse Ox 98.6 F 83 20 123/87 94 L 06/02/17 15:50 06/02/17 15:50 06/02/17 15:50 06/02/17 15:50 06/02/17 15:50 Intake and Output: 06/02/17 06/02/17 06:59 18:59 Intake Total 1200 480 Output Total 600 Balance 1200 -120 - Medications Medications: Current Medications Al Hydrox/Mg Hydrox/Simethicone (Maalox Plus 30 Ml) 30 ml PO Q6 PRN PRN Reason: Indigestion / Heartburn Clopidogrel Bisulfate (Plavix) 75 mg PO DAILY [facility] Last Admin: 06/02/17 09:10 Dose: 75 mg Docusate Sodium (Colace) 100 mg PO TID [facility] Last Admin: 06/02/17 13:00 Dose: 100 mg Duloxetine HCl (Cymbalta) 60 mg PO DAILY [facility] Last Admin: 06/02/17 09:10 Dose: 60 mg Folic Acid (Folic Acid) 1 mg PO DAILY [facility] Last Admin: 06/02/17 09:10 Dose: 1 mg Gabapentin (Neurontin) 300 mg PO TID [facility] PRN Reason: Protocol Last Admin: 06/02/17 12:59 Dose: 300 mg Heparin Sodium (Porcine) (Heparin) 5,000 units SC Q12 [facility] PRN Reason: Protocol Last Admin: 05/30/17 22:07 Dose: 5,000 units Hydrochlorothiazide (Microzide) 12.5 mg PO DAILY [facility] Last Admin: 06/02/17 09:10 Dose: 12.5 mg Hydroxychloroquine Sulfate (Plaquenil) 200 mg PO BID [facility] Last Admin: 06/02/17 09:10 Dose: 200 mg Meropenem 1g/NS 100mL IVPB (Meropenem 1g/Ns 100ml Ivpb) 1 gm in 100 mls @ 100 mls/hr IVPB Q8 [facility] PRN Reason: Protocol Stop: 06/07/17 16:01 Last Admin: 06/02/17 13:00 Dose: 100 mls/hr Vancomycin HCl (Vancomycin 1gm) 1 gm in 250 mls @ 167 mls/hr IVPB Q12H [facility] PRN Reason: Protocol Last Admin: 06/02/17 04:29 Dose: 167 mls/hr Metoprolol Succinate (Toprol Xl) 25 mg PO DAILY [facility] Last Admin: 06/02/17 09:10 Dose: 25 mg Morphine Sulfate (Morphine) 2 mg IVP Q4H PRN PRN Reason: Pain, severe (8-10) Last Admin: 06/02/17 10:14 Dose: 2 mg Pantoprazole Sodium (Protonix Ec Tab) 40 mg PO 0600 [facility] Last Admin: 06/02/17 05:48 Dose: 40 mg Quetiapine Fumarate (Seroquel) 50 mg PO HS [facility] Last Admin: 06/01/17 21:34 Dose: 50 mg Sucralfate (Carafate Tab) 1 gm PO ACHS [facility] Last Admin: 06/02/17 11:31 Dose: 1 gm Tramadol HCl (Ultram) 50 mg PO Q6 PRN PRN Reason: Pain, moderate (4-7) Last Admin: 06/02/17 12:59 Dose: 50 mg - Labs Labs: 06/02/17 07:33 06/02/17 07:33 PT 11.4 Seconds (9.9-11.8) 05/28/17 20:20 INR 1.06 (0.93-1.08) 05/28/17 20:20 APTT 31.2 Seconds (23.7-30.8) H 05/28/17 20:20 Attending/Attestation - Attestation I have personally seen and examined this patient.: Yes I have fully participated in the care of the patient.: Yes I have reviewed all pertinent clinical information, including history, physical exam and plan: Yes Notes (Text): 06/02/17 16:02 57 year old female with past medical history of CAD, SLE, DVT s/p IVC filter, compression fractures s/p lumbar fusion and recent T12 kyphoplasty who presented with intractable back pain with imaging findings suspicious for osteomyelitis. She is s/p bone biopsy/aspiration. Culture is growing gram positive cocci in clusters. Continue with iv antibiotics as per ID. Continue with physical therapy. Continue with analgesics prn. Continue with home medications for hypertension. Krystin Rodriguez MD. Hospitalist.
--- NOTE | 2017-06-02 20:27 | PN ---
DATE OF SERVICE: 06/02/2017 SUBJECTIVE: The patient is in bed, no acute distress, nontoxic, was seen earlier this morning in #[id number], bed #1. She appears to be comfortable. She states she is doing better. PHYSICAL EXAMINATION: VITAL SIGNS: Temperature is 98, blood pressure is 116/70, respiratory rate of 18. HEENT: Unremarkable. NECK: Supple. LUNGS: Have decreased breath sounds. HEART: Normal S1, S2. ABDOMEN: Soft and nontender. LABORATORY DATA: Laboratory examination reveals a white count of 5, hemoglobin of 11. Coagulation is noted. Chemistries reveal BUN of 5, creatinine of 0.6. Microbiology reveals the blood cultures have no growth. There is a Gram-positive cocci in the culture of the disk space on gram stain. Further identification of sensitivity is pending. Review of orders reveals the patient to be on vancomycin. ASSESSMENT AND PLAN: This is a 57-year-old female with Gram-positive cocci from the disk T11, L1, and diskitis in a patient with lupus, who underwent kyphoplasty in 12/2016 with a history of deep vein thrombocysts, inferior vena cava filter placement, currently on vancomycin, and with MRI consistent with a Gram-positive cocci, diskitis, and osteomyelitis, will need prolonged antibiotic therapy, awaiting for identification and sensitivity of Gram-positive cocci, status post CAT scan-guided T11-T12 disk space aspiration and biopsy. We will follow closely with you. The patient is currently on vancomycin and meropenem. John Paul Hooker MD
[2017-06-03] MEDS: Meropenem 1g/NS 100mL IVPB 1 GM/100 ML PIGGYBACK IVPB SCH (05:43)
[2017-06-03] MEDS: Pantoprazole 40 mg EC Tab PO SCH (05:43)
[2017-06-03] MEDS: Vancomycin 1gm in NS 250ml 1 GM/250 ML BAG IVPB SCH (06:21)
[2017-06-03] MEDS: Metoprolol Succinate 25 mg XL Tab PO SCH (10:19)
[2017-06-03] MEDS: Morphine 2 mg/ml ISec IVP PRN ×3 (10:35→22:30)
--- NOTE | 2017-06-03 11:32 | CP.PCM.PN ---
<KYM ORTA - Last Filed: 06/03/17 11:29> Subjective - Date & Time of Evaluation Date of Evaluation: 06/03/17 Time of Evaluation: 11:29 - Subjective Subjective: Medicine Progress Note: Pt seen and examined at bedside. Pt denies any acute overnight events. Pt states that back pain is consistent and she has some pain in her upper thigh/ hips. Pt tolerates diet. Pt denies CP, SOB, n/v/d, chills, fevers, abdominal pain, FARLEY, dizziness, dysuria, or polyuria. Objective - Vital Signs/Intake and Output Vital Signs (last 24 hours): Temp Pulse Resp BP Pulse Ox 98.7 F 82 16 103/67 95 06/03/17 08:00 06/03/17 10:19 06/03/17 08:00 06/03/17 10:19 06/03/17 08:00 Intake and Output: 06/03/17 06/03/17 06:59 18:59 Intake Total 120 Balance 120 - Medications Medications: Current Medications Al Hydrox/Mg Hydrox/Simethicone (Maalox Plus 30 Ml) 30 ml PO Q6 PRN PRN Reason: Indigestion / Heartburn Clopidogrel Bisulfate (Plavix) 75 mg PO DAILY [facility] Last Admin: 06/03/17 10:18 Dose: 75 mg Docusate Sodium (Colace) 100 mg PO TID [facility] Last Admin: 06/03/17 10:19 Dose: 100 mg Duloxetine HCl (Cymbalta) 60 mg PO DAILY [facility] Last Admin: 06/03/17 10:18 Dose: 60 mg Folic Acid (Folic Acid) 1 mg PO DAILY [facility] Last Admin: 06/03/17 10:19 Dose: 1 mg Gabapentin (Neurontin) 300 mg PO TID [facility] PRN Reason: Protocol Last Admin: 06/03/17 10:19 Dose: 300 mg Heparin Sodium (Porcine) (Heparin) 5,000 units SC Q12 [facility] PRN Reason: Protocol Last Admin: 05/30/17 22:07 Dose: 5,000 units Hydrochlorothiazide (Microzide) 12.5 mg PO DAILY [facility] Last Admin: 06/03/17 10:18 Dose: 12.5 mg Hydroxychloroquine Sulfate (Plaquenil) 200 mg PO BID [facility] Last Admin: 06/03/17 10:19 Dose: 200 mg Meropenem 1g/NS 100mL IVPB (Meropenem 1g/Ns 100ml Ivpb) 1 gm in 100 mls @ 100 mls/hr IVPB Q8 [facility] PRN Reason: Protocol Stop: 06/07/17 16:01 Last Admin: 06/03/17 05:43 Dose: 100 mls/hr Vancomycin HCl (Vancomycin 1gm) 1 gm in 250 mls @ 167 mls/hr IVPB Q12H [facility] PRN Reason: Protocol Last Admin: 06/03/17 06:21 Dose: 167 mls/hr Metoprolol Succinate (Toprol Xl) 25 mg PO DAILY [facility] Last Admin: 06/03/17 10:19 Dose: 25 mg Morphine Sulfate (Morphine) 2 mg IVP Q4H PRN PRN Reason: Pain, severe (8-10) Last Admin: 06/03/17 10:35 Dose: 2 mg Pantoprazole Sodium (Protonix Ec Tab) 40 mg PO 0600 [facility] Last Admin: 06/03/17 05:43 Dose: 40 mg Quetiapine Fumarate (Seroquel) 50 mg PO HS [facility] Last Admin: 06/02/17 23:17 Dose: 50 mg Sucralfate (Carafate Tab) 1 gm PO ACHS [facility] Last Admin: 06/03/17 10:18 Dose: 1 gm Tramadol HCl (Ultram) 50 mg PO Q6 PRN PRN Reason: Pain, moderate (4-7) Last Admin: 06/02/17 20:31 Dose: 50 mg - Labs Labs: 06/02/17 07:33 06/02/17 07:33 PT 11.4 Seconds (9.9-11.8) 05/28/17 20:20 INR 1.06 (0.93-1.08) 05/28/17 20:20 APTT 31.2 Seconds (23.7-30.8) H 05/28/17 20:20 - Constitutional Appears: No Acute Distress - Head Exam Head Exam: ATRAUMATIC, NORMOCEPHALIC - Eye Exam Eye Exam: EOMI, PERRL - ENT Exam ENT Exam: Mucous Membranes Moist - Neck Exam Neck Exam: Full ROM. absent: Lymphadenopathy, Tenderness, Thyromegaly - Respiratory Exam Respiratory Exam: Clear to Ausculation Bilateral. absent: Rales, Rhonchi, Wheezes - Cardiovascular Exam Cardiovascular Exam: RRR, +S1, +S2. absent: Gallop, Rubs, Murmur - GI/Abdominal Exam GI & Abdominal Exam: Soft. absent: Distended, Guarding, Tenderness, Organomegaly, Rebound - Extremities Exam Extremities Exam: Normal Inspection - Back Exam Back Exam: muscle spasm, paraspinal tenderness, tenderness - Neurological Exam Neurological Exam: Alert, Awake, Oriented x3 - Psychiatric Exam Psychiatric exam: Normal Affect, Normal Mood - Skin Skin Exam: Dry, Intact, Normal Color, Warm Assessment and Plan - Assessment and Plan (Free Text) Assessment: 57F with lumbar back pain with PMH of SLE, CAD, HI, hx of DVT with IVC filter placement, compression fractures of T8, T9, L4, L5 s/p Lumbar fusion and most recently T12 kyphoplasty who presents with intractable back pain that has progressively gotten worse over past few days who is being admitted for suspicion of osteomyelitis and intractable back pain. Plan: 1. Suspicion of Osteomyelitis - Follow up with social work for possible placement if IV abx are needed correction for osteomyelitis - Follow up with ID for abx recommendations according to sensitivities and abx options on discharge - ID consulted, started on Vancomycin and Merrem - Certec labeled WBC positive for accumulation of T12 - Kyphoplasty of T12 vertebrae in January of 2017 - IR consult - CRP 15, ESR 50 - MRI spinal lumbar: discitis, and osteomyelitis without cord compression - MRI spinal thoracic: discitis, and osteomyelitis without cord compression - Monitoring for bowel and/or bladder incontinence, fever, paresthesia - Consult: Dr. Whelan and Dr. Hoskins - F/u IR guided Bone Biopsy/Bone Aspiration per Dr. Whelan of T11-L1 area - Consult: Dr. Hercules - f/u biopsy/aspiration culture - PT Eval and treat 2. Intractable back pain - Acute on chronic pain - PE indicated left sided mid thoracic to lumbar - Hx of compression fractures - Neurologically intact - Pain management with Morphine 2mg Q6Hprn, Tramadol 50mg Q6Hprn 3. Hx of CAD - Continue home cardiac meds - VSS 4. SLE - Continue home meds 5. Hx DVT s/p IVC filter placement - Heparin SC for DVT/PE ppx 6. HTN - HCTZ, metoprolol GI PPx - Protonix Pt seen and discussed in detail with Dr. Rodriguez. <Krystin Rodriguez - Last Filed: 06/03/17 11:54> Objective - Vital Signs/Intake and Output Vital Signs (last 24 hours): Temp Pulse Resp BP Pulse Ox 98.7 F 82 16 103/67 95 06/03/17 08:00 06/03/17 10:19 06/03/17 08:00 06/03/17 10:19 06/03/17 08:00 Intake and Output: 06/03/17 06/03/17 06:59 18:59 Intake Total 120 Balance 120 - Medications Medications: Current Medications Al Hydrox/Mg Hydrox/Simethicone (Maalox Plus 30 Ml) 30 ml PO Q6 PRN PRN Reason: Indigestion / Heartburn Clopidogrel Bisulfate (Plavix) 75 mg PO DAILY [facility] Last Admin: 06/03/17 10:18 Dose: 75 mg Docusate Sodium (Colace) 100 mg PO TID [facility] Last Admin: 06/03/17 10:19 Dose: 100 mg Duloxetine HCl (Cymbalta) 60 mg PO DAILY [facility] Last Admin: 06/03/17 10:18 Dose: 60 mg Folic Acid (Folic Acid) 1 mg PO DAILY [facility] Last Admin: 06/03/17 10:19 Dose: 1 mg Gabapentin (Neurontin) 300 mg PO TID [facility] PRN Reason: Protocol Last Admin: 06/03/17 10:19 Dose: 300 mg Heparin Sodium (Porcine) (Heparin) 5,000 units SC Q12 [facility] PRN Reason: Protocol Last Admin: 05/30/17 22:07 Dose: 5,000 units Hydrochlorothiazide (Microzide) 12.5 mg PO DAILY [facility] Last Admin: 06/03/17 10:18 Dose: 12.5 mg Hydroxychloroquine Sulfate (Plaquenil) 200 mg PO BID [facility] Last Admin: 06/03/17 10:19 Dose: 200 mg Meropenem 1g/NS 100mL IVPB (Meropenem 1g/Ns 100ml Ivpb) 1 gm in 100 mls @ 100 mls/hr IVPB Q8 [facility] PRN Reason: Protocol Stop: 06/07/17 16:01 Last Admin: 06/03/17 05:43 Dose: 100 mls/hr Vancomycin HCl (Vancomycin 1gm) 1 gm in 250 mls @ 167 mls/hr IVPB Q12H [facility] PRN Reason: Protocol Last Admin: 06/03/17 06:21 Dose: 167 mls/hr Metoprolol Succinate (Toprol Xl) 25 mg PO DAILY [facility] Last Admin: 06/03/17 10:19 Dose: 25 mg Morphine Sulfate (Morphine) 2 mg IVP Q4H PRN PRN Reason: Pain, severe (8-10) Last Admin: 06/03/17 10:35 Dose: 2 mg Pantoprazole Sodium (Protonix Ec Tab) 40 mg PO 0600 [facility] Last Admin: 06/03/17 05:43 Dose: 40 mg Quetiapine Fumarate (Seroquel) 50 mg PO HS [facility] Last Admin: 06/02/17 23:17 Dose: 50 mg Sucralfate (Carafate Tab) 1 gm PO ACHS [facility] Last Admin: 06/03/17 10:18 Dose: 1 gm Tramadol HCl (Ultram) 50 mg PO Q6 PRN PRN Reason: Pain, moderate (4-7) Last Admin: 06/02/17 20:31 Dose: 50 mg - Labs Labs: 06/03/17 11:38 06/02/17 07:33 PT 11.4 Seconds (9.9-11.8) 05/28/17 20:20 INR 1.06 (0.93-1.08) 05/28/17 20:20 APTT 31.2 Seconds (23.7-30.8) H 05/28/17 20:20 Attending/Attestation - Attestation I have personally seen and examined this patient.: Yes I have fully participated in the care of the patient.: Yes I have reviewed all pertinent clinical information, including history, physical exam and plan: Yes Notes (Text): 06/03/17 11:51 57 year old female with past medical history of CAD, SLE, DVT s/p IVC filter, compression fractures s/p lumbar fusion and recent T12 kyphoplasty who presented with intractable back pain with imaging findings suspicious for osteomyelitis. She is s/p bone biopsy/aspiration. Culture is growing Staphylococcus Aureus. She is currently on iv vancomycin and meropenem as per ID. Continue with physical therapy. Continue with analgesics prn. Continue with home medications for hypertension. We will discuss with block and case maker / social worker health services tomorrow regarding d/c planning. Krystin Rodriguez MD. Hospitalist.
[2017-06-03 11:49] LABS: HEMATOCRIT 33.8 % (36.0-48.0); MEAN CELL VOLUME 88.3 fl (80.0-105.0); MEAN CORPUSCULAR HGB CONC 32.8 g/dl (31.0-37.0); MEAN PLATELET VOLUME 9.9 fl (7.0-11.0); RED CELL DISTRIBUTION WIDTH 15.5 % (11.5-14.5); WHITE BLOOD COUNT 4.7 10^3/ul (4.5-11.0)
[2017-06-03 11:51] LABS: ALKALINE PHOSPHATASE 82 U/L (38-133); ALT/SGPT 26 U/L (7-56); AST/SGOT 27 U/L (15-39); BILIRUBIN,TOTAL < 0.1 mg/dL (0.2-1.3); BLOOD UREA NITROGEN 7 mg/dL (7-21); CALCIUM 9.2 mg/dL (8.4-10.5); CARBON DIOXIDE 30 mmol/L (21-33); CHLORIDE 101 mmol/L (98-107); GFR AFRICAN-AMERICAN > 60; GLUCOSE,RANDOM 103 mg/dL (70-110); POTASSIUM 3.5 mmol/L (3.6-5.0); SODIUM 139 mmol/L (132-148); TOTAL PROTEIN 6.6 g/dL (5.8-8.3)
[2017-06-03] MEDS ORDERED: Potassium Chloride 40 mEq/30 ml LIQ UD PO ONE (13:58)
[2017-06-03 17:24] VITALS: RESP 20
[2017-06-03] MEDS: Nafcillin 2 GM in Sodium Chloride 0.9% 100 ML IVPB SCH ×2 (17:41→23:22)
--- NOTE | 2017-06-03 18:35 | PN ---
DATE: 06/03/2017 SUBJECTIVE: The patient seen early today in 573, bed 1. No fevers and no chills. Comfortable on exam. PHYSICAL EXAMINATION: VITAL SIGNS: Temperature is 98, blood pressure is 103/60, and respiratory rate of 16. HEENT: Examination of the HEENT is unremarkable. NECK: Supple. LUNGS: Have decreased breath sounds. HEART: Normal S1, S2. ABDOMEN: Soft and nontender. LABORATORY DATA: Laboratory examination reveals a white count of 4.7, hemoglobin of 11, and platelets of 306. Chemistries reveal a BUN of 7, creatinine of 0.7. Microbiology reveals staph aureus from the culture of the disk. It is grey-sensitive staph aureus. Review of orders reveals the patient to be on meropenem and vancomycin. ASSESSMENT AND PLAN: This is a 57-year-old female with grey-sensitive staph aureus, diskitis, and osteomyelitis at T11, L1, and T12. We will discontinue the vancomycin and meropenem and use nafcillin. Since it is a sensitive staph aureus, we will need several weeks of antibiotics, probably 8 to 10 weeks with weekly CBC, SMA-18, sed rate, and C-reactive protein. We would repeat imaging of MRI intermittently every 7 to 10 days and we will follow with you. The patient's last sed rate on 05/29/2017 was 50 and C-reactive greater than 15 with creatinine of 0.7. John Paul Hooker MD
[2017-06-04] MEDS: Nafcillin 2 GM in Sodium Chloride 0.9% 100 ML IVPB SCH ×4 (05:33→20:32)
--- NOTE | 2017-06-04 06:25 | CP.PCM.PN ---
Subjective - Date & Time of Evaluation Date of Evaluation: 06/04/17 Time of Evaluation: 06:25 - Subjective Subjective: Progress Note for Dr. Lr PT S&E At bedside. NAEON. Patient admits to one episode of bowel movement yesterday. Admits to abdominal pain and lower back pain. Patient states she's feeling better today. Patient denies F/C/N/V. PT Started on Patient is on nafcillin [address] Q[address] Hooker 06/03. Objective - Vital Signs/Intake and Output Vital Signs (last 24 hours): Temp Pulse Resp BP Pulse Ox 98.7 F 79 20 131/84 95 06/03/17 17:23 06/03/17 17:23 06/03/17 17:23 06/03/17 19:44 06/03/17 17:23 Intake and Output: 06/03/17 06/04/17 18:59 06:59 Intake Total 600 420 Output Total 650 Balance -50 420 - Medications Medications: Current Medications Al Hydrox/Mg Hydrox/Simethicone (Maalox Plus 30 Ml) 30 ml PO Q6 PRN PRN Reason: Indigestion / Heartburn Clopidogrel Bisulfate (Plavix) 75 mg PO DAILY [facility] Last Admin: 06/03/17 10:18 Dose: 75 mg Docusate Sodium (Colace) 100 mg PO TID [facility] Last Admin: 06/03/17 17:37 Dose: 100 mg Duloxetine HCl (Cymbalta) 60 mg PO DAILY [facility] Last Admin: 06/03/17 10:18 Dose: 60 mg Folic Acid (Folic Acid) 1 mg PO DAILY [facility] Last Admin: 06/03/17 10:19 Dose: 1 mg Gabapentin (Neurontin) 300 mg PO TID [facility] PRN Reason: Protocol Last Admin: 06/03/17 17:40 Dose: 300 mg Heparin Sodium (Porcine) (Heparin) 5,000 units SC Q12 [facility] PRN Reason: Protocol Last Admin: 05/30/17 22:07 Dose: 5,000 units Hydrochlorothiazide (Microzide) 12.5 mg PO DAILY [facility] Last Admin: 06/03/17 10:18 Dose: 12.5 mg Hydroxychloroquine Sulfate (Plaquenil) 200 mg PO BID [facility] Last Admin: 06/03/17 17:41 Dose: 200 mg Nafcillin Sodium 2 gm/ Sodium (Chloride) 100 mls @ 100 mls/hr IVPB Q6 [facility] PRN Reason: Protocol Stop: 07/15/17 18:01 Last Admin: 06/04/17 05:33 Dose: 100 mls/hr Metoprolol Succinate (Toprol Xl) 25 mg PO DAILY [facility] Last Admin: 06/03/17 10:19 Dose: 25 mg Morphine Sulfate (Morphine) 2 mg IVP Q4H PRN PRN Reason: Pain, severe (8-10) Last Admin: 06/03/17 22:30 Dose: 2 mg Pantoprazole Sodium (Protonix Ec Tab) 40 mg PO 0600 [facility] Last Admin: 06/03/17 05:43 Dose: 40 mg Quetiapine Fumarate (Seroquel) 50 mg PO HS [facility] Last Admin: 06/03/17 21:17 Dose: 50 mg Sucralfate (Carafate Tab) 1 gm PO ACHS [facility] Last Admin: 06/03/17 21:16 Dose: 1 gm Tramadol HCl (Ultram) 50 mg PO Q6 PRN PRN Reason: Pain, moderate (4-7) Last Admin: 06/03/17 21:18 Dose: 50 mg - Labs Labs: 06/03/17 11:38 06/03/17 11:38 PT 11.4 Seconds (9.9-11.8) 05/28/17 20:20 INR 1.06 (0.93-1.08) 05/28/17 20:20 APTT 31.2 Seconds (23.7-30.8) H 05/28/17 20:20 - Constitutional Appears: Non-toxic, No Acute Distress - Head Exam Head Exam: NORMAL INSPECTION - Eye Exam Eye Exam: EOMI, Normal appearance - ENT Exam ENT Exam: Mucous Membranes Moist - Neck Exam Neck Exam: Full ROM - Respiratory Exam Respiratory Exam: Clear to Ausculation Bilateral. absent: Accessory Muscle Use , Respiratory Distress - Cardiovascular Exam Cardiovascular Exam: REGULAR RHYTHM - GI/Abdominal Exam GI & Abdominal Exam: Soft, Tenderness, Normal Bowel Sounds. absent: Bruit, Distended - Extremities Exam Extremities Exam: Full ROM, Normal Inspection - Back Exam Back Exam: vertebral tenderness - Neurological Exam Neurological Exam: Alert, Awake, Normal Gait - Psychiatric Exam Psychiatric exam: Normal Affect, Normal Mood - Skin Skin Exam: Dry, Intact, Normal Color, Warm Assessment and Plan - Assessment and Plan (Free Text) Assessment: 57F presents with s. aureus positive osteomyelitis with PMH of SLE, CAD, ND, hx of DVT with IVC filter placement, compression fractures of T8, T9, L4, L5 s/p Lumbar fusion and most recently T12 kyphoplasty (12/2016) Plan: Continue with home medications for hypertension. We will discuss with oil field caser / protective services social worker tomorrow regarding d/c planning. ([facility] with PICC and IV ABx 1. Suspicion of Osteomyelitis - Follow up with social work for possible placement if IV abx are needed extermination inspector for osteomyelitis - Follow up with ID for abx recommendations according to sensitivities and abx options on discharge - Certec labeled WBC positive for accumulation of T12 - Kyphoplasty of T12 vertebrae in January of 2017 - IR consult - CRP 15, ESR 50 - MRI spinal lumbar: discitis, and osteomyelitis without cord compression - MRI spinal thoracic: discitis, and osteomyelitis without cord compression - Monitoring for bowel and/or bladder incontinence, fever, paresthesia - Consult: Dr. Whelan and Dr. Hoskins - F/u IR guided Bone Biopsy/Bone Aspiration per Dr. Whelan of T11-L1 area - Consult: Dr. Hercules - Biopsy/aspiration culture: Staphylococcus Aureus - Dr. Hooker started patient on nafcillin 2gm IVPB Q6, vanc and merrem discontinued when cultures resulted - PT Eval and treat - LUE PICC 2. Intractable back pain - Acute on chronic pain - PE indicated left sided mid thoracic to lumbar - Hx of compression fractures - Neurologically intact - Pain management with 20 oxycodone extended release POQonce, 06/04 - Pain management tomorrow 06/05 with oxycodone extended release POQ12H [facility], breakthrough pain with percocet 2.5/325 3. Hx of CAD - Continue home cardiac meds - VSS 4. SLE - Continue home meds 5. Hx DVT s/p IVC filter placement - Heparin SC for DVT/PE ppx 6. HTN - HCTZ, metoprolol GI PPx - Protonix discuss with oil field caser/social work for discharge planning current plan is to transfer to [facility]. awaiting papers
[2017-06-04] MEDS: Morphine 2 mg/ml ISec IVP PRN (06:34)
[2017-06-04] MEDS: Pantoprazole 40 mg EC Tab PO SCH (06:35)
[2017-06-04 06:48] LABS: HEMATOCRIT 33.1 % (36.0-48.0); MEAN CELL VOLUME 88.7 fl (80.0-105.0); MEAN CORPUSCULAR HGB CONC 32.6 g/dl (31.0-37.0); MEAN PLATELET VOLUME 9.6 fl (7.0-11.0); RED CELL DISTRIBUTION WIDTH 15.6 % (11.5-14.5); WHITE BLOOD COUNT 5.5 10^3/ul (4.5-11.0)
[2017-06-04 07:13] LABS: ALKALINE PHOSPHATASE 85 U/L (38-133); ALT/SGPT 23 U/L (7-56); AST/SGOT 21 U/L (15-39); BILIRUBIN,TOTAL 0.2 mg/dL (0.2-1.3); BLOOD UREA NITROGEN 8 mg/dL (7-21); CALCIUM 9.3 mg/dL (8.4-10.5); CARBON DIOXIDE 29 mmol/L (21-33); CHLORIDE 103 mmol/L (98-107); GFR AFRICAN-AMERICAN > 60; GLUCOSE,RANDOM 100 mg/dL (70-110); POTASSIUM 3.8 mmol/L (3.6-5.0); SODIUM 143 mmol/L (132-148); TOTAL PROTEIN 6.4 g/dL (5.8-8.3)
[2017-06-04] MEDS: Metoprolol Succinate 25 mg XL Tab PO SCH (09:17)
[2017-06-04] MEDS ORDERED: Oxycodone/Acetaminophen 2.5/325 mg Tab PO PRN (13:45)
[2017-06-04] MEDS: oxyCODONE 20 mg ER Tab (oxyCONTIN) PO SCH ×2 (14:31→22:26)
--- NOTE | 2017-06-04 15:06 | CP.PCM.PN ---
Subjective - Date & Time of Evaluation Date of Evaluation: 06/04/17 Time of Evaluation: 08:45 - Subjective Subjective: Comfortable, still with back pain but a little less, not in distress. No fevers overnight. Objective - Vital Signs/Intake and Output Vital Signs (last 24 hours): Temp Pulse Resp BP Pulse Ox 98.7 F 75 20 109/76 95 06/04/17 07:42 06/04/17 07:42 06/04/17 07:42 06/04/17 07:42 06/04/17 07:42 Intake and Output: 06/04/17 06/04/17 06:59 18:59 Intake Total 420 Balance 420 - Medications Medications: Current Medications Al Hydrox/Mg Hydrox/Simethicone (Maalox Plus 30 Ml) 30 ml PO Q6 PRN PRN Reason: Indigestion / Heartburn Clopidogrel Bisulfate (Plavix) 75 mg PO DAILY [facility] Last Admin: 06/04/17 09:16 Dose: 75 mg Docusate Sodium (Colace) 100 mg PO TID [facility] Last Admin: 06/04/17 09:16 Dose: 100 mg Duloxetine HCl (Cymbalta) 60 mg PO DAILY [facility] Last Admin: 06/04/17 09:14 Dose: 60 mg Folic Acid (Folic Acid) 1 mg PO DAILY [facility] Last Admin: 06/04/17 09:16 Dose: 1 mg Gabapentin (Neurontin) 300 mg PO TID [facility] PRN Reason: Protocol Last Admin: 06/04/17 09:16 Dose: 300 mg Heparin Sodium (Porcine) (Heparin) 5,000 units SC Q12 [facility] PRN Reason: Protocol Last Admin: 05/30/17 22:07 Dose: 5,000 units Hydrochlorothiazide (Microzide) 12.5 mg PO DAILY [facility] Last Admin: 06/04/17 09:14 Dose: 12.5 mg Nafcillin Sodium 2 gm/ Sodium (Chloride) 100 mls @ 100 mls/hr IVPB Q6 [facility] PRN Reason: Protocol Stop: 07/15/17 18:01 Last Admin: 06/04/17 05:33 Dose: 100 mls/hr Metoprolol Succinate (Toprol Xl) 25 mg PO DAILY [facility] Last Admin: 06/04/17 09:17 Dose: 25 mg Morphine Sulfate (Morphine) 2 mg IVP Q4H PRN PRN Reason: Pain, severe (8-10) Last Admin: 06/04/17 06:34 Dose: 2 mg Pantoprazole Sodium (Protonix Ec Tab) 40 mg PO 0600 [facility] Last Admin: 06/04/17 06:35 Dose: 40 mg Quetiapine Fumarate (Seroquel) 50 mg PO HS [facility] Last Admin: 06/03/17 21:17 Dose: 50 mg Sucralfate (Carafate Tab) 1 gm PO ACHS [facility] Last Admin: 06/04/17 08:11 Dose: 1 gm Tramadol HCl (Ultram) 50 mg PO Q6 PRN PRN Reason: Pain, moderate (4-7) Last Admin: 06/03/17 21:18 Dose: 50 mg - Labs Labs: 06/04/17 06:15 06/04/17 06:15 PT 11.4 Seconds (9.9-11.8) 05/28/17 20:20 INR 1.06 (0.93-1.08) 05/28/17 20:20 APTT 31.2 Seconds (23.7-30.8) H 05/28/17 20:20 - Constitutional Appears: Non-toxic, No Acute Distress - Head Exam Head Exam: NORMAL INSPECTION - Neck Exam Neck Exam: absent: Lymphadenopathy, Meningismus - Respiratory Exam Respiratory Exam: Decreased Breath Sounds - Cardiovascular Exam Cardiovascular Exam: +S1, +S2 - GI/Abdominal Exam GI & Abdominal Exam: Soft. absent: Tenderness Assessment and Plan - Assessment and Plan (Free Text) Plan: Assessment Back pain, chronic, due to osteomyelitis and discitis T11-L1, growing MSSA from the vertebrae compression fracture T12 fracture (which has underwent kyphoplasty in 2016) systemic lupus erythematosus CAD history of DVT S/P IVC filter placement, history of compression fractures of the T8, T9, L4 and L5 vertebrae S/P lumbar fusion S/P T12 kyphoplasty (2016) history of MSSA bacteremia (2016, source was not specifically determined and she received 6 weeks of antibiotics) Plan continue Nafcillin (dose-adjusted to q4 dosing) for at least 8-10 weeks with weekly ESR, CRP, CBC, CMP
--- NOTE | 2017-06-04 18:30 | CP.PCM.DIS ---
<Cintia Singh - Last Filed: 06/05/17 14:16> Provider - Provider Date of Admission: 05/28/17 21:43 Attending physician: Krystin Rodriguez MD Primary care physician: Seb Rush MD Consults: Dr. Whelan and Dr. Hoskins - F/u IR guided Bone Biopsy/Bone Aspiration per Dr. Whelan of T11-L1 area Dr. Hercules: neurosurgery Time Spent in preparation of Discharge (in minutes): 35 Hospital Course - Lab Results Lab Results: Micro Results 05/31/17 16:31 Other: Please Indicate Gram Stain - Final 05/31/17 16:31 Other: Please Indicate Anaerobic Culture - Final NO ANAEROBES ISOLATED. 05/31/17 16:31 Other: Please Indicate Body Fluid Culture - Final Staphylococcus Aureus 05/31/17 16:31 Other: Please Indicate Fungal Culture - Preliminary 05/31/17 16:31 Other: Please Indicate Mycobacterial Culture - Preliminary Most Recent Lab Values WBC 5.5 10^3/ul (4.5-11.0) 06/04/17 06:15 RBC 3.73 10^6/uL (3.5-6.1) 06/04/17 06:15 Hgb 10.8 g/dL (12.0-16.0) L 06/04/17 06:15 Hct 33.1 % (36.0-48.0) L 06/04/17 06:15 MCV 88.7 fl (80.0-105.0) 06/04/17 06:15 MCH 29.0 pg (25.0-35.0) 06/04/17 06:15 MCHC 32.6 g/dl (31.0-37.0) 06/04/17 06:15 RDW 15.6 % (11.5-14.5) H 06/04/17 06:15 Plt Count 284 10^3/uL (120.0-450.0) 06/04/17 06:15 MPV 9.6 fl (7.0-11.0) 06/04/17 06:15 Gran % 59.5 % (50.0-68.0) 06/02/17 07:33 Lymph % (Auto) 30.3 % (22.0-35.0) 06/02/17 07:33 [place] % (Auto) 7.4 % (1.0-6.0) H 06/02/17 07:33 Eos % (Auto) 2.6 % (1.5-5.0) 06/02/17 07:33 Baso % (Auto) 0.2 % (0.0-3.0) 06/02/17 07:33 Gran # 2.99 (1.4-6.5) 06/02/17 07:33 Lymph # 1.5 (1.2-3.4) 06/02/17 07:33 [place] # 0.4 (0.1-0.6) 06/02/17 07:33 Eos # 0.1 (0.0-0.7) 06/02/17 07:33 Baso # 0.01 K/mm3 (0.0-2.0) 06/02/17 07:33 ESR 50 mm/hr (0.0-20.0) H 05/29/17 07:40 PT 11.4 Seconds (9.9-11.8) 05/28/17 20:20 INR 1.06 (0.93-1.08) 05/28/17 20:20 APTT 31.2 Seconds (23.7-30.8) H 05/28/17 20:20 Sodium 143 mmol/L (132-148) 06/04/17 06:15 Potassium 3.8 mmol/L (3.6-5.0) 06/04/17 06:15 Chloride 103 mmol/L (98-107) 06/04/17 06:15 Carbon Dioxide 29 mmol/L (21-33) 06/04/17 06:15 Anion Gap 15 (10-20) 06/04/17 06:15 BUN 8 mg/dL (7-21) 06/04/17 06:15 Creatinine 0.8 mg/dL (0.5-1.4) 06/04/17 06:15 Est GFR ( Amer) > 60 06/04/17 06:15 Est GFR (Non-Af Amer) > 60 06/04/17 06:15 POC Glucose (mg/dL) 107 mg/dL (65-110) 06/04/17 07:28 Random Glucose 100 mg/dL (70-110) 06/04/17 06:15 Calcium 9.3 mg/dL (8.4-10.5) 06/04/17 06:15 Total Bilirubin 0.2 mg/dL (0.2-1.3) 06/04/17 06:15 AST 21 U/L (15-39) 06/04/17 06:15 ALT 23 U/L (7-56) 06/04/17 06:15 Alkaline Phosphatase 85 U/L (38-133) 06/04/17 06:15 C-React Prot High Sens > 15.00 mg/L (1.00-3.00) H 05/29/17 07:40 Total Protein 6.4 g/dL (5.8-8.3) 06/04/17 06:15 Albumin 3.2 g/dL (3.0-4.8) 06/04/17 06:15 Globulin 3.3 gm/dL 06/04/17 06:15 Albumin/Globulin Ratio 1.0 (1.1-1.8) L 06/04/17 06:15 - Hospital Course Hospital Course: 57F with PMH of SLE, CAD, SD, hx of DVT with IVC filter placement, compression fractures of T8, T9, L4, L5 s/p Lumbar fusion and most recently T12 kyphoplasty who presents with intractable back pain. Patient reports feeling back pain for past 3 months with progressively worsening sensation in the past 2 weeks. She describes the pain as electrical sharp shocking sensations throughout her mid to lower back. Patient denies any loss of bowel or urine, nor urinary/fecal retention. She describes difficulty breathing with episodic back pain for which she reports is continuos through out the day. She reports subjective fever, difficulty sitting up and getting out of bed secondary to her back pain. Denies fever, chest pain with exertion, abdominal pain, diarrhea, nausea, vomiting. Of note patient had a Ceretec labeled white blood cell study on 05/24/17 showing "faintly positive Ceretec labeled WBC examination for accumulation of radionuclide T12 vertebral body." In ED patient received 1 gram Vancomycin and 2 gram Cefrtiaxone for empiric therapy. Consult: Dr. Whelan and Dr. Hoskins - F/u IR guided Bone Biopsy/Bone Aspiration per Dr. Whelan of T11-L1 area Dr. Hercules Pt seen and discussed in detail with Dr. Rodriguez. abscess drainage CT Bone aspiration - CRP 15, ESR 50 - MRI spinal lumbar: discitis, and osteomyelitis without cord compression - MRI spinal thoracic: discitis, and osteomyelitis without cord compression - Biopsy/aspiration culture: Staphylococcus Aureus - Dr. Hooker started patient on nafcillin 2gm IVPB Q6, vanc and merrem discontinued when cultures resulted LUE PICC in place, transfer to [facility] 40 oxycodone extended release POQ12H KIKA PT S&E at bedside. Patient admitted to a lot of pain overnight. Patient tolerating pain well after administration of 40mg oxycodone extended release. Patient denies Fever, chills, nausea, vomiting, abdominal pain - Date & Time of H&P Date of H&P: 06/05/17 Time of H&P: 13:51 Discharge Exam - Head Exam Head Exam: NORMAL INSPECTION - Eye Exam Eye Exam: EOMI, Normal appearance - ENT Exam ENT Exam: Mucous Membranes Moist - Neck Exam Neck exam: Full Rom - Respiratory Exam Respiratory Exam: NORMAL BREATHING PATTERN, UNREMARKABLE. absent: Accessory Muscle Use, Respiratory Distress - GI/Abdominal Exam GI & Abdominal Exam: Soft, Unremarkable. absent: Firm, Guarding, Tenderness - Extremities Exam Extremities exam: full ROM, normal inspection - Back Exam Back exam: vertebral tenderness. absent: FULL ROM, rash noted, tenderness - Neurological Exam Neurological exam: Alert, Normal Gait, Oriented x3 - Skin Skin Exam: Dry, Intact, Normal Color, Warm Discharge Plan - Discharge Medications Prescriptions: Nafcillin 2 gm IVPB Q4 #336 vial - Follow Up Plan Condition: FAIR Disposition: REHAB FACILITY/REHAB UNIT Patient education suggested?: Yes Instructions: Chest Pain (DC), Pneumococcal Vaccine for Adults (GEN), Heart Healthy Diet (DC), Osteomyelitis (DC), Peripherally Inserted Central Catheters and Midline Catheters (DC), Abscess (GEN), Incision and Drainage (DC), Back Pain (GEN), Fall Prevention (DC) Additional Instructions: follow up with primary care doctor in one week follow up with infectious disease doctor in one week continue with current home medications continue with nafcillin 2gm q4H for 8 weeks get weekly bloodwork for ESR, CBC, CRP, CMP to monitor treatment for osteomyelitis Patient is going to [facility]. contact Louise [phone] Referrals: Seb Rush MD [Primary Care Provider] - Carlos A De Los Santos MD [Staff Provider] - <Krystin Rodriguez - Last Filed: 06/05/17 15:45> Provider - Provider Date of Admission: 05/28/17 21:43 Attending physician: Krystin Rodriguez MD Primary care physician: Seb Rush MD Hospital Course - Lab Results Lab Results: Micro Results 05/31/17 16:31 Other: Please Indicate Gram Stain - Final 05/31/17 16:31 Other: Please Indicate Anaerobic Culture - Final NO ANAEROBES ISOLATED. 05/31/17 16:31 Other: Please Indicate Body Fluid Culture - Final Staphylococcus Aureus 05/31/17 16:31 Other: Please Indicate Fungal Culture - Preliminary 05/31/17 16:31 Other: Please Indicate Mycobacterial Culture - Preliminary Most Recent Lab Values WBC 6.2 10^3/ul (4.5-11.0) 06/05/17 08:40 RBC 4.03 10^6/uL (3.5-6.1) 06/05/17 08:40 Hgb 11.4 g/dL (12.0-16.0) L 06/05/17 08:40 Hct 35.1 % (36.0-48.0) L 06/05/17 08:40 MCV 87.1 fl (80.0-105.0) 06/05/17 08:40 MCH 28.3 pg (25.0-35.0) 06/05/17 08:40 MCHC 32.5 g/dl (31.0-37.0) 06/05/17 08:40 RDW 15.3 % (11.5-14.5) H 06/05/17 08:40 Plt Count 311 10^3/uL (120.0-450.0) 06/05/17 08:40 MPV 10.1 fl (7.0-11.0) 06/05/17 08:40 Gran % 59.5 % (50.0-68.0) 06/02/17 07:33 Lymph % (Auto) 30.3 % (22.0-35.0) 06/02/17 07:33 [place] % (Auto) 7.4 % (1.0-6.0) H 06/02/17 07:33 Eos % (Auto) 2.6 % (1.5-5.0) 06/02/17 07:33 Baso % (Auto) 0.2 % (0.0-3.0) 06/02/17 07:33 Gran # 2.99 (1.4-6.5) 06/02/17 07:33 Lymph # 1.5 (1.2-3.4) 06/02/17 07:33 [place] # 0.4 (0.1-0.6) 06/02/17 07:33 Eos # 0.1 (0.0-0.7) 06/02/17 07:33 Baso # 0.01 K/mm3 (0.0-2.0) 06/02/17 07:33 ESR 50 mm/hr (0.0-20.0) H 05/29/17 07:40 PT 11.4 Seconds (9.9-11.8) 05/28/17 20:20 INR 1.06 (0.93-1.08) 05/28/17 20:20 APTT 31.2 Seconds (23.7-30.8) H 05/28/17 20:20 Sodium 141 mmol/L (132-148) 06/05/17 08:40 Potassium 3.2 mmol/L (3.6-5.0) L 06/05/17 08:40 Chloride 99 mmol/L (98-107) 06/05/17 08:40 Carbon Dioxide 31 mmol/L (21-33) 06/05/17 08:40 Anion Gap 14 (10-20) 06/05/17 08:40 BUN 9 mg/dL (7-21) 06/05/17 08:40 Creatinine 0.7 mg/dL (0.5-1.4) 06/05/17 08:40 Est GFR ( Amer) > 60 06/05/17 08:40 Est GFR (Non-Af Amer) > 60 06/05/17 08:40 POC Glucose (mg/dL) 107 mg/dL (65-110) 06/04/17 07:28 Random Glucose 98 mg/dL (70-110) 06/05/17 08:40 Calcium 9.2 mg/dL (8.4-10.5) 06/05/17 08:40 Total Bilirubin 0.4 mg/dL (0.2-1.3) 06/05/17 08:40 AST 19 U/L (15-39) 06/05/17 08:40 ALT 22 U/L (7-56) 06/05/17 08:40 Alkaline Phosphatase 100 U/L (38-133) 06/05/17 08:40 C-React Prot High Sens > 15.00 mg/L (1.00-3.00) H 05/29/17 07:40 Total Protein 7.0 g/dL (5.8-8.3) 06/05/17 08:40 Albumin 3.5 g/dL (3.0-4.8) 06/05/17 08:40 Globulin 3.5 gm/dL 06/05/17 08:40 Albumin/Globulin Ratio 1.0 (1.1-1.8) L 06/05/17 08:40 Attending/Attestation - Attestation I have personally seen and examined this patient.: Yes I have fully participated in the care of the patient.: Yes I have reviewed all pertinent clinical information, including history, physical exam and plan: Yes Notes (Text): 06/05/17 15:43 57 year old female with past medical history of CAD, SLE, DVT s/p IVC filter, compression fractures s/p lumbar fusion and recent T12 kyphoplasty who presented with intractable back pain with imaging findings suspicious for osteomyelitis. She was started seen by IR and is s/p bone biopsy/aspiration. She was started on iv antibiotics. Culture grew MSSA. Patient will be discharged to rehab today. Continue with nafcillin per ID 6-8 weeks. Weekly cbc, cmp, esr, crp. Follow up with pmd. Krystin Rodriguez MD. Hospitalist.
[2017-06-05] MEDS: Nafcillin 2 GM in Sodium Chloride 0.9% 100 ML IVPB SCH ×4 (00:07→14:21)
[2017-06-05] MEDS: Pantoprazole 40 mg EC Tab PO SCH (06:02)
[2017-06-05] MEDS ORDERED: oxyCODONE 20 mg ER Tab (oxyCONTIN) PO SCH (06:59)
[2017-06-05 08:58] LABS: HEMATOCRIT 35.1 % (36.0-48.0); MEAN CELL VOLUME 87.1 fl (80.0-105.0); MEAN CORPUSCULAR HEMOGLOBIN 28.3 pg (25.0-35.0); MEAN CORPUSCULAR HGB CONC 32.5 g/dl (31.0-37.0); MEAN PLATELET VOLUME 10.1 fl (7.0-11.0); RED CELL DISTRIBUTION WIDTH 15.3 % (11.5-14.5); WHITE BLOOD COUNT 6.2 10^3/ul (4.5-11.0)
[2017-06-05 09:03] LABS: ALKALINE PHOSPHATASE 100 U/L (38-133); ALT/SGPT 22 U/L (7-56); AST/SGOT 19 U/L (15-39); BILIRUBIN,TOTAL 0.4 mg/dL (0.2-1.3); BLOOD UREA NITROGEN 9 mg/dL (7-21); CALCIUM 9.2 mg/dL (8.4-10.5); CARBON DIOXIDE 31 mmol/L (21-33); CHLORIDE 99 mmol/L (98-107); GFR AFRICAN-AMERICAN > 60; GLUCOSE,RANDOM 98 mg/dL (70-110); POTASSIUM 3.2 mmol/L (3.6-5.0); SODIUM 141 mmol/L (132-148)
[2017-06-05] MEDS: Metoprolol Succinate 25 mg XL Tab PO SCH (10:08)
--- NOTE | 2017-06-05 14:24 | CP.PCM.PN ---
Subjective - Date & Time of Evaluation Date of Evaluation: 06/05/17 Time of Evaluation: 11:25 - Subjective Subjective: Comfortable in bed, not in distress, no fevers, still with back pain, no nausea , no diarrhea. Objective - Vital Signs/Intake and Output Vital Signs (last 24 hours): Temp Pulse Resp BP Pulse Ox 98.1 F 82 20 130/85 95 06/05/17 08:20 06/05/17 08:20 06/05/17 08:20 06/05/17 08:20 06/05/17 08:20 Intake and Output: 06/05/17 06/05/17 06:59 18:59 Intake Total 780 Balance 780 - Medications Medications: Current Medications Al Hydrox/Mg Hydrox/Simethicone (Maalox Plus 30 Ml) 30 ml PO Q6 PRN PRN Reason: Indigestion / Heartburn Clopidogrel Bisulfate (Plavix) 75 mg PO DAILY [facility] Last Admin: 06/04/17 09:16 Dose: 75 mg Docusate Sodium (Colace) 100 mg PO TID [facility] Last Admin: 06/04/17 18:00 Dose: 100 mg Duloxetine HCl (Cymbalta) 60 mg PO DAILY [facility] Last Admin: 06/04/17 09:14 Dose: 60 mg Folic Acid (Folic Acid) 1 mg PO DAILY [facility] Last Admin: 06/04/17 09:16 Dose: 1 mg Gabapentin (Neurontin) 300 mg PO TID [facility] PRN Reason: Protocol Last Admin: 06/04/17 18:00 Dose: 300 mg Heparin Sodium (Porcine) (Heparin) 5,000 units SC Q12 KIKA PRN Reason: Protocol Last Admin: 05/30/17 22:07 Dose: 5,000 units Hydrochlorothiazide (Microzide) 12.5 mg PO DAILY [facility] Last Admin: 06/04/17 09:14 Dose: 12.5 mg Nafcillin Sodium 2 gm/ Sodium (Chloride) 100 mls @ 100 mls/hr IVPB Q4 KIKA PRN Reason: Protocol Stop: 07/16/17 16:01 Last Admin: 06/05/17 08:29 Dose: 100 mls/hr Potassium Chloride (Potassium Chloride 20 Meq/100 Ml) 20 meq in 100 mls @ 50 mls/hr IVPB Q2H [facility] Stop: 06/05/17 13:29 Metoprolol Succinate (Toprol Xl) 25 mg PO DAILY [facility] Last Admin: 06/04/17 09:17 Dose: 25 mg Oxycodone HCl (Oxycontin Extended Release Tab) 40 mg PO Q12 [facility] Pantoprazole Sodium (Protonix Ec Tab) 40 mg PO 0600 [facility] Last Admin: 06/05/17 06:02 Dose: 40 mg Quetiapine Fumarate (Seroquel) 50 mg PO HS [facility] Last Admin: 06/04/17 22:25 Dose: 50 mg Sucralfate (Carafate Tab) 1 gm PO ACHS [facility] Last Admin: 06/05/17 08:32 Dose: 1 gm Tramadol HCl (Ultram) 50 mg PO Q6 PRN PRN Reason: Pain, moderate (4-7) Last Admin: 06/05/17 06:02 Dose: 50 mg - Labs Labs: 06/05/17 08:40 06/05/17 08:40 PT 11.4 Seconds (9.9-11.8) 05/28/17 20:20 INR 1.06 (0.93-1.08) 05/28/17 20:20 APTT 31.2 Seconds (23.7-30.8) H 05/28/17 20:20 - Constitutional Appears: Non-toxic, No Acute Distress - Head Exam Head Exam: NORMAL INSPECTION - Neck Exam Neck Exam: absent: Meningismus - Respiratory Exam Respiratory Exam: Decreased Breath Sounds - Cardiovascular Exam Cardiovascular Exam: +S1, +S2 - GI/Abdominal Exam GI & Abdominal Exam: Soft. absent: Tenderness Assessment and Plan - Assessment and Plan (Free Text) Plan: Assessment Back pain, chronic, due to osteomyelitis and discitis T11-L1, growing MSSA from the vertebrae compression fracture T12 fracture (which has underwent kyphoplasty in 2016) systemic lupus erythematosus CAD history of DVT S/P IVC filter placement, history of compression fractures of the T8, T9, L4 and L5 vertebrae S/P lumbar fusion S/P T12 kyphoplasty (2016) history of MSSA bacteremia (2016, source was not specifically determined and she received 6 weeks of antibiotics) Plan continue Nafcillin (dose-adjusted to q4 dosing) for at least 8-10 weeks with weekly ESR, CRP, CBC, CMP
[2017-06-05 17:06] VITALS: BP 128/82; PULSE 80; TEMP 98; O2SAT 94
[2017-06-06] MEDS ORDERED: Potassium Chloride 20 mEq ER Tab PO SCH (08:00)
== END 2017-06-05 17:48 | DRG 478 ==
LOC: ED 16:54 → ERH 21:43 → 5RSO 23:45
PROVIDERS: ADMIT Internal Medicine; ATTEND Internal Medicine
PROC: B54NZZA Ultrasonography of Left Upper Extremity Veins, Guidance (ICD-10-PCS; 2017-05-31)
PROC: 0P943ZX Drainage of Thoracic Vertebra, Percutaneous Approach, Diagnostic (ICD-10-PCS; principal; 2017-05-31 15:00)
PROC: 02HV33Z Insertion of Infusion Device into Superior Vena Cava, Percutaneous Approach (ICD-10-PCS; 2017-05-31 15:00)
DX: M46.46 Discitis, unspecified, lumbar region (principal); M46.26 Osteomyelitis of vertebra, lumbar region; M46.24 Osteomyelitis of vertebra, thoracic region; M46.44 Discitis, unspecified, thoracic region; B95.61 Methicillin susceptible Staphylococcus aureus infection as the cause of diseases classified elsewhere; M32.9 Systemic lupus erythematosus, unspecified; I10 Essential (primary) hypertension; G89.29 Other chronic pain; I25.10 Atherosclerotic heart disease of native coronary artery without angina pectoris; Z98.1 Arthrodesis status; Z88.6 Allergy status to analgesic agent; I25.2 Old myocardial infarction; Z87.311 Personal history of (healed) other pathological fracture; Z88.5 Allergy status to narcotic agent; Z86.718 Personal history of other venous thrombosis and embolism

== ENCOUNTER 2017-08-23 11:39 | Inpatient (IN) | payer MEDICARE, MEDICAID ==
[2017-08-23 11:48] VITALS: BMI 25.2
[2017-08-23] MEDS ORDERED: Sodium Chloride 0.9% 1,000 ML IV STA (12:38)
[2017-08-23 13:33] LABS: BASO # 0.01 K/mm3 (0.0-2.0); BASO % 0.1 % (0.0-3.0); EOS % 0.2 % (1.5-5.0); GRAN # 7.7 (1.4-6.5); GRAN % 79.7 % (50.0-68.0); HEMATOCRIT 30.6 % (36.0-48.0); LYMPH # 1.3 (1.2-3.4); LYMPH % 13.4 % (22.0-35.0); MEAN CELL VOLUME 89.7 fl (80.0-105.0); MEAN CORPUSCULAR HEMOGLOBIN 29.6 pg (25.0-35.0); MEAN PLATELET VOLUME 10.1 fl (7.0-11.0); MONO # 0.6 (0.1-0.6); MONO % 6.6 % (1.0-6.0); RED CELL DISTRIBUTION WIDTH 16.3 % (11.5-14.5); WHITE BLOOD COUNT 9.7 10^3/ul (4.5-11.0)
[2017-08-23 13:43] LABS: INR 1.17 (0.93-1.08); PARTIAL THROMBOPLASTIN TIME 38.3 Seconds (25.1-36.5)
[2017-08-23 13:44] LABS: ALB/GLOB RATIO 0.8 (1.1-1.8); ALKALINE PHOSPHATASE 135 U/L (38-126); ALT/SGPT 29 U/L (7-56); AST/SGOT 28 U/L (14-36); BILIRUBIN,TOTAL 0.6 mg/dL (0.2-1.3); BLOOD UREA NITROGEN 19 mg/dL (7-21); CARBON DIOXIDE 30 mmol/L (21-33); CHLORIDE 100 mmol/L (95-110); GFR AFRICAN-AMERICAN > 60; GLUCOSE,RANDOM 111 mg/dL (70-110); LIPASE 42 U/L (23-300); POTASSIUM 4.4 mmol/L (3.6-5.0); SODIUM 138 mmol/L (132-148)
--- NOTE | 2017-08-23 15:44 | US ---
HISTORY: abd pain/vomiting COMPARISON: None. TECHNIQUE: Grayscale imaging was performed. FINDINGS: LIVER: Measures 15.0 cm. Normal echogenicity of the liver parenchyma. No mass. No intrahepatic bile duct dilatation. GALLBLADDER: There are no gallstones, wall thickening or pericholecystic the COMMON BILE DUCT: Measures 3.4 mm. No stones. No dilatation. PANCREAS: Unremarkable as visualized. No mass. No ductal dilatation. RIGHT KIDNEY: Measures 9.0cm. Normal echogenicity. No calculus, mass, or hydronephrosis. LEFT KIDNEY: Measures 9.1cm. Normal echogenicity. No calculus, mass, or hydronephrosis. SPLEEN: Normal in size and contour. No mass. AORTA: No aneurysmal dilatation. IVC: Unremarkable. OTHER FINDINGS: None. IMPRESSION: No cholelithiasis or biliary dilatation.
[2017-08-23 16:14] LABS: PH,URINE 7.5 (4.7-8.0); URINE BILIRUBIN NEGATIVE (NEGATIVE); URINE BLOOD NEGATIVE (NEGATIVE); URINE GLUCOSE (UA) NEGATIVE (NEGATIVE); URINE KETONE NEGATIVE (NEGATIVE); URINE LEUKOCYTE ESTERASE SMALL Leu/uL (NEGATIVE); URINE PROTEIN NEGATIVE mg/dL (<30 mg/dL); URINE UROBILINOGEN 0.2 E.U./dL (<1 E.U./dL)
[2017-08-23 16:20] LABS: URINE APPEARANCE CLEAR (CLEAR); URINE COLOR YELLOW (YELLOW)
[2017-08-23 16:34] LABS: URINE RBC 0 - 2 /hpf (0-2)
[2017-08-23] MEDS ORDERED: Gadodiamide 287 MG/ML VIAL (15ML) IV ONE (17:45)
--- NOTE | 2017-08-23 20:06 | MRI ---
EXAM: MR Lumbar Spine Without and With Intravenous Contrast EXAM DATE/TIME: 08/23/2017 12:40 PM CLINICAL HISTORY: The patient age is 57 years old and is female; Pain; [place] and low back pain; Prior surgery; Surgery date: <1 month; Patient HX: ? Diskitis. ? Osteo. Dominik Khan Juanis is aware that patient gfr is 51, she is ok with it. 15 cc of omniscan was injected. [place] prieto; Additional info: H/o discitis and osteomyelitis, increased pain Facility exam id and description: Mri splcsg spinal lumbar w/wo heather TECHNIQUE: Magnetic resonance images of the lumbar spine without and with intravenous contrast in multiple planes. CONTRAST: 15 mL of omniscan administered intravenously. COMPARISON: MR - SPINAL LUMBAR W/WO HEATHER 2017-05-29 14:27 FINDINGS: Vertebrae: There is enhancement of the T11-12 and T12-L1 discs as well as the T11-L1 vertebral bodies. There is enhancement of the posterior elements at T11 and T12 as well. There is mild progression of enhancement of the T12-L1 disc and L1 vertebral body. These findings are consistent with the previously described discitis and osteomyelitis. Dural enhancement and thickening is identified within the lower thoracic and upper lumbar spine. This has mildly progressed. This is concerning for an infectious etiology, although malignancy is also within the differential. Paraspinal swelling is identified at the level of the lower thoracic and upper lumbar spine. There is postoperative fusion of L5 and S1, with magnetic susceptibility associated with bilateral pedicle fixation screws. Moderate compression fractures are identified from L2 to L5, stable compared to the prior study. There is a severe stable compression fracture of T12. A moderate chronic compression fracture is visualized T9 with a mild chronic compression fracture at T10, without acute marrow edema at these levels. There is slight anterolisthesis of L5 on S1. Mild retropulsion is visualized at L2. Other bones/joints: Degenerative disc disease is noted at multiple lumbar levels, with disc bulge/osteophyte complexes. Spinal cord: The distal end of the conus medullaris ends at L1, normal in position. DISCS/SPINAL CANAL/NEURAL FORAMINA: T11-T12: Mild narrowing of the thecal sac is identified at T11-12. Mild right and severe left neural foraminal narrowing is seen at this level. L1-L2: There is mild narrowing of the thecal sac. Mild left neural foramina is identified. L2-L3: There is mild disc bulging. There is no significant narrowing of the thecal sac or neural foramina. L3-L4: There is no significant narrowing of the thecal sac. There is mild bulging of the right neural foramen, without compression of the exiting nerve root. The left neural foramen is patent. L4-L5: There is no significant narrowing of the thecal sac or neural foramina. L5-S1: There is no significant narrowing of the thecal sac. There is slight narrowing of the inferior aspect of the right neural foramen. The left neural foramen is patent. IMPRESSION: 1. There is enhancement of the T11-12 and T12-L1 discs as well as the T11-L1 vertebral bodies. There is mild progression of enhancement of the T12-L1 disc and L1 vertebral body. These findings are consistent with the previously described discitis and osteomyelitis. 2. Dural enhancement and thickening is identified within the lower thoracic and upper lumbar spine. This has mildly progressed. This is concerning for an infectious etiology, although malignancy is also within the differential. 3. Paraspinal swelling is identified at the level of the lower thoracic and upper lumbar spine. 4. There is stable postoperative fusion of L5 and S1. 5. Moderate compression fractures are identified from L2 to L5, stable compared to the prior study. There is a severe stable compression fracture of T12. A moderate chronic compression fracture is visualized T9 with a mild chronic compression fracture at T10. 6. There is slight anterolisthesis of L5 on S1. 7. Degenerative changes are visualized multiple lumbar levels, as described above. 8. There is mild narrowing of the thecal sac at L1-2. 9. Neural foraminal narrowing is identified at L1-2 and L5-S1, as detailed above. 10. Mild narrowing of the thecal sac is identified at T11-12. Mild right and severe left neural foraminal narrowing is seen at this level.
--- NOTE | 2017-08-23 20:16 | MRI ---
EXAM: MR Thoracic Spine Without and With Intravenous Contrast CLINICAL HISTORY: 57 years old, female; Pain; Pain in thoracic spine and pain in thoracic intervertebral disc disorder; Prior surgery; Surgery date: <1 month; Patient HX: ? Diskitis. ? Osteo. Dominik Olivarez is aware that patient gfr is 51, she is ok with it. 15 cc of omniscan was injected. [place] prieto; Additional info: H/o discitis and osteomyelitis, increased pain TECHNIQUE: Magnetic resonance images of the thoracic spine without and with intravenous contrast in multiple planes. CONTRAST: 15 mL of omniscan administered intravenously. COMPARISON: MR - SPINAL THORACIC W/WO HEATHER 2017-05-29 13:48 FINDINGS: Limitations: Study limited due to patient motion. Vertebrae: Severe compression fracture of T12. Previous kyphoplasty at this level. Discs/spinal canal/neural foramina: Diffuse mild enhancement of T11, T12, and L1. Enhancement of disc at T11-12 and T12-L1. Paraspinal soft tissue swelling. Mild thecal sac narrowing at T11-L1 levels. Spinal cord: No evidence of signal abnormality within the spinal cord. No abnormal enhancement. Soft tissues: See above. Other findings: Dural enhancement again noted. This has mildly progressed. IMPRESSION: 1. MRI findings consistent with multilevel osteomyelitis and discitis. Slight progression of dural enhancement when compared to prior exam. No drainable fluid component is identified. 2. Remainder of findings as above.
--- NOTE | 2017-08-23 20:30 | ED PDOC ---
Arrival/HPI - General Chief Complaint: Abdominal Pain Time Seen by Provider: 08/23/17 12:03 Historian: Patient - History of Present Illness Narrative History of Present Illness (Text): 08/23/17 21:01 patient c/o back pain, radiating to her abdomen and associated with intermittent vomiting. Patient tim was admitted here in may for "back infection" and had surgery after which she was transferred to Rehab. Patient sts pain in her back never got better, but for the last 1 week it got progressively worse. Patient denies any neuro deficit. patient sts she has difficulty ambulating secondary to pain. As per previous reports patient was diagnosed with osteomyelitis and discitis of lower T spines as well as multiple compression fractures of lower T and L spines. Patient had CT guided procedure to drain osteo and abscess of T spines. Past Medical History - Provider Review Nursing Documentation Reviewed: Yes - Travel History Have you recently traveled outside [place] w/in the past 3 mons?: No - Infectious Disease Hx of Infectious Diseases: None - Tetanus Immunization Tetanus Immunization: Unknown - Reproductive Menopause: Yes - Cardiac Hx Cardiac Disorders: Yes (CAD) Hx Hypertension: Yes - Pulmonary Hx Asthma: Yes - Neurological Hx Dizziness: Yes - HEENT Hx HEENT Disorder: No - Renal Hx Renal Disorder: No - Endocrine/Metabolic Hx Systemic Lupus Erythematosus: Yes - Hematological/Oncological Hx Shingles: Yes - Integumentary Hx Dermatological Disorder: Yes (shingles) - Musculoskeletal/Rheumatological Hx Arthritis: Yes Hx Back Pain: Yes Hx Falls: Yes Hx Osteomyelitis: Yes Hx Unsteady Gait: Yes - Gastrointestinal Hx Gastrointestinal Disorders: Yes - Genitourinary/Gynecological Hx Genitourinary Disorders: No - Psychiatric Hx Depression: Yes Hx Substance Use: No - Surgical History Hx Orthopedic Surgery: Yes (Lumbar fusion, T12 kyphoplasty) Other/Comment: back surgery x2 february and april 2017 - Anesthesia Hx Anesthesia: Yes Hx Anesthesia Reactions: No Hx Malignant Hyperthermia: No - Suicidal Assessment Feels Threatened In Home Enviroment: No Family/Social History - Physician Review Nursing Documentation Reviewed: Yes Family/Social History: Unknown Family HX Smoking Status: Never Smoked Hx Alcohol Use: No Hx Substance Use: No Hx Substance Use Treatment: No Allergies/Home Meds Allergies/Adverse Reactions: Allergies aspirin Allergy (Verified 08/23/17 16:48) RASH codeine Allergy (Verified 08/23/17 16:48) RASH penicillin G Allergy (Verified 08/23/17 20:22) SWELLING Home Medications: Home Meds Medication Instructions Recorded Confirmed Clonazepam [Klonopin] 1 tab PO DAILY 05/07/17 08/23/17 Gabapentin [Neurontin] 300 mg PO Q8 05/07/17 08/23/17 Hydrocodone/Acetaminophen 1 tab PO QID PRN 05/07/17 08/23/17 [Hydrocodone-Acetaminophen 325 mg-7 mg] QUEtiapine [SEROquel] 1 tab PO HS 05/07/17 08/23/17 Clopidogrel [Plavix] 1 tab PO DAILY 05/28/17 08/23/17 Methotrexate 2.5 mg PO Q7D 05/28/17 08/23/17 hydroCHLOROthiazide [Microzide] 1 cap PO DAILY 05/28/17 08/23/17 traMADol [Ultram] 1 tab PO Q8H PRN 05/28/17 08/23/17 Duloxetine HCl [Duloxetine] 30 mg PO DAILY 08/23/17 08/23/17 Folic Acid 1 mg PO DAILY 08/23/17 08/23/17 Hydroxychloroquine Sulfate 200 mg PO BID 08/23/17 08/23/17 [Plaquenil] Metoprolol Succinate [Toprol XL] 25 mg PO DAILY 08/23/17 08/23/17 Pregabalin [Lyrica] 150 mg PO BID 08/23/17 08/23/17 Sucralfate [Carafate] 1 gm PO Q6 08/23/17 08/23/17 Review of Systems - Physician Review All systems were reviewed & negative as marked: Yes - Review of Systems Constitutional: absent: Fevers Gastrointestinal: Vomiting Musculoskeletal: Back Pain Physical Exam Vital Signs Reviewed: Yes Vital Signs Temp Pulse Resp BP Pulse Ox 08/23/17 18:29 106 H 20 118/76 100 08/23/17 13:49 96 H 18 136/88 100 08/23/17 11:51 98.3 F 85 18 119/86 100 Temperature: Afebrile Blood Pressure: Normal Pulse: Regular Respiratory Rate: Normal Appearance: Positive for: Non-Toxic, Uncomfortable Pain Distress: Moderate Mental Status: Positive for: Alert and Oriented X 3 - Systems Exam Head: Present: Atraumatic, Normocephalic Pupils: Present: PERRL Extroacular Muscles: Present: EOMI Conjunctiva: Present: Normal Ears: Present: Normal Mouth: Present: Moist Mucous Membranes Neck: Present: Normal Range of Motion. No: MIDLINE TENDERNESS, Paraspinal Tenderness Respiratory/Chest: Present: Clear to Auscultation. No: Respiratory Distress, Accessory Muscle Use Cardiovascular: Present: Regular Rate and Rhythm, Normal S1, S2. No: Murmurs Abdomen: Present: Tenderness (diffuse) Back: Present: Midline Tenderness (T and LS spine), Pain with Leg Raise Upper Extremity: Present: Normal Inspection, Edema, Normal ROM Lower Extremity: Present: Normal Inspection. No: Edema, Normal ROM (secondary to back pain) Neurological: Present: Motor Func Grossly Intact, Normal Sensory Function Skin: Present: Warm. No: Rashes Psychiatric: Present: Alert, Oriented x 3 Medical Decision Making ED Course and Treatment: 08/23/17 21:17 Case was d/w who accepted patient for an admission. medical support assistant was informed. - Lab Interpretations Lab Results: 08/23/17 13:25 08/23/17 13:25 Lab Results 08/23/17 16:00: Urine Color Yellow, Urine Appearance Clear, Urine pH 7.5, Ur Specific Holcomb 1.010, Urine Protein Negative, Urine Glucose (UA) Negative, Urine Ketones Negative, Urine Blood Negative, Urine Nitrate Negative, Urine Bilirubin Negative, Urine Urobilinogen 0.2, Ur Leukocyte Esterase Small H, Urine RBC 0 - 2, Urine WBC 5 - 10, Ur Epithelial Cells 6 - 8 08/23/17 13:25: Sodium 138, Potassium 4.4, Chloride 100, Carbon Dioxide 30, Anion Gap 12, BUN 19, Creatinine 1.1, Est GFR ( Amer) > 60, Est GFR (Non- Af Amer) 51, Random Glucose 111 H, Calcium 10.0, Total Bilirubin 0.6, AST 28, ALT 29, Alkaline Phosphatase 135 H, Total Protein 8.0, Albumin 3.7, Globulin 4.4 , Albumin/Globulin Ratio 0.8 L, Lipase 42 08/23/17 13:25: PT 12.9 H, INR 1.17 H, APTT 38.3 H 08/23/17 13:25: WBC 9.7 D, RBC 3.41 L, Hgb 10.1 L, Hct 30.6 L, MCV 89.7, MCH 29.6, MCHC 33.0, RDW 16.3 H, Plt Count 328, MPV 10.1, Gran % 79.7 H, Lymph % ( Auto) 13.4 L, [place] % (Auto) 6.6 H, Eos % (Auto) 0.2 L, Baso % (Auto) 0.1, Gran # 7.70 H, Lymph # 1.3, [place] # 0.6, Eos # 0.0, Baso # 0.01 - RAD Interpretation Narrative RAD Interpretations (Text): 08/23/17 20:28 Tspine MRI W/WO contrast FINDINGS: Limitations: Study limited due to patient motion. Vertebrae: Severe compression fracture of T12. Previous kyphoplasty at this level. Discs/spinal canal/neural foramina: Diffuse mild enhancement of T11, T12, and L1. Enhancement of disc at T11-12 and T12-L1. Paraspinal soft tissue swelling. Mild thecal sac narrowing at T11-L1 levels. Spinal cord: No evidence of signal abnormality within the spinal cord. No abnormal enhancement. Soft tissues: See above. Other findings: Dural enhancement again noted. This has mildly progressed. IMPRESSION: 1. MRI findings consistent with multilevel osteomyelitis and discitis. Slight progression of dural enhancement when compared to prior exam. No drainable fluid component is identified. 2. Remainder of findings as above. LS spine MRI W/WO contrast IMPRESSION: 1. There is enhancement of the T11-12 and T12-L1 discs as well as the T11-L1 vertebral bodies. There is mild progression of enhancement of the T12-L1 disc and L1 vertebral body. These findings are consistent with the previously described discitis and osteomyelitis. 2. Dural enhancement and thickening is identified within the lower thoracic and upper lumbar spine. This has mildly progressed. This is concerning for an infectious etiology, although malignancy is also within the differential. 3. Paraspinal swelling is identified at the level of the lower thoracic and upper lumbar spine. 4. There is stable postoperative fusion of L5 and S1. 5. Moderate compression fractures are identified from L2 to L5, stable compared to the prior study. There is a severe stable compression fracture of T12. A moderate chronic compression fracture is visualized T9 with a mild chronic compression fracture at T10. 6. There is slight anterolisthesis of L5 on S1. 7. Degenerative changes are visualized multiple lumbar levels, as described above. 8. There is mild narrowing of the thecal sac at L1-2. 9. Neural foraminal narrowing is identified at L1-2 and L5-S1, as detailed above. 10. Mild narrowing of the thecal sac is identified at T11-12. Mild right and severe left neural foraminal narrowing is seen at this level. Thank you for allowing us to participate in the care of your patient. Dictated and Authenticated by: Ronald King MD 08/23/2017 8:06 PM Eastern Time ([place] & [place]) Radiology Orders: 08/23/17 12:38 ABDOMEN COMPLETE [US] Stat 08/23/17 12:40 SPINAL LUMBAR W/WO HEATHER [MRI] Stat SPINAL THORACIC W/WO HEATHER [MRI] Stat - Medication Orders Current Medication Orders: Hydromorphone HCl (Dilaudid) 1 mg IVP STAT STA Stop: 08/23/17 20:57 Clindamycin Phosphate 600 mg/ (Sodium Chloride) 54 mls @ 108 mls/hr IVPB STAT STA PRN Reason: Protocol Stop: 08/23/17 21:25 Discontinued Medications Sodium Chloride (Sodium Chloride 0.9%) 1,000 mls @ 1,000 mls/hr IV .Q1H STA Stop: 08/23/17 13:37 Last Admin: 08/23/17 13:15 Dose: 1,000 mls/hr eMAR Start Stop Document 08/23/17 13:15 OCS (Rec: 08/23/17 13:46 [email or web address] Intravenous Solution Start Date 08/23/17 Start Time 13:15 End Date 08/23/17 End time 14:15 Total Infusion Time 60 Ondansetron HCl (Zofran Inj) 4 mg IVP STAT STA Stop: 08/23/17 12:39 Last Admin: 08/23/17 13:15 Dose: 4 mg IVP Administration Document 08/23/17 13:15 OCS (Rec: 08/23/17 13:47 [email or web address] Charges for Administration # of IVP Administrations 1 Disposition/Present on Arrival - Present on Arrival Any Indicators Present on Arrival: Yes History of DVT/PE: Yes History of Uncontrolled Diabetes: No Urinary Catheter: No History of Decub. Ulcer: No History Surgical Site Infection Following: None - Disposition Have Diagnosis and Disposition been Completed?: Yes Diagnosis: Discitis of thoracolumbar region, Osteomyelitis of thoracic spine Disposition: HOSPITALIZED Disposition Time: 21:20 Patient Plan: Admission Condition: FAIR Forms: [employer] (Polish)
[2017-08-23] MEDS ORDERED: HYDROmorphone 1 mg/ml ISec IVP STA (20:56)
--- NOTE | 2017-08-23 23:07 | CP.PCM.HP ---
<Sherry Trent - Last Filed: 08/24/17 01:30> History of Present Illness - History of Present Illness History of Present Illness: CC: "My back hurts and I've been vomiting" HPI: Patient is a 57 year old female with past medical history chronic back pain, Lupus, HTN, HLD, CAD, osteoporosis, DVT s/p IVC filter, compression fractures s/p lumbar fusion and recent T12 kyphoplasty presents to the ED for worsening back pain that radiates to her abdomen with associated nausea and NBNB vomiting. Patient was recently admitted in May for Osteomyeolitis and discitis of the lower thoracic spine and was subsequently transferred to rehab for continued IV antibiotics. States that the back pain never improved and has progressively gotten worse over the last week. States that she has been Vomiting "a lot" since last night. Denies eating anything out of the ordinary. Also complaining of B/L leg pain that she attributes to Lupus. Denies fevers, chills, headaches, chest pain, sob, changes in bowel habits, urinary symptoms, numbness or tingling. Patient has difficulty ambulating due to pain. ED Course: Clindamycin, Dilaudid, Zofran, NS PMD: Dr. Seb Rush Allergies: aspirin, codeine, pen G Medications: Klonopin 0.5mg, Plavix 75mg, Gabapentin 300mg Q8H, Duloxetine 60mg , Folic acid 1 mg, methotrexate 2.5mg weekly, HCTZ 12.5mg, Lyrica 150mg, carafate 1 gm, duloxetine 30mg, metoprolol succinate 25mg, plaquenil 200mg, seroquel 50mg Medical Hx: SLE, chronic back pain, HTN, HLD, CAD, osteoporosis Surgical Hx: Lumbar fusion (T12 kyphoplasty), C section, IVC filter placement Social Hx: Denies alcohol, tobacco, drug use; lives at home with daughter Family Hx: Mother - heart disease; Father - Throat cancer Present on Admission - Present on Admission Any Indicators Present on Admission: Yes History of DVT/PE: Yes Review of Systems - Constitutional Constitutional: absent: Chills, Fever, Night Sweats - EENT Eyes: absent: Blurred Vision, Change in Vision Ears: absent: Dizziness Nose/Mouth/Throat: absent: Nasal Congestion - Cardiovascular Cardiovascular: Palpitations. absent: Chest Pain, Dyspnea, Edema, Lightheadedness - Respiratory Respiratory: absent: Cough, Dyspnea, Wheezing - Gastrointestinal Gastrointestinal: Nausea, Vomiting. absent: Abdominal Pain, Constipation, Diarrhea - Genitourinary Genitourinary: absent: Dysuria, Hematuria, Urinary Frequency - Musculoskeletal Musculoskeletal: Back Pain, Limited Range of Motion. absent: Numbness, Tingling - Neurological Neurological: absent: Dizziness, Numbness, Headaches, Tingling Past Patient History - Infectious Disease Hx of Infectious Diseases: None - Tetanus Immunizations Tetanus Immunization: Unknown - Past Social History Smoking Status: Never Smoked - CARDIAC Hx Cardiac Disorders: Yes (CAD) Hx Hypertension: Yes - PULMONARY Hx Asthma: Yes - NEUROLOGICAL Hx Dizziness: Yes - HEENT Hx HEENT Problems: No - RENAL Hx Chronic Kidney Disease: No - ENDOCRINE/METABOLIC Hx Systemic Lupus Erythematosus: Yes - HEMATOLOGICAL/ONCOLOGICAL Hx Shingles: Yes - INTEGUMENTARY Hx Dermatological Problems: Yes (shingles) - MUSCULOSKELETAL/RHEUMATOLOGICAL Hx Arthritis: Yes Hx Back Pain: Yes Hx Falls: Yes Hx Osteomyelitis: Yes Hx Unsteady Gait: Yes - GASTROINTESTINAL Hx Gastrointestinal Disorders: Yes - GENITOURINARY/GYNECOLOGICAL Hx Genitourinary Disorders: No - PSYCHIATRIC Hx Depression: Yes Hx Substance Use: No - SURGICAL HISTORY Hx Orthopedic Surgery: Yes (Lumbar fusion, T12 kyphoplasty) Other/Comment: back surgery x2 february and april 2017 - ANESTHESIA Hx Anesthesia: Yes Hx Anesthesia Reactions: No Hx Malignant Hyperthermia: No Meds Allergies/Adverse Reactions: Allergies Allergy/AdvReac Type Severity Reaction Status Date / Time aspirin Allergy RASH Verified 08/23/17 16:48 codeine Allergy RASH Verified 08/23/17 16:48 penicillin G Allergy SWELLING Verified 08/23/17 20:22 Physical Exam - Constitutional Appears: Well, No Acute Distress - Head Exam Head Exam: ATRAUMATIC, NORMAL INSPECTION, NORMOCEPHALIC - Eye Exam Eye Exam: EOMI, Normal appearance Pupil Exam: NORMAL ACCOMODATION, PERRL - ENT Exam ENT Exam: Mucous Membranes Moist - Neck Exam Neck exam: Positive for: Full Rom - Respiratory Exam Respiratory Exam: Clear to Auscultation Bilateral, NORMAL BREATHING PATTERN. absent: Rales, Rhonchi, Wheezes - Cardiovascular Exam Cardiovascular Exam: Tachycardia, +S1, +S2. absent: Systolic Murmur - GI/Abdominal Exam GI & Abdominal Exam: Normal Bowel Sounds, Soft. absent: Guarding, Rebound, Rigid, Tenderness - Extremities Exam Extremities exam: Positive for: normal inspection, pedal pulses present. Negative for: calf tenderness Additional comments: Pain with Straight leg raise - Back Exam Back exam: muscle spasm, paraspinal tenderness - Neurological Exam Neurological exam: Alert, CN II-XII Intact, Oriented x3 - Psychiatric Exam Psychiatric exam: Normal Affect, Normal Mood - Skin Skin Exam: Dry, Normal Color, Warm Results - Vital Signs Recent Vital Signs: Last Vital Signs Temp 98.3 F 08/23/17 11:51 Pulse 88 08/23/17 22:58 Resp 20 08/23/17 22:58 BP 119/77 08/23/17 22:58 Pulse Ox 98 08/23/17 22:58 - Labs Result Diagrams: 08/23/17 13:25 08/23/17 13:25 Assessment & Plan - Assessment and Plan (Free Text) Assessment: 57 year old female with past medical history chronic back pain, Lupus, HTN, HLD, CAD, osteoporosis, DVT s/p IVC filter, compression fractures s/p lumbar fusion and recent T12 kyphoplasty presents to the ED for worsening back pain that radiates to her abdomen with associated nausea and NBNB vomiting. Plan: 1. Osteomyeolitis/Discitis of Lower Thoracic Spine -Stable, afebrile, no leukocytosis -Was recently admitted in May for osteomyeolitis; s/p bone biopsy/aspiration at that time -Culture at that time grew MSSA, was discharged to Rehab for IV Naficillin x 6- 8 weeks -MRI findings consistent with multilevel osteomyelitis and discitis. Slight progression of dural enhancement (see full report) -Abx: Merrem, Vanco, Daptomycin -Pain control: Dilaudid 0.5mg q4H prn moderate pain, Dilaudid 1mg q4H prn severe pain -Zofran prn nausea, Tylenol prn fever -F/U blood cx, urine cx, ESR, CRP -ID consulted, f/u recommendations -Neurosurgery consulted, f/u recommendations -Physical Therapy and Occupational Therapy evaluation ordered 2. Nausea/Vomiting with abdominal pain -Last episode of vomiting was prior to arrival -Abdominal US: no cholelithiasis or bilary dilation -Diet: Clear liquid diet, advance as tolerated -Zofran prn nausea 3. Urinary Tract Infection -UA showing small leuk esterase -Follow up urine culture 4. Anemia -Hgb 10.1 on admission -Appears to be at baseline -Will continue to monitor 5. History of SLE -Continue home medications 6. History of CAD -Continue plavix 7. History of Hypertension -Continue Metoprolol succinate 25mg -Continue HCTZ 12.5mg daily 8. Hx of DVT, s/p IVC filter -Heparin 5000U Q12H SC GI/DVT ppx Protonix 40mg Heparin 5000U SC Q12H <Reji Bass Q - Last Filed: 08/24/17 04:25> Results - Vital Signs Recent Vital Signs: Last Vital Signs Temp 98.3 F 08/23/17 11:51 Pulse 88 08/23/17 22:58 Resp 20 08/23/17 22:58 BP 119/77 08/23/17 22:58 Pulse Ox 98 08/23/17 22:58 - Labs Result Diagrams: 08/23/17 13:25 08/23/17 13:25 Attending/Attestation - Attestation I have personally seen and examined this patient.: Yes I have fully participated in the care of the patient.: Yes I have reviewed all pertinent clinical information: Yes Notes (Text): 08/24/17 04:23 I agree with the above mentioned note with the addition of the following: Patient's MRI today read as worsening of discitis and osteomyelitis at T11,12 and L1. Also showed thickened dura which was not present on prior examination. Patient started on IV abx, pancultured; ID consult obtained given that patient has had completed over 6weeks of IV Abx between her last hospital stay and at [facility].
--- NOTE | 2017-08-23 23:46 | CP.PCM.CON ---
History of Present Illness - History of Present Illness History of Present Illness: ICU Consult 67 F with PMHx of coronary artery disease, new onset atrial fibrillation, hypertension, hyperlipidemia, cholecystitis, diarrhea without an apparent infectious etiology admitted for treatment of generalized weakness and persistent diarrhea. Pt was recently treated at [facility] 2 weeks ago for new onset atrial fibrillation and cholecystitis. Patient had a cholecysectomy and evaluated for acute coronary event. Pt was started on coumadin for A fib prior to dc from [facility]. Pt was admitted with persistent loose bm, and three episodes today, and roughly 30 episodes since admission. Pt is not on any abx at this time. CT abdomen demonstrated enteritis. ICU was consulted to evaluate pt for hypotension. Pt has had labile BP for the past couple of days. Of note, pt has a rash across the majority of her back. Pt was seen and examined at bedside. Pt has complaints of dizziness, abdominal discomfort, and persistent loose bm. Pt denied fever, chills, sob, chest pains, n/v or urinary symptoms. PMHx:CAD, new onset atrial fibrillation, hypertension, hyperlipidemia, hyperlipidemia, cholecystitis, diarrhea without an infectious etiology PSHx: cholescystectomy SHx:denies ETOH use, no tobacco use, no illicit drug use Allergies: NKDA Meds: MAR reviewed PMD: Dr. Chanel Review of Systems - Review of Systems Review of Systems: As per HPI otherwise negative Past Patient History - Infectious Disease Hx of Infectious Diseases: None - Tetanus Immunizations Tetanus Immunization: Unknown - Past Social History Smoking Status: Never Smoked - CARDIAC Hx Cardiac Disorders: Yes (CAD) Hx Hypertension: Yes - PULMONARY Hx Asthma: Yes - NEUROLOGICAL Hx Dizziness: Yes - HEENT Hx HEENT Problems: No - RENAL Hx Chronic Kidney Disease: No - ENDOCRINE/METABOLIC Hx Systemic Lupus Erythematosus: Yes - HEMATOLOGICAL/ONCOLOGICAL Hx Shingles: Yes - INTEGUMENTARY Hx Dermatological Problems: Yes (shingles) - MUSCULOSKELETAL/RHEUMATOLOGICAL Hx Arthritis: Yes Hx Back Pain: Yes Hx Falls: Yes Hx Osteomyelitis: Yes Hx Unsteady Gait: Yes - GASTROINTESTINAL Hx Gastrointestinal Disorders: Yes - GENITOURINARY/GYNECOLOGICAL Hx Genitourinary Disorders: No - PSYCHIATRIC Hx Depression: Yes Hx Substance Use: No - SURGICAL HISTORY Hx Orthopedic Surgery: Yes (Lumbar fusion, T12 kyphoplasty) Other/Comment: back surgery x2 february and april 2017 - ANESTHESIA Hx Anesthesia: Yes Hx Anesthesia Reactions: No Hx Malignant Hyperthermia: No Meds Allergies/Adverse Reactions: Allergies Allergy/AdvReac Type Severity Reaction Status Date / Time aspirin Allergy RASH Verified 08/23/17 16:48 codeine Allergy RASH Verified 08/23/17 16:48 penicillin G Allergy SWELLING Verified 08/23/17 20:22 - Medications Medications: Current Medications Heparin Sodium (Porcine) (Heparin) 5,000 units SC Q12H [facility] PRN Reason: Protocol Hydromorphone HCl (Dilaudid) 0.5 mg IVP Q4H PRN PRN Reason: Pain, moderate (4-7) Hydromorphone HCl (Dilaudid) 1 mg IVP Q4H PRN PRN Reason: Pain, severe (8-10) Vancomycin HCl (Vancomycin 1gm) 1 gm in 250 mls @ 167 mls/hr IVPB Q12H [facility] PRN Reason: Protocol Ondansetron HCl (Zofran Inj) 4 mg IVP Q4H PRN PRN Reason: Nausea/Vomiting Pantoprazole Sodium (Protonix Inj) 40 mg IVP DAILY [facility] Physical Exam - Constitutional Appears: No Acute Distress - Head Exam Head Exam: ATRAUMATIC, NORMAL INSPECTION, NORMOCEPHALIC - Eye Exam Eye Exam: EOMI, Normal appearance, PERRL Pupil Exam: NORMAL ACCOMODATION, PERRL - ENT Exam ENT Exam: Mucous Membranes Dry - Neck Exam Neck exam: Positive for: Normal Inspection - Respiratory Exam Respiratory Exam: Clear to Auscultation Bilateral, NORMAL BREATHING PATTERN - Cardiovascular Exam Cardiovascular Exam: Irregular Rhythm, +S1, +S2 - GI/Abdominal Exam GI & Abdominal Exam: Normal Bowel Sounds, Soft. absent: Tenderness - Extremities Exam Extremities exam: Positive for: normal inspection - Neurological Exam Neurological exam: Alert, CN II-XII Intact, Oriented x3, Reflexes Normal - Psychiatric Exam Psychiatric exam: Normal Affect, Normal Mood - Skin Skin Exam: Dry, Intact, Normal Color, Warm Results - Vital Signs Recent Vital Signs: Last Vital Signs Temp 98.3 F 08/23/17 11:51 Pulse 88 08/23/17 22:58 Resp 20 08/23/17 22:58 BP 119/77 08/23/17 22:58 Pulse Ox 98 08/23/17 22:58 - Labs Result Diagrams: 08/23/17 13:25 08/23/17 13:25 Labs: Laboratory Results - last 24 hr 08/23/17 08/23/17 08/23/17 13:25 13:25 13:25 WBC 9.7 D RBC 3.41 L Hgb 10.1 L Hct 30.6 L MCV 89.7 MCH 29.6 MCHC 33.0 RDW 16.3 H Plt Count 328 MPV 10.1 Gran % 79.7 H Lymph % (Auto) 13.4 L [place] % (Auto) 6.6 H Eos % (Auto) 0.2 L Baso % (Auto) 0.1 Gran # 7.70 H Lymph # 1.3 [place] # 0.6 Eos # 0.0 Baso # 0.01 PT 12.9 H INR 1.17 H APTT 38.3 H Sodium 138 Potassium 4.4 Chloride 100 Carbon Dioxide 30 Anion Gap 12 BUN 19 Creatinine 1.1 Est GFR ( Amer) > 60 Est GFR (Non-Af Amer) 51 Random Glucose 111 H Calcium 10.0 Total Bilirubin 0.6 AST 28 ALT 29 Alkaline Phosphatase 135 H Total Protein 8.0 Albumin 3.7 Globulin 4.4 Albumin/Globulin Ratio 0.8 L Lipase 42 Urine Color Urine Appearance Urine pH Ur Specific [place] Urine Protein Urine Glucose (UA) Urine Ketones Urine Blood Urine Nitrate Urine Bilirubin Urine Urobilinogen Ur Leukocyte Esterase Urine RBC Urine WBC Ur Epithelial Cells 08/23/17 16:00 WBC RBC Hgb Hct MCV MCH MCHC RDW Plt Count MPV Gran % Lymph % (Auto) [place] % (Auto) Eos % (Auto) Baso % (Auto) Gran # Lymph # [place] # Eos # Baso # PT INR APTT Sodium Potassium Chloride Carbon Dioxide Anion Gap BUN Creatinine Est GFR ( Amer) Est GFR (Non-Af Amer) Random Glucose Calcium Total Bilirubin AST ALT Alkaline Phosphatase Total Protein Albumin Globulin Albumin/Globulin Ratio Lipase Urine Color Yellow Urine Appearance Clear Urine pH 7.5 Ur Specific [place] 1.010 Urine Protein Negative Urine Glucose (UA) Negative Urine Ketones Negative Urine Blood Negative Urine Nitrate Negative Urine Bilirubin Negative Urine Urobilinogen 0.2 Ur Leukocyte Esterase Small H Urine RBC 0 - 2 Urine WBC 5 - 10 Ur Epithelial Cells 6 - 8 Assessment & Plan - Assessment and Plan (Free Text) Assessment: 67 year old female with a PMH of CAD, new onset atrial fibrillation, HTN, hyperlipidemia, cholecystitis, diarrhea without an infectious etiology presented for generalized weakness and persistent diarrhea, now with labile BP and persistently hypotensive. Admitted to ICU for close monitoring and HD stability. Neurologic AAOx4, nonfocal exam Monitoring CVS History of A-fib, HTN, and HLD Coumadin 2mg INR 1.87 calan, tenormin, lipitor Pt Hypotensive, fluid challenge with 1.5L total, will monitor and assess for pressor support pt has comp of met acidosis, will fu etiology Cardio Dr. Pitt consulted, following Pulm Maintain SaO2 above 92% GI Diarrhea likely post cholecystectomy, noninfectious, C Diff negative, consider post cholecystectomy diarrhea Continue hydration CT Abd/Pelvis shows mild hepatomegaly, retroperitoneal and mesenteric adenopathy of uncertain etiology, nonobstructing 3mm renal calculi on R, and mildly distended cecum without obstruction or volvulus Stool Cx negative GI Dr. Mejia following, consider flexible sigmoidoscopy Renal/Electrolytes Resolved Hyponatremia Cont following BUN and Cr supplement and replete electrolytes as needed strict I&Os Endo Maintain bg 140-180 Cont accuchecks ACHS and ISS - med Maintain euglycemia Heme Dr. Dao following, continue with reccs No active bleeding noted Hgb stable ID leukocytosis uptrending fu bcx, ucx, ua, abg shock panel ID following, no abx at this time, will discuss Patient seen reviewed and discussed with attending
[2017-08-23] MEDS ORDERED: DAPTOmycin 500 mg Inj (Cubicin) IV ONE (23:58)
[2017-08-24] MEDS ORDERED: Sodium Chloride 0.9% 1,000 ML IV STA (00:04)
[2017-08-24] MEDS ORDERED: Potassium Phosphate 15 MMOLE in Sodium Chloride 0.9% 250 ML IVPB ONE (00:05)
[2017-08-24] MEDS: Vancomycin 1gm in NS 250ml 1 GM/250 ML BAG IVPB SCH ×3 (01:08→23:42)
[2017-08-24] MEDS: Meropenem 1 GM in Dextrose 5% In Water 100 ML IVPB SCH ×2 (02:34→21:55)
[2017-08-24] MEDS: HYDROmorphone 1 mg/ml ISec IVP PRN ×5 (02:38→22:38)
[2017-08-24 07:23] LABS: BASO # 0.02 K/mm3 (0.0-2.0); BASO % 0.3 % (0.0-3.0); EOS # 0.1 (0.0-0.7); EOS % 0.8 % (1.5-5.0); GRAN # 3.79 (1.4-6.5); GRAN % 61.9 % (50.0-68.0); HEMATOCRIT 26.9 % (36.0-48.0); LYMPH # 1.8 (1.2-3.4); MEAN CELL VOLUME 91.5 fl (80.0-105.0); MEAN CORPUSCULAR HEMOGLOBIN 29.3 pg (25.0-35.0); MEAN PLATELET VOLUME 10.1 fl (7.0-11.0); MONO # 0.4 (0.1-0.6); RED CELL DISTRIBUTION WIDTH 16.2 % (11.5-14.5); WHITE BLOOD COUNT 6.1 10^3/ul (4.5-11.0)
[2017-08-24 07:53] LABS: ALB/GLOB RATIO 0.9 (1.1-1.8); ALKALINE PHOSPHATASE 106 U/L (38-126); ALT/SGPT 27 U/L (7-56); AST/SGOT 26 U/L (14-36); BILIRUBIN,TOTAL 0.6 mg/dL (0.2-1.3); BLOOD UREA NITROGEN 14 mg/dL (7-21); CALCIUM 9.5 mg/dL (8.4-10.5); CARBON DIOXIDE 29 mmol/L (21-33); CHLORIDE 102 mmol/L (98-107); GFR AFRICAN-AMERICAN > 60; GLUCOSE,RANDOM 96 mg/dL (70-110); MAGNESIUM 1.7 mg/dL (1.7-2.2); PHOSPHOROUS 4.6 mg/dL (2.5-4.5); POTASSIUM 4.1 mmol/L (3.6-5.0); SODIUM 138 mmol/L (132-148); TOTAL PROTEIN 7.2 g/dL (5.8-8.3)
[2017-08-24] MEDS: Metoprolol Succinate 25 mg XL Tab PO SCH (11:42)
--- NOTE | 2017-08-24 14:01 | CP.PCM.CON ---
History of Present Illness - History of Present Illness History of Present Illness: dictated pain "all over" - not localized neuro intact afeb wbc 6 esr still elevated MRI mildly inc enhancement - as always occurs months after dx - no sig canal comprimise rec as per prev rec use TLSO brace ID eval re cont abcs ? Past Patient History - Infectious Disease Hx of Infectious Diseases: None - Tetanus Immunizations Tetanus Immunization: Unknown - Past Social History Smoking Status: Never Smoked - CARDIAC Hx Cardiac Disorders: Yes (CAD) Hx Hypertension: Yes - PULMONARY Hx Asthma: Yes - NEUROLOGICAL Hx Dizziness: Yes - HEENT Hx HEENT Problems: No - RENAL Hx Chronic Kidney Disease: No - ENDOCRINE/METABOLIC Hx Systemic Lupus Erythematosus: Yes - HEMATOLOGICAL/ONCOLOGICAL Hx Shingles: Yes - INTEGUMENTARY Hx Dermatological Problems: Yes (shingles) - MUSCULOSKELETAL/RHEUMATOLOGICAL Hx Falls: Yes - GASTROINTESTINAL Hx Gastrointestinal Disorders: Yes - GENITOURINARY/GYNECOLOGICAL Hx Genitourinary Disorders: No - PSYCHIATRIC Hx Depression: Yes - SURGICAL HISTORY Hx Orthopedic Surgery: Yes (Lumbar fusion, T12 kyphoplasty) Other/Comment: back surgery x2 february and april 2017 - ANESTHESIA Hx Anesthesia: Yes Hx Anesthesia Reactions: No Hx Malignant Hyperthermia: No Meds Allergies/Adverse Reactions: Allergies Allergy/AdvReac Type Severity Reaction Status Date / Time aspirin Allergy RASH Verified 08/23/17 16:48 codeine Allergy RASH Verified 08/23/17 16:48 penicillin G Allergy SWELLING Verified 08/23/17 20:22 - Medications Medications: Current Medications Clopidogrel Bisulfate (Plavix) 75 mg PO DAILY [facility] Last Admin: 08/24/17 11:42 Dose: 75 mg Duloxetine HCl (Cymbalta) 60 mg PO DAILY [facility] Last Admin: 08/24/17 11:42 Dose: 60 mg Gabapentin (Neurontin) 300 mg PO Q8 [facility] PRN Reason: Protocol Last Admin: 08/24/17 13:28 Dose: 300 mg Heparin Sodium (Porcine) (Heparin) 5,000 units SC Q12H [facility] PRN Reason: Protocol Last Admin: 08/24/17 12:02 Dose: 5,000 units Hydrochlorothiazide (Microzide) 12.5 mg PO DAILY [facility] Last Admin: 08/24/17 11:41 Dose: 12.5 mg Hydromorphone HCl (Dilaudid) 0.5 mg IVP Q4H PRN PRN Reason: Pain, moderate (4-7) Hydromorphone HCl (Dilaudid) 1 mg IVP Q4H PRN PRN Reason: Pain, severe (8-10) Last Admin: 08/24/17 13:32 Dose: 1 mg Hydroxychloroquine Sulfate (Plaquenil) 200 mg PO BID [facility] Last Admin: 08/24/17 11:58 Dose: 200 mg Vancomycin HCl (Vancomycin 1gm) 1 gm in 250 mls @ 167 mls/hr IVPB Q12H [facility] PRN Reason: Protocol Last Admin: 08/24/17 10:31 Dose: 167 mls/hr Meropenem 1 gm/ Dextrose 100 mls @ 100 mls/hr IVPB Q12 [facility] PRN Reason: Protocol Stop: 08/30/17 23:46 Last Admin: 08/24/17 02:34 Dose: 100 mls/hr Metoprolol Succinate (Toprol Xl) 25 mg PO DAILY [facility] Last Admin: 08/24/17 11:42 Dose: 25 mg Ondansetron HCl (Zofran Inj) 4 mg IVP Q4H PRN PRN Reason: Nausea/Vomiting Pantoprazole Sodium (Protonix Inj) 40 mg IVP DAILY [facility] Last Admin: 08/24/17 10:31 Dose: 40 mg Quetiapine Fumarate (Seroquel) 50 mg PO HS [facility] PRN Reason: Protocol Results - Vital Signs Recent Vital Signs: Last Vital Signs Temp 98.9 F 08/24/17 08:23 Pulse 83 08/24/17 11:42 Resp 20 08/24/17 08:23 BP 120/79 08/24/17 11:42 Pulse Ox 96 08/24/17 08:23 - Labs Result Diagrams: 08/24/17 07:14 08/24/17 07:14 Labs: Laboratory Results - last 24 hr 08/24/17 08/24/17 08/24/17 07:14 07:14 07:14 WBC 6.1 D RBC 2.94 L Hgb 8.6 L Hct 26.9 L MCV 91.5 MCH 29.3 MCHC 32.0 RDW 16.2 H Plt Count 303 MPV 10.1 Gran % 61.9 Lymph % (Auto) 30.0 [place] % (Auto) 7.0 H Eos % (Auto) 0.8 L Baso % (Auto) 0.3 Gran # 3.79 Lymph # 1.8 [place] # 0.4 Eos # 0.1 Baso # 0.02 ESR 93 H Sodium 138 Potassium 4.1 Chloride 102 Carbon Dioxide 29 Anion Gap 11 BUN 14 Creatinine 1.1 Est GFR ( Amer) > 60 Est GFR (Non-Af Amer) 51 Random Glucose 96 Calcium 9.5 Phosphorus 4.6 H Magnesium 1.7 Total Bilirubin 0.6 AST 26 ALT 27 Alkaline Phosphatase 106 C-React Prot High Sens > 15.00 H Total Protein 7.2 Albumin 3.3 Globulin 3.8 Albumin/Globulin Ratio 0.9 L
--- NOTE | 2017-08-24 14:03 | CP.PCM.PN ---
<Donta Paz - Last Filed: 08/24/17 14:36> Subjective - Date & Time of Evaluation Date of Evaluation: 08/24/17 Time of Evaluation: 07:30 - Subjective Subjective: Patient seen and evaluated at bedside. Patient laying in bed in acute distress. Patient complaining of mid thoracic back pain that radiates around her left flank into her abdomen. Patient reports sharp discomforting pain that also radiates down her legs bilaterally. Patient reports burning pain in legs, denies numbness and weakness in legs. Patient denies fever at this time, chills , chest pain, shortness of breath, weakness, numbness. Patient is awaiting ID and neurosurgery consult. Objective - Vital Signs/Intake and Output Vital Signs (last 24 hours): Temp Pulse Resp BP Pulse Ox 98.9 F 83 20 120/79 96 08/24/17 08:23 08/24/17 11:42 08/24/17 08:23 08/24/17 11:42 08/24/17 08:23 Intake and Output: 08/24/17 08/24/17 06:59 18:59 Intake Total 120 Balance 120 - Medications Medications: Current Medications Clopidogrel Bisulfate (Plavix) 75 mg PO DAILY [facility] Last Admin: 08/24/17 11:42 Dose: 75 mg Duloxetine HCl (Cymbalta) 60 mg PO DAILY [facility] Last Admin: 08/24/17 11:42 Dose: 60 mg Gabapentin (Neurontin) 300 mg PO Q8 [facility] PRN Reason: Protocol Last Admin: 08/24/17 13:28 Dose: 300 mg Heparin Sodium (Porcine) (Heparin) 5,000 units SC Q12H [facility] PRN Reason: Protocol Last Admin: 08/24/17 12:02 Dose: 5,000 units Hydrochlorothiazide (Microzide) 12.5 mg PO DAILY [facility] Last Admin: 08/24/17 11:41 Dose: 12.5 mg Hydromorphone HCl (Dilaudid) 0.5 mg IVP Q4H PRN PRN Reason: Pain, moderate (4-7) Hydromorphone HCl (Dilaudid) 1 mg IVP Q4H PRN PRN Reason: Pain, severe (8-10) Last Admin: 08/24/17 13:32 Dose: 1 mg Hydroxychloroquine Sulfate (Plaquenil) 200 mg PO BID [facility] Last Admin: 08/24/17 11:58 Dose: 200 mg Vancomycin HCl (Vancomycin 1gm) 1 gm in 250 mls @ 167 mls/hr IVPB Q12H [facility] PRN Reason: Protocol Last Admin: 08/24/17 10:31 Dose: 167 mls/hr Meropenem 1 gm/ Dextrose 100 mls @ 100 mls/hr IVPB Q12 [facility] PRN Reason: Protocol Stop: 08/30/17 23:46 Last Admin: 08/24/17 02:34 Dose: 100 mls/hr Metoprolol Succinate (Toprol Xl) 25 mg PO DAILY [facility] Last Admin: 08/24/17 11:42 Dose: 25 mg Ondansetron HCl (Zofran Inj) 4 mg IVP Q4H PRN PRN Reason: Nausea/Vomiting Pantoprazole Sodium (Protonix Inj) 40 mg IVP DAILY [facility] Last Admin: 08/24/17 10:31 Dose: 40 mg Quetiapine Fumarate (Seroquel) 50 mg PO HS [facility] PRN Reason: Protocol - Labs Labs: 08/24/17 07:14 08/24/17 07:14 PT 12.9 SECONDS (9.4-12.5) H 08/23/17 13:25 INR 1.17 (0.93-1.08) H 08/23/17 13:25 APTT 38.3 Seconds (25.1-36.5) H 08/23/17 13:25 - Constitutional Appears: In Acute Distress - Head Exam Head Exam: ATRAUMATIC, NORMAL INSPECTION, NORMOCEPHALIC - Eye Exam Eye Exam: EOMI, PERRL Pupil Exam: PERRL - ENT Exam ENT Exam: Mucous Membranes Moist - Neck Exam Neck Exam: Full ROM, Normal Inspection - Respiratory Exam Respiratory Exam: Clear to Ausculation Bilateral, NORMAL BREATHING PATTERN. absent: Rales, Rhonchi, Wheezes - Cardiovascular Exam Cardiovascular Exam: REGULAR RHYTHM, +S1, +S2 - GI/Abdominal Exam GI & Abdominal Exam: Soft, Tenderness (left sided abdominal discomfort), Normal Bowel Sounds - Extremities Exam Extremities Exam: Normal Capillary Refill. absent: Calf Tenderness, Tenderness Additional comments: straight leg raise positive pain bilateral - Back Exam Back Exam: paraspinal tenderness (mid thoracic ), vertebral tenderness (mid thoracic T8-T12) - Neurological Exam Neurological Exam: Alert, Awake, CN II-XII Intact, Oriented x3 Neuro motor strength exam: Left Upper Extremity: 5, Right Upper Extremity: 5, Left Lower Extremity: 4, Right Lower Extremity: 4 - Psychiatric Exam Psychiatric exam: Normal Affect, Normal Mood - Skin Skin Exam: Dry, Intact, Normal Color, Warm. absent: Rash Assessment and Plan - Assessment and Plan (Free Text) Assessment: Patient is a 57 year old female with past medical history chronic back pain, Lupus, HTN, HLD, CAD, osteoporosis, DVT s/p IVC filter, compression fractures s/p lumbar fusion and recent T12 kyphoplasty presents to the ED for worsening back pain. Patient is s/p 8 week(per patient) IV ABX course with naficillin. Patient is admitted for further management of continued evidence of multilevel vertebral osteomyelitis. Plan: 1. Osteomyeolitis/Discitis of Lower Thoracic Spine - Patient with recent hx of admission in 05/2017 for osteomyeolitis; s/p bone biopsy/aspiration - Patient found to have MSSA placed on IV naficillin and discharged to rehab facility where she completed treatment - MRI findings consistent with multilevel osteomyelitis and discitis. Slight progression of dural enhancement - Pain control with Dilaudid lindsey/prn - ID consulted, appreciate recs - Neurosurgery consulted, appreciate recs - PT/OT - Abx: Merrem, Vanco, Daptomycin 2. Abdominal Pain -Abdominal US: no cholelithiasis or bilary dilation -Diet: Clear liquid diet, advance as tolerated -Zofran prn nausea 3. Urinary Tract Infection -UA showing small leuk esterase - Pt denies dysuria, inc frequency -Follow up urine culture 4. Anemia - Hgb 10.1 on admit, today 8.6 - FOBT ordered, f/u - Asymptomatic - Will continue to monitor 5. History of SLE -Continue home medications 6. History of CAD -Continue plavix 7. History of Hypertension -Continue Metoprolol succinate 25mg -Continue HCTZ 12.5mg daily 8. Hx of DVT, s/p IVC filter -Heparin 5000U Q12H SC GI/DVT ppx Protonix 40mg Heparin 5000U SC Q12H Case and plan discussed with attending <Krystin Rodriguez - Last Filed: 08/24/17 15:30> Objective - Vital Signs/Intake and Output Vital Signs (last 24 hours): Temp Pulse Resp BP Pulse Ox 98.9 F 83 20 120/79 96 08/24/17 08:23 08/24/17 11:42 08/24/17 08:23 08/24/17 11:42 08/24/17 08:23 Intake and Output: 08/24/17 08/24/17 06:59 18:59 Intake Total 120 760 Balance 120 760 - Medications Medications: Current Medications Clopidogrel Bisulfate (Plavix) 75 mg PO DAILY [facility] Last Admin: 08/24/17 11:42 Dose: 75 mg Duloxetine HCl (Cymbalta) 60 mg PO DAILY [facility] Last Admin: 08/24/17 11:42 Dose: 60 mg Gabapentin (Neurontin) 300 mg PO Q8 [facility] PRN Reason: Protocol Last Admin: 08/24/17 13:28 Dose: 300 mg Heparin Sodium (Porcine) (Heparin) 5,000 units SC Q12H [facility] PRN Reason: Protocol Last Admin: 08/24/17 12:02 Dose: 5,000 units Hydrochlorothiazide (Microzide) 12.5 mg PO DAILY [facility] Last Admin: 08/24/17 11:41 Dose: 12.5 mg Hydromorphone HCl (Dilaudid) 0.5 mg IVP Q4H PRN PRN Reason: Pain, moderate (4-7) Hydromorphone HCl (Dilaudid) 1 mg IVP Q4H PRN PRN Reason: Pain, severe (8-10) Last Admin: 08/24/17 13:32 Dose: 1 mg Hydroxychloroquine Sulfate (Plaquenil) 200 mg PO BID [facility] Last Admin: 08/24/17 11:58 Dose: 200 mg Vancomycin HCl (Vancomycin 1gm) 1 gm in 250 mls @ 167 mls/hr IVPB Q12H [facility] PRN Reason: Protocol Last Admin: 08/24/17 10:31 Dose: 167 mls/hr Meropenem 1 gm/ Dextrose 100 mls @ 100 mls/hr IVPB Q12 [facility] PRN Reason: Protocol Stop: 08/30/17 23:46 Last Admin: 08/24/17 02:34 Dose: 100 mls/hr Metoprolol Succinate (Toprol Xl) 25 mg PO DAILY [facility] Last Admin: 08/24/17 11:42 Dose: 25 mg Ondansetron HCl (Zofran Inj) 4 mg IVP Q4H PRN PRN Reason: Nausea/Vomiting Pantoprazole Sodium (Protonix Inj) 40 mg IVP DAILY [facility] Last Admin: 08/24/17 10:31 Dose: 40 mg Quetiapine Fumarate (Seroquel) 50 mg PO HS [facility] PRN Reason: Protocol - Labs Labs: 08/24/17 07:14 08/24/17 07:14 PT 12.9 SECONDS (9.4-12.5) H 08/23/17 13:25 INR 1.17 (0.93-1.08) H 08/23/17 13:25 APTT 38.3 Seconds (25.1-36.5) H 08/23/17 13:25 Attending/Attestation - Attestation I have personally seen and examined this patient.: Yes I have fully participated in the care of the patient.: Yes I have reviewed all pertinent clinical information, including history, physical exam and plan: Yes Notes (Text): 08/24/17 15:25 57 year old female with past medical history of chronic back pain, Lupus, CAD, history of DVT s/p IVC filter, compression fractures s/p lumbar fusion and T12 kyphoplasty and OM s/p IV antibiotics therapy who presented with complaint of back pain, nausea and vomiting. MRI was reviewed as above. Continue with iv antibiotics as per ID. Neurosurgery evaluation and PT evaluation was requested as well. Abdominal pain and N/V have improved. US abdomen was negative for cholelithiasis. Continue with diet as tolerated. Krystin Rodriguez MD Hospitalist.
--- NOTE | 2017-08-24 16:48 | CP.PCM.CON ---
History of Present Illness - History of Present Illness History of Present Illness: 57 year old female with PMH of systemic lupus erythematosus, CAD, history of DVT S/P IVC filter placement, history of compression fractures of the T8, T9, L4 and L5 vertebrae S/P lumbar fusion, S/P T12 kyphoplasty (2016), history of MSSA bacteremia (source was not specifically determined and she received 6 weeks of antibiotics) was in [facility] [place] in May 2017 for osteomyelitis and discitis T11-L1 with MSSA. She was discharged on NAfcillin and apparently completed 7 weeks at the rehab center (aside more than a week of antibiotics as an in- patient in [facility] [place]). She went home and was walking around at home but continued to have back pain even while at the rehab center. The back pain got worse over the course of a week and is having difficulty ambulating because of the back pain. She denies fever or chills, no urinary or bowel incontinence, no weakness of the legs, no headache or dizziness, no diarrhea, no dysuria. She is complaining of some abdominal bloating and nausea but no vomiting. She also denies chest pain, no SOB, no cough or colds, no dysphagia, no sore throat. MRI of the thoracic and lumbar spine reveals probable multilevel discitis and osteomyelitis. Infectious Diseases consult is requested to further evaluate and manage. Review of Systems - Review of Systems All systems: reviewed and no additional remarkable complaints except (as per HPI ) Past Patient History - Infectious Disease Hx of Infectious Diseases: None - Tetanus Immunizations Tetanus Immunization: Unknown - Past Social History Smoking Status: Never Smoked - CARDIAC Hx Cardiac Disorders: Yes (CAD) Hx Hypertension: Yes - PULMONARY Hx Asthma: Yes - NEUROLOGICAL Hx Dizziness: Yes - HEENT Hx HEENT Problems: No - RENAL Hx Chronic Kidney Disease: No - ENDOCRINE/METABOLIC Hx Systemic Lupus Erythematosus: Yes - HEMATOLOGICAL/ONCOLOGICAL Hx Shingles: Yes - INTEGUMENTARY Hx Dermatological Problems: Yes (shingles) - MUSCULOSKELETAL/RHEUMATOLOGICAL Hx Arthritis: Yes Hx Back Pain: Yes Hx Falls: Yes Hx Osteomyelitis: Yes Hx Unsteady Gait: Yes - GASTROINTESTINAL Hx Gastrointestinal Disorders: Yes - GENITOURINARY/GYNECOLOGICAL Hx Genitourinary Disorders: No - PSYCHIATRIC Hx Depression: Yes Hx Substance Use: No - SURGICAL HISTORY Hx Orthopedic Surgery: Yes (Lumbar fusion, T12 kyphoplasty) Other/Comment: back surgery x2 february and april 2017 - ANESTHESIA Hx Anesthesia: Yes Hx Anesthesia Reactions: No Hx Malignant Hyperthermia: No Meds Allergies/Adverse Reactions: Allergies Allergy/AdvReac Type Severity Reaction Status Date / Time aspirin Allergy RASH Verified 08/23/17 16:48 codeine Allergy RASH Verified 08/23/17 16:48 penicillin G Allergy SWELLING Verified 08/23/17 20:22 - Medications Medications: Current Medications Heparin Sodium (Porcine) (Heparin) 5,000 units SC Q12H KIKA PRN Reason: Protocol Hydromorphone HCl (Dilaudid) 0.5 mg IVP Q4H PRN PRN Reason: Pain, moderate (4-7) Hydromorphone HCl (Dilaudid) 1 mg IVP Q4H PRN PRN Reason: Pain, severe (8-10) Vancomycin HCl (Vancomycin 1gm) 1 gm in 250 mls @ 167 mls/hr IVPB Q12H KIKA PRN Reason: Protocol Ondansetron HCl (Zofran Inj) 4 mg IVP Q4H PRN PRN Reason: Nausea/Vomiting Pantoprazole Sodium (Protonix Inj) 40 mg IVP DAILY [facility] Physical Exam - Constitutional Appears: Non-toxic, No Acute Distress - Head Exam Head Exam: NORMAL INSPECTION - Eye Exam Eye Exam: Normal appearance - ENT Exam ENT Exam: Mucous Membranes Moist - Neck Exam Neck exam: Negative for: Lymphadenopathy, Meningismus - Respiratory Exam Respiratory Exam: Decreased Breath Sounds - Cardiovascular Exam Cardiovascular Exam: +S1, +S2 - GI/Abdominal Exam GI & Abdominal Exam: Soft. absent: Tenderness Results - Vital Signs Recent Vital Signs: Last Vital Signs Temp 98.3 F 08/23/17 11:51 Pulse 88 08/23/17 22:58 Resp 20 08/23/17 22:58 BP 119/77 08/23/17 22:58 Pulse Ox 98 08/23/17 22:58 - Labs Result Diagrams: 08/24/17 07:14 08/24/17 07:14 Assessment & Plan - Assessment and Plan (Free Text) Plan: Assessment Back pain, chronic, due to osteomyelitis and discitis T11-L1, previously grew MSSA from the vertebrae (05/2017) compression fracture T12 fracture (which has underwent kyphoplasty in 2016) systemic lupus erythematosus CAD history of DVT S/P IVC filter placement, history of compression fractures of the T8, T9, L4 and L5 vertebrae S/P lumbar fusion S/P T12 kyphoplasty (2016) history of MSSA bacteremia (2016, source was not specifically determined and she received 6 weeks of antibiotics) Plan will start Vancomycin and Merrem pending Neurosurgery - would recommend repeat sampling from the vertebrae will monitor clinicallyl
[2017-08-25] MEDS: HYDROmorphone 1 mg/ml ISec IVP PRN ×3 (06:32→20:10)
[2017-08-25 07:42] LABS: BASO # 0.01 K/mm3 (0.0-2.0); BASO % 0.2 % (0.0-3.0); EOS # 0.1 (0.0-0.7); EOS % 2.7 % (1.5-5.0); GRAN # 2.94 (1.4-6.5); GRAN % 61.4 % (50.0-68.0); LYMPH # 1.3 (1.2-3.4); LYMPH % 27.8 % (22.0-35.0); MEAN CORPUSCULAR HGB CONC 32.2 g/dl (31.0-37.0); MEAN PLATELET VOLUME 10.1 fl (7.0-11.0); MONO # 0.4 (0.1-0.6); MONO % 7.9 % (1.0-6.0); RED CELL DISTRIBUTION WIDTH 15.6 % (11.5-14.5); WHITE BLOOD COUNT 4.8 10^3/ul (4.5-11.0)
[2017-08-25 08:08] LABS: ALB/GLOB RATIO 0.8 (1.1-1.8); ALKALINE PHOSPHATASE 109 U/L (38-126); ALT/SGPT 26 U/L (7-56); AST/SGOT 27 U/L (14-36); BILIRUBIN,TOTAL 0.5 mg/dL (0.2-1.3); BLOOD UREA NITROGEN 9 mg/dL (7-21); CALCIUM 9.6 mg/dL (8.4-10.5); CARBON DIOXIDE 27 mmol/L (21-33); CHLORIDE 100 mmol/L (98-107); GFR AFRICAN-AMERICAN > 60; GLUCOSE,RANDOM 109 mg/dL (70-110); MAGNESIUM 1.5 mg/dL (1.7-2.2); PHOSPHOROUS 4.3 mg/dL (2.5-4.5); POTASSIUM 3.7 mmol/L (3.6-5.0); SODIUM 134 mmol/L (132-148); TOTAL PROTEIN 7.2 g/dL (5.8-8.3)
[2017-08-25] MEDS: Metoprolol Succinate 25 mg XL Tab PO SCH (09:14)
[2017-08-25] MEDS: Meropenem 1 GM in Dextrose 5% In Water 100 ML IVPB SCH ×2 (09:14→22:05)
--- NOTE | 2017-08-25 11:26 | CT ---
PROCEDURE: CT Abdomen and Pelvis without intravenous contrast HISTORY: abdominal pain COMPARISON: Comparison is made to the previous study dated 04/19/2016 TECHNIQUE: Axial and reformatted coronal and sagittal CT images of the abdomen and pelvis were obtained without IV or oral contrast administration.. Contrast Dose: 0 Radiation dose: Total exam DLP = 410.25 mGy-cm. This CT exam was performed using one or more of the following dose reduction techniques: Automated exposure control, adjustment of the mA and/or kV according to patient size, and/or use of iterative reconstruction technique. FINDINGS: LOWER THORAX: Bibasilar airspace opacities. Airspace consolidation at the right lower lobe associated with bronchiectasis is noted new compared to the previous exam. Findings may represent current or recurrent pneumonia. Trace bilateral pleural effusions seen. The heart is mildly enlarged. LIVER: Unremarkable. No gross lesion or ductal dilatation. GALLBLADDER AND BILE DUCTS: No evidence of acute cholecystitis. PANCREAS: No evidence of acute pathology in this noncontrast study. . No gross lesion or ductal dilatation. SPLEEN: Normal size spleen. ADRENALS: Unremarkable. No mass. KIDNEYS AND URETERS: No evidence of obstructing nephrolithiasis or hydronephrosis. 2 millimeter cortical calcifications seen at the midpole of the left kidney. VASCULATURE: Unremarkable. No aortic aneurysm. BOWEL: Unremarkable. No obstruction. No gross mural thickening. APPENDIX: No evidence of appendicitis. PERITONEUM: Unremarkable. No free fluid. No free air. LYMPH NODES: Unremarkable. No enlarged lymph nodes. BLADDER: Slightly low position of the bladder. Correlate clinically for cystocele. REPRODUCTIVE: Unremarkable. BONES: Interval appearance of multiple compression deformity in the lower thoracic spine and lumbar spine since the previous exam. There is severe compression deformity of T12 and moderate compression deformity at the mid and lower portion of T11 vertebral body. Moderate compression deformity noted at L2 and L3 and mild compression deformity of L4 seen. Again seen is posterior internal fixation and fusion of L5 and S1. OTHER FINDINGS: None. IMPRESSION: No CT evidence of acute pathology in the abdomen and pelvis. 2 millimeter cortical calcification at the left kidney. No evidence of hydronephrosis. No evidence of cholecystitis pancreatitis or appendicitis. Interval appearance of multiple compression deformity at the lower thoracic spine and lumbar spine since the previous exam. Patient status post kyphoplasty at T12. Severe compression deformity of T12 and moderate compression deformity of T11, L2 and L3 noted. Diffuse osteopenia noted.
[2017-08-25] MEDS: Vancomycin 1gm in NS 250ml 1 GM/250 ML BAG IVPB SCH ×2 (11:57→22:44)
[2017-08-25 12:26] LABS: IRON 30 ug/dL (45-180)
--- NOTE | 2017-08-25 14:42 | CP.PCM.PN ---
<Donta Palmer - Last Filed: 08/25/17 14:36> Subjective - Date & Time of Evaluation Date of Evaluation: 08/25/17 Time of Evaluation: 14:36 - Subjective Subjective: Medicine Progress Note: Pt seen and examined at bedside. Pt complained of some nausea, but no vomiting. Pt states that pain is unchanged. Pt denied CP, SOB, nausea, vomiting, fever, chills, FARLEY, or dizziness. Objective - Vital Signs/Intake and Output Vital Signs (last 24 hours): Temp Pulse Resp BP Pulse Ox 98.1 F 86 20 103/71 93 L 08/25/17 07:30 08/25/17 09:14 08/25/17 07:30 08/25/17 09:14 08/25/17 07:30 Intake and Output: 08/25/17 08/25/17 06:59 18:59 Intake Total 1690 Output Total 1 Balance 1689 - Medications Medications: Current Medications Clopidogrel Bisulfate (Plavix) 75 mg PO DAILY [facility] Last Admin: 08/25/17 09:15 Dose: 75 mg Duloxetine HCl (Cymbalta) 60 mg PO DAILY [facility] Last Admin: 08/25/17 09:15 Dose: 60 mg Gabapentin (Neurontin) 300 mg PO Q8 [facility] PRN Reason: Protocol Last Admin: 08/25/17 06:26 Dose: 300 mg Heparin Sodium (Porcine) (Heparin) 5,000 units SC Q12H [facility] PRN Reason: Protocol Last Admin: 08/25/17 11:58 Dose: 5,000 units Hydrochlorothiazide (Microzide) 12.5 mg PO DAILY [facility] Last Admin: 08/25/17 09:15 Dose: 12.5 mg Hydromorphone HCl (Dilaudid) 0.5 mg IVP Q4H PRN PRN Reason: Pain, moderate (4-7) Hydromorphone HCl (Dilaudid) 1 mg IVP Q4H PRN PRN Reason: Pain, severe (8-10) Last Admin: 08/25/17 10:21 Dose: 1 mg Hydroxychloroquine Sulfate (Plaquenil) 200 mg PO BID [facility] Last Admin: 08/25/17 13:14 Dose: 200 mg Vancomycin HCl (Vancomycin 1gm) 1 gm in 250 mls @ 167 mls/hr IVPB Q12H [facility] PRN Reason: Protocol Last Admin: 08/25/17 11:57 Dose: 167 mls/hr Meropenem 1 gm/ Dextrose 100 mls @ 100 mls/hr IVPB Q12 [facility] PRN Reason: Protocol Stop: 08/30/17 23:46 Last Admin: 08/25/17 09:14 Dose: 100 mls/hr Metoprolol Succinate (Toprol Xl) 25 mg PO DAILY [facility] Last Admin: 08/25/17 09:14 Dose: 25 mg Ondansetron HCl (Zofran Inj) 4 mg IVP Q4H PRN PRN Reason: Nausea/Vomiting Pantoprazole Sodium (Protonix Inj) 40 mg IVP DAILY [facility] Last Admin: 08/25/17 11:57 Dose: 40 mg Quetiapine Fumarate (Seroquel) 50 mg PO HS [facility] PRN Reason: Protocol Last Admin: 08/24/17 21:52 Dose: 50 mg - Labs Labs: 08/25/17 07:00 08/25/17 07:00 PT 12.9 SECONDS (9.4-12.5) H 08/23/17 13:25 INR 1.17 (0.93-1.08) H 08/23/17 13:25 APTT 38.3 Seconds (25.1-36.5) H 08/23/17 13:25 - Constitutional Appears: No Acute Distress - Head Exam Head Exam: ATRAUMATIC, NORMOCEPHALIC - Eye Exam Eye Exam: EOMI, PERRL - ENT Exam ENT Exam: Mucous Membranes Moist - Neck Exam Neck Exam: Full ROM. absent: Lymphadenopathy, Tenderness, Thyromegaly - Respiratory Exam Respiratory Exam: Clear to Ausculation Bilateral. absent: Accessory Muscle Use , Rales, Rhonchi, Wheezes, Respiratory Distress - Cardiovascular Exam Cardiovascular Exam: RRR, +S1, +S2. absent: Diastolic murmur, Gallop, Rubs, Murmur - GI/Abdominal Exam GI & Abdominal Exam: Soft, Tenderness (left sided), Normal Bowel Sounds - Rectal Exam Rectal Exam: NORMAL INSPECTION - Extremities Exam Extremities Exam: Full ROM - Back Exam Back Exam: paraspinal tenderness, vertebral tenderness - Neurological Exam Neurological Exam: Alert, Awake, Oriented x3 Neuro motor strength exam: Left Upper Extremity: 5, Right Upper Extremity: 5, Left Lower Extremity: 4, Right Lower Extremity: 4 - Psychiatric Exam Psychiatric exam: Normal Affect, Normal Mood - Skin Skin Exam: Dry, Intact, Normal Color, Warm Assessment and Plan - Assessment and Plan (Free Text) Assessment: Patient is a 57 year old female with past medical history chronic back pain, Lupus, HTN, HLD, CAD, osteoporosis, DVT s/p IVC filter, compression fractures s/p lumbar fusion and recent T12 kyphoplasty presents to the ED for worsening back pain. Patient is s/p 8 week(per patient) IV ABX course with naficillin. Patient is admitted for further management of continued evidence of multilevel vertebral osteomyelitis. Plan: 1. Osteomyeolitis/Discitis of Lower Thoracic Spine - Patient with recent hx of admission in 05/2017 for osteomyeolitis; s/p bone biopsy/aspiration - Patient found to have MSSA placed on IV naficillin and discharged to rehab facility where she completed treatment - MRI findings consistent with multilevel osteomyelitis and discitis. Slight progression of dural enhancement - Pain control with Dilaudid lindsey/prn - ID consulted, appreciate recs - Neurosurgery consulted, recs TLSO brace - PT/OT - Abx: Merrem, Vanco - CRP, ESR elevated - Blood cultures negative after 24 hours 2. Abdominal Pain -Abd CT showed no acute pathology. Interval appearance of multiple compression deformity at the lower thoracic spine and lumbar spine since the previous exam. Status post kyphoplasty at T12. Severe compression deformity of T12 and moderate compression deformity of T11, L2, and L3 -Abdominal US: no cholelithiasis or bilary dilation -Diet: Clear liquid diet, advance as tolerated -Zofran prn nausea 3. Hypomagnesmia - Mg 1.5 - Mg sulfate IVPB - Cont to monitor and replete as needed 4. Anemia - Hgb stable - Fe 30, TIBC 237, % sat 13 - FOBT ordered, f/u - Asymptomatic - Will continue to monitor 5. History of SLE -Continue home medications 6. History of CAD -Continue plavix 7. History of Hypertension -Continue Metoprolol succinate 25mg -Continue HCTZ 12.5mg daily 8. Hx of DVT, s/p IVC filter -Heparin 5000U Q12H SC GI/DVT ppx Protonix 40mg Heparin 5000U SC Q12H Case and plan discussed with attending <Krystin Rodriguez - Last Filed: 08/25/17 15:28> Objective - Vital Signs/Intake and Output Vital Signs (last 24 hours): Temp Pulse Resp BP Pulse Ox 98.1 F 86 20 103/71 93 L 08/25/17 07:30 08/25/17 09:14 08/25/17 07:30 08/25/17 09:14 08/25/17 07:30 Intake and Output: 08/25/17 08/25/17 06:59 18:59 Intake Total 1690 Output Total 1 Balance 1689 - Medications Medications: Current Medications Clopidogrel Bisulfate (Plavix) 75 mg PO DAILY [facility] Last Admin: 08/25/17 09:15 Dose: 75 mg Duloxetine HCl (Cymbalta) 60 mg PO DAILY [facility] Last Admin: 08/25/17 09:15 Dose: 60 mg Gabapentin (Neurontin) 300 mg PO Q8 [facility] PRN Reason: Protocol Last Admin: 08/25/17 14:46 Dose: 300 mg Heparin Sodium (Porcine) (Heparin) 5,000 units SC Q12H [facility] PRN Reason: Protocol Last Admin: 08/25/17 11:58 Dose: 5,000 units Hydrochlorothiazide (Microzide) 12.5 mg PO DAILY [facility] Last Admin: 08/25/17 09:15 Dose: 12.5 mg Hydromorphone HCl (Dilaudid) 0.5 mg IVP Q4H PRN PRN Reason: Pain, moderate (4-7) Hydromorphone HCl (Dilaudid) 1 mg IVP Q4H PRN PRN Reason: Pain, severe (8-10) Last Admin: 08/25/17 10:21 Dose: 1 mg Hydroxychloroquine Sulfate (Plaquenil) 200 mg PO BID [facility] Last Admin: 08/25/17 13:14 Dose: 200 mg Vancomycin HCl (Vancomycin 1gm) 1 gm in 250 mls @ 167 mls/hr IVPB Q12H [facility] PRN Reason: Protocol Last Admin: 08/25/17 11:57 Dose: 167 mls/hr Meropenem 1 gm/ Dextrose 100 mls @ 100 mls/hr IVPB Q12 [facility] PRN Reason: Protocol Stop: 08/30/17 23:46 Last Admin: 08/25/17 09:14 Dose: 100 mls/hr Magnesium Sulfate 2 gm/ Sodium (Chloride) 104 mls @ 102 mls/hr IVPB ONCE ONE Stop: 08/25/17 16:01 Metoprolol Succinate (Toprol Xl) 25 mg PO DAILY [facility] Last Admin: 08/25/17 09:14 Dose: 25 mg Ondansetron HCl (Zofran Inj) 4 mg IVP Q4H PRN PRN Reason: Nausea/Vomiting Pantoprazole Sodium (Protonix Inj) 40 mg IVP DAILY [facility] Last Admin: 08/25/17 11:57 Dose: 40 mg Quetiapine Fumarate (Seroquel) 50 mg PO HS [facility] PRN Reason: Protocol Last Admin: 08/24/17 21:52 Dose: 50 mg - Labs Labs: 08/25/17 07:00 08/25/17 07:00 PT 12.9 SECONDS (9.4-12.5) H 08/23/17 13:25 INR 1.17 (0.93-1.08) H 08/23/17 13:25 APTT 38.3 Seconds (25.1-36.5) H 08/23/17 13:25 Attending/Attestation - Attestation I have personally seen and examined this patient.: Yes I have fully participated in the care of the patient.: Yes I have reviewed all pertinent clinical information, including history, physical exam and plan: Yes Notes (Text): 08/25/17 15:25 57 year old female with past medical history of chronic back pain, Lupus, CAD, history of DVT s/p IVC filter, compression fractures s/p lumbar fusion and T12 kyphoplasty and OM s/p IV antibiotics therapy who presented with complaint of back pain, nausea and vomiting. MRI was reviewed as above. Continue with iv antibiotics. ID and neurosurgery evaluation were appreciated. Continue with analgesics as needed for pain. PT evaluation was requested. CT abd/pelvis was reviewed. US abd/pelvis was negative for cholethiasis. N/V have improved. Advance diet as tolerated. Anemia workup ordered for anemia. Will continue to monitor. Will replete and repeat lytes. Krystin Rodriguez MD Hospitalist.
[2017-08-25] MEDS ORDERED: Magnesium Sulfate 2 GM in Sodium Chloride 0.9% 100 ML IVPB ONE (15:00)
--- NOTE | 2017-08-25 19:01 | CP.PCM.PN ---
Subjective - Date & Time of Evaluation Date of Evaluation: 08/25/17 Time of Evaluation: 08:55 - Subjective Subjective: Still with back pain but a little less, no fevers overnight. Objective - Vital Signs/Intake and Output Vital Signs (last 24 hours): Temp Pulse Resp BP Pulse Ox 98.1 F 86 20 103/71 93 L 08/25/17 07:30 08/25/17 09:14 08/25/17 07:30 08/25/17 09:14 08/25/17 07:30 Intake and Output: 08/25/17 08/25/17 06:59 18:59 Intake Total 1690 780 Output Total 1 Balance 1689 780 - Medications Medications: Current Medications Clopidogrel Bisulfate (Plavix) 75 mg PO DAILY [facility] Last Admin: 08/25/17 09:15 Dose: 75 mg Duloxetine HCl (Cymbalta) 60 mg PO DAILY [facility] Last Admin: 08/25/17 09:15 Dose: 60 mg Gabapentin (Neurontin) 300 mg PO Q8 [facility] PRN Reason: Protocol Last Admin: 08/25/17 14:46 Dose: 300 mg Heparin Sodium (Porcine) (Heparin) 5,000 units SC Q12H [facility] PRN Reason: Protocol Last Admin: 08/25/17 11:58 Dose: 5,000 units Hydrochlorothiazide (Microzide) 12.5 mg PO DAILY [facility] Last Admin: 08/25/17 09:15 Dose: 12.5 mg Hydromorphone HCl (Dilaudid) 0.5 mg IVP Q4H PRN PRN Reason: Pain, moderate (4-7) Hydromorphone HCl (Dilaudid) 1 mg IVP Q4H PRN PRN Reason: Pain, severe (8-10) Last Admin: 08/25/17 10:21 Dose: 1 mg Hydroxychloroquine Sulfate (Plaquenil) 200 mg PO BID [facility] Last Admin: 08/25/17 18:29 Dose: 200 mg Vancomycin HCl (Vancomycin 1gm) 1 gm in 250 mls @ 167 mls/hr IVPB Q12H [facility]IK[facility] PRN Reason: Protocol Last Admin: 08/25/17 11:57 Dose: 167 mls/hr Meropenem 1 gm/ Dextrose 100 mls @ 100 mls/hr IVPB Q12 [facility] PRN Reason: Protocol Stop: 08/30/17 23:46 Last Admin: 08/25/17 09:14 Dose: 100 mls/hr Metoprolol Succinate (Toprol Xl) 25 mg PO DAILY [facility] Last Admin: 08/25/17 09:14 Dose: 25 mg Ondansetron HCl (Zofran Inj) 4 mg IVP Q4H PRN PRN Reason: Nausea/Vomiting Pantoprazole Sodium (Protonix Inj) 40 mg IVP DAILY [facility] Last Admin: 08/25/17 11:57 Dose: 40 mg Quetiapine Fumarate (Seroquel) 50 mg PO HS [facility] PRN Reason: Protocol Last Admin: 08/24/17 21:52 Dose: 50 mg - Labs Labs: 08/25/17 07:00 08/25/17 07:00 PT 12.9 SECONDS (9.4-12.5) H 08/23/17 13:25 INR 1.17 (0.93-1.08) H 08/23/17 13:25 APTT 38.3 Seconds (25.1-36.5) H 08/23/17 13:25 - Constitutional Appears: Non-toxic, No Acute Distress - Head Exam Head Exam: NORMAL INSPECTION - ENT Exam ENT Exam: Mucous Membranes Moist - Neck Exam Neck Exam: absent: Lymphadenopathy, Meningismus - Respiratory Exam Respiratory Exam: Decreased Breath Sounds - Cardiovascular Exam Cardiovascular Exam: +S1, +S2 - GI/Abdominal Exam GI & Abdominal Exam: Soft. absent: Tenderness Assessment and Plan - Assessment and Plan (Free Text) Plan: Assessment Back pain, chronic, due to osteomyelitis and discitis T11-L1, previously grew MSSA from the vertebrae (05/2017) compression fracture T12 fracture (which has underwent kyphoplasty in 2016) systemic lupus erythematosus CAD history of DVT S/P IVC filter placement, history of compression fractures of the T8, T9, L4 and L5 vertebrae S/P lumbar fusion S/P T12 kyphoplasty (2016) history of MSSA bacteremia (2016, source was not specifically determined and she received 6 weeks of antibiotics) Plan continue Vancomycin and Merrem; reviewed Neurosurgery evaluation - no surgery recommended currently - would recommend repeat sampling from the vertebrae; would consider Zyvox and Ertapenem for another 6-8 weeks with weekly ESR, CRP, CBC, CMP will monitor clinically discussed with Dr. Rodriguez
[2017-08-25 21:41] LABS: FOLATE > 20.0 ng/mL
[2017-08-25] MEDS: HYDROmorphone 0.5 mg/0.5 ml ISec IVP PRN (22:02)
[2017-08-26] MEDS: HYDROmorphone 1 mg/ml ISec IVP PRN ×3 (06:22→19:24)
[2017-08-26 07:44] LABS: BASO # 0.01 K/mm3 (0.0-2.0); BASO % 0.2 % (0.0-3.0); EOS # 0.2 (0.0-0.7); EOS % 3.6 % (1.5-5.0); GRAN # 2.83 (1.4-6.5); GRAN % 56.9 % (50.0-68.0); HEMATOCRIT 26.5 % (36.0-48.0); LYMPH # 1.5 (1.2-3.4); LYMPH % 30.5 % (22.0-35.0); MEAN CELL VOLUME 89.8 fl (80.0-105.0); MEAN CORPUSCULAR HEMOGLOBIN 29.2 pg (25.0-35.0); MEAN CORPUSCULAR HGB CONC 32.5 g/dl (31.0-37.0); MEAN PLATELET VOLUME 9.9 fl (7.0-11.0); MONO # 0.4 (0.1-0.6); MONO % 8.8 % (1.0-6.0); RED CELL DISTRIBUTION WIDTH 15.2 % (11.5-14.5)
[2017-08-26 07:57] LABS: ALB/GLOB RATIO 0.8 (1.1-1.8); ALKALINE PHOSPHATASE 106 U/L (38-126); ALT/SGPT 27 U/L (7-56); AST/SGOT 29 U/L (14-36); BILIRUBIN,TOTAL 0.5 mg/dL (0.2-1.3); BLOOD UREA NITROGEN 9 mg/dL (7-21); CALCIUM 9.5 mg/dL (8.4-10.5); CARBON DIOXIDE 29 mmol/L (21-33); CHLORIDE 100 mmol/L (98-107); GFR AFRICAN-AMERICAN > 60; GLUCOSE,RANDOM 106 mg/dL (70-110); MAGNESIUM 1.5 mg/dL (1.7-2.2); PHOSPHOROUS 4.3 mg/dL (2.5-4.5); POTASSIUM 3.6 mmol/L (3.6-5.0); SODIUM 135 mmol/L (132-148); TOTAL PROTEIN 7.1 g/dL (5.8-8.3)
[2017-08-26] MEDS: Metoprolol Succinate 25 mg XL Tab PO SCH (10:06)
[2017-08-26] MEDS: Meropenem 1 GM in Dextrose 5% In Water 100 ML IVPB SCH ×2 (10:06→22:24)
--- NOTE | 2017-08-26 13:16 | CP.PCM.PN ---
<Donta Palmer - Last Filed: 08/26/17 13:12> Subjective - Date & Time of Evaluation Date of Evaluation: 08/26/17 Time of Evaluation: 13:13 - Subjective Subjective: Medicine Progress Note: Pt seen and examined at bedside. Pt states that she has not had BM in 3 days, however she declined miralax because she wouldnt be able to get up and get to the restroom fast enough. Pt denied CP, SOB, nausea, vomiting, diarrhea, abdominal pain, fever, chills, FARLEY, dizziness, or dysuria. Objective - Vital Signs/Intake and Output Vital Signs (last 24 hours): Temp Pulse Resp BP Pulse Ox 98.8 F 78 19 102/66 95 08/26/17 07:30 08/26/17 07:30 08/26/17 07:30 08/26/17 07:30 08/26/17 07:30 Intake and Output: 08/26/17 08/26/17 06:59 18:59 Intake Total 950 Balance 950 - Medications Medications: Current Medications Clopidogrel Bisulfate (Plavix) 75 mg PO DAILY [facility] Last Admin: 08/26/17 10:05 Dose: 75 mg Cyclobenzaprine HCl (Flexeril) 5 mg PO TID [facility] Duloxetine HCl (Cymbalta) 60 mg PO DAILY [facility] Last Admin: 08/26/17 10:06 Dose: 60 mg Gabapentin (Neurontin) 300 mg PO Q8 [facility] PRN Reason: Protocol Last Admin: 08/26/17 06:22 Dose: 300 mg Heparin Sodium (Porcine) (Heparin) 5,000 units SC Q12H [facility] PRN Reason: Protocol Last Admin: 08/26/17 11:28 Dose: 5,000 units Hydrochlorothiazide (Microzide) 12.5 mg PO DAILY [facility] Last Admin: 08/26/17 10:04 Dose: 12.5 mg Hydromorphone HCl (Dilaudid) 0.5 mg IVP Q4H PRN PRN Reason: Pain, moderate (4-7) Last Admin: 08/25/17 22:02 Dose: 0.5 mg Hydromorphone HCl (Dilaudid) 1 mg IVP Q4H PRN PRN Reason: Pain, severe (8-10) Last Admin: 08/26/17 10:04 Dose: 1 mg Hydroxychloroquine Sulfate (Plaquenil) 200 mg PO BID [facility] Last Admin: 08/26/17 10:05 Dose: 200 mg Meropenem 1 gm/ Dextrose 100 mls @ 100 mls/hr IVPB Q12 [facility] PRN Reason: Protocol Stop: 08/30/17 23:46 Last Admin: 08/26/17 10:06 Dose: 100 mls/hr Metoprolol Succinate (Toprol Xl) 25 mg PO DAILY [facility] Last Admin: 08/26/17 10:06 Dose: 25 mg Ondansetron HCl (Zofran Inj) 4 mg IVP Q4H PRN PRN Reason: Nausea/Vomiting Pantoprazole Sodium (Protonix Inj) 40 mg IVP DAILY [facility] Last Admin: 08/26/17 10:06 Dose: 40 mg Quetiapine Fumarate (Seroquel) 50 mg PO HS [facility] PRN Reason: Protocol Last Admin: 08/25/17 21:57 Dose: 50 mg - Labs Labs: 08/26/17 07:20 08/26/17 07:20 PT 12.9 SECONDS (9.4-12.5) H 08/23/17 13:25 INR 1.17 (0.93-1.08) H 08/23/17 13:25 APTT 38.3 Seconds (25.1-36.5) H 08/23/17 13:25 - Constitutional Appears: No Acute Distress - Head Exam Head Exam: ATRAUMATIC, NORMOCEPHALIC - Eye Exam Eye Exam: EOMI, Normal appearance, PERRL - ENT Exam ENT Exam: Mucous Membranes Moist - Neck Exam Neck Exam: Full ROM. absent: Lymphadenopathy, Tenderness, Thyromegaly - Respiratory Exam Respiratory Exam: Clear to Ausculation Bilateral. absent: Accessory Muscle Use , Rales, Rhonchi, Wheezes - Cardiovascular Exam Cardiovascular Exam: RRR, +S1, +S2. absent: Diastolic murmur, Gallop, Rubs, Murmur - GI/Abdominal Exam GI & Abdominal Exam: Soft. absent: Distended, Guarding, Tenderness, Rebound - Extremities Exam Extremities Exam: Normal Inspection - Back Exam Back Exam: muscle spasm, paraspinal tenderness, tenderness, vertebral tenderness - Neurological Exam Neurological Exam: Alert, Awake, Oriented x3 - Psychiatric Exam Psychiatric exam: Normal Affect, Normal Mood - Skin Skin Exam: Dry, Intact, Normal Color, Warm Assessment and Plan - Assessment and Plan (Free Text) Assessment: Patient is a 57 year old female with past medical history chronic back pain, Lupus, HTN, HLD, CAD, osteoporosis, DVT s/p IVC filter, compression fractures s/p lumbar fusion and recent T12 kyphoplasty presents to the ED for worsening back pain. Patient is s/p 8 week(per patient) IV ABX course with naficillin. Patient is admitted for further management of continued evidence of multilevel vertebral osteomyelitis. Plan: 1. Osteomyeolitis/Discitis of Lower Thoracic Spine - Patient with recent hx of admission in 05/2017 for osteomyeolitis; s/p bone biopsy/aspiration - Patient found to have MSSA placed on IV naficillin and discharged to rehab facility where she completed treatment - MRI findings consistent with multilevel osteomyelitis and discitis. Slight progression of dural enhancement - Pain control with Dilaudid lindsey/prn - ID consulted, appreciate recs would consider Zyvox and Ertapenem for another 6-8 weeks with weekly ESR, CRP , CBC, CMP - Neurosurgery consulted, recs TLSO brace, but no intervention at this time - PT/OT - Abx: Merrem - CRP, ESR elevated - Blood cultures negative after 48 hours - Flexeril for muscle spasm 2. Abdominal Pain -Abd CT showed no acute pathology. Interval appearance of multiple compression deformity at the lower thoracic spine and lumbar spine since the previous exam. Status post kyphoplasty at T12. Severe compression deformity of T12 and moderate compression deformity of T11, L2, and L3 -Abdominal US: no cholelithiasis or bilary dilation -Diet: HHD -Zofran prn nausea 3. Hypomagnesmia - Mg 1.5 - Mg sulfate IVPB - Cont to monitor and replete as needed 4. Anemia - Hgb stable - Fe 30, TIBC 237, % sat 13 - FOBT ordered, f/u - Asymptomatic - Will continue to monitor 5. History of SLE -Continue home medications 6. History of CAD -Continue plavix 7. History of Hypertension -Continue Metoprolol succinate 25mg -Continue HCTZ 12.5mg daily 8. Hx of DVT, s/p IVC filter -Heparin 5000U Q12H SC GI/DVT ppx Protonix 40mg Heparin 5000U SC Q12H Case and plan discussed with attending <Krystin Rodriguez - Last Filed: 08/26/17 13:45> Objective - Vital Signs/Intake and Output Vital Signs (last 24 hours): Temp Pulse Resp BP Pulse Ox 98.8 F 78 19 102/66 95 08/26/17 07:30 08/26/17 07:30 08/26/17 07:30 08/26/17 07:30 08/26/17 07:30 Intake and Output: 08/26/17 08/26/17 06:59 18:59 Intake Total 950 Balance 950 - Medications Medications: Current Medications Clopidogrel Bisulfate (Plavix) 75 mg PO DAILY [facility] Last Admin: 08/26/17 10:05 Dose: 75 mg Cyclobenzaprine HCl (Flexeril) 5 mg PO TID [facility] Docusate Sodium (Colace) 100 mg PO BID [facility] Duloxetine HCl (Cymbalta) 60 mg PO DAILY [facility] Last Admin: 08/26/17 10:06 Dose: 60 mg Gabapentin (Neurontin) 300 mg PO Q8 [facility] PRN Reason: Protocol Last Admin: 08/26/17 06:22 Dose: 300 mg Heparin Sodium (Porcine) (Heparin) 5,000 units SC Q12H [facility] PRN Reason: Protocol Last Admin: 08/26/17 11:28 Dose: 5,000 units Hydrochlorothiazide (Microzide) 12.5 mg PO DAILY [facility] Last Admin: 08/26/17 10:04 Dose: 12.5 mg Hydromorphone HCl (Dilaudid) 0.5 mg IVP Q4H PRN PRN Reason: Pain, moderate (4-7) Last Admin: 08/25/17 22:02 Dose: 0.5 mg Hydromorphone HCl (Dilaudid) 1 mg IVP Q4H PRN PRN Reason: Pain, severe (8-10) Last Admin: 08/26/17 10:04 Dose: 1 mg Hydroxychloroquine Sulfate (Plaquenil) 200 mg PO BID [facility] Last Admin: 08/26/17 10:05 Dose: 200 mg Meropenem 1 gm/ Dextrose 100 mls @ 100 mls/hr IVPB Q12 [facility] PRN Reason: Protocol Stop: 08/30/17 23:46 Last Admin: 08/26/17 10:06 Dose: 100 mls/hr Magnesium Sulfate 2 gm/ Sodium (Chloride) 104 mls @ 102 mls/hr IVPB ONCE ONE Stop: 08/26/17 14:20 Metoprolol Succinate (Toprol Xl) 25 mg PO DAILY [facility] Last Admin: 08/26/17 10:06 Dose: 25 mg Ondansetron HCl (Zofran Inj) 4 mg IVP Q4H PRN PRN Reason: Nausea/Vomiting Pantoprazole Sodium (Protonix Inj) 40 mg IVP DAILY [facility] Last Admin: 08/26/17 10:06 Dose: 40 mg Polyethylene Glycol (Miralax) 17 gm PO DAILY [facility] Quetiapine Fumarate (Seroquel) 50 mg PO HS [facility] PRN Reason: Protocol Last Admin: 08/25/17 21:57 Dose: 50 mg - Labs Labs: 08/26/17 07:20 08/26/17 07:20 PT 12.9 SECONDS (9.4-12.5) H 08/23/17 13:25 INR 1.17 (0.93-1.08) H 08/23/17 13:25 APTT 38.3 Seconds (25.1-36.5) H 08/23/17 13:25 Attending/Attestation - Attestation I have personally seen and examined this patient.: Yes I have fully participated in the care of the patient.: Yes I have reviewed all pertinent clinical information, including history, physical exam and plan: Yes Notes (Text): 08/26/17 13:42 57 year old female with past medical history of chronic back pain, Lupus, CAD, history of DVT s/p IVC filter, compression fractures s/p lumbar fusion and T12 kyphoplasty and OM s/p IV antibiotics therapy who presented with complaint of back pain, nausea and vomiting. MRI was reviewed as above. Continue with iv antibiotics as per ID. Will request for picc line tomorrow. Neurosurgery evaluation was appreciated as well who recommended TLSO brace. Continue with analgesics as needed for pain. Flexeril was added today. Continue with PT. CT abd/pelvis was reviewed. US abd/pelvis was negative for cholethiasis. N/V have improved. Diet advanced to regular today. Anemia workup was ordered for anemia. Will continue to monitor. Colace and miralax are added for constipation. Will replete and repeat lytes. Krystin Rodriguez MD Hospitalist.
[2017-08-26] MEDS ORDERED: Magnesium Sulfate 2 GM in Sodium Chloride 0.9% 100 ML IVPB ONE (13:19)
[2017-08-26] MEDS ORDERED: Potassium Chloride 20 mEq ER Tab PO STA (13:20)
[2017-08-26] MEDS: POLYETHYLENE GLYCOL 3350 17 GM/Dose PACKET PO SCH (14:49)
[2017-08-26] MEDS: HYDROmorphone 0.5 mg/0.5 ml ISec IVP PRN ×2 (14:50→22:23)
--- NOTE | 2017-08-26 17:12 | CP.PCM.PN ---
Subjective - Date & Time of Evaluation Date of Evaluation: 08/26/17 Time of Evaluation: 11:05 - Subjective Subjective: Still with back pain and the back brace is still uncomfortable for her, no fevers overnight, not in distress. Objective - Vital Signs/Intake and Output Vital Signs (last 24 hours): Temp Pulse Resp BP Pulse Ox 98.8 F 78 19 102/66 95 08/26/17 07:30 08/26/17 07:30 08/26/17 07:30 08/26/17 07:30 08/26/17 07:30 Intake and Output: 08/26/17 08/26/17 06:59 18:59 Intake Total 950 Balance 950 - Medications Medications: Current Medications Clopidogrel Bisulfate (Plavix) 75 mg PO DAILY [facility] Last Admin: 08/26/17 10:05 Dose: 75 mg Duloxetine HCl (Cymbalta) 60 mg PO DAILY [facility] Last Admin: 08/26/17 10:06 Dose: 60 mg Gabapentin (Neurontin) 300 mg PO Q8 [facility] PRN Reason: Protocol Last Admin: 08/26/17 06:22 Dose: 300 mg Heparin Sodium (Porcine) (Heparin) 5,000 units SC Q12H [facility] PRN Reason: Protocol Last Admin: 08/25/17 22:44 Dose: 5,000 units Hydrochlorothiazide (Microzide) 12.5 mg PO DAILY [facility] Last Admin: 08/26/17 10:04 Dose: 12.5 mg Hydromorphone HCl (Dilaudid) 0.5 mg IVP Q4H PRN PRN Reason: Pain, moderate (4-7) Last Admin: 08/25/17 22:02 Dose: 0.5 mg Hydromorphone HCl (Dilaudid) 1 mg IVP Q4H PRN PRN Reason: Pain, severe (8-10) Last Admin: 08/26/17 10:04 Dose: 1 mg Hydroxychloroquine Sulfate (Plaquenil) 200 mg PO BID [facility] Last Admin: 08/26/17 10:05 Dose: 200 mg Vancomycin HCl (Vancomycin 1gm) 1 gm in 250 mls @ 167 mls/hr IVPB Q12H [facility] PRN Reason: Protocol Last Admin: 08/25/17 22:44 Dose: 167 mls/hr Meropenem 1 gm/ Dextrose 100 mls @ 100 mls/hr IVPB Q12 [facility] PRN Reason: Protocol Stop: 08/30/17 23:46 Last Admin: 08/26/17 10:06 Dose: 100 mls/hr Metoprolol Succinate (Toprol Xl) 25 mg PO DAILY [facility] Last Admin: 08/26/17 10:06 Dose: 25 mg Ondansetron HCl (Zofran Inj) 4 mg IVP Q4H PRN PRN Reason: Nausea/Vomiting Pantoprazole Sodium (Protonix Inj) 40 mg IVP DAILY [facility] Last Admin: 08/26/17 10:06 Dose: 40 mg Quetiapine Fumarate (Seroquel) 50 mg PO HS [facility] PRN Reason: Protocol Last Admin: 08/25/17 21:57 Dose: 50 mg - Labs Labs: 08/26/17 07:20 08/26/17 07:20 PT 12.9 SECONDS (9.4-12.5) H 08/23/17 13:25 INR 1.17 (0.93-1.08) H 08/23/17 13:25 APTT 38.3 Seconds (25.1-36.5) H 08/23/17 13:25 - Constitutional Appears: Non-toxic - Head Exam Head Exam: NORMAL INSPECTION - ENT Exam ENT Exam: Mucous Membranes Moist - Neck Exam Neck Exam: absent: Lymphadenopathy, Meningismus - Respiratory Exam Respiratory Exam: Decreased Breath Sounds - Cardiovascular Exam Cardiovascular Exam: +S1, +S2 - GI/Abdominal Exam GI & Abdominal Exam: Soft. absent: Tenderness Assessment and Plan - Assessment and Plan (Free Text) Plan: Assessment Back pain, chronic, due to osteomyelitis and discitis T11-L1, previously grew MSSA from the vertebrae (05/2017) compression fracture T12 fracture (which has underwent kyphoplasty in 2016) systemic lupus erythematosus CAD history of DVT S/P IVC filter placement, history of compression fractures of the T8, T9, L4 and L5 vertebrae S/P lumbar fusion S/P T12 kyphoplasty (2016) history of MSSA bacteremia (2016, source was not specifically determined and she received 6 weeks of antibiotics) Plan continue Vancomycin and Merrem; reviewed Neurosurgery evaluation - no surgery recommended currently - would recommend repeat sampling from the vertebrae; would consider doxycycline and Ertapenem for another 6-8 weeks with weekly ESR, CRP, CBC, CMP will continue to monitor clinically discussed with Dr. Rodriguez
[2017-08-26] MEDS: Vancomycin 1gm in NS 250ml 1 GM/250 ML BAG IVPB SCH (20:34)
[2017-08-27] MEDS: Vancomycin 1gm in NS 250ml 1 GM/250 ML BAG IVPB SCH (05:19)
[2017-08-27 07:32] LABS: BASO # 0.01 K/mm3 (0.0-2.0); BASO % 0.2 % (0.0-3.0); EOS # 0.2 (0.0-0.7); EOS % 4.3 % (1.5-5.0); GRAN # 3.06 (1.4-6.5); GRAN % 55.3 % (50.0-68.0); HEMATOCRIT 26.2 % (36.0-48.0); LYMPH # 1.6 (1.2-3.4); LYMPH % 28.8 % (22.0-35.0); MEAN CORPUSCULAR HEMOGLOBIN 29.2 pg (25.0-35.0); MEAN CORPUSCULAR HGB CONC 32.4 g/dl (31.0-37.0); MONO # 0.6 (0.1-0.6); MONO % 11.4 % (1.0-6.0); RED CELL DISTRIBUTION WIDTH 15.6 % (11.5-14.5); WHITE BLOOD COUNT 5.5 10^3/ul (4.5-11.0)
[2017-08-27 07:50] LABS: ALB/GLOB RATIO 0.8 (1.1-1.8); ALKALINE PHOSPHATASE 94 U/L (38-126); ALT/SGPT 23 U/L (7-56); AST/SGOT 23 U/L (14-36); BILIRUBIN,TOTAL 0.4 mg/dL (0.2-1.3); BLOOD UREA NITROGEN 12 mg/dL (7-21); CALCIUM 9.5 mg/dL (8.4-10.5); CARBON DIOXIDE 29 mmol/L (21-33); CHLORIDE 102 mmol/L (98-107); GFR AFRICAN-AMERICAN > 60; GLUCOSE,RANDOM 93 mg/dL (70-110); MAGNESIUM 1.9 mg/dL (1.7-2.2); PHOSPHOROUS 3.6 mg/dL (2.5-4.5); POTASSIUM 4.4 mmol/L (3.6-5.0); SODIUM 136 mmol/L (132-148); TOTAL PROTEIN 6.6 g/dL (5.8-8.3)
--- NOTE | 2017-08-27 08:38 | CON ---
DATE: 08/24/2017 HISTORY OF PRESENT ILLNESS: This is a 57-year-old lady seen by my partner couple of months ago, long history of having had a compression fracture of T12. She underwent kyphoplasty in January of this year. She developed a Staph aureus septicemia and presumed osteomyelitis at that time. She presented to [facility] in the summer and was diagnosed with the same and treated went through rehab. Apparently, she was readmitted yesterday with nausea, vomiting, and complaints of pain. When I asked for now, she is extremely vague about her pain, she points to both flanks around to her back and down in fact to both legs. PAST MEDICAL HISTORY: Extremely significant for lupus, coronary artery disease, she has had an TN, she has had DVT. She has an IVC filter. MEDICATIONS AND SOCIAL HISTORY: Extremely extensive reviewed in the chart as is her social history. PHYSICAL EXAMINATION: NEUROLOGICAL: She clearly does have 5/5 strength throughout whole groups of both lower extremities. Sensory exam is grossly intact. Her reflexes are 2+ in both knees. Plantars are downgoing bilaterally. She has pain to palpitation essentially all along the entire thoracolumbar spine making a localization quite difficult. LABORATORY STUDIES: She has been afebrile since she came in. Her white blood count is only 6; however, her sed rate is 93 and C-reactive protein is elevated. The MRI of the thoracolumbar spine basically show some slightly more enhancement of the collapsed area of L1 through L3 then previously there was no significant canal compromise. IMPRESSION AND PLAN: The MRI always worsens after diagnosis and with treatment, this is of no concerned, there was certainly no major structural abnormalities. There is no cord compression and she is neurologically intact. My recommendations would be ID consultation to see if any further IV antibiotics are warranted as the sed rate and CRP are still elevated. We would reiterate our recommendations from the screen that she will be treated in a TLSO brace, I think it will diminish her pain once she is out of bed and obviously she will continue to need additional management. I suspect that the patient will unfortunately always be in a chronic state of pain. Carlos A De Los Santos MD [facility] # [id number]
[2017-08-27] MEDS: POLYETHYLENE GLYCOL 3350 17 GM/Dose PACKET PO SCH (11:07)
[2017-08-27] MEDS: Meropenem 1 GM in Dextrose 5% In Water 100 ML IVPB SCH ×2 (11:07→21:09)
[2017-08-27] MEDS: Metoprolol Succinate 25 mg XL Tab PO SCH (11:14)
--- NOTE | 2017-08-27 12:54 | CP.PCM.PN ---
Subjective - Date & Time of Evaluation Date of Evaluation: 08/27/17 Time of Evaluation: 11:50 - Subjective Subjective: No fevers, still with back pain but a little less, no diarrhea, no incontinence , no leg weakness. Objective - Vital Signs/Intake and Output Vital Signs (last 24 hours): Temp Pulse Resp BP Pulse Ox 98.3 F 80 19 99/65 L 97 08/27/17 08:48 08/27/17 08:48 08/27/17 08:48 08/27/17 08:48 08/27/17 08:48 Intake and Output: 08/27/17 08/27/17 06:59 18:59 Intake Total 1110 Balance 1110 - Medications Medications: Current Medications Clopidogrel Bisulfate (Plavix) 75 mg PO DAILY [facility] Last Admin: 08/26/17 10:05 Dose: 75 mg Cyclobenzaprine HCl (Flexeril) 5 mg PO TID [facility] Last Admin: 08/26/17 17:55 Dose: 5 mg Docusate Sodium (Colace) 100 mg PO BID [facility] Last Admin: 08/26/17 17:55 Dose: 100 mg Duloxetine HCl (Cymbalta) 60 mg PO DAILY [facility] Last Admin: 08/26/17 10:06 Dose: 60 mg Gabapentin (Neurontin) 300 mg PO Q8 [facility] PRN Reason: Protocol Last Admin: 08/27/17 05:19 Dose: 300 mg Heparin Sodium (Porcine) (Heparin) 5,000 units SC Q12H [facility] PRN Reason: Protocol Last Admin: 08/26/17 22:22 Dose: 5,000 units Hydrochlorothiazide (Microzide) 12.5 mg PO DAILY [facility] Last Admin: 08/26/17 10:04 Dose: 12.5 mg Hydromorphone HCl (Dilaudid) 0.5 mg IVP Q4H PRN PRN Reason: Pain, moderate (4-7) Last Admin: 08/26/17 22:23 Dose: 0.5 mg Hydromorphone HCl (Dilaudid) 1 mg IVP Q4H PRN PRN Reason: Pain, severe (8-10) Last Admin: 08/26/17 19:24 Dose: 1 mg Hydroxychloroquine Sulfate (Plaquenil) 200 mg PO BID [facility] Last Admin: 08/26/17 17:55 Dose: 200 mg Meropenem 1 gm/ Dextrose 100 mls @ 100 mls/hr IVPB Q12 [facility] PRN Reason: Protocol Stop: 08/30/17 23:46 Last Admin: 08/26/17 22:24 Dose: 100 mls/hr Doxycycline Hyclate 100 mg/ (Sodium Chloride) 100 mls @ 100 mls/hr IVPB Q12 [facility] PRN Reason: Protocol Metoprolol Succinate (Toprol Xl) 25 mg PO DAILY [facility] Last Admin: 08/26/17 10:06 Dose: 25 mg Ondansetron HCl (Zofran Inj) 4 mg IVP Q4H PRN PRN Reason: Nausea/Vomiting Pantoprazole Sodium (Protonix Inj) 40 mg IVP DAILY [facility] Last Admin: 08/26/17 10:06 Dose: 40 mg Polyethylene Glycol (Miralax) 17 gm PO DAILY [facility] Last Admin: 08/26/17 14:49 Dose: 17 gm Quetiapine Fumarate (Seroquel) 50 mg PO HS [facility] PRN Reason: Protocol Last Admin: 08/26/17 22:21 Dose: 50 mg - Labs Labs: 08/27/17 07:00 08/27/17 07:00 PT 12.9 SECONDS (9.4-12.5) H 08/23/17 13:25 INR 1.17 (0.93-1.08) H 08/23/17 13:25 APTT 38.3 Seconds (25.1-36.5) H 08/23/17 13:25 - Constitutional Appears: Non-toxic - Head Exam Head Exam: NORMAL INSPECTION - ENT Exam ENT Exam: Mucous Membranes Moist - Neck Exam Neck Exam: absent: Lymphadenopathy, Meningismus - Respiratory Exam Respiratory Exam: Decreased Breath Sounds. absent: Rales - Cardiovascular Exam Cardiovascular Exam: +S1, +S2 - GI/Abdominal Exam GI & Abdominal Exam: Soft. absent: Tenderness Assessment and Plan - Assessment and Plan (Free Text) Plan: Assessment Back pain, chronic, due to osteomyelitis and discitis T11-L1, previously grew MSSA from the vertebrae (05/2017) compression fracture T12 fracture (which has underwent kyphoplasty in 2016) systemic lupus erythematosus CAD history of DVT S/P IVC filter placement, history of compression fractures of the T8, T9, L4 and L5 vertebrae S/P lumbar fusion S/P T12 kyphoplasty (2016) history of MSSA bacteremia (2016, source was not specifically determined and she received 6 weeks of antibiotics) Plan will change Vancomycin to Doxycycline and continue Merrem (not able to use Zyvox since patient is on Cymbalta); reviewed Neurosurgery evaluation - no surgery recommended currently - would recommend repeat sampling from the vertebrae; should consider doxycycline and Ertapenem for another 6-8 weeks with weekly ESR, CRP, CBC, CMP will continue to monitor clinically discussed with Dr. Rodriguez previously
--- NOTE | 2017-08-27 16:40 | CP.PCM.PN ---
<Donta Paz - Last Filed: 08/27/17 16:35> Subjective - Date & Time of Evaluation Date of Evaluation: 08/27/17 Time of Evaluation: 07:30 - Subjective Subjective: Patient seen and evaluated at bedside. No acute events reported overnight. Patient resting in bed in mild discomfort with continued back pain with radiation towards abdomen and into legs. Patient denies chest pain, shortness of breath, fever, chills, nausea, vomiting, numbness, loss of bowl or urinary incontinence. During rounds today patient was educated on importance of placement of PICC line and administration of IV antibiotics for prolonged course of 6-8 weeks for osteomyelitis. Patient was educated on possible risk factors such as paraplegia with refusal of treatment with IV antibiotics and use of back brace. Patient was understanding of conversation. Objective - Vital Signs/Intake and Output Vital Signs (last 24 hours): Temp Pulse Resp BP Pulse Ox 99.2 F 88 20 111/65 97 08/27/17 16:25 08/27/17 16:25 08/27/17 16:25 08/27/17 16:25 08/27/17 16:25 Intake and Output: 08/27/17 08/27/17 06:59 18:59 Intake Total 1110 600 Balance 1110 600 - Medications Medications: Current Medications Clopidogrel Bisulfate (Plavix) 75 mg PO DAILY [facility] Last Admin: 08/27/17 11:15 Dose: 75 mg Cyclobenzaprine HCl (Flexeril) 5 mg PO TID [facility] Last Admin: 08/27/17 16:00 Dose: 5 mg Docusate Sodium (Colace) 100 mg PO BID [facility] Last Admin: 08/27/17 11:12 Dose: 100 mg Duloxetine HCl (Cymbalta) 60 mg PO DAILY [facility] Last Admin: 08/27/17 11:12 Dose: 60 mg Gabapentin (Neurontin) 300 mg PO Q8 [facility] PRN Reason: Protocol Last Admin: 08/27/17 16:00 Dose: 300 mg Heparin Sodium (Porcine) (Heparin) 5,000 units SC Q12H [facility] PRN Reason: Protocol Last Admin: 08/27/17 11:09 Dose: 5,000 units Hydrochlorothiazide (Microzide) 12.5 mg PO DAILY [facility] Last Admin: 08/27/17 11:15 Dose: 12.5 mg Hydromorphone HCl (Dilaudid) 0.5 mg IVP Q4H PRN PRN Reason: Pain, moderate (4-7) Last Admin: 08/26/17 22:23 Dose: 0.5 mg Hydromorphone HCl (Dilaudid) 1 mg IVP Q4H PRN PRN Reason: Pain, severe (8-10) Last Admin: 08/26/17 19:24 Dose: 1 mg Hydroxychloroquine Sulfate (Plaquenil) 200 mg PO BID [facility] Last Admin: 08/27/17 11:15 Dose: 200 mg Meropenem 1 gm/ Dextrose 100 mls @ 100 mls/hr IVPB Q12 [facility] PRN Reason: Protocol Stop: 08/30/17 23:46 Last Admin: 08/27/17 11:07 Dose: 100 mls/hr Doxycycline Hyclate 100 mg/ (Sodium Chloride) 100 mls @ 100 mls/hr IVPB Q12 [facility] PRN Reason: Protocol Last Admin: 08/27/17 13:40 Dose: 100 mls/hr Metoprolol Succinate (Toprol Xl) 25 mg PO DAILY [facility] Last Admin: 08/27/17 11:14 Dose: 25 mg Ondansetron HCl (Zofran Inj) 4 mg IVP Q4H PRN PRN Reason: Nausea/Vomiting Pantoprazole Sodium (Protonix Inj) 40 mg IVP DAILY [facility] Last Admin: 08/27/17 11:11 Dose: 40 mg Polyethylene Glycol (Miralax) 17 gm PO DAILY [facility] Last Admin: 08/27/17 11:07 Dose: Not Given Quetiapine Fumarate (Seroquel) 50 mg PO [facility] PRN Reason: Protocol Last Admin: 08/26/17 22:21 Dose: 50 mg - Labs Labs: 08/27/17 07:00 08/27/17 07:00 PT 12.9 SECONDS (9.4-12.5) H 08/23/17 13:25 INR 1.17 (0.93-1.08) H 08/23/17 13:25 APTT 38.3 Seconds (25.1-36.5) H 08/23/17 13:25 - Constitutional Appears: Well, Non-toxic - Head Exam Head Exam: ATRAUMATIC, NORMAL INSPECTION, NORMOCEPHALIC - Eye Exam Eye Exam: EOMI, PERRL Pupil Exam: PERRL - ENT Exam ENT Exam: Mucous Membranes Moist - Neck Exam Neck Exam: Full ROM, Normal Inspection. absent: Lymphadenopathy - Respiratory Exam Respiratory Exam: Clear to Ausculation Bilateral, NORMAL BREATHING PATTERN. absent: Rales, Rhonchi, Wheezes - Cardiovascular Exam Cardiovascular Exam: REGULAR RHYTHM, +S1, +S2. absent: Murmur - GI/Abdominal Exam GI & Abdominal Exam: Soft, Normal Bowel Sounds. absent: Firm, Guarding, Tenderness - Extremities Exam Extremities Exam: Full ROM, Normal Capillary Refill. absent: Calf Tenderness, Pedal Edema - Back Exam Back Exam: paraspinal tenderness, tenderness, vertebral tenderness - Neurological Exam Neurological Exam: Alert, Awake, Oriented x3 Neuro motor strength exam: Left Upper Extremity: 5, Right Upper Extremity: 5, Left Lower Extremity: 4, Right Lower Extremity: 4 - Psychiatric Exam Psychiatric exam: Normal Affect, Normal Mood - Skin Skin Exam: Dry, Intact, Normal Color, Warm. absent: Rash Assessment and Plan - Assessment and Plan (Free Text) Assessment: Patient is a 57 year old female with past medical history chronic back pain, Lupus, HTN, HLD, CAD, osteoporosis, DVT s/p IVC filter, compression fractures s/p lumbar fusion and recent T12 kyphoplasty presents to the ED for worsening back pain. Patient is s/p 8 week(per patient) IV ABX course with naficillin. Patient is admitted for further management of continued evidence of multilevel vertebral osteomyelitis. Plan: 1. Osteomyeolitis/Discitis of Lower Thoracic Spine - Patient with recent hx of admission in 05/2017 for osteomyeolitis; s/p bone biopsy/aspiration - Patient found to have MSSA placed on IV naficillin and discharged to rehab facility where she completed treatment - MRI findings consistent with multilevel osteomyelitis and discitis. Slight progression of dural enhancement - Pain control with Dilaudid lindsey/prn - ID consulted, appreciate recs would consider Zyvox and Ertapenem for another 6-8 weeks with weekly ESR, CRP , CBC, CMP - Will need PICC placement and subacute placement for discharge - Patient educated on importance of IV antibiotics and length of course for treatment of osteomyeolitis - Neurosurgery consulted, recs TLSO brace, but no intervention at this time - PT eval showing: continue PT, home with services upon dc - Abx: Merrem - Blood cultures negative 3 days - Flexeril for muscle spasm 2. Abdominal Pain -Abd CT showed no acute pathology. Interval appearance of multiple compression deformity at the lower thoracic spine and lumbar spine since the previous exam. Status post kyphoplasty at T12. Severe compression deformity of T12 and moderate compression deformity of T11, L2, and L3 -Abdominal US: no cholelithiasis or bilary dilation -Diet: HHD -Zofran prn nausea 3. Hypomagnesmia - Mg 1.9 - Cont to monitor and replete as needed 4. Anemia - Likely secondary to ACD - Hgb stable - Fe 30, TIBC 237, % sat 13 - FOBT ordered, f/u - Asymptomatic - Will continue to monitor 5. History of SLE -Continue home medications 6. History of CAD -Continue plavix 7. History of Hypertension -Continue Metoprolol succinate 25mg -Continue HCTZ 12.5mg daily 8. Hx of DVT, s/p IVC filter -Heparin 5000U Q12H SC GI PPX: Protonix Case and plan discussed with attending <Zachary Duque - Last Filed: 08/27/17 17:34> Objective - Vital Signs/Intake and Output Vital Signs (last 24 hours): Temp Pulse Resp BP Pulse Ox 99.2 F 88 20 111/65 97 08/27/17 16:25 08/27/17 16:25 08/27/17 16:25 08/27/17 16:25 08/27/17 16:25 Intake and Output: 08/27/17 08/27/17 06:59 18:59 Intake Total 1110 600 Balance 1110 600 - Medications Medications: Current Medications Clopidogrel Bisulfate (Plavix) 75 mg PO DAILY [facility] Last Admin: 08/27/17 11:15 Dose: 75 mg Cyclobenzaprine HCl (Flexeril) 5 mg PO TID [facility] Last Admin: 08/27/17 16:00 Dose: 5 mg Docusate Sodium (Colace) 100 mg PO BID [facility] Last Admin: 08/27/17 11:12 Dose: 100 mg Duloxetine HCl (Cymbalta) 60 mg PO DAILY [facility] Last Admin: 08/27/17 11:12 Dose: 60 mg Gabapentin (Neurontin) 300 mg PO Q8 [facility] PRN Reason: Protocol Last Admin: 08/27/17 16:00 Dose: 300 mg Heparin Sodium (Porcine) (Heparin) 5,000 units SC Q12H [facility] PRN Reason: Protocol Last Admin: 08/27/17 11:09 Dose: 5,000 units Hydrochlorothiazide (Microzide) 12.5 mg PO DAILY [facility] Last Admin: 08/27/17 11:15 Dose: 12.5 mg Hydromorphone HCl (Dilaudid) 0.5 mg IVP Q4H PRN PRN Reason: Pain, moderate (4-7) Last Admin: 08/26/17 22:23 Dose: 0.5 mg Hydromorphone HCl (Dilaudid) 1 mg IVP Q4H PRN PRN Reason: Pain, severe (8-10) Last Admin: 08/26/17 19:24 Dose: 1 mg Hydroxychloroquine Sulfate (Plaquenil) 200 mg PO BID [facility] Last Admin: 08/27/17 11:15 Dose: 200 mg Meropenem 1 gm/ Dextrose 100 mls @ 100 mls/hr IVPB Q12 [facility] PRN Reason: Protocol Stop: 08/30/17 23:46 Last Admin: 08/27/17 11:07 Dose: 100 mls/hr Doxycycline Hyclate 100 mg/ (Sodium Chloride) 100 mls @ 100 mls/hr IVPB Q12 [facility] PRN Reason: Protocol Last Admin: 08/27/17 13:40 Dose: 100 mls/hr Metoprolol Succinate (Toprol Xl) 25 mg PO DAILY [facility] Last Admin: 08/27/17 11:14 Dose: 25 mg Ondansetron HCl (Zofran Inj) 4 mg IVP Q4H PRN PRN Reason: Nausea/Vomiting Pantoprazole Sodium (Protonix Inj) 40 mg IVP DAILY [facility] Last Admin: 08/27/17 11:11 Dose: 40 mg Polyethylene Glycol (Miralax) 17 gm PO DAILY [facility] Last Admin: 08/27/17 11:07 Dose: Not Given Quetiapine Fumarate (Seroquel) 50 mg PO HS [facility] PRN Reason: Protocol Last Admin: 08/26/17 22:21 Dose: 50 mg - Labs Labs: 08/27/17 07:00 08/27/17 07:00 PT 12.9 SECONDS (9.4-12.5) H 08/23/17 13:25 INR 1.17 (0.93-1.08) H 08/23/17 13:25 APTT 38.3 Seconds (25.1-36.5) H 08/23/17 13:25 Attending/Attestation - Attestation I have personally seen and examined this patient.: Yes I have fully participated in the care of the patient.: Yes I have reviewed all pertinent clinical information, including history, physical exam and plan: Yes Notes (Text): 08/27/17 17:31 Patient was seen and examined with medical billing service. Agreed with resident assessment and plan. 57 yrs old female with Back pain, chronic, due to Osteomyelitis and discitis T11 -L1, previously grew MSSA from the vertebrae (05/2017), On IV antibiotics as per ID Meropenem and doxycycline,Blood cultures are negative for any growth.We will get PIC line, Case was discussed with ID. Management plan was discussed in detail with patient Education was provided.
[2017-08-28 07:55] LABS: BASO # 0.02 K/mm3 (0.0-2.0); BASO % 0.3 % (0.0-3.0); EOS # 0.1 (0.0-0.7); EOS % 1.6 % (1.5-5.0); GRAN # 4.37 (1.4-6.5); HEMATOCRIT 29.5 % (36.0-48.0); LYMPH # 1.5 (1.2-3.4); LYMPH % 22.9 % (22.0-35.0); MEAN CELL VOLUME 89.9 fl (80.0-105.0); MEAN CORPUSCULAR HEMOGLOBIN 29.3 pg (25.0-35.0); MEAN CORPUSCULAR HGB CONC 32.5 g/dl (31.0-37.0); MEAN PLATELET VOLUME 9.9 fl (7.0-11.0); MONO # 0.5 (0.1-0.6); MONO % 7.2 % (1.0-6.0); RED CELL DISTRIBUTION WIDTH 15.8 % (11.5-14.5); WHITE BLOOD COUNT 6.4 10^3/ul (4.5-11.0)
[2017-08-28 07:56] LABS: ALB/GLOB RATIO 0.9 (1.1-1.8); ALKALINE PHOSPHATASE 112 U/L (38-126); ALT/SGPT 19 U/L (7-56); AST/SGOT 19 U/L (14-36); BILIRUBIN,TOTAL 0.4 mg/dL (0.2-1.3); BLOOD UREA NITROGEN 11 mg/dL (7-21); CALCIUM 10.2 mg/dL (8.4-10.5); CARBON DIOXIDE 30 mmol/L (21-33); CHLORIDE 103 mmol/L (98-107); GFR AFRICAN-AMERICAN > 60; GLUCOSE,RANDOM 110 mg/dL (70-110); MAGNESIUM 1.6 mg/dL (1.7-2.2); PHOSPHOROUS 3.5 mg/dL (2.5-4.5); SODIUM 138 mmol/L (132-148); TOTAL PROTEIN 7.5 g/dL (5.8-8.3)
[2017-08-28] MEDS: Meropenem 1 GM in Dextrose 5% In Water 100 ML IVPB SCH ×2 (09:33→19:06)
[2017-08-28] MEDS: POLYETHYLENE GLYCOL 3350 17 GM/Dose PACKET PO SCH (09:42)
[2017-08-28] MEDS: Metoprolol Succinate 25 mg XL Tab PO SCH (09:43)
[2017-08-28] MEDS ORDERED: Magnesium Oxide 400 mg Tab UD PO ONE (10:00)
--- NOTE | 2017-08-28 15:55 | CP.PCM.DIS ---
<Donta Paz - Last Filed: 08/29/17 06:41> Provider - Provider Date of Admission: 08/23/17 21:16 Attending physician: Zachary Duque MD Primary care physician: PMD: Dr. Seb Rush Consults: Infectious Disease: Dr. Heriberto Christie Neurosurgery: Dr. Aydin Hinds Time Spent in preparation of Discharge (in minutes): 35 Hospital Course - Lab Results Lab Results: Micro Results 08/24/17 00:35 Blood-Venous Blood Culture - Preliminary NO GROWTH AFTER 4 DAYS 08/24/17 00:10 Blood-Venous Blood Culture - Preliminary NO GROWTH AFTER 4 DAYS Most Recent Lab Values WBC 6.4 10^3/ul (4.5-11.0) 08/28/17 07:37 RBC 3.28 10^6/uL (3.5-6.1) L 08/28/17 07:37 Hgb 9.6 g/dL (12.0-16.0) L 08/28/17 07:37 Hct 29.5 % (36.0-48.0) L 08/28/17 07:37 MCV 89.9 fl (80.0-105.0) 08/28/17 07:37 MCH 29.3 pg (25.0-35.0) 08/28/17 07:37 MCHC 32.5 g/dl (31.0-37.0) 08/28/17 07:37 RDW 15.8 % (11.5-14.5) H 08/28/17 07:37 Plt Count 420 10^3/uL (120.0-450.0) 08/28/17 07:37 MPV 9.9 fl (7.0-11.0) 08/28/17 07:37 Gran % 68.0 % (50.0-68.0) 08/28/17 07:37 Lymph % (Auto) 22.9 % (22.0-35.0) 08/28/17 07:37 Boyd % (Auto) 7.2 % (1.0-6.0) H 08/28/17 07:37 Eos % (Auto) 1.6 % (1.5-5.0) 08/28/17 07:37 Baso % (Auto) 0.3 % (0.0-3.0) 08/28/17 07:37 Gran # 4.37 (1.4-6.5) 08/28/17 07:37 Lymph # 1.5 (1.2-3.4) 08/28/17 07:37 Boyd # 0.5 (0.1-0.6) 08/28/17 07:37 Eos # 0.1 (0.0-0.7) 08/28/17 07:37 Baso # 0.02 K/mm3 (0.0-2.0) 08/28/17 07:37 ESR 93 mm/hr (0.0-20.0) H 08/24/17 07:14 PT 12.9 SECONDS (9.4-12.5) H 08/23/17 13:25 INR 1.17 (0.93-1.08) H 08/23/17 13:25 APTT 38.3 Seconds (25.1-36.5) H 08/23/17 13:25 Sodium 138 mmol/L (132-148) 08/28/17 07:37 Potassium 4.0 mmol/L (3.6-5.0) 08/28/17 07:37 Chloride 103 mmol/L (98-107) 08/28/17 07:37 Carbon Dioxide 30 mmol/L (21-33) 08/28/17 07:37 Anion Gap 9 (10-20) L 08/28/17 07:37 BUN 11 mg/dL (7-21) 08/28/17 07:37 Creatinine 0.9 mg/dL (0.7-1.2) 08/28/17 07:37 Est GFR ( Amer) > 60 08/28/17 07:37 Est GFR (Non-Af Amer) > 60 08/28/17 07:37 POC Glucose (mg/dL) 105 mg/dL (65-110) 08/26/17 07:33 Random Glucose 110 mg/dL (70-110) 08/28/17 07:37 Calcium 10.2 mg/dL (8.4-10.5) 08/28/17 07:37 Phosphorus 3.5 mg/dL (2.5-4.5) 08/28/17 07:37 Magnesium 1.6 mg/dL (1.7-2.2) L 08/28/17 07:37 Iron 30 ug/dL (45-180) L 08/25/17 11:00 TIBC 237 ug/dL (265-497) L 08/25/17 11:00 % Saturation 13 % (20-55) L 08/25/17 11:00 Ferritin 180.0 ng/mL 08/25/17 11:00 Total Bilirubin 0.4 mg/dL (0.2-1.3) 08/28/17 07:37 AST 19 U/L (14-36) 08/28/17 07:37 ALT 19 U/L (7-56) 08/28/17 07:37 Alkaline Phosphatase 112 U/L (38-126) 08/28/17 07:37 C-React Prot High Sens > 15.00 mg/L (1.00-3.00) H 08/24/17 07:14 Total Protein 7.5 g/dL (5.8-8.3) 08/28/17 07:37 Albumin 3.4 g/dL (3.0-4.8) 08/28/17 07:37 Globulin 4.0 gm/dL 08/28/17 07:37 Albumin/Globulin Ratio 0.9 (1.1-1.8) L 08/28/17 07:37 Lipase 42 U/L (23-300) 08/23/17 13:25 Vitamin B12 416 pg/mL (239-931) 08/25/17 11:00 Folate > 20.0 ng/mL 08/25/17 11:00 Urine Color Yellow (YELLOW) 08/23/17 16:00 Urine Appearance Clear (CLEAR) 08/23/17 16:00 Urine pH 7.5 (4.7-8.0) 08/23/17 16:00 Ur Specific [place] 1.010 (1.005-1.035) 08/23/17 16:00 Urine Protein Negative mg/dL (<30 mg/dL) 08/23/17 16:00 Urine Glucose (UA) Negative mg/dL (NEGATIVE) 08/23/17 16:00 Urine Ketones Negative mg/dL (NEGATIVE) 08/23/17 16:00 Urine Blood Negative (NEGATIVE) 08/23/17 16:00 Urine Nitrate Negative (NEGATIVE) 08/23/17 16:00 Urine Bilirubin Negative (NEGATIVE) 08/23/17 16:00 Urine Urobilinogen 0.2 E.U./dL (<1 E.U./dL) 08/23/17 16:00 Ur Leukocyte Esterase Small [place]o/uL (NEGATIVE) H 08/23/17 16:00 Urine RBC 0 - 2 /hpf (0-2) 08/23/17 16:00 Urine WBC 5 - 10 /hpf (0-6) 08/23/17 16:00 Ur Epithelial Cells 6 - 8 /hpf (0-5) 08/23/17 16:00 - Hospital Course Hospital Course: Patient is a 57 year old female with chronic back pain, SLE, HTN, HLD, CAD, osteoporosis, DVT s/p IVC filter, compression fractures status post lumbar fusion with recent T12 kypoplasty who presented to [facility] with worsening back pain with raidation to her abdomen causing nausea and vomiting. The patient was recently admitted to [facility] in May for osteomyeolitis and discitis of her lower thoracic spine. The patient was medically managed and discharged to a sub acute rehab with scheduled IV antibiotics for which she and family report completion of a 6 week course before returning to home. On presentation on 08/23/2017 patient was evaluated in the ED to have intractable back pain and evidence of multilevel ostomyelitis and discitis with progression of dural enhancement. The patient was admitted for further evaluation of her osteomyeolitis and intractable back pain. Significant imaging from admission is as below: MRI Lumbar spine(08/23/17) 1. There is enhancement of the T11-12 and T12-L1 discs as well as the T11-L1 vertebral bodies. There is mild progression of enhancement of the T12-L1 disc and L1 vertebral body. These findings are consistent with the previously described discitis and osteomyelitis. 2. Dural enhancement and thickening is identified within the lower thoracic and upper lumbar spine. This has mildly progressed. This is concerning for an infectious etiology, although malignancy is also within the differential. 3. Paraspinal swelling is identified at the level of the lower thoracic and upper lumbar spine. 4. There is stable postoperative fusion of L5 and S1. 5. Moderate compression fractures are identified from L2 to L5, stable compared to the prior study. There is a severe stable compression fracture of T12. A moderate chronic compression fracture is visualized T9 with a mild chronic compression fracture at T10. 6. There is slight anterolisthesis of L5 on S1. 7. Degenerative changes are visualized multiple lumbar levels 8. There is mild narrowing of the thecal sac at L1-2. 9. Neural foraminal narrowing is identified at L1-2 and L5-S1 10. Mild narrowing of the thecal sac is identified at T11-12. Mild right and severe left neural foraminal narrowing is seen at this level. MRI Thoracic Vertebrae(08/23/17) 1. MRI findings consistent with multilevel osteomyelitis and discitis. Slight progression of dural enhancement when compared to prior exam. No drainable fluid component is identified. Neurosurgery was consulted and evaluated with recommendations against surgical intervention at this time and to recommend the use of TLSO brace for stabilization for her spinal column considering the clinical picture. Infectious disease physician was consulted for osteomyelitis and recommended a 6 -8 week long course of IV antibiotics with Merrem and doxycycline with weekly labs for ESR, CRP, CBC, CMP. A PICC line was placed for the administration of her antibiotics. The patient was instructed and advised on the importance of appropriate administration of her antibiotic regiment. Patient was agreeable and understanding of conversation. The patient was set up with home infusions of antibiotics and assessed to have stable vital signs and HDS. The patient was discharged home after administration of antibiotics in hospital. Patient was understanding and agreeable with plan for IV antibiotic administration and weekly labs. - Date & Time of H&P Date of H&P: 08/23/17 Time of H&P: 23:05 Discharge Exam - Head Exam Head Exam: ATRAUMATIC, NORMAL INSPECTION, NORMOCEPHALIC - Eye Exam Eye Exam: EOMI, PERRL - Neck Exam Neck exam: Full Rom - Respiratory Exam Respiratory Exam: Clear to PA & Lateral, NORMAL BREATHING PATTERN - Cardiovascular Exam Cardiovascular Exam: REGULAR RHYTHM, +S1, +S2 - GI/Abdominal Exam GI & Abdominal Exam: Normal Bowel Sounds, Soft - Back Exam Back exam: paraspinal tenderness, tenderness, vertebral tenderness - Neurological Exam Neurological exam: Alert, CN II-XII Intact, Oriented x3, Reflexes Normal - Psychiatric Exam Psychiatric exam: Normal Affect, Normal Mood - Skin Skin Exam: Dry, Intact, Normal Color, Warm Discharge Plan - Discharge Medications Prescriptions: Doxycycline Hyclate [Vibramycin] 100 mg IV BID #112 vial Ertapenem 1gm in NS 50ml [Invanz] 1 gm IVPB DAILY #56 bag - Follow Up Plan Condition: FAIR Disposition: HOME/ ROUTINE Instructions: Pneumococcal Vaccine for Adults (DC), Heart Healthy Diet (DC), Osteomyelitis (DC), Non-pharmacological Pain Management Therapies for Adults ( GEN), Chronic Pain (DC), Peripherally Inserted Central Catheters and Midline Catheters (DC), Influenza Vaccine (DC), Chronic Hypertension (DC), Fall Prevention (DC) Additional Instructions: 1. Follow up with PMD in one week from discharge of hospital 2. Take medications as prescribed to you, most notably the IV antibiotics Ertapenem Daily and Doxycycline BID for a total of 8 week course 3. Make sure to follow up with weekly labs CBC, CMP, ESR, CRP 4. Wear TSLO brace as it is important for stabilization of spinal column in setting of current pathology 5. Return to hospital if your symptoms worsen or return Referrals: Aydin Hinds MD [Staff Provider] - Heriberto Christie MD [Staff Provider] - <Zachary Duque - Last Filed: 08/29/17 12:12> Provider - Provider Date of Admission: 08/23/17 21:16 Attending physician: Zachary Duque MD Hospital Course - Lab Results Lab Results: Micro Results 08/24/17 00:35 Blood-Venous Blood Culture - Final NO GROWTH AFTER 5 DAYS 08/24/17 00:35 Blood-Venous Gram Stain - Final TEST NOT PERFORMED 08/24/17 00:10 Blood-Venous Blood Culture - Final NO GROWTH AFTER 5 DAYS 08/24/17 00:10 Blood-Venous Gram Stain - Final TEST NOT PERFORMED Most Recent Lab Values WBC 6.4 10^3/ul (4.5-11.0) 08/28/17 07:37 RBC 3.28 10^6/uL (3.5-6.1) L 08/28/17 07:37 Hgb 9.6 g/dL (12.0-16.0) L 08/28/17 07:37 Hct 29.5 % (36.0-48.0) L 08/28/17 07:37 MCV 89.9 fl (80.0-105.0) 08/28/17 07:37 MCH 29.3 pg (25.0-35.0) 08/28/17 07:37 MCHC 32.5 g/dl (31.0-37.0) 08/28/17 07:37 RDW 15.8 % (11.5-14.5) H 08/28/17 07:37 Plt Count 420 10^3/uL (120.0-450.0) 08/28/17 07:37 MPV 9.9 fl (7.0-11.0) 08/28/17 07:37 Gran % 68.0 % (50.0-68.0) 08/28/17 07:37 Lymph % (Auto) 22.9 % (22.0-35.0) 08/28/17 07:37 Boyd % (Auto) 7.2 % (1.0-6.0) H 08/28/17 07:37 Eos % (Auto) 1.6 % (1.5-5.0) 08/28/17 07:37 Baso % (Auto) 0.3 % (0.0-3.0) 08/28/17 07:37 Gran # 4.37 (1.4-6.5) 08/28/17 07:37 Lymph # 1.5 (1.2-3.4) 08/28/17 07:37 Boyd # 0.5 (0.1-0.6) 08/28/17 07:37 Eos # 0.1 (0.0-0.7) 08/28/17 07:37 Baso # 0.02 K/mm3 (0.0-2.0) 08/28/17 07:37 ESR 93 mm/hr (0.0-20.0) H 08/24/17 07:14 PT 12.9 SECONDS (9.4-12.5) H 08/23/17 13:25 INR 1.17 (0.93-1.08) H 08/23/17 13:25 APTT 38.3 Seconds (25.1-36.5) H 08/23/17 13:25 Sodium 138 mmol/L (132-148) 08/28/17 07:37 Potassium 4.0 mmol/L (3.6-5.0) 08/28/17 07:37 Chloride 103 mmol/L (98-107) 08/28/17 07:37 Carbon Dioxide 30 mmol/L (21-33) 08/28/17 07:37 Anion Gap 9 (10-20) L 08/28/17 07:37 BUN 11 mg/dL (7-21) 08/28/17 07:37 Creatinine 0.9 mg/dL (0.7-1.2) 08/28/17 07:37 Est GFR ( Amer) > 60 08/28/17 07:37 Est GFR (Non-Af Amer) > 60 08/28/17 07:37 POC Glucose (mg/dL) 105 mg/dL (65-110) 08/26/17 07:33 Random Glucose 110 mg/dL (70-110) 08/28/17 07:37 Calcium 10.2 mg/dL (8.4-10.5) 08/28/17 07:37 Phosphorus 3.5 mg/dL (2.5-4.5) 08/28/17 07:37 Magnesium 1.6 mg/dL (1.7-2.2) L 08/28/17 07:37 Iron 30 ug/dL (45-180) L 08/25/17 11:00 TIBC 237 ug/dL (265-497) L 08/25/17 11:00 % Saturation 13 % (20-55) L 08/25/17 11:00 Ferritin 180.0 ng/mL 08/25/17 11:00 Total Bilirubin 0.4 mg/dL (0.2-1.3) 08/28/17 07:37 AST 19 U/L (14-36) 08/28/17 07:37 ALT 19 U/L (7-56) 08/28/17 07:37 Alkaline Phosphatase 112 U/L (38-126) 08/28/17 07:37 C-React Prot High Sens > 15.00 mg/L (1.00-3.00) H 08/24/17 07:14 Total Protein 7.5 g/dL (5.8-8.3) 08/28/17 07:37 Albumin 3.4 g/dL (3.0-4.8) 08/28/17 07:37 Globulin 4.0 gm/dL 08/28/17 07:37 Albumin/Globulin Ratio 0.9 (1.1-1.8) L 08/28/17 07:37 Lipase 42 U/L (23-300) 08/23/17 13:25 Vitamin B12 416 pg/mL (239-931) 08/25/17 11:00 Folate > 20.0 ng/mL 08/25/17 11:00 Urine Color Yellow (YELLOW) 08/23/17 16:00 Urine Appearance Clear (CLEAR) 08/23/17 16:00 Urine pH 7.5 (4.7-8.0) 08/23/17 16:00 Ur Specific [place] 1.010 (1.005-1.035) 08/23/17 16:00 Urine Protein Negative mg/dL (<30 mg/dL) 08/23/17 16:00 Urine Glucose (UA) Negative mg/dL (NEGATIVE) 08/23/17 16:00 Urine Ketones Negative mg/dL (NEGATIVE) 08/23/17 16:00 Urine Blood Negative (NEGATIVE) 08/23/17 16:00 Urine Nitrate Negative (NEGATIVE) 08/23/17 16:00 Urine Bilirubin Negative (NEGATIVE) 08/23/17 16:00 Urine Urobilinogen 0.2 E.U./dL (<1 E.U./dL) 08/23/17 16:00 Ur Leukocyte Esterase [place]/uL (NEGATIVE) H 08/23/17 16:00 Urine RBC 0 - 2 /hpf (0-2) 08/23/17 16:00 Urine WBC 5 - 10 /hpf (0-6) 08/23/17 16:00 Ur Epithelial Cells 6 - 8 /hpf (0-5) 08/23/17 16:00 Attending/Attestation - Attestation I have personally seen and examined this patient.: Yes I have fully participated in the care of the patient.: Yes I have reviewed all pertinent clinical information, including history, physical exam and plan: Yes Notes (Text): 08/29/17 12:08 Patient was seen and examined with medical information specialist. Agreed with resident assessment and plan. 57 yrs old female with Back pain, chronic, due to Osteomyelitis and discitis T11 -L1, previously grew MSSA from the vertebrae (05/2017), Blood cultures are negative for any growth Patient will be discharged home On IV antibiotics Merapenem and doxycycline for 6 weeks as per ID. Patient will need weekly CBC,CMP and CRP while on antibiotics. Patient has been advised to use TSLO Brace as recommended by surgery. Management plan was discussed in detail with patient Education was provided.
--- NOTE | 2017-08-28 16:09 | CP.PCM.PN ---
Subjective - Date & Time of Evaluation Date of Evaluation: 08/28/17 Time of Evaluation: 16:08 Objective - Vital Signs/Intake and Output Vital Signs (last 24 hours): Temp Pulse Resp BP Pulse Ox 99.4 F 72 17 161/56 H 100 08/28/17 07:30 08/28/17 09:43 08/28/17 07:30 08/28/17 09:43 08/28/17 07:30 Intake and Output: 08/28/17 08/28/17 06:59 18:59 Intake Total 420 640 Balance 420 640 - Medications Medications: Current Medications Clopidogrel Bisulfate (Plavix) 75 mg PO DAILY [facility] Last Admin: 08/28/17 09:43 Dose: 75 mg Cyclobenzaprine HCl (Flexeril) 5 mg PO TID [facility] Last Admin: 08/28/17 13:25 Dose: 5 mg Docusate Sodium (Colace) 100 mg PO BID [facility] Last Admin: 08/28/17 09:48 Dose: 100 mg Duloxetine HCl (Cymbalta) 60 mg PO DAILY [facility] Last Admin: 08/28/17 09:44 Dose: 60 mg Gabapentin (Neurontin) 300 mg PO Q8 [facility] PRN Reason: Protocol Last Admin: 08/28/17 13:25 Dose: 300 mg Heparin Sodium (Porcine) (Heparin) 5,000 units SC Q12H [facility] PRN Reason: Protocol Last Admin: 08/28/17 10:00 Dose: 5,000 units Hydrochlorothiazide (Microzide) 12.5 mg PO DAILY [facility] Last Admin: 08/28/17 09:45 Dose: 12.5 mg Hydroxychloroquine Sulfate (Plaquenil) 200 mg PO BID [facility] Last Admin: 08/28/17 09:43 Dose: 200 mg Meropenem 1 gm/ Dextrose 100 mls @ 100 mls/hr IVPB Q12 [facility] PRN Reason: Protocol Stop: 08/30/17 23:46 Last Admin: 08/28/17 09:33 Dose: 100 mls/hr Doxycycline Hyclate 100 mg/ (Sodium Chloride) 100 mls @ 100 mls/hr IVPB Q12 [facility] PRN Reason: Protocol Last Admin: 08/28/17 09:34 Dose: 100 mls/hr Metoprolol Succinate (Toprol Xl) 25 mg PO DAILY [facility] Last Admin: 08/28/17 09:43 Dose: 25 mg Ondansetron HCl (Zofran Inj) 4 mg IVP Q4H PRN PRN Reason: Nausea/Vomiting Pantoprazole Sodium (Protonix Inj) 40 mg IVP DAILY [facility] Last Admin: 08/28/17 09:42 Dose: 40 mg Polyethylene Glycol (Miralax) 17 gm PO DAILY [facility] Last Admin: 08/28/17 09:42 Dose: 17 gm Quetiapine Fumarate (Seroquel) 50 mg PO HS [facility] PRN Reason: Protocol Last Admin: 08/27/17 21:09 Dose: 50 mg - Labs Labs: 08/28/17 07:37 08/28/17 07:37 PT 12.9 SECONDS (9.4-12.5) H 08/23/17 13:25 INR 1.17 (0.93-1.08) H 08/23/17 13:25 APTT 38.3 Seconds (25.1-36.5) H 08/23/17 13:25
[2017-08-28 17:57] VITALS: BP 107/63; PULSE 88; RESP 20; TEMP 97.7; O2SAT 96
[2017-08-28] MEDS ORDERED: Influenza Vaccine 60 mcg/0.5 mL SYR (4YR UP) IM ONE (18:49)
== END 2017-08-28 22:06 | disposition home or self-care (01) | DRG 552 ==
LOC: ED 11:39 → ERH 21:16 → 5RSO 23:25
PROVIDERS: ADMIT Internal Medicine; ATTEND Internal Medicine
PROC: 02HV33Z Insertion of Infusion Device into Superior Vena Cava, Percutaneous Approach (ICD-10-PCS; principal; 2017-08-28)
PROC: B548ZZA Ultrasonography of Superior Vena Cava, Guidance (ICD-10-PCS; 2017-08-28)
DX: M46.45 Discitis, unspecified, thoracolumbar region (principal); M32.9 Systemic lupus erythematosus, unspecified; E87.2 Acidosis; M46.24 Osteomyelitis of vertebra, thoracic region; E87.1 Hypo-osmolality and hyponatremia; M48.54XA Collapsed vertebra, not elsewhere classified, thoracic region, initial encounter for fracture; M81.0 Age-related osteoporosis without current pathological fracture; N20.0 Calculus of kidney; E78.5 Hyperlipidemia, unspecified; G89.29 Other chronic pain; I10 Essential (primary) hypertension; I25.10 Atherosclerotic heart disease of native coronary artery without angina pectoris; I25.2 Old myocardial infarction; I48.91 Unspecified atrial fibrillation; J45.909 Unspecified asthma, uncomplicated; K52.9 Noninfective gastroenteritis and colitis, unspecified; K59.00 Constipation, unspecified; K81.9 Cholecystitis, unspecified; Z79.01 Long term (current) use of anticoagulants; Z79.899 Other long term (current) drug therapy; Z80.8 Family history of malignant neoplasm of other organs or systems; Z82.49 Family history of ischemic heart disease and other diseases of the circulatory system; Z86.19 Personal history of other infectious and parasitic diseases; Z86.718 Personal history of other venous thrombosis and embolism; Z98.1 Arthrodesis status; Z88.6 Allergy status to analgesic agent; Z88.5 Allergy status to narcotic agent; Z88.0 Allergy status to penicillin; D64.9 Anemia, unspecified; E83.42 Hypomagnesemia

== ENCOUNTER 2018-01-09 09:15 | Emergency (ER) | payer OTHER ==
[2018-01-09 09:16] VITALS: BMI 40.0
[2018-01-09 09:32] VITALS: TEMP 98
[2018-01-09] MEDS ORDERED: Sodium Chloride 0.9% 1,000 ML IV STA (09:52)
--- NOTE | 2018-01-09 09:52 | ED PDOC ---
Arrival/HPI - General Chief Complaint: Dizziness/Lightheaded Time Seen by Provider: 01/09/18 09:51 Historian: Patient - History of Present Illness Narrative History of Present Illness (Text): 01/09/18 09:52 Elle Alvarado is a 57 year old female, whose past medical history includes chronic back pain, leg pain, thoracic discitis, and arthritis, who presents to the emergency department c/o left lower back pain that radiates to LLQ abdominal area x 3 days ago. Patient stated she has a history of intermittent chronic generalized weakness, and dizziness. She noted dizziness caused her to fall x 3 days ago, which worsen her lower back pain. Denies urinary incontinence. On the contrary of triage note, patient has a pmh hemorrhoids, but it is not bleeding. Denies sob, chest pain, vomiting, urinary symptoms, hematuria, rectal bleeding, or recent travel. Time/Duration: Other (see hpi) Context: Home Past Medical History - Provider Review Nursing Documentation Reviewed: Yes - Infectious Disease Hx of Infectious Diseases: None - Tetanus Immunization Tetanus Immunization: Unknown - Cardiac Hx Cardiac Disorders: Yes Hx Hypertension: Yes - Pulmonary Hx Respiratory Disorders: Yes Hx Asthma: Yes - Neurological Hx Neurological Disorder: Yes Hx Dizziness: Yes - HEENT Hx HEENT Disorder: No - Renal Hx Renal Disorder: No - Endocrine/Metabolic Hx Endocrine Disorders: Yes Hx Systemic Lupus Erythematosus: Yes - Hematological/Oncological Hx Blood Disorders: Yes Hx Shingles: Yes - Integumentary Hx Dermatological Disorder: Yes (shingles) - Musculoskeletal/Rheumatological Hx Musculoskeletal Disorders: Yes Hx Arthritis: Yes - Gastrointestinal Hx Gastrointestinal Disorders: Yes - Genitourinary/Gynecological Hx Genitourinary Disorders: No - Psychiatric Hx Psychophysiologic Disorder: Yes Hx Depression: Yes Hx Substance Use: No - Surgical History Hx Orthopedic Surgery: Yes (Lumbar fusion, T12 kyphoplasty) Other/Comment: back surgery x2 february and april 2017 - Anesthesia Hx Anesthesia: Yes Hx Anesthesia Reactions: No Hx Malignant Hyperthermia: No - Suicidal Assessment Feels Threatened In Home Enviroment: No Family/Social History - Physician Review Nursing Documentation Reviewed: Yes Family/Social History: Other (noncontributory) Smoking Status: Never Smoked Hx Alcohol Use: No Hx Substance Use: No Hx Substance Use Treatment: No Allergies/Home Meds Allergies/Adverse Reactions: Allergies aspirin Allergy (Verified 01/09/18 09:18) RASH codeine Allergy (Verified 01/09/18 09:18) RASH penicillin G Allergy (Verified 01/09/18 09:18) SWELLING Home Medications: Home Meds Medication Instructions Recorded Confirmed Clonazepam [Klonopin] 1 tab PO DAILY 05/07/17 01/09/18 Gabapentin [Neurontin] 300 mg PO Q8 05/07/17 01/09/18 Hydrocodone/Acetaminophen 1 tab PO QID PRN 05/07/17 01/09/18 [Hydrocodone-Acetaminophen 325 mg-7 mg] QUEtiapine [SEROquel] 1 tab PO HS 05/07/17 01/09/18 Clopidogrel [Plavix] 1 tab PO DAILY 05/28/17 01/09/18 Methotrexate 2.5 mg PO Q7D 05/28/17 01/09/18 hydroCHLOROthiazide [Microzide] 1 cap PO DAILY 05/28/17 01/09/18 traMADol [Ultram] 1 tab PO Q8H PRN 05/28/17 01/09/18 Duloxetine HCl 30 mg PO DAILY 08/23/17 01/09/18 Folic Acid 1 mg PO DAILY 08/23/17 01/09/18 Hydroxychloroquine Sulfate 200 mg PO BID 08/23/17 01/09/18 [Plaquenil] Metoprolol Succinate [Toprol XL] 25 mg PO DAILY 08/23/17 01/09/18 Pregabalin [Lyrica] 150 mg PO BID 08/23/17 01/09/18 Sucralfate [Carafate Tab] 1 gm PO Q6 08/23/17 01/09/18 Simvastatin [Zocor] 40 mg PO DAILY 01/09/18 01/09/18 Review of Systems - Review of Systems Constitutional: Normal. absent: Fatigue, Weight Change, Fevers Eyes: Normal ENT: Normal Respiratory: Normal. absent: SOB, Cough, Sputum, Wheezing Cardiovascular: Normal. absent: Chest Pain, Palpitations Gastrointestinal: Abdominal Pain, Nausea. absent: Vomiting Genitourinary Female: Normal. absent: Dysuria, Frequency, Hematuria, Vaginal Bleeding, Vaginal Discharge Musculoskeletal: Normal Skin: Normal. absent: Rash Neurological: Headache, Dizziness. absent: Focal Weakness, Gait Changes, Speech Changes, Facial Droop, Disequilibrium, Seizure Endocrine: Normal Hemo/Lymphatic: Normal Psychiatric: Normal Physical Exam Vital Signs Temp Pulse Resp BP Pulse Ox 01/09/18 13:04 85 17 118/80 98 01/09/18 11:30 89 18 115/77 98 01/09/18 09:25 98.0 F 93 H 16 113/75 97 Temperature: Afebrile Blood Pressure: Normal Pulse: Regular Respiratory Rate: Normal Appearance: Positive for: Well-Appearing, Non-Toxic, Comfortable Pain Distress: None Mental Status: Positive for: Alert and Oriented X 3 - Systems Exam Head: Present: Atraumatic, Normocephalic Pupils: Present: PERRL Extroacular Muscles: Present: EOMI Conjunctiva: Present: Normal Mouth: Present: Moist Mucous Membranes Neck: Present: Normal Range of Motion Respiratory/Chest: Present: Clear to Auscultation, Good Air Exchange. No: Respiratory Distress, Accessory Muscle Use, Wheezes, Retracting, Rhonchi Cardiovascular: Present: Regular Rate and Rhythm, Normal S1, S2. No: Murmurs Abdomen: Present: Normal Bowel Sounds. No: Tenderness, Distention, Peritoneal Signs Back: Present: Normal Inspection. No: CVA Tenderness Upper Extremity: Present: Normal Inspection, Normal ROM. No: Cyanosis, Edema Lower Extremity: Present: Normal Inspection, Normal ROM. No: Edema Neurological: Present: GCS=15, CN II-XII Intact, Speech Normal Skin: Present: Warm, Dry, Normal Color. No: Rashes Psychiatric: Present: Alert, Oriented x 3, Normal Insight, Normal Concentration Medical Decision Making ED Course and Treatment: 01/09/18 11:47 Patient remained stable during the course of ED visit. Patient has a normal gait. 01/09/18 13:00 Re-evaluation. Patient feels better. Discussed results and plan with patient who expresses understanding. All questions answered and there is agreement with the plan to discharge home with instructions. Patient stable for discharge. Return if symptoms persist or worsen. Patient was recommended to f/u pain management doctor, and her PMD for revaluation in 1-2 days, and to return to ED if pain worsen. Re-evaluation Time: 13:00 Reassessment Condition: Re-examined, Improved - Lab Interpretations Lab Results: 01/09/18 09:50 01/09/18 09:50 Lab Results 01/09/18 12:30: Urine Color Yellow, Urine Appearance Clear, Urine pH 7.5, Ur Specific [place] 1.015, Urine Protein Negative, Urine Glucose (UA) Negative, Urine Ketones Negative, Urine Blood Negative, Urine Nitrate Negative, Urine Bilirubin Negative, Urine Urobilinogen 0.2, Ur Leukocyte Esterase Negative 01/09/18 10:00: POC Glucose (mg/dL) 100 01/09/18 09:50: Sodium 144, Potassium 3.4 L, Chloride 105, Carbon Dioxide 29, Anion Gap 14, BUN 11, Creatinine 1.1, Est GFR ( Amer) > 60, Est GFR (Non- Af Amer) 51, Random Glucose 97, Calcium 9.1, Total Bilirubin 0.2, AST 25, ALT 36 , Alkaline Phosphatase 127 H, Lactate Dehydrogenase 594, Total Creatine Kinase 76, Troponin I < 0.01, Total Protein 6.8, Albumin 3.4, Globulin 3.5, Albumin/ Globulin Ratio 1.0 L, Lipase 27 01/09/18 09:50: PT 14.1 H, INR 1.22 H, APTT 53.2 H 01/09/18 09:50: WBC 7.7 D, RBC 3.35 L, Hgb 9.6 L, Hct 30.0 L, MCV 89.6, MCH 28.7, MCHC 32.0, RDW 14.0, Plt Count 277, MPV 11.0, Gran % 66.5, Lymph % (Auto) 27.1, [place] % (Auto) 5.7, Eos % (Auto) 0.6 L, Baso % (Auto) 0.1, Gran # 5.11, Lymph # (Auto) 2.1, [place] # (Auto) 0.4, Eos # (Auto) 0.1, Baso # (Auto) 0.01 I have reviewed the lab results: Yes Interpretation: No clinic. lab abnormalty - RAD Interpretation Narrative RAD Interpretations (Text): 01/09/18 11:10 PROCEDURE: CT HEAD WITHOUT CONTRAST. HISTORY: dizziness COMPARISON: CT 10/22/2017 TECHNIQUE: Axial computed tomography images were obtained through the head/brain without intravenous contrast. Radiation dose: Total exam DLP = 829 mGy-cm. This CT exam was performed using one or more of the following dose reduction techniques: Automated exposure control, adjustment of the mA and/or kV according to patient size, and/or use of iterative reconstruction technique. FINDINGS: HEMORRHAGE: No intracranial hemorrhage. BRAIN: No mass effect or edema. No atrophy or chronic microvascular ischemic changes. VENTRICLES: Unremarkable. No hydrocephalus. CALVARIUM: Unremarkable. PARANASAL SINUSES: Unremarkable as visualized. No significant inflammatory changes. MASTOID AIR CELLS: Unremarkable as visualized. No inflammatory changes. OTHER FINDINGS: None. IMPRESSION: No acute findings 01/09/18 11:46 PROCEDURE: CT Abdomen and Pelvis with contrast HISTORY: LLQ pain COMPARISON: None. TECHNIQUE: Contrast dose: 100 cc of Omni 350 Radiation dose: Total exam DLP = 665 mGy-cm. This CT exam was performed using one or more of the following dose reduction techniques: Automated exposure control, adjustment of the mA and/or kV according to patient size, and/or use of iterative reconstruction technique. FINDINGS: LOWER THORAX: Unremarkable. LIVER: Unremarkable. No gross lesion or ductal dilatation. GALLBLADDER AND BILE DUCTS: Unremarkable. PANCREAS: Unremarkable. No gross lesion or ductal dilatation. SPLEEN: Unremarkable. ADRENALS: Unremarkable. No mass. KIDNEYS AND URETERS: Unremarkable. No hydronephrosis. No solid mass. VASCULATURE: Unremarkable. No aortic aneurysm. A caval filter is present BOWEL: Unremarkable. No obstruction. No gross mural thickening. APPENDIX: Normal appendix. PERITONEUM: Unremarkable. No free fluid. No free air. LYMPH NODES: Unremarkable. No enlarged lymph nodes. BLADDER: Unremarkable. REPRODUCTIVE: Unremarkable. BONES: Multiple compression fractures. Previous vertebroplasty at T12. OTHER FINDINGS: None. IMPRESSION: No acute intra-abdominal findings Radiology Orders: 01/09/18 09:54 ABD & PELVIS IV CONTRAST ONLY [CT] Stat 01/09/18 09:56 HEAD W/O CONTRAST [CT] Stat 01/09/18 11:10 CHEST PORTABLE [RAD] Stat - EKG Interpretation Interpreted by ED Physician: Yes (NSR @ [address] changes) Type: 12 lead EKG Comparison: No previous EKG avail. - Medication Orders Current Medication Orders: Discontinued Medications Famotidine (Pepcid) 20 mg IVP STAT STA Stop: 01/09/18 09:53 Last Admin: 01/09/18 10:15 Dose: 20 mg IVP Administration Document 01/09/18 10:15 SF (Rec: 01/09/18 10:16 SF [email or web address] Charges for Administration # of IVP Administrations 1 Sodium Chloride (Sodium Chloride 0.9%) 1,000 mls @ 1,000 mls/hr IV .Q1H STA Stop: 01/09/18 10:51 Last Admin: 01/09/18 10:15 Dose: 1,000 mls/hr eMAR Start Stop Document 01/09/18 10:15 SF (Rec: 01/09/18 10:15 SF [email or web address] Intravenous Solution Start Date 01/09/18 Start Time 10:15 End Date 01/09/18 End time 11:15 Total Infusion Time 60 Morphine Sulfate (Morphine) 2 mg IVP STAT STA Stop: 01/09/18 11:54 Last Admin: 01/09/18 13:12 Dose: 2 mg MAR Pain Assessment Document 01/09/18 13:12 SF (Rec: 01/09/18 13:13 SF [email or web address] Pain Reassessment Is this a pain reassessment? Yes Sleep Is patient sleeping during reassessment? No Presence of Pain Presence of Pain Yes Pain Scale Used Pain Scale Used Numeric IVP Administration Document 01/09/18 13:12 SF (Rec: 01/09/18 13:13 SF [email or web address] Charges for Administration # of IVP Administrations 1 Ondansetron HCl (Zofran Inj) 4 mg IVP STAT STA Stop: 01/09/18 09:53 Last Admin: 01/09/18 10:16 Dose: 4 mg IVP Administration Document 01/09/18 10:16 SF (Rec: 01/09/18 10:16 SF [email or web address] Charges for Administration # of IVP Administrations 1 Disposition/Present on Arrival - Present on Arrival Any Indicators Present on Arrival: No History of DVT/PE: No History of Uncontrolled Diabetes: No Urinary Catheter: No History of Decub. Ulcer: No History Surgical Site Infection Following: None - Disposition Have Diagnosis and Disposition been Completed?: Yes Diagnosis: Chronic back pain, Nonspecific abdominal pain Disposition: HOME/ ROUTINE Disposition Time: 12:50 Patient Plan: Discharge Patient Problems: Current Active Problems Problem Status Onset Chronic back pain Acute Nonspecific abdominal pain Acute Condition: IMPROVED Discharge Instructions (ExitCare): Low Back Pain in Adults Print Language: TURKISH Additional Instructions: Llame a delgadillo doctor para seguimiento medico en 1-2 duong. Contacte a el doctor que trata joel cronicos. Regrese a la emergencia si problema empeora. Prescriptions: Acetaminophen [Tylenol 325mg tab] 650 mg PO Q4H PRN #30 tab PRN Reason: Pain, Severe (8-10) Referrals: [facility] [Outside] - Follow up with primary [facility] [Outside] - Follow up with primary Bryce Snow MD [Staff Provider] - Follow up with primary Forms: [employer] (Palestinian)
[2018-01-09 10:31] LABS: BASO # 0.01 K/mm3 (0.0-2.0); BASO % 0.1 % (0.0-3.0); EOS # 0.1 (0.0-0.7); EOS % 0.6 % (1.5-5.0); GRAN # 5.11 (1.4-6.5); GRAN % 66.5 % (50.0-68.0); HEMOGLOBIN 9.6 g/dL (12.0-16.0); LYMPH # 2.1 (1.2-3.4); LYMPH % 27.1 % (22.0-35.0); MEAN CELL VOLUME 89.6 fl (80.0-105.0); MEAN CORPUSCULAR HEMOGLOBIN 28.7 pg (25.0-35.0); MONO # 0.4 (0.1-0.6); MONO % 5.7 % (1.0-6.0); RBC 3.35 10^6/uL (3.5-6.1); WHITE BLOOD COUNT 7.7 10^3/ul (4.5-11.0)
[2018-01-09 10:37] LABS: ALBUMIN 3.4 g/dL (3.0-4.8); ALT/SGPT 36 U/L (7-56); AST/SGOT 25 U/L (14-36); BLOOD UREA NITROGEN 11 mg/dL (7-21); CALCIUM 9.1 mg/dL (8.4-10.5); GFR AFRICAN-AMERICAN > 60; GFR NON-AFRICAN AMERICAN 51; LIPASE 27 U/L (23-300)
[2018-01-09 10:38] LABS: PROTHROMBIN TIME 14.1 SECONDS (9.4-12.5)
[2018-01-09 10:39] LABS: INR 1.22 (0.93-1.08); PARTIAL THROMBOPLASTIN TIME 53.2 Seconds (25.1-36.5)
[2018-01-09] MEDS ORDERED: Iohexol 350 MG/100 ML VIAL ONE (10:47)
[2018-01-09 10:48] LABS: TROPONIN I < 0.01 ng/mL
--- NOTE | 2018-01-09 11:07 | CT ---
PROCEDURE: CT HEAD WITHOUT CONTRAST. HISTORY: dizziness COMPARISON: CT 10/22/2017 TECHNIQUE: Axial computed tomography images were obtained through the head/brain without intravenous contrast. Radiation dose: Total exam DLP = 829 mGy-cm. This CT exam was performed using one or more of the following dose reduction techniques: Automated exposure control, adjustment of the mA and/or kV according to patient size, and/or use of iterative reconstruction technique. FINDINGS: HEMORRHAGE: No intracranial hemorrhage. BRAIN: No mass effect or edema. No atrophy or chronic microvascular ischemic changes. VENTRICLES: Unremarkable. No hydrocephalus. CALVARIUM: Unremarkable. PARANASAL SINUSES: Unremarkable as visualized. No significant inflammatory changes. MASTOID AIR CELLS: Unremarkable as visualized. No inflammatory changes. OTHER FINDINGS: None. IMPRESSION: No acute findings
--- NOTE | 2018-01-09 11:23 | CT ---
PROCEDURE: CT Abdomen and Pelvis with contrast HISTORY: LLQ pain COMPARISON: None. TECHNIQUE: Contrast dose: 100 cc of Omni 350 Radiation dose: Total exam DLP = 665 mGy-cm. This CT exam was performed using one or more of the following dose reduction techniques: Automated exposure control, adjustment of the mA and/or kV according to patient size, and/or use of iterative reconstruction technique. FINDINGS: LOWER THORAX: Unremarkable. LIVER: Unremarkable. No gross lesion or ductal dilatation. GALLBLADDER AND BILE DUCTS: Unremarkable. PANCREAS: Unremarkable. No gross lesion or ductal dilatation. SPLEEN: Unremarkable. ADRENALS: Unremarkable. No mass. KIDNEYS AND URETERS: Unremarkable. No hydronephrosis. No solid mass. VASCULATURE: Unremarkable. No aortic aneurysm. A caval filter is present BOWEL: Unremarkable. No obstruction. No gross mural thickening. APPENDIX: Normal appendix. PERITONEUM: Unremarkable. No free fluid. No free air. LYMPH NODES: Unremarkable. No enlarged lymph nodes. BLADDER: Unremarkable. REPRODUCTIVE: Unremarkable. BONES: Multiple compression fractures. Previous vertebroplasty at T12. OTHER FINDINGS: None. IMPRESSION: No acute intra-abdominal findings
[2018-01-09] MEDS ORDERED: Morphine 2 mg/ml ISec IVP STA (11:49)
[2018-01-09] MEDS ORDERED: Morphine 4 mg/ml ISec IVP STA (11:53)
[2018-01-09 12:43] LABS: PH,URINE 7.5 (4.7-8.0); URINE BILIRUBIN NEGATIVE (NEGATIVE); URINE BLOOD NEGATIVE (NEGATIVE); URINE GLUCOSE (UA) NEGATIVE (NEGATIVE); URINE LEUKOCYTE ESTERASE NEGATIVE Leu/uL (NEGATIVE); URINE PROTEIN NEGATIVE mg/dL (<30 mg/dL); URINE UROBILINOGEN 0.2 E.U./dL (<1 E.U./dL)
[2018-01-09 12:46] LABS: URINE APPEARANCE CLEAR (CLEAR); URINE COLOR YELLOW (YELLOW)
[2018-01-09 13:05] VITALS: PULSE 85; RESP 17
[2018-01-09 13:33] VITALS: BP 118/78; O2SAT 99
--- NOTE | 2018-01-09 13:50 | RAD ---
HISTORY: Dizziness. COMPARISON: 05/28/2017 FINDINGS: LUNGS: No active pulmonary disease. PLEURA: No significant pleural effusion identified, no pneumothorax apparent. CARDIOVASCULAR: No radiographic findings to suggest acute or significant cardiovascular disease. OSSEOUS STRUCTURES: No significant abnormalities. VISUALIZED UPPER ABDOMEN: Normal. OTHER FINDINGS: None. IMPRESSION: No active disease. Resolution right lower lobe infiltrate identified previously.
--- NOTE | 2018-01-09 19:24 | CARD ---
APPROVED REPORT EKG Measurement Heart [id number] <Conclusion> Normal sinus rhythm Normal ECG
== END 2018-01-09 13:33 | disposition home or self-care (01) ==
LOC: ED 09:15
DX: G89.29 Other chronic pain (principal); M54.5 Low back pain; R10.9 Unspecified abdominal pain; I10 Essential (primary) hypertension; M32.9 Systemic lupus erythematosus, unspecified
CPT/HCPCS: 70450; 71045; 74177; 80053; 81003; 82550; 82948; 83615; 83690; 84484; 85025; 85610; 85730; 87086; 93005; 96361; 96374; 96375; 99285; J2270; J2405; J7040; Q9967

== ENCOUNTER 2018-03-13 13:49 | Emergency (ER) | payer OTHER ==
[2018-03-13 13:50] VITALS: BMI 40.0
--- NOTE | 2018-03-13 14:16 | ED PDOC ---
Arrival/HPI - General Time Seen by Provider: 03/13/18 14:14 Historian: Patient - History of Present Illness Narrative History of Present Illness (Text): 03/13/18 14:15 58 y/o female, pmh including chronic mid and lower back pain with compression fracture with vertebral plasty done on T12 with radiating pain to the lower extremity/chronic abdominal pain, allergic to penicillin/nsaid and codeine but not allergic to other opiod, c/o mid lower back pain for over several months. Pt. stated that she has chronic compression fracture with vertebral plasty done on the level T12, unable to see her own pmd for pain medication which she only has tylenol at home for pain, been having pain, here at the ER for pain management, no new injury or fall, feels like the same type of pain with same severity and characteristic as her chronic pain, no urinary or bowel incontinence or retention, occasionally the pain radiating to the bilateral flank region but no urinary symptoms, no night sweat, no nausea or vomiting, no other medical or psychological complaints. Past Medical History - Provider Review Nursing Documentation Reviewed: Yes - Infectious Disease Hx of Infectious Diseases: None - Tetanus Immunization Tetanus Immunization: Unknown - Cardiac Hx Cardiac Disorders: Yes Hx Hypertension: Yes - Pulmonary Hx Respiratory Disorders: Yes Hx Asthma: Yes - Neurological Hx Neurological Disorder: Yes Hx Dizziness: Yes - HEENT Hx HEENT Disorder: No - Renal Hx Renal Disorder: No - Endocrine/Metabolic Hx Endocrine Disorders: Yes Hx Systemic Lupus Erythematosus: Yes - Hematological/Oncological Hx Blood Disorders: No - Integumentary Hx Dermatological Disorder: Yes (shingles) - Musculoskeletal/Rheumatological Hx Musculoskeletal Disorders: Yes Hx Arthritis: Yes - Gastrointestinal Hx Gastrointestinal Disorders: Yes - Genitourinary/Gynecological Hx Genitourinary Disorders: No - Psychiatric Hx Psychophysiologic Disorder: Yes Hx Depression: Yes Hx Substance Use: No - Surgical History Hx Orthopedic Surgery: Yes (Lumbar fusion, T12 kyphoplasty) Other/Comment: back surgery x2 february and april 2017 - Anesthesia Hx Anesthesia: Yes Hx Anesthesia Reactions: No Hx Malignant Hyperthermia: No - Suicidal Assessment Feels Threatened In Home Enviroment: No Family/Social History - Physician Review Nursing Documentation Reviewed: Yes Family/Social History: Unknown Family HX Smoking Status: Never Smoked Hx Alcohol Use: No Hx Substance Use: No Hx Substance Use Treatment: No Allergies/Home Meds Allergies/Adverse Reactions: Allergies aspirin Allergy (Verified 03/13/18 14:12) RASH codeine Allergy (Verified 03/13/18 14:12) RASH penicillin G Allergy (Verified 03/13/18 14:12) SWELLING Home Medications: Home Meds Medication Instructions Recorded Confirmed Clonazepam [Klonopin] 1 tab PO DAILY 05/07/17 01/09/18 Gabapentin [Neurontin] 300 mg PO Q8 05/07/17 01/09/18 Hydrocodone/Acetaminophen 1 tab PO QID PRN 05/07/17 01/09/18 [Hydrocodone-Acetaminophen 325 mg-7 mg] QUEtiapine [SEROquel] 1 tab PO HS 05/07/17 01/09/18 Clopidogrel [Plavix] 1 tab PO DAILY 05/28/17 01/09/18 Methotrexate 2.5 mg PO Q7D 05/28/17 01/09/18 hydroCHLOROthiazide [Microzide] 1 cap PO DAILY 05/28/17 01/09/18 traMADol [Ultram] 1 tab PO Q8H PRN 05/28/17 01/09/18 Duloxetine HCl 30 mg PO DAILY 08/23/17 01/09/18 Folic Acid 1 mg PO DAILY 08/23/17 01/09/18 Hydroxychloroquine Sulfate 200 mg PO BID 08/23/17 01/09/18 [Plaquenil] Metoprolol Succinate [Toprol XL] 25 mg PO DAILY 08/23/17 01/09/18 Pregabalin [Lyrica] 150 mg PO BID 08/23/17 01/09/18 Sucralfate [Carafate Tab] 1 gm PO Q6 08/23/17 01/09/18 Simvastatin [Zocor] 40 mg PO DAILY 01/09/18 01/09/18 Review of Systems - Review of Systems Constitutional: absent: Fatigue, Weight Change Eyes: absent: Vision Changes ENT: absent: Hearing Changes Respiratory: absent: SOB, Cough Cardiovascular: absent: Chest Pain Gastrointestinal: absent: Abdominal Pain, Nausea, Vomiting Musculoskeletal: Back Pain. absent: Arthralgias, Neck Pain, Joint Swelling, Myalgias Skin: absent: Rash, Pruritis Neurological: absent: Headache, Dizziness Psychiatric: absent: Anxiety, Depression, Suicidal Ideation Physical Exam Vital Signs Reviewed: Yes Vital Signs Temp Pulse Resp BP Pulse Ox 03/13/18 14:13 98.5 F 89 16 119/88 100 Temperature: Afebrile Blood Pressure: Normal Pulse: Regular Respiratory Rate: Normal Appearance: Positive for: Well-Appearing, Non-Toxic, Comfortable Pain Distress: Moderate Mental Status: Positive for: Alert and Oriented X 3 - Systems Exam Head: Present: Atraumatic, Normocephalic Pupils: Present: PERRL Extroacular Muscles: Present: EOMI Conjunctiva: Present: Normal Mouth: Present: Moist Mucous Membranes Neck: Present: Normal Range of Motion Respiratory/Chest: Present: Clear to Auscultation, Good Air Exchange. No: Respiratory Distress, Accessory Muscle Use Cardiovascular: Present: Regular Rate and Rhythm, Normal S1, S2. No: Murmurs Abdomen: No: Tenderness, Distention, Peritoneal Signs Back: Present: Normal Inspection, Other (Thoracic to LS spine: no midline tenderness or step off, no visible opening scar or opening wound, no cellulitis or streaking, no ulcers, FROM without limitation but with pain, sensation intact , motor 5/5, no saddling gait, no rash, back brace noted. ). No: CVA Tenderness , Midline Tenderness, Paraspinal Tenderness, Pain with Leg Raise, Decubitus Ulcer Upper Extremity: Present: Normal Inspection. No: Cyanosis, Edema Lower Extremity: Present: Normal Inspection. No: Edema Neurological: Present: GCS=15, CN II-XII Intact, Speech Normal, Motor Func Grossly Intact, Gait Normal, Memory Normal, Other (walking with cane) Skin: Present: Warm, Dry, Normal Color. No: Rashes Psychiatric: Present: Alert, Oriented x 3, Normal Insight, Normal Concentration Medical Decision Making ED Course and Treatment: 03/13/18 14:49 -Morphine 4mg IM as her pain follows the dermatome layer for the T12. -Discussed the case with Dr. Chowdhury and agreed on the diagnosis/treatment and discharge plan. 03/13/18 16:55 -Pt. feels much better, walking with normal gait and posture, no pain, request to be discharged home. -I reviewed the [facility] report and no visible signs of drug abuse. Pt. is not allergic to percocet -Discharge home with lidoderm patch, percocet, bed rest, follow up with your with your own pmd and orthopedic/pain management within 2 days, return to the ER for any new or worsening signs or symptoms. - Medication Orders Current Medication Orders: Discontinued Medications Morphine Sulfate (Morphine) 4 mg IM STAT STA Stop: 03/13/18 14:43 Last Admin: 03/13/18 15:07 Dose: 4 mg MAR Pain Assessment Document 03/13/18 15:07 МАРИЯ (Rec: 03/13/18 15:07 [facility] [id number]) Pain Reassessment Is this a pain reassessment? No Sleep Is patient sleeping during reassessment? No Presence of Pain Presence of Pain Yes IM Administration Charges Document 03/13/18 15:07 МАРИЯ (Rec: 03/13/18 15:07 [facility] [id number]) Charges for Administration # of IM Administrations 1 - PA / SPREAD CUTTER / Resident Statement MD/DO has reviewed & agrees with the documentation as recorded. Disposition/Present on Arrival - Present on Arrival Any Indicators Present on Arrival: No History of DVT/PE: No History of Uncontrolled Diabetes: No Urinary Catheter: No History of Decub. Ulcer: No History Surgical Site Infection Following: None - Disposition Have Diagnosis and Disposition been Completed?: Yes Diagnosis: Chronic back pain Disposition: HOME/ ROUTINE Disposition Time: 16:58 Condition: IMPROVED Additional Instructions: -Discharge home with lidoderm patch, percocet, bed rest, follow up with your with your own pmd and orthopedic/pain management within 2 days, return to the ER for any new or worsening signs or symptoms. Prescriptions: Lidocaine 5% [Lidoderm] 1 patch TP DAILY PRN #14 patch PRN Reason: Other oxyCODONE/Acetaminophen [Percocet 5/325 mg Tab] 1 tab PO QID PRN #12 tab PRN Reason: Other Referrals: Seb Rush MD [Primary Care Provider] - Follow up with primary Aydin Hinds MD [Staff Provider] - Follow up with primary Gwendolyn Snow MD [Staff Provider] - Follow up with primary Forms: WORK NOTE
[2018-03-13 14:19] VITALS: TEMP 98.5
[2018-03-13] MEDS ORDERED: Morphine 4 mg/ml ISec IM STA (14:42)
[2018-03-13 17:20] VITALS: BP 130/80; PULSE 76; RESP 18; O2SAT 98
== END 2018-03-13 17:20 | disposition home or self-care (01) ==
LOC: ED 13:49
DX: G89.29 Other chronic pain (principal); M54.5 Low back pain; I10 Essential (primary) hypertension; M32.9 Systemic lupus erythematosus, unspecified
CPT/HCPCS: 96372; 99283; J2270

== ENCOUNTER 2018-11-06 15:42 | Emergency (ER) | payer OTHER ==
[2018-11-06 16:06] VITALS: TEMP 98.5
[2018-11-06 16:07] VITALS: BMI 24.9
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
[2018-11-06 17:36] LABS: ALB/GLOB RATIO 1.4 (1.1-1.8); ALBUMIN 3.7 g/dL (3.0-4.8); ALT/SGPT 45 U/L (7-56); AMYLASE 77 U/L (35-125); AST/SGOT 31 U/L (14-36); BLOOD UREA NITROGEN 31 mg/dL (7-21); CALCIUM 8.8 mg/dL (8.4-10.5); GFR NON-AFRICAN AMERICAN 51; LIPASE 68 U/L (23-300)
--- NOTE | 2018-11-06 17:43 | RAD ---
Date of service: 11/06/2018 HISTORY: abdominal pain COMPARISON: Chest radiograph dated 01/09/2018. FINDINGS: LUNGS: No active pulmonary disease. PLEURA: No significant pleural effusion identified, no pneumothorax apparent. CARDIOVASCULAR: Aortic atherosclerotic calcifications. Cardiomediastinal silhouette stably enlarged. OSSEOUS STRUCTURES: Prior T12 vertebral augmentation redemonstrated. Unchanged. VISUALIZED UPPER ABDOMEN: Normal. OTHER FINDINGS: None. IMPRESSION: No active disease.
[2018-11-06 17:45] LABS: TROPONIN I 0.01 ng/mL
--- NOTE | 2018-11-06 17:45 | RAD ---
Date of service: 11/06/2018 PROCEDURE: Radiographs of the Left Shoulder HISTORY: left arm injury COMPARISON: No prior. FINDINGS: BONES: Avulsion/displaced fracture of the greater tuberosity which appears to be in the subacromial space. JOINTS: Unremarkable. SOFT TISSUES: Normal. OTHER FINDINGS: None. IMPRESSION: Avulsion/displaced fracture of the greater tuberosity which appears to be in the subacromial space.
[2018-11-06 17:48] LABS: URINE BILIRUBIN NEGATIVE (NEGATIVE); URINE BLOOD NEGATIVE (NEGATIVE); URINE GLUCOSE (UA) NEGATIVE (NEGATIVE); URINE LEUKOCYTE ESTERASE TRACE Leu/uL (NEGATIVE); URINE PROTEIN NEGATIVE mg/dL (<30 mg/dL); URINE UROBILINOGEN 0.2 E.U./dL (<1 E.U./dL)
[2018-11-06 17:49] LABS: BASO # 0.01 K/mm3 (0.0-2.0); BASO % 0.1 % (0.0-3.0); EOS # 0.2 (0.0-0.7); EOS % 2.5 % (1.5-5.0); GRAN # 4.87 (1.4-6.5); GRAN % 67.9 % (50.0-68.0); HEMOGLOBIN 11.2 g/dL (12.0-16.0); LYMPH # 1.6 (1.2-3.4); LYMPH % 22.8 % (22.0-35.0); MEAN CELL VOLUME 96.7 fl (80.0-105.0); MEAN CORPUSCULAR HEMOGLOBIN 30.9 pg (25.0-35.0); MEAN PLATELET VOLUME 11.2 fl (7.0-11.0); MONO # 0.5 (0.1-0.6); MONO % 6.7 % (1.0-6.0); RBC 3.62 10^6/uL (3.5-6.1); RED CELL DISTRIBUTION WIDTH 14.8 % (11.5-14.5); WHITE BLOOD COUNT 7.2 10^3/uL (4.5-11.0)
[2018-11-06] MEDS ORDERED: Sodium Chloride 0.9% 1,000 ML IV STA (17:50)
[2018-11-06 17:51] LABS: INR 1.08; PARTIAL THROMBOPLASTIN TIME 34.2 Seconds (26.9-38.3)
[2018-11-06 17:58] LABS: URINE APPEARANCE CLEAR (CLEAR); URINE COLOR LIGHT YELLOW (YELLOW)
[2018-11-06 18:24] LABS: URINE BACTERIA FEW /hpf; URINE RBC 0 - 2 /hpf (0-2)
[2018-11-06] MEDS ORDERED: Iohexol 350 MG/100 ML VIAL ONE (18:33)
[2018-11-06] MEDS ORDERED: Lidocaine 5% Patch TD STA (20:33)
[2018-11-06 21:13] VITALS: BP 121/62; PULSE 88; RESP 16; O2SAT 99
--- NOTE | 2018-11-07 08:35 | CT ---
Date of service: 11/06/2018 PROCEDURE: CT Abdomen and Pelvis with contrast HISTORY: abdominal and flank pain COMPARISON: 01/09/2018 CT TECHNIQUE: Contrast dose: 100 cc of Omni 350 Radiation dose: Total exam DLP = 495.29 mGy-cm. This CT exam was performed using one or more of the following dose reduction techniques: Automated exposure control, adjustment of the mA and/or kV according to patient size, and/or use of iterative reconstruction technique. FINDINGS: LOWER THORAX: Unremarkable. LIVER: Unremarkable. No gross lesion or ductal dilatation. GALLBLADDER AND BILE DUCTS: Unremarkable. PANCREAS: Unremarkable. No gross lesion or ductal dilatation. SPLEEN: Unremarkable. ADRENALS: Unremarkable. No mass. KIDNEYS AND URETERS: Unremarkable. No hydronephrosis. No solid mass. VASCULATURE: Unremarkable. No aortic aneurysm. No aortic atherosclerotic calcification or mural plaque present. Caval filter BOWEL: Unremarkable. No obstruction. No gross mural thickening. Moderate constipation APPENDIX: Normal appendix. PERITONEUM: Unremarkable. No free fluid. No free air. LYMPH NODES: Unremarkable. No enlarged lymph nodes. BLADDER: Unremarkable. REPRODUCTIVE: Unremarkable. BONES: Multiple compression fractures with previous vertebroplasty T12. Findings are unchanged OTHER FINDINGS: The report concurs with the preliminary [facility] report IMPRESSION: No acute intra-abdominal findings.
--- NOTE | 2018-11-07 09:07 | RAD ---
Date of service: 11/06/2018 PROCEDURE: Left Wrist Radiographs. HISTORY: trauma r/o fracture COMPARISON: None. FINDINGS: BONES: Normal. No fracture. JOINTS: Normal. No dislocation. SOFT TISSUES: Normal. OTHER FINDINGS: None. IMPRESSION: Negative study
--- NOTE | 2018-11-07 09:16 | RAD ---
Date of service: 11/06/2018 PROCEDURE: Radiographs of the left elbow. HISTORY: trauma r/o fracture COMPARISON: No prior. FINDINGS: BONES: Normal. No fracture. JOINTS: Degenerative changes are seen. There is joint space narrowing and osteophyte formation in the proximal ulna SOFT TISSUES: Normal. JOINT EFFUSION: None. OTHER FINDINGS: None IMPRESSION: No acute findings
--- NOTE | 2018-11-07 13:42 | CARD ---
APPROVED REPORT Date of service: 11/06/2018 EKG Measurement Heart [id number] <Conclusion> Normal sinus rhythm Poor R wave progression in Precordial leads Abnormal ECG
== END 2018-11-06 21:12 | disposition home or self-care (01) ==
LOC: ED 15:42
DX: S42.252D Displaced fracture of greater tuberosity of left humerus, subsequent encounter for fracture with routine healing (principal); Y09 Assault by unspecified means; N39.0 Urinary tract infection, site not specified; M54.9 Dorsalgia, unspecified; G89.29 Other chronic pain; R10.9 Unspecified abdominal pain; I10 Essential (primary) hypertension; M32.9 Systemic lupus erythematosus, unspecified
CPT/HCPCS: 71045; 73030; 73080; 73110; 74177; 80053; 81001; 82150; 82550; 83615; 83690; 84484; 85025; 85610; 85730; 87086; 93005; 96361; 96374; 99284; J1885; J7030; Q9967

== ENCOUNTER 2019-01-08 14:09 | Outpatient (CLI) | payer OTHER | END 2019-01-08 14:10 | disposition home or self-care (01) | LOC: RAD 14:09 ==